=== PATIENT | male | born 1955 | race African-American/Black ===

== ENCOUNTER → 2016-08-15 | Outpatient (CLI) | payer OTHER ==
[2016-06-23 10:33] VITALS: BP 110/58
[~2016-08-15] MED LIST: ALBU2.5V14 NEB; ALBU8.5H6 INH; AMLO2.5T2 PO; AMLO5TAB4 PO; ASPI-482 PO; ASPI81TA2 PO; AZAT50TA PO; AZAT50TA10 PO; AZIT250T6 PO; BUSP15TA PO; BUTA1CAP27 PO; CALC625T20 PO; DILT120C97 PO; DILT180C2 PO; DOCU-27 PO; ERGO500012 PO; FERR-26 PO; FINA5TAB4 PO; FLUT1DIS5 IH; FLUT9.9S NS; FURO-68 PO; FURO20TA3 PO; FURO40TA4 PO; GUAI600T38 PO; IPRA0.2S5 IH; LISI-338 PO; LISI10TA PO; LISI10TA2 PO; LORA10CA PO; LORA10TA68 PO; MAGN296S PO; MAGN400T3 PO; METO50TA2 PO; METR500T PO; MULT-658 PO; OMEP40CA5 PO; POTA20TA12 PO; PRED-220 PO; RANI150C PO; RIVA20TA2 PO; SIME250C PO; SIME80TA14 PO; SIMV20TA3 PO; SULF1TAB3 PO; TAMS0.4C2 PO; TROL177. TP; ZIPR80CA2 PO
--- NOTE | 2016-08-15 11:59 | RAD ---
CT of the chest without contrast, 08/15/2016: History: Lung nodule Noncontrast scans were obtained as requested and compared to a study from 02/29/2016. There is a part solid parenchymal opacity abutting the pleura in the medial aspect of the left apex as seen on image 42 of series #3. It measures approximately 15 mm in width and has shown no definite change since 02/29/2016. A nearby 6 mm groundglass opacity in the left apex seen on image 46 of series #3 is also unchanged. A similar faint groundglass opacity seen anteriorly in the left upper lobe on image 73 of series #3 is also unchanged. A 4 mm groundglass opacity in the posterior aspect of the left upper lobe as seen on image 140 of series #3 is also unchanged. There is a calcified granuloma in the posterior aspect of the left lower lobe. A tiny groundglass opacity seen medially in the left lower lobe on image 169 of series #3 appears to be unchanged. A 6 mm rounded groundglass opacity seen laterally in the right upper lobe on image 120 of series #3 is unchanged. An elongated, multinodular appearing opacity evident in the right lower lobe on image 170 of the previous exam has resolved, compatible with an inflammatory lesion. A new elongated opacity with similar characteristics has developed anteriorly in the right lower lobe on image 201 of series #3. This is most likely on an inflammatory basis. Several tiny linear and subpleural nodular opacities in the anterolateral aspect of the right lower lobe appear to be partially calcified. These are unchanged and are compatible with scars. Additional scattered linear opacities in both lungs are probably scars. Several other very tiny nodular opacity in the lungs appear to be unchanged. There is moderate calcific plaquing of the thoracic aorta. Moderate scattered coronary artery calcifications are present. There are calcified mediastinal and left hilar lymph nodes compatible with old granulomatous disease. No mediastinal adenopathy has developed. There is no evidence of pleural fluid. A tiny radiopacity along the posterior wall of the gallbladder raises the possibility of tiny gallstones. There are surgical clips in the right renal fossa. IMPRESSION: 1. Numerous bilateral parenchymal opacities as described above are predominantly stable. 2. A new elongated right lower lobe pulmonary opacity demonstrates a configuration similar to that of a prior right lower lobe opacity which has resolved. This is probably an inflammatory lesion. Further CT surveillance is suggested. 3. Coronary artery disease. PQRS Compliance Statement: One or more of the following individualized dose reduction techniques were utilized for this examination: 1. Automated exposure control 2. Adjustment of the mA and/or kV according to patient size 3. Use of iterative reconstruction technique
== END | disposition home or self-care (01) ==
LOC: CT 07:16
PROVIDERS: ATTEND Internal Medicine Pulmonary Disease
DX: R91.1 Solitary pulmonary nodule (principal)
CPT/HCPCS: 71250

== ENCOUNTER 2016-08-26 07:17 | Emergency (ER) | payer OTHER ==
[~2016-08-26] VITALS: Ht 180.3 cm; Wt 108.4 kg
[~2016-08-26 07:17] MED LIST changes: -MAGN296S PO
--- NOTE | 2016-08-26 07:19 | PHYS DOC ---
Past Medical History Past Medical History: Bronchitis, GERD, High Cholesterol, Hypertension, Migraines, Schizophrenia Additional Past Medical Histor: PARANOID SCHIZO. Past Surgical History: Other Additional Past Surgical Histo: R nephrectomy, uvula sx, sinus polyps removed Alcohol Use: Occasionally Drug Use: None Adult General Chief Complaint Chief Complaint: CONSTIPATION HPI HPI Patient is a 61 year old male who presents with, well pain and constipation. States on he started having harder stools in the last 2 days he hasn't had any stools. States yesterday he was able to eat one meal but otherwise felt nauseated and having lower quadrant pressure sensation. He states it comes and goes, like he needs to have a bowel movement. He states he still passing gas. He has had a nephrectomy secondary to cysts in his right kidney. He states he's had issues with constipation and uses docasate, however he's never had constipation this bad. Denies any chest pain, vomiting, black tarry stools, bleeding in his stools of bright red blood, fevers or chills. Review of Systems Review of Systems Constitutional: Denies fever or chills [] Eyes: Denies change in visual acuity, redness, or eye pain [] HENT: Denies nasal congestion or sore throat [] Respiratory: Denies cough or shortness of breath [] Cardiovascular: No additional information not addressed in HPI [] GI: Denies vomiting, bloody stools or diarrhea, positive for abdominal pain and constipation. [] : Denies dysuria or hematuria [] Musculoskeletal: Denies back pain or joint pain [] Integument: Denies rash or skin lesions [] Neurologic: Denies headache, focal weakness or sensory changes [] Endocrine: Denies polyuria or polydipsia [] Current Medications Current Medications Current Medications Medications (Trade) Dose Ordered Sig/Gigi Start Time Stop Time Status Last Admin Dose Admin Iohexol 75 ml 75 ml 1X ONCE 08/26/16 08:45 08/26/16 08:46 DC 08/26/16 08:48 75 ML Sodium Chloride (Iv Sodium Chloride 0.9% 1000ml Bag) 1,000 ml @ 1,000 mls/hr 1X ONCE 08/26/16 09:45 08/26/16 10:44 08/26/16 09:53 1,000 MLS/HR Allergies Allergies Allergies Coded Allergies Type Severity Reaction Last Updated Verified chlorpromazine Allergy Intermediate 01/15/15 Yes montelukast Allergy Intermediate 01/15/15 Yes trifluoperazine Allergy Intermediate 01/15/15 Yes Physical Exam Physical Exam Constitutional: Well developed, well nourished, no acute distress, non-toxic appearance. [] HENT: Normocephalic, atraumatic, bilateral external ears normal, oropharynx moist, no oral exudates, nose normal. [] Eyes: PERRLA, EOMI, conjunctiva normal, no discharge. [] Neck: Normal range of motion, no tenderness, supple, no stridor. [] Cardiovascular:Heart rate regular rhythm, no murmur [] Lungs & Thorax: Bilateral breath sounds clear to auscultation [] Abdomen: Bowel sounds hypoactive, soft, mild tenderness palpation the lower quadrants bilaterally, no masses, no pulsatile masses. [] Skin: Warm, dry, no erythema, no rash. Large abdominal scar from his umbilicus around to his right flank that is well-healed. Back: No tenderness, no CVA tenderness. [] Extremities: No tenderness, no cyanosis, no clubbing, ROM intact, no edema. [] Neurologic: Alert and oriented X 3, normal motor function, normal sensory function, no focal deficits noted. [] Psychologic: Affect normal, judgement normal, mood normal. [] Current Patient Data Vital Signs Vital Signs Date Time Temp Pulse Resp B/P Pulse Ox O2 Delivery O2 Flow Rate FiO2 08/26/16 07:38 97.6 80 20 154/76 100 Room Air 97.6 Lab Values Laboratory Tests Test 08/26/16 07:50 08/26/16 07:55 Urine Collection Type Void Urine Color Yellow Urine Clarity Clear Urine pH 8.0 Urine Specific [place] <=1.005 Urine Protein Negativemg/dL (NEG-TRACE) Urine Glucose (UA) Negativemg/dL (NEG) Urine Ketones (Stick) Negativemg/dL (NEG) Urine Blood Negative (NEG) Urine Nitrite Negative (NEG) Urine Bilirubin Negative (NEG) Urine Urobilinogen Dipstick 0.2mg/dL (0.2 mg/dL) Urine Leukocyte Esterase Negative (NEG) Urine RBC 0/HPF (0-2) Urine WBC 0/HPF (0-4) Urine Bacteria 0/HPF (0-FEW) White Blood Count 5.7x10^3/uL (4.0-11.0) Red Blood Count 4.28x10^6/uL (4.30-5.70) L Hemoglobin 13.2g/dL (13.0-17.5) Hematocrit 40.4% (39.0-53.0) Mean Corpuscular Volume 94fL (79-100) Mean Corpuscular Hemoglobin 31pg (25-35) Mean Corpuscular Hemoglobin Concent 33g/dL (31-37) Red Cell Distribution Width 14.8% (11.5-14.5) H Platelet Count 333x10^3/uL (140-400) Neutrophils (%) (Auto) 56% (31-73) Lymphocytes (%) (Auto) 29% (24-48) Monocytes (%) (Auto) 12% (0-9) H Eosinophils (%) (Auto) 2% (0-3) Basophils (%) (Auto) 1% (0-3) Neutrophils # (Auto) 3.2x10^3uL (1.8-7.7) Lymphocytes # (Auto) 1.6x10^3/uL (1.0-4.8) Monocytes # (Auto) 0.7x10^3/uL (0.0-1.1) Eosinophils # (Auto) 0.1x10^3/uL (0.0-0.7) Basophils # (Auto) 0.1x10^3/uL (0.0-0.2) PTT 30SEC (24-38) Sodium Level 143mmol/L (136-145) Potassium Level 3.7mmol/L (3.5-5.1) Chloride Level 102mmol/L (98-107) Carbon Dioxide Level 28mmol/L (21-32) Anion Gap 13 (6-14) Blood Urea Nitrogen 24mg/dL (8-26) Creatinine 1.3mg/dL (0.7-1.3) Estimated GFR (Cockcroft-Gault) 67.5 BUN/Creatinine Ratio 18 (6-20) Glucose Level 114mg/dL (70-99) H Calcium Level 10.1mg/dL (8.5-10.1) Total Bilirubin 0.3mg/dL (0.2-1.0) Aspartate Amino Transferase (AST) 41U/L (15-37) H Alanine Aminotransferase (ALT) 60U/L (16-63) Alkaline Phosphatase 63U/L (46-116) Creatine Kinase 978U/L (39-308) H Total Protein 7.7g/dL (6.4-8.2) Albumin 4.0g/dL (3.4-5.0) Albumin/Globulin Ratio 1.1 (1.0-1.7) Lipase 135U/L (73-393) Laboratory Tests 08/26/16 07:55 Laboratory Tests 08/26/16 07:55 EKG EKG [] Radiology/Procedures Radiology/Procedures [facility] [address] [place], [place] [id number] IMAGING REPORT Signed PATIENT: JOURDAN RECINOS ACCOUNT: [id number] : 1955 LOCATION: ER AGE: 61 SEX: M EXAM STATUS: REG ER ORD. PHYSICIAN: AVA DENNIS MD REASON: abd pain PROCEDURE: ABD PELV W/ IV CONTRAST ONLY CT of the abdomen and pelvis with contrast, 08/26/2016: History: Abdominal pain Multidetector CT imaging was performed following an IV bolus injection of iodinated contrast material. No oral contrast material was administered as requested. Comparison is made to a study from 03/15/2008. There is mild streaky atelectasis in the lung bases. The unopacified liver is unremarkable. There is a faint radiopacity at the level of the gallbladder neck raising the possibility of tiny calculi. The gallbladder arango are not thickened. No pericholecystic edema is seen. The pancreas is unremarkable. The spleen is of normal size. The right kidney is surgically absent. Two low density left renal lesions are probably cysts. There are moderate motion artifacts present on the scans through this region. Moderate aortoiliac calcific plaquing is present without evidence of aneurysm. No abdominal or pelvic adenopathy is seen. The prostate gland is mildly enlarged measuring 5.3 cm in width. The urinary bladder is moderately distended. There is radiopaque material mixed with stool in the colon probably from a previous diagnostic study. A few scattered colonic diverticula are present. There is no evidence of bowel obstruction. No free fluid or free air is evident in the abdomen or pelvis. There is bilateral spondylolysis at L5 with a grade 2 spondylolisthesis at L5-S1. There are mild scattered degenerative changes at other levels in the spine. IMPRESSION: 1. Mild nonspecific prostatic enlargement. 2. Moderate bladder distention. 3. Possible cholelithiasis. 4. Status post right nephrectomy. 5. Small left renal cysts. 6. Mild colonic diverticulosis 7. Moderate spondylolisthesis at L5-S1 DICTATED and SIGNED BY: AIME WHITE MD DATE: 08/26/16904 CC: AVA DENNIS MD; MARVIN MANZANO MD ~ Impressions: Abdominal pain Course & Med Decision Making Course & Med Decision Making Pertinent Labs and Imaging studies reviewed. (See chart for details) CT scan and labs show any acute abdomen allergies. His CK is slightly elevated however he's received 2 L of normal saline. He has a normal echo within the last year. He's being discharged home with mag citrate instructed to drink half of it now than wait 6 hours and no success drinking other half. He is to follow- up with primary care physician within the next few days. Return the ER for worsening pain fevers or other concerns. Dragon Disclaimer Dragon Disclaimer This electronic medical record was generated, in whole or in part, using a voice recognition dictation system. Departure Departure Impression: Primary Impression: Constipation Disposition: 01 HOME, SELF-CARE Condition: IMPROVED Referrals: MARVIN MANZANO MD (PCP) Patient Instructions: Constipation, Adult Additional Instructions: The CAT scan and blood work did not show any abnormalities. You likely have constipation. He can take mag citrate as instructed. Drink approximate half of the bottle and if you don't have a normal bowel movement within 6 hours you can drink the other half. If you have worsening pain, uncontrolled nausea vomiting or other concerns please return back to the emergency department. Scripts Magnesium Citrate 296 Ml [id number] Ml PO ONCE #296 ML Drink one half the bottle now and if you do not have a bowel movement within 6 hours and he can drink the other half the bottle. Prov:AVA DENNIS MD 08/26/16 AVA DENNIS MD Aug 26, 2016 07:19
[2016-08-26] MEDS ORDERED: IV NORMAL SALINE 1000ML BAG 1,000 ML IV SCH (07:39)
[2016-08-26 08:12] LABS: BASO # 0.1 x10^3/uL (0.0-0.2); BASO % 1 % (0-3); EOS % 2 % (0-3); HEMATOCRIT 40.4 % (39.0-53.0); HEMOGLOBIN 13.2 g/dL (13.0-17.5); LYMPH # 1.6 x10^3/uL (1.0-4.8); LYMPH % 29 % (24-48); MEAN CORPUSCULAR HEMOGLOBIN 31 pg (25-35); MEAN CORPUSCULAR HGB CONC 33 g/dL (31-37); MEAN CORPUSCULAR VOLUME 94 fL (79-100); MONO % 12 % (0-9); NEUT % 56 % (31-73); PLATELET COUNT 333 x10^3/uL (140-400); RED BLOOD COUNT 4.28 x10^6/uL (4.30-5.70); RED CELL DISTRIBUTION WIDTH 14.8 % (11.5-14.5); WHITE BLOOD COUNT 5.7 x10^3/uL (4.0-11.0)
[2016-08-26 08:15] LABS: CALCIUM 10.1 mg/dL (8.5-10.1); CREATININE 1.3 mg/dL (0.7-1.3); GFR 67.5; POTASSIUM 3.7 mmol/L (3.5-5.1)
[2016-08-26 08:15] LABS: BILIRUBIN,URINE NEGATIVE (NEG); GLUCOSE,URINE NEGATIVE (NEG); NITRITE,URINE NEGATIVE (NEG); PROTEIN,URINE NEGATIVE (NEG-TRACE); UROBILINOGEN,URINE 0.2 mg/dL (0.2 mg/dL)
[2016-08-26 08:16] LABS: BACTERIA,URINE 0 /HPF (0-FEW); RBC,URINE 0 /HPF (0-2); WBC,URINE 0 /HPF (0-4)
[2016-08-26 08:21] LABS: ALBUMIN/GLOBULIN RATIO 1.1 (1.0-1.7); TOTAL BILIRUBIN 0.3 mg/dL (0.2-1.0); TOTAL PROTEIN 7.7 g/dL (6.4-8.2)
[2016-08-26] MEDS ORDERED: IOHEXOL 300 MG/ML 75 ML VIAL IV ONE (08:45)
--- NOTE | 2016-08-26 09:17 | RAD ---
CT of the abdomen and pelvis with contrast, 08/26/2016: History: Abdominal pain Multidetector CT imaging was performed following an IV bolus injection of iodinated contrast material. No oral contrast material was administered as requested. Comparison is made to a study from 03/15/2008. There is mild streaky atelectasis in the lung bases. The unopacified liver is unremarkable. There is a faint radiopacity at the level of the gallbladder neck raising the possibility of tiny calculi. The gallbladder arango are not thickened. No pericholecystic edema is seen. The pancreas is unremarkable. The spleen is of normal size. The right kidney is surgically absent. Two low density left renal lesions are probably cysts. There are moderate motion artifacts present on the scans through this region. Moderate aortoiliac calcific plaquing is present without evidence of aneurysm. No abdominal or pelvic adenopathy is seen. The prostate gland is mildly enlarged measuring 5.3 cm in width. The urinary bladder is moderately distended. There is radiopaque material mixed with stool in the colon probably from a previous diagnostic study. A few scattered colonic diverticula are present. There is no evidence of bowel obstruction. No free fluid or free air is evident in the abdomen or pelvis. There is bilateral spondylolysis at L5 with a grade 2 spondylolisthesis at L5-S1. There are mild scattered degenerative changes at other levels in the spine. IMPRESSION: 1. Mild nonspecific prostatic enlargement. 2. Moderate bladder distention. 3. Possible cholelithiasis. 4. Status post right nephrectomy. 5. Small left renal cysts. 6. Mild colonic diverticulosis 7. Moderate spondylolisthesis at L5-S1
[2016-08-26] MEDS ORDERED: IV NORMAL SALINE 1000ML BAG 1,000 ML IV ONE (09:45)
[2016-08-26] MEDS ORDERED: MAGN296S PO (10:44)
[2016-08-26 11:00] VITALS: BP 154/73
== END 2016-08-26 11:48 | disposition home or self-care (01) ==
LOC: ER 07:17
DX: K59.00 Constipation, unspecified (principal); K21.9 Gastro-esophageal reflux disease without esophagitis; F20.0 Paranoid schizophrenia; E78.00 Pure hypercholesterolemia, unspecified; I10 Essential (primary) hypertension; G43.909 Migraine, unspecified, not intractable, without status migrainosus; N40.0 Benign prostatic hyperplasia without lower urinary tract symptoms; Z90.5 Acquired absence of kidney; Z98.890 Other specified postprocedural states; Z88.8 Allergy status to other drugs, medicaments and biological substances
CPT/HCPCS: 36415; 74177; 80053; 81001; 82550; 83690; 85027; 85730; 96360; 96361; 99285; J7030; Q9967

== ENCOUNTER → 2016-08-27 | Day surgery (SDC) | payer OTHER ==
[~2016-08-27] MED LIST changes: +ALBUTEROL SULFATE 2.5 MG/3 ML NEBU. NEB ONE; +ALBUTEROL SULFATE 2.5 MG/3 ML NEBU. ONE; +FAMOTIDINE 20 MG/2 ML VIAL ONE; +FENTANYL PF 100 MCG/2 ML VIAL. IV PRN; +HYDROMORPHONE 2 MG/ML VIAL. IV PRN; +IV RINGERS,LACTATED 1000ML 1,000 ML IV SCH; +LIDOCAINE 1% 1 ML SYRINGE. ID PRN; +LIDOCAINE 2% PF Vial for OR 5 ML VIAL. ONE; +MAGN296S PO; +MORPHINE SULFATE 2 MG/ML DISP.SYRIN. IV PRN; +ONDANSETRON PF 4 MG/2 ML VIAL. IV PRN; +PROPOFOL 40 ML IV ONE
[2016-08-27 12:24] LABS: BASO % 1 % (0-3); EOS % 0 % (0-3); HEMATOCRIT 39.1 % (39.0-53.0); HEMOGLOBIN 12.9 g/dL (13.0-17.5); LYMPH # 1.4 x10^3/uL (1.0-4.8); LYMPH % 23 % (24-48); MEAN CORPUSCULAR HEMOGLOBIN 31 pg (25-35); MEAN CORPUSCULAR HGB CONC 33 g/dL (31-37); MEAN CORPUSCULAR VOLUME 94 fL (79-100); MONO % 12 % (0-9); NEUT % 64 % (31-73); PLATELET COUNT 325 x10^3/uL (140-400); RED BLOOD COUNT 4.14 x10^6/uL (4.30-5.70); RED CELL DISTRIBUTION WIDTH 14.7 % (11.5-14.5); WHITE BLOOD COUNT 6.1 x10^3/uL (4.0-11.0)
[2016-08-27 12:32] LABS: PROTHROMBIN TIME PATIENT 12.4 SEC (11.7-14.0)
[2016-08-27 13:42] VITALS: BP 102/48
--- NOTE | 2016-08-27 18:58 | OP ---
DATE OF SURGERY: 08/27/2016 PROCEDURE: Bronchoscopy, bronchoalveolar lavage. INDICATIONS: The patient presented with abnormal CT of the chest for persistent nodular infiltrates, compromised with Imuran and prednisone, undergoing a diagnostic bronchoscopy, rule out atypical infection. Risks, benefits and alternatives reviewed with the patient and he consented. MEDICATIONS: Please see anesthesia's notes. DESCRIPTION OF PROCEDURE: Timeout was performed prior to initiating sedation. Vital signs and O2 saturation were maintained within normal limits throughout the procedure. The bronchoscope was inserted through the right naris. The vocal cords were identified moving bilaterally without any dysfunction. The vocal cords were then anesthetized with a total of 5 mL of 4% lidocaine. The bronchoscope was passed through the vocal cords into the proximal trachea, which was normal. The distal trachea was normal. The right and left segments and subsegments were all inspected. There were no endobronchial lesions. The scope was wedged into the right lower lobe subsegment and lavage was performed, the return was clear. The patient tolerated procedure well with no immediate complications. FINDINGS: 1. Normal vocal cords. 2. No endobronchial lesions. PLAN: We will await ____ performed from right lower lobe. VIRGIL RODRIGUEZ MD DR: BRENDAN/charles JOB#: [id number] / [id number] MARVIN Oseguera MD
--- NOTE | 2016-08-28 17:34 | PATHOLOGY ---
CYTOPATHOLOGY REPORT CLINICAL HISTORY: Lung nodule. SPECIMEN(S) RECEIVED: A.Bronchoalveolar lavage, RLL FINAL DIAGNOSIS: Right lower lobe bronchoalveolar lavage, ThinPrep and silver stain: -No malignant cells identified. - Focally reactive bronchial epithelial cells and focally pigmented pulmonary macrophages are identified within a background of mucous and few inflammatory cells. - Silver stain is negative for yeast/fungi and Pneumocystis organisms. (JPM:mgr; d/t: 08/28/16) COMMENT: Special Stain Performed: GMS stain PATHOLOGIST: Corona Olguin M.D. REPORT ELECTRONICALLY SIGNED BY: Corona Olguin M.D. DATE/TIME: 08/28/2016 17:33 GROSS PATHOLOGY: A. Bronchoalveolar lavage, RLL: The specimen is submitted unfixed, labeled "Jourdan Recinos". Received by the Cytology Department is five mL of clear pink fluid. One ThinPrep slide was prepared for pap stain. One ThinPrep slide was prepared for silver stain. (clt 08.27.2016) CLIPPER COUNTERS(S): RAY Ceja(ASCP) INITIAL CPT CODE(S): A; 00634, 31876 Professional services performed [place] [address] Technical services performed by [employer] at [address] [place] [address], [facility] [address], [place] [address]. PATIENT: JOURDAN RECINOS /AGE: 11 1955 (Age: 61) SEX: M PATIENT #: [id number] CASE #: SPECIMEN COLLECTION DATE: 08/27/2016 SPECIMEN RECEIVED DATE: 08/27/[address] [facility] [address] [place] [address], [address] [place] [address] PHONE: [phone] DIRECTOR: Raúl Ortiz M.D. * * * END OF REPORT * * *
== END | disposition home or self-care (01) ==
LOC: SURG 11:00
PROVIDERS: ATTEND Internal Medicine Pulmonary Disease
DX: R91.1 Solitary pulmonary nodule (principal); Z79.01 Long term (current) use of anticoagulants
CPT/HCPCS: 31624; 36415; 85027; 85610; 87070; 87102; 87116; 87205; 88112; 88312; 94640; J2704; S0028; 31622

== ENCOUNTER → 2016-12-10 | Outpatient (CLI) | payer OTHER ==
[2016-08-27 13:42] VITALS: BP 102/48
[~2016-12-10] MED LIST changes: -ALBUTEROL SULFATE 2.5 MG/3 ML NEBU. NEB ONE; -ALBUTEROL SULFATE 2.5 MG/3 ML NEBU. ONE; +ASPI-630 PO; -ASPI81TA2 PO; -AZAT50TA10 PO; +AZAT50TA20 PO; +DILT120C80 PO; -DILT120C97 PO; +DOCU-109 PO; -DOCU-27 PO; -ERGO500012 PO; +ERGO500027 PO; -FAMOTIDINE 20 MG/2 ML VIAL ONE; -FENTANYL PF 100 MCG/2 ML VIAL. IV PRN; -GUAI600T38 PO; +GUAI600T47 PO; -HYDROMORPHONE 2 MG/ML VIAL. IV PRN; -IV RINGERS,LACTATED 1000ML 1,000 ML IV SCH; -LIDOCAINE 1% 1 ML SYRINGE. ID PRN; -LIDOCAINE 2% PF Vial for OR 5 ML VIAL. ONE; -MAGN296S PO; +MAGN296S9 PO; -MORPHINE SULFATE 2 MG/ML DISP.SYRIN. IV PRN; -ONDANSETRON PF 4 MG/2 ML VIAL. IV PRN; -PROPOFOL 40 ML IV ONE; +SULF-143 PO; -SULF1TAB3 PO
[2016-12-10 16:51] LABS: ALBUMIN 3.7 g/dL (3.4-5.0); DIRECT BILIRUBIN 0.1 mg/dL (0.0-0.2); TOTAL BILIRUBIN 0.3 mg/dL (0.2-1.0)
== END | disposition home or self-care (01) ==
LOC: LAB 15:42
PROVIDERS: ATTEND Internal Medicine Pulmonary Disease
DX: A31.2 Disseminated mycobacterium avium-intracellulare complex (DMAC) (principal)
CPT/HCPCS: 36415; 80076

== ENCOUNTER → 2017-03-17 | Outpatient (CLI) | payer OTHER ==
[2016-08-27 13:42] VITALS: BP 102/48
--- NOTE | 2017-03-17 11:58 | RAD ---
Indication follow-up pulmonary nodules. Noncontrast images through the chest were obtained and are compared to an examination 08/15/2016. Imaging through the upper abdomen shows no acute finding. There is a low-density mass similar to the previous exam compatible with a cyst associated with the left kidney. There is an additional mass involving the cephalad aspect of the kidney also unchanged and also compatible with a cyst. Surgical clips are noted in the right renal fossa. There is probable cholelithiasis. Coronary artery calcification is noted. There is no significant hilar or mediastinal adenopathy. An irregular nodular opacity at the left lung apex medially, image 11 series 2, appears unchanged. A small groundglass opacity at the left lung apex, image 12, also appears unchanged. A similar nodular opacity ventrally in the left upper lobe, image 15, is similar. A subtle groundglass opacity seen previously in the left upper lobe (on the prior study image 169 series 3) is no longer apparent and a nodular opacity in the right upper lobe, image 28, Appears unchanged. A very subtle parenchymal opacity seen previously on image 170 in the right lower lobe is no longer seen. Nodular opacities seen previously in the right lower lobe, image 201 on the previous exam is no longer apparent. an acute or new finding in the chest is not seen. IMPRESSION: Several nodular opacities in the lungs are noted appearing similar. Some of the nodules, seen previously, are no longer apparent and presumably were inflammatory in nature on the prior study. A dominant parenchymal mass or new finding is not seen PQRS Compliance Statement: One or more of the following individualized dose reduction techniques were utilized for this examination: 1. Automated exposure control 2. Adjustment of the mA and/or kV according to patient size 3. Use of iterative reconstruction technique
== END | disposition home or self-care (01) ==
LOC: CT 10:52
PROVIDERS: ATTEND Internal Medicine Pulmonary Disease
DX: R91.8 Other nonspecific abnormal finding of lung field (principal)
CPT/HCPCS: 71250

== ENCOUNTER → 2017-06-09 | Outpatient (CLI) | payer OTHER ==
[2016-08-27 13:42] VITALS: BP 102/48
[~2017-06-09] MED LIST changes: -METO50TA2 PO; +METO50TA6 PO
[2017-06-09 16:55] LABS: CALCIUM 9.7 mg/dL (8.5-10.1); CREATININE 1.3 mg/dL (0.7-1.3); DIRECT BILIRUBIN 0.2 mg/dL (0.0-0.2); GFR 67.2; POTASSIUM 4.7 mmol/L (3.5-5.1); TOTAL BILIRUBIN 0.5 mg/dL (0.2-1.0); TOTAL PROTEIN 7.9 g/dL (6.4-8.2)
== END | disposition home or self-care (01) ==
LOC: LAB 16:08
PROVIDERS: ATTEND Internal Medicine Pulmonary Disease
DX: A31.9 Mycobacterial infection, unspecified (principal)
CPT/HCPCS: 36415; 80053; 82248

== ENCOUNTER 2017-06-30 12:46 | Emergency (ER) | payer OTHER ==
[2017-06-30 13:47] LABS: INFLUENZA A PATIENT NEGATIVE (NEGATIVE); INFLUENZA B PATIENT NEGATIVE (NEGATIVE); OBC FLU VALID
== END 2017-06-30 14:00 | disposition home or self-care (01) ==
LOC: ER 12:46
DX: J44.1 Chronic obstructive pulmonary disease with (acute) exacerbation (principal); K21.9 Gastro-esophageal reflux disease without esophagitis; F20.9 Schizophrenia, unspecified; E78.00 Pure hypercholesterolemia, unspecified; I48.91 Unspecified atrial fibrillation; I10 Essential (primary) hypertension; G43.909 Migraine, unspecified, not intractable, without status migrainosus; Z88.8 Allergy status to other drugs, medicaments and biological substances
CPT/HCPCS: 71046; 87804; 87804-59; 93005; 99285-25

== ENCOUNTER → 2017-07-09 | Outpatient (CLI) | payer OTHER ==
[2017-07-09 18:17] LABS: ALBUMIN 3.9 g/dL (3.4-5.0); ALK PHOS 80 U/L (46-116); ALT (SGPT) 56 U/L (16-63); AST (SGOT) 47 U/L (15-37); DIRECT BILIRUBIN 0.1 mg/dL (0.0-0.2); TOTAL BILIRUBIN 0.3 mg/dL (0.2-1.0); TOTAL PROTEIN 7.5 g/dL (6.4-8.2)
== END | disposition home or self-care (01) ==
LOC: LAB 17:08
DX: R94.5 Abnormal results of liver function studies (principal); A31.8 Other mycobacterial infections
CPT/HCPCS: 36415; 80076

== ENCOUNTER → 2017-09-16 | Outpatient (CLI) | payer OTHER ==
[2017-09-16 08:12] LABS: ALBUMIN 3.8 g/dL (3.4-5.0); ALK PHOS 93 U/L (46-116); ALT (SGPT) 50 U/L (16-63); AST (SGOT) 34 U/L (15-37); DIRECT BILIRUBIN 0.1 mg/dL (0.0-0.2); TOTAL BILIRUBIN 0.3 mg/dL (0.2-1.0); TOTAL PROTEIN 7.8 g/dL (6.4-8.2)
== END | disposition home or self-care (01) ==
LOC: CT 07:52
DX: J84.10 Pulmonary fibrosis, unspecified (principal); K80.20 Calculus of gallbladder without cholecystitis without obstruction; I70.0 Atherosclerosis of aorta; R91.8 Other nonspecific abnormal finding of lung field
CPT/HCPCS: 36415; 71250; 80076

== ENCOUNTER 2018-03-17 17:33 | Inpatient (IN) | payer OTHER ==
[~2018-03-17] VITALS: Ht 180.3 cm; Wt 101.2 kg
[~2018-03-17 17:33] MED LIST changes: -FERR-26 PO; +FERR325T14 PO
[2018-03-17] MEDS ORDERED: FAMOTIDINE 20 MG/2 ML VIAL IVP ONE (19:45)
[2018-03-17] MEDS ORDERED: ONDANSETRON PF 4 MG/2 ML VIAL. IV ONE (19:45)
[2018-03-17] MEDS ORDERED: IV NORMAL SALINE 1000ML BAG 1,000 ML IV ONE (19:45)
[2018-03-17 19:51] LABS: BASO % 0 % (0-3); EOS % 0 % (0-3); HEMATOCRIT 33.1 % (39.0-53.0); HEMOGLOBIN 11.5 g/dL (13.0-17.5); LYMPH # 0.6 x10^3/uL (1.0-4.8); LYMPH % 7 % (24-48); MEAN CORPUSCULAR HEMOGLOBIN 31 pg (25-35); MEAN CORPUSCULAR HGB CONC 35 g/dL (31-37); MEAN CORPUSCULAR VOLUME 90 fL (79-100); MONO # 0.5 x10^3/uL (0.0-1.1); MONO % 6 % (0-9); NEUT # 7.3 x10^3uL (1.8-7.7); NEUT % 86 % (31-73); PLATELET COUNT 410 x10^3/uL (140-400); RED BLOOD COUNT 3.69 x10^6/uL (4.30-5.70); RED CELL DISTRIBUTION WIDTH 14.8 % (11.5-14.5); WHITE BLOOD COUNT 8.4 x10^3/uL (4.0-11.0)
[2018-03-17 19:52] LABS: BILIRUBIN,URINE NEGATIVE (NEG); CLARITY,URINE CLEAR; COLOR,URINE YELLOW; NITRITE,URINE NEGATIVE (NEG); PH,URINE 7.5; PROTEIN,URINE NEGATIVE (NEG-TRACE); UROBILINOGEN,URINE 0.2 mg/dL (0.2 mg/dL)
--- NOTE | 2018-03-17 19:54 | EKG ---
[facility] [address] [place] [address] Test Date: 2018-03-17 Test Time: 19:49:36 Pat Name: JOURDAN RECINOS Department: Room: Gender: Male [employer]: : 1955 Requested By: KALIN CABRERA Order Number: [id number] Reading MD: Vasile Arevalo Measurements Intervals Spearman Rate: 127 P: 90 NC: 186 QRS: -12 QRSD: 92 T: 47 QT: 280 QTc: 412 Interpretive Statements SINUS TACHYCARDIA LEFTWARD AXIS QRS(T) CONTOUR ABNORMALITY CONSIDER ANTEROSEPTAL MYOCARDIAL DAMAGE POSSIBLY ABNORMAL ECG Electronically Signed On 03-23-2018 10:17:04 CDT by Vasile Arevalo
[2018-03-17 19:58] LABS: BACTERIA,URINE 0 /HPF (0-FEW); RBC,URINE 0 /HPF (0-2); WBC,URINE OCC /HPF (0-4)
[2018-03-17 20:04] LABS: CALCIUM 9.6 mg/dL (8.5-10.1); POTASSIUM 3.9 mmol/L (3.5-5.1)
[2018-03-17 20:10] LABS: ALBUMIN 3.4 g/dL (3.4-5.0); ALBUMIN/GLOBULIN RATIO 0.9 (1.0-1.7); MAGNESIUM 1.6 mg/dL (1.8-2.4); TOTAL BILIRUBIN 0.8 mg/dL (0.2-1.0); TOTAL PROTEIN 7.2 g/dL (6.4-8.2)
[2018-03-17 20:17] LABS: % BANDS 21 % (0-9); % LYMPHS 12 % (24-48); % MONOS 3 % (0-10); % SEGS 64 % (35-66); PLT ESTIMATE INCREASED (ADEQUATE)
[2018-03-17] MEDS ORDERED: IPRATRPIUM/ALBUTEROL 0.5/2.5MG 3 ML NEBU. NEB ONE (21:30)
--- NOTE | 2018-03-17 23:28 | RAD ---
CT scan of the abdomen and pelvis with oral contrast only 03/17/2018 CLINICAL HISTORY: Lower abdominal pain. TECHNIQUE: After the oral administration contrast only, contiguous, 5 mm axial sections were obtained through the abdomen and pelvis. One or more of the following individualized dose reduction techniques were utilized for this study: 1. Automated exposure control. 2. Adjustment of the mA and/or kV according to patient size. 3. Use of iterative reconstruction technique. FINDINGS: Comparison is made to a CT scan of the abdomen and pelvis dated 08/26/2016. Images through the lung bases demonstrate mild cardiomegaly. The liver, spleen, pancreas, and adrenal glands are within normal limits. Rounded low-attenuation lesions are seen involving the left kidney. These likely represent cysts. These measure 2.7 to 3.3 cm in size. The patient is post right nephrectomy. Atherosclerotic calcification of the abdominal aorta is seen. The abdominal aorta tapers normally. No free fluid or free air is seen within the abdomen. There is no evidence of bowel obstruction. The gallbladder is slightly contracted. Calcified gallstones are seen within the gallbladder. Images through the pelvis demonstrate the urinary bladder distended with urine. The prostate gland is enlarged likely related to BPH. Calcifications are seen within the pelvis consistent with phleboliths. No free fluid is seen. Very mild S-shaped curvature of the thoracolumbar spine is noted. Degenerative changes are seen involving the lower thoracic and throughout the lumbar spine and both hips. IMPRESSION: No acute abnormality is seen. Electronically signed by: Bruno Wilkins MD (03/17/2018 11:25 PM) [facility]
--- NOTE | 2018-03-17 23:36 | PHYS DOC ---
Past Medical History Past Medical History: A-Fib, Bronchitis, GERD, High Cholesterol, Hypertension, Migraines, Schizophrenia Additional Past Medical Histor: PARANOID SCHIZO. Past Surgical History: Other Additional Past Surgical Histo: R nephrectomy, uvula sx, sinus polyps removed Alcohol Use: Occasionally Drug Use: None Adult General Chief Complaint Chief Complaint: ABDOMINAL PAIN HPI HPI 62-year-old male presents with right lower quadrant abdominal pain 2 days. Patient does report some nausea without vomiting. Denies any diarrhea. Patient does report having bowel movements that were "smaller than normal ". Denies fever or chills. Patient reports he does not feel well. Denies recent travel outside [place]. Denies known sick contacts. Review of Systems Review of Systems Constitutional: Denies fever or chills; reports generalized malaise Eyes: Denies change in visual acuity, redness, or eye pain [] HENT: Denies nasal congestion or sore throat [] Respiratory: Denies cough or shortness of breath [] Cardiovascular: Denies chest pain or syncope GI: Reports abdominal pain and nausea; denies vomiting, bloody stools or diarrhea [] : Denies dysuria or hematuria [] Musculoskeletal: Denies back pain or joint pain [] Integument: Denies rash or skin lesions [] Neurologic: Denies headache, focal weakness or sensory changes [] Complete systems were reviewed and found to be within normal limits, except as documented in this note. Current Medications Current Medications Current Medications Medications (Trade) Dose Ordered Sig/Gigi Start Time Stop Time Status Last Admin Dose Admin Albuterol/ Ipratropium (Duoneb) 3 ml 1X ONCE 03/17/18 21:30 03/17/18 21:31 DC 03/17/18 22:13 3 ML Famotidine (Pepcid Vial) 20 mg 1X ONCE 03/17/18 19:45 03/17/18 19:47 DC 03/17/18 19:45 20 MG Ondansetron HCl (Zofran) 4 mg 1X ONCE 03/17/18 19:45 03/17/18 19:47 DC 03/17/18 19:45 4 MG Sodium Chloride 1,000 ml @ 1,000 mls/hr 1X ONCE 03/17/18 19:45 03/17/18 20:44 DC 03/17/18 19:45 1,000 MLS/HR Allergies Allergies Allergies Coded Allergies Type Severity Reaction Last Updated Verified chlorpromazine Allergy Intermediate 08/27/16 Yes montelukast Allergy Intermediate 08/27/16 Yes trifluoperazine Allergy Intermediate 08/27/16 Yes Physical Exam Physical Exam Constitutional: Well developed, well nourished, anxious, non-toxic appearance. [ ] HENT: Normocephalic, atraumatic, oropharynx moist Eyes: PERRL, EOMI, conjunctiva normal, no discharge. [] Neck: Normal range of motion, no tenderness, supple, no stridor. [] Cardiovascular: Tachycardiac rate, CR < 2 sec Lungs & Thorax: Bilateral breath sounds clear to auscultation [] Abdomen: Soft, RLQ tenderness Skin: Warm, dry, no erythema, no rash. [] Back: No tenderness, no CVA tenderness. [] Extremities: No tenderness, ROM intact, no edema. [] Neurologic: Alert and oriented X 3, normal motor function, normal sensory function, no focal deficits noted. [] Psychologic: judgement normal, mood anxious Current Patient Data Vital Signs Vital Signs Date Time Temp Pulse Resp B/P (MAP) Pulse Ox O2 Delivery O2 Flow Rate FiO2 03/18/18 00:00 115 142/86 (104) 98 Room Air 03/17/18 22:00 18 03/17/18 19:15 99.5 99.5 Lab Values Laboratory Tests Test 03/17/18 19:10 03/17/18 19:35 Urine Collection Type Unknown Urine Color Yellow Urine Clarity Clear Urine pH 7.5 Urine Specific [place] 1.010 Urine Protein Negative mg/dL (NEG-TRACE) Urine Glucose (UA) Negative mg/dL (NEG) Urine Ketones (Stick) Negative mg/dL (NEG) Urine Blood Negative (NEG) Urine Nitrite Negative (NEG) Urine Bilirubin Negative (NEG) Urine Urobilinogen Dipstick 0.2 mg/dL (0.2 mg/dL) Urine Leukocyte Esterase Negative (NEG) Urine RBC 0 /HPF (0-2) Urine WBC Occ /HPF (0-4) Urine Bacteria 0 /HPF (0-FEW) White Blood Count 8.4 x10^3/uL (4.0-11.0) Red Blood Count 3.69 x10^6/uL (4.30-5.70) L Hemoglobin 11.5 g/dL (13.0-17.5) L Hematocrit 33.1 % (39.0-53.0) L Mean Corpuscular Volume 90 fL (79-100) Mean Corpuscular Hemoglobin 31 pg (25-35) Mean Corpuscular Hemoglobin Concent 35 g/dL (31-37) Red Cell Distribution Width 14.8 % (11.5-14.5) H Platelet Count 410 x10^3/uL (140-400) H Neutrophils (%) (Auto) 86 % (31-73) H Lymphocytes (%) (Auto) 7 % (24-48) L Monocytes (%) (Auto) 6 % (0-9) Eosinophils (%) (Auto) 0 % (0-3) Basophils (%) (Auto) 0 % (0-3) Neutrophils # (Auto) 7.3 x10^3uL (1.8-7.7) Lymphocytes # (Auto) 0.6 x10^3/uL (1.0-4.8) L Monocytes # (Auto) 0.5 x10^3/uL (0.0-1.1) Eosinophils # (Auto) 0.0 x10^3/uL (0.0-0.7) Basophils # (Auto) 0.0 x10^3/uL (0.0-0.2) Segmented Neutrophils % 64 % (35-66) Band Neutrophils % 21 % (0-9) H Lymphocytes % 12 % (24-48) L Monocytes % 3 % (0-10) Platelet Estimate Increased (ADEQUATE) Prothrombin Time 14.0 SEC (11.7-14.0) Prothrombin Time INR 1.1 (0.8-1.1) PTT 34 SEC (24-38) Sodium Level 126 mmol/L (136-145) L Potassium Level 3.9 mmol/L (3.5-5.1) Chloride Level 92 mmol/L (98-107) L Carbon Dioxide Level 23 mmol/L (21-32) Anion Gap 11 (6-14) Blood Urea Nitrogen 14 mg/dL (8-26) Creatinine 1.0 mg/dL (0.7-1.3) Estimated GFR (Cockcroft-Gault) 91.0 BUN/Creatinine Ratio 14 (6-20) Glucose Level 94 mg/dL (70-99) Calcium Level 9.6 mg/dL (8.5-10.1) Magnesium Level 1.6 mg/dL (1.8-2.4) L Total Bilirubin 0.8 mg/dL (0.2-1.0) Aspartate Amino Transferase (AST) 67 U/L (15-37) H Alanine Aminotransferase (ALT) 74 U/L (16-63) H Alkaline Phosphatase 127 U/L (46-116) H Creatine Kinase 803 U/L (39-308) H Creatine Kinase MB (Mass) 8.0 ng/mL (0.0-3.6) H Creatine Kinase MB Relative Index 1.0 % (0-4) Troponin I Quantitative 0.026 ng/mL (0.000-0.055) Total Protein 7.2 g/dL (6.4-8.2) Albumin 3.4 g/dL (3.4-5.0) Albumin/Globulin Ratio 0.9 (1.0-1.7) L Lipase 101 U/L (73-393) Laboratory Tests 03/17/18 19:35 Laboratory Tests 03/17/18 19:35 EKG EKG @1949: Sinus tachycardia at 127bpm, J point elevation noted in V2-V3 without reciprocal changes. Radiology/Procedures Radiology/Procedures PROCEDURE: CT ABD PEL W/ORAL CONTRST ONLY CT scan of the abdomen and pelvis with oral contrast only 03/17/2018 CLINICAL HISTORY: Lower abdominal pain. TECHNIQUE: After the oral administration contrast only, contiguous, 5 mm axial sections were obtained through the abdomen and pelvis. One or more of the following individualized dose reduction techniques were utilized for this study: 1. Automated exposure control. 2. Adjustment of the mA and/or kV according to patient size. 3. Use of iterative reconstruction technique. FINDINGS: Comparison is made to a CT scan of the abdomen and pelvis dated 08/26/2016. Images through the lung bases demonstrate mild cardiomegaly. The liver, spleen, pancreas, and adrenal glands are within normal limits. Rounded low-attenuation lesions are seen involving the left kidney. These likely represent cysts. These measure 2.7 to 3.3 cm in size. The patient is post right nephrectomy. Atherosclerotic calcification of the abdominal aorta is seen. The abdominal aorta tapers normally. No free fluid or free air is seen within the abdomen. There is no evidence of bowel obstruction. The gallbladder is slightly contracted. Calcified gallstones are seen within the gallbladder. Images through the pelvis demonstrate the urinary bladder distended with urine. The prostate gland is enlarged likely related to BPH. Calcifications are seen within the pelvis consistent with phleboliths. No free fluid is seen. Very mild S-shaped curvature of the thoracolumbar spine is noted. Degenerative changes are seen involving the lower thoracic and throughout the lumbar spine and both hips. IMPRESSION: No acute abnormality is seen. Electronically signed by: Bruno Wilkins MD (03/17/2018 11:25 PM) [facility] Course & Med Decision Making Course & Med Decision Making Pertinent Labs and Imaging studies reviewed. (See chart for details) Patient presents with lower abdominal pain with associated nausea. Afebrile. Patient appears very anxious. Patient noted to be tachycardic. Symptomatic treatment provided. IV fluid hydration provided. Labs obtained and posted to chart. Hyponatremia and bandemia appreciated. Given heart rate and bandemia patient does meet SIRS criteria. CT abdomen/pelvis obtained without acute process. Lactic acid within normal limits. Blood cultures obtained. Patient requiring admission for further evaluation and treatment. Order placed for admission to Dr. Angel. Left multiple message throughout night. Plan to trial again in the AM and if unsuccessful will admit under hospitalist service. Attempted again in AM. Discussed case with Dr. Haywood who will continue to attempt to connect with Dr. Angel. Discussed findings and plan with patient, who acknowledges understanding and agreement. Dragon Disclaimer Dragon Disclaimer This electronic medical record was generated, in whole or in part, using a voice recognition dictation system. Departure Departure Impression: Primary Impression: Abdominal pain Additional Impressions: Bandemia Hyponatremia SIRS (systemic inflammatory response syndrome) Disposition: 09 ADMITTED INPATIENT Admitting Physician: Ricco Angel Condition: STABLE Referrals: RICCO ANGEL MD (PCP) Problem Qualifiers Primary Impression: Abdominal pain Abdominal location: lower abdomen, unspecified Qualified Codes: R10.30 - Lower abdominal pain, unspecified KALIN CABRERA DO Mar 17, 2018 23:35
[2018-03-18] MEDS ORDERED: ACETAMINOPHEN 325 MG TABLET. PO PRN (00:15)
[2018-03-18] MEDS ORDERED: ONDANSETRON PF 4 MG/2 ML VIAL. IV PRN (00:15)
[2018-03-18] MEDS ORDERED: ATOR40TA PO (01:46)
[2018-03-18] MEDS ORDERED: BUTA1CAP27 PO (01:46)
[2018-03-18] MEDS ORDERED: DIPH25CA20 PO (01:46)
[2018-03-18] MEDS ORDERED: PRED-220 PO (01:46)
[2018-03-18] MEDS ORDERED: RIFA300C3 PO (01:46)
[2018-03-18] MEDS ORDERED: AZIT250T6 PO (01:46)
[2018-03-18] MEDS ORDERED: OMEG-57 PO (01:46)
[2018-03-18] MEDS ORDERED: GUAI600T47 PO (01:46)
[2018-03-18] MEDS ORDERED: FERR-36 PO (01:46)
[2018-03-18] MEDS ORDERED: [UNRECOGNIZED DRUG - CODE] PO (02:14)
[2018-03-18 03:00] VITALS: BP 142/93
[2018-03-18 07:00] VITALS: BP 145/71
[2018-03-18] MEDS: ALBUTEROL SULFATE 2.5 MG/3 ML NEBU. NEB PRN ×3 (07:50→15:51)
[2018-03-18] MEDS ORDERED: INFLUENZA VAX SCREEN BY RX. MC ONE (09:00)
--- NOTE | 2018-03-18 09:18 | RAD ---
Chest, 2 views, 03/18/2018: HISTORY: Pneumonia Comparison is made to a study from 06/30/2017. The heart size and pulmonary vascularity are normal. There is minimal streaky bibasilar opacities compatible with atelectasis. A component of pneumonia cannot be excluded. The left lung is clear. There is no evidence of pleural fluid. Several nonspecific air-fluid levels are noted in the upper abdomen. IMPRESSION: Minimal streaky bibasilar atelectasis. Electronically signed by: Van Summers MD (03/18/2018 9:15 AM) [facility]
[2018-03-18 09:20] LABS: CALCIUM 9.4 mg/dL (8.5-10.1); CREATININE 1.2 mg/dL (0.7-1.3); GFR 73.8; POTASSIUM 4.6 mmol/L (3.5-5.1)
[2018-03-18 11:00] VITALS: BP 142/94
[2018-03-18] MEDS ORDERED: MAGNESIUM SULFATE 2GM 50 ML IV ONE (11:00)
[2018-03-18] MEDS ORDERED: HYDR-2758 PO (11:03)
[2018-03-18] MEDS: METOPROLOL TART IMMED RELEASE 50 MG TABLET. PO SCH ×2 (11:29→20:41)
[2018-03-18] MEDS: HYDROcodone/APAP 5/325MG 1 TAB TABLET PO PRN ×2 (11:30→17:19)
--- NOTE | 2018-03-18 14:58 | PDOC1 ---
History and Physical Date of Admission Date of Admission 03/18/18 Identification/Chief Complaint Chief Complaint Abdominal pain Problems: (1) Sepsis (2) Community acquired bacterial pneumonia (3) SIRS (systemic inflammatory response syndrome) (4) Bandemia (5) Ileus (6) Abdominal pain (7) Pedal edema (8) Hyponatremia Source Source: Patient History of Present Illness History of Present Illness Patient is a 62yo M with hx of a.fib, HTN, HLD, schizophrenia, anxiety p/w two days of abdominal pain. Patient states three days ago he may have had some enchiladas that didn't sit well in his stomach. Subsequently, he was bed bound for 2 days, without taking meds, without eating or drinking much fluid. He presented to ER last night with RLQ abdominal pain, generalized, relieved by defecation. He states last two stools have been diarrhea. No blood in the stool. Some mild nausea, but no vomiting or constipation. He denies any cough or fever or chills. He states he's been taking all meds as prescribed. He is on chronic immunosuppressive therapy but does not know the reason why. Past Medical History Cardiovascular: AFIB, HTN Pulmonary: Asthma, Bronchitis CENTRAL NERVOUS SYSTEM: Other GI: GERD, Other Heme/Onc: Anemia NOS Hepatobiliary: No pertinent hx Psych: Anxiety, Depression, Schizophrenia Infectious disease: No pertinent hx Renal/: Chronic renal insuff Endocrine: No pertinent hx Past Surgical History Past Surgical History: Other Family History Family History: Heart Disease Social History ALCOHOL: social Drugs: None Current Problem List Problem List Problems Medical Problems: (1) Abdominal pain Status: Acute (2) Bandemia Status: Acute (3) Hyponatremia Status: Acute (4) SIRS (systemic inflammatory response syndrome) Status: Acute Current Medications Current Medications Current Medications Medications (Trade) Dose Ordered Sig/Gigi Start Time Stop Time Status Last Admin Dose Admin Acetaminophen (Tylenol) 650 mg PRN Q4HRS PRN 03/18/18 00:15 03/19/18 00:14 03/18/18 10:29 650 MG Acetaminophen/ Hydrocodone Bitart (Lortab 5/325) 1 tab PRN Q6HRS PRN 03/18/18 11:15 03/18/18 11:30 1 TAB Albuterol Sulfate (Ventolin Neb Soln) 2.5 mg PRN Q4HRS PRN 03/18/18 08:00 03/18/18 12:52 2.5 MG Albuterol/ Ipratropium (Duoneb) 3 ml 1X ONCE 03/17/18 21:30 03/17/18 21:31 DC 03/17/18 22:13 3 ML Famotidine (Pepcid Vial) 20 mg 1X ONCE 03/17/18 19:45 03/17/18 19:47 DC 03/17/18 19:45 20 MG Guaifenesin (Mucinex) 600 mg BID 03/18/18 11:30 03/18/18 11:29 600 MG Influenza Virus Vaccine (Afluria Trivalent [id number] Syringe) 0.5 ml ONCE ONCE 03/18/18 09:00 03/18/18 09:01 DC Info (Do NOT chart on this placeholder) 1 each 1X ONCE 03/18/18 09:00 03/18/18 09:01 UNV Magnesium Sulfate 50 ml @ 25 mls/hr 1X ONCE 03/18/18 11:00 03/18/18 12:59 DC 03/18/18 11:31 25 MLS/HR Metoprolol Tartrate (Lopressor) 100 mg BID 03/18/18 11:00 03/18/18 11:29 100 MG Morphine Sulfate (Morphine Sulfate) 2 mg PRN Q4HRS PRN 03/18/18 14:45 Ondansetron HCl (Zofran) 4 mg PRN Q8HRS PRN 03/18/18 00:15 03/19/18 00:14 Rivaroxaban (Xarelto) 20 mg [id number] 03/18/18 17:00 Sodium Chloride 1,000 ml @ 1,000 mls/hr 1X ONCE 03/17/18 19:45 03/17/18 20:44 DC 03/17/18 19:45 1,000 MLS/HR Allergies Allergies Allergies Coded Allergies Type Severity Reaction Last Updated Verified chlorpromazine Allergy Intermediate 08/27/16 Yes montelukast Allergy Intermediate 08/27/16 Yes trifluoperazine Allergy Intermediate 08/27/16 Yes ROS Review of System CONSTITUTIONAL: No fever or chills EYES: No recent changes SKIN: No rash or itching CARDIOVASCULAR: No chest pain, syncope, palpitations, or edema RESPIRATORY: No SOB or cough GASTROINTESTINAL: + nausea, no vomiting, +abdominal pain NEUROLOGICAL: No headaches or weakness ENDOCRINE: No cold or heat intolerance GENITOURINARY: No urgency or frequency of urination MUSCULOSKELETAL: No back pain or joint pain LYMPHATICS: No enlarged lymph nodes PSYCHIATRIC: No anxiety or depression Physical Exam Physical Exam GEN.: No apparent distress. Alert and oriented. HEENT: Head is normocephalic, atraumatic NECK: Supple. LUNGS: Clear to auscultation. HEART: RRR, S1, S2 present. Peripheral pulses intact ABDOMEN: Soft, nontender. Positive bowel sounds. EXTREMITIES: Without any cyanosis. +1 edema bilateral lower extremities NEUROLOGIC: Normal speech, normal tone PSYCHIATRIC: Normal affect, normal mood. SKIN: No ulcerations Vitals Vitals Vital Signs Date Time Temp Pulse Resp B/P (MAP) Pulse Ox O2 Delivery O2 Flow Rate FiO2 03/18/18 12:53 97 Room Air 03/18/18 11:29 129 145/71 03/18/18 11:00 97.9 97.9 03/17/18 22:00 18 Labs Labs Laboratory Tests Test 03/17/18 19:10 03/17/18 19:35 03/18/18 03:25 03/18/18 06:20 Urine Collection Type Unknown Urine Color Yellow Urine Clarity Clear Urine pH 7.5 Urine Specific [place] 1.010 Urine Protein Negative mg/dL (NEG-TRACE) Urine Glucose (UA) Negative mg/dL (NEG) Urine Ketones (Stick) Negative mg/dL (NEG) Urine Blood Negative (NEG) Urine Nitrite Negative (NEG) Urine Bilirubin Negative (NEG) Urine Urobilinogen Dipstick 0.2 mg/dL (0.2 mg/dL) Urine Leukocyte Esterase Negative (NEG) Urine RBC 0 /HPF (0-2) Urine WBC Occ /HPF (0-4) Urine Bacteria 0 /HPF (0-FEW) White Blood Count 8.4 x10^3/uL (4.0-11.0) Red Blood Count 3.69 x10^6/uL (4.30-5.70) Hemoglobin 11.5 g/dL (13.0-17.5) Hematocrit 33.1 % (39.0-53.0) Mean Corpuscular Volume 90 fL (79-100) Mean Corpuscular Hemoglobin 31 pg (25-35) Mean Corpuscular Hemoglobin Concent 35 g/dL (31-37) Red Cell Distribution Width 14.8 % (11.5-14.5) Platelet Count 410 x10^3/uL (140-400) Neutrophils (%) (Auto) 86 % (31-73) Lymphocytes (%) (Auto) 7 % (24-48) Monocytes (%) (Auto) 6 % (0-9) Eosinophils (%) (Auto) 0 % (0-3) Basophils (%) (Auto) 0 % (0-3) Neutrophils # (Auto) 7.3 x10^3uL (1.8-7.7) Lymphocytes # (Auto) 0.6 x10^3/uL (1.0-4.8) Monocytes # (Auto) 0.5 x10^3/uL (0.0-1.1) Eosinophils # (Auto) 0.0 x10^3/uL (0.0-0.7) Basophils # (Auto) 0.0 x10^3/uL (0.0-0.2) Segmented Neutrophils % 64 % (35-66) Band Neutrophils % 21 % (0-9) Lymphocytes % 12 % (24-48) Monocytes % 3 % (0-10) Platelet Estimate Increased (ADEQUATE) Prothrombin Time 14.0 SEC (11.7-14.0) Prothromb Time International Ratio 1.1 (0.8-1.1) Activated Partial Thromboplast Time 34 SEC (24-38) Sodium Level 126 mmol/L (136-145) 130 mmol/L (136-145) Potassium Level 3.9 mmol/L (3.5-5.1) 4.6 mmol/L (3.5-5.1) Chloride Level 92 mmol/L (98-107) 95 mmol/L (98-107) Carbon Dioxide Level 23 mmol/L (21-32) 24 mmol/L (21-32) Anion Gap 11 (6-14) 11 (6-14) Blood Urea Nitrogen 14 mg/dL (8-26) 12 mg/dL (8-26) Creatinine 1.0 mg/dL (0.7-1.3) 1.2 mg/dL (0.7-1.3) Estimated GFR (Cockcroft-Gault) 91.0 73.8 BUN/Creatinine Ratio 14 (6-20) Glucose Level 94 mg/dL (70-99) 75 mg/dL (70-99) Calcium Level 9.6 mg/dL (8.5-10.1) 9.4 mg/dL (8.5-10.1) Magnesium Level 1.6 mg/dL (1.8-2.4) Total Bilirubin 0.8 mg/dL (0.2-1.0) Aspartate Amino Transf (AST/SGOT) 67 U/L (15-37) Alanine Aminotransferase (ALT/SGPT) 74 U/L (16-63) Alkaline Phosphatase 127 U/L (46-116) Creatine Kinase 803 U/L (39-308) Creatine Kinase MB (Mass) 8.0 ng/mL (0.0-3.6) Creatine Kinase MB Relative Index 1.0 % (0-4) Troponin I Quantitative 0.026 ng/mL (0.000-0.055) 0.040 ng/mL (0.000-0.055) 0.035 ng/mL (0.000-0.055) Total Protein 7.2 g/dL (6.4-8.2) Albumin 3.4 g/dL (3.4-5.0) Albumin/Globulin Ratio 0.9 (1.0-1.7) Lipase 101 U/L (73-393) Lactic Acid Level 0.9 mmol/L (0.4-2.0) Serum Osmolality 269 mOsm/Kg (279-304) Laboratory Tests Test 03/17/18 19:10 03/17/18 19:35 03/18/18 03:25 03/18/18 06:20 Urine Collection Type Unknown Urine Color Yellow Urine Clarity Clear Urine pH 7.5 Urine Specific [place] 1.010 Urine Protein Negative mg/dL (NEG-TRACE) Urine Glucose (UA) Negative mg/dL (NEG) Urine Ketones (Stick) Negative mg/dL (NEG) Urine Blood Negative (NEG) Urine Nitrite Negative (NEG) Urine Bilirubin Negative (NEG) Urine Urobilinogen Dipstick 0.2 mg/dL (0.2 mg/dL) Urine Leukocyte Esterase Negative (NEG) Urine RBC 0 /HPF (0-2) Urine WBC Occ /HPF (0-4) Urine Bacteria 0 /HPF (0-FEW) White Blood Count 8.4 x10^3/uL (4.0-11.0) Red Blood Count 3.69 x10^6/uL (4.30-5.70) Hemoglobin 11.5 g/dL (13.0-17.5) Hematocrit 33.1 % (39.0-53.0) Mean Corpuscular Volume 90 fL (79-100) Mean Corpuscular Hemoglobin 31 pg (25-35) Mean Corpuscular Hemoglobin Concent 35 g/dL (31-37) Red Cell Distribution Width 14.8 % (11.5-14.5) Platelet Count 410 x10^3/uL (140-400) Neutrophils (%) (Auto) 86 % (31-73) Lymphocytes (%) (Auto) 7 % (24-48) Monocytes (%) (Auto) 6 % (0-9) Eosinophils (%) (Auto) 0 % (0-3) Basophils (%) (Auto) 0 % (0-3) Neutrophils # (Auto) 7.3 x10^3uL (1.8-7.7) Lymphocytes # (Auto) 0.6 x10^3/uL (1.0-4.8) Monocytes # (Auto) 0.5 x10^3/uL (0.0-1.1) Eosinophils # (Auto) 0.0 x10^3/uL (0.0-0.7) Basophils # (Auto) 0.0 x10^3/uL (0.0-0.2) Segmented Neutrophils % 64 % (35-66) Band Neutrophils % 21 % (0-9) Lymphocytes % 12 % (24-48) Monocytes % 3 % (0-10) Platelet Estimate Increased (ADEQUATE) Prothrombin Time 14.0 SEC (11.7-14.0) Prothromb Time International Ratio 1.1 (0.8-1.1) Activated Partial Thromboplast Time 34 SEC (24-38) Sodium Level 126 mmol/L (136-145) 130 mmol/L (136-145) Potassium Level 3.9 mmol/L (3.5-5.1) 4.6 mmol/L (3.5-5.1) Chloride Level 92 mmol/L (98-107) 95 mmol/L (98-107) Carbon Dioxide Level 23 mmol/L (21-32) 24 mmol/L (21-32) Anion Gap 11 (6-14) 11 (6-14) Blood Urea Nitrogen 14 mg/dL (8-26) 12 mg/dL (8-26) Creatinine 1.0 mg/dL (0.7-1.3) 1.2 mg/dL (0.7-1.3) Estimated GFR (Cockcroft-Gault) 91.0 73.8 BUN/Creatinine Ratio 14 (6-20) Glucose Level 94 mg/dL (70-99) 75 mg/dL (70-99) Calcium Level 9.6 mg/dL (8.5-10.1) 9.4 mg/dL (8.5-10.1) Magnesium Level 1.6 mg/dL (1.8-2.4) Total Bilirubin 0.8 mg/dL (0.2-1.0) Aspartate Amino Transf (AST/SGOT) 67 U/L (15-37) Alanine Aminotransferase (ALT/SGPT) 74 U/L (16-63) Alkaline Phosphatase 127 U/L (46-116) Creatine Kinase 803 U/L (39-308) Creatine Kinase MB (Mass) 8.0 ng/mL (0.0-3.6) Creatine Kinase MB Relative Index 1.0 % (0-4) Troponin I Quantitative 0.026 ng/mL (0.000-0.055) 0.040 ng/mL (0.000-0.055) 0.035 ng/mL (0.000-0.055) Total Protein 7.2 g/dL (6.4-8.2) Albumin 3.4 g/dL (3.4-5.0) Albumin/Globulin Ratio 0.9 (1.0-1.7) Lipase 101 U/L (73-393) Lactic Acid Level 0.9 mmol/L (0.4-2.0) Serum Osmolality 269 mOsm/Kg (279-304) VTE Prophylaxis Ordered VTE Prophylaxis Devices: Yes VTE Pharmacological Prophylaxi: No Assessment/Plan Assessment/Plan 62yo M with hx of elda on chronic anticoagulation, HTN, HLD, paranoid schizophrenia, anxiety and depression, presents with abdominal pain, admitted for SIRS, bandemia and acute hyponatremia. 1. Sepsis: source is CAP, bp stable, start Levofloxacin 03/18/18, fluids prn. Pt with home meds of Azathioprine and prednisone for unknown reason 2. CAP: cont Levofloxacin 3. Ileus: source of abd pain, NPO for now 4. Hyponatremia: likely due to drinking fluids but not eating and not taking his usual dose of Lasix, corrected with bolus in ER of isotonic fluids, diurese with usual dose of Lasix 5. Peripheral edema: restart Lasix po 6. HTN: controlled, hold on meds for now 7. A.fib: restart metoprolol, cont xarelto 8. Abdominal pain: likely a viral gastroenteritis at first, but now working diagnosis is Ileus from CAP FEN: NPO until Ileus resolves, replete lytes PPx: on Xarelto Dispo: cont inpt care Problem Qualifiers (1) Abdominal pain: Abdominal location: lower abdomen, unspecified Qualified Codes: R10.30 - Lower abdominal pain, unspecified RICCO ANGEL MD Mar 18, 2018 14:58
[2018-03-18 15:00] VITALS: BP 122/78
[2018-03-18] MEDS: FUROSEMIDE 40 MG TABLET. PO SCH (15:18)
[2018-03-18] MEDS: FINASTERIDE 5 MG TABLET. PO SCH (15:18)
[2018-03-18] MEDS: MORPHINE SULFATE 2 MG/ML VIAL. IV PRN ×2 (15:19→20:42)
[2018-03-18] MEDS: LIDO:MAALOX 1:1 20 ML SINGLE DOSE. PO PRN ×2 (17:18→22:49)
[2018-03-18] MEDS: RIVAROXABAN 10 MG TABLET. PO SCH (17:18)
--- NOTE | 2018-03-18 17:51 | RAD ---
EXAM: Abdomen, single view. HISTORY: Right lower quadrant pain. COMPARISON: 03/17/2018 FINDINGS: A frontal view of the abdomen is obtained. There are distended air-filled loops of bowel throughout the upper and mid abdomen. There is contrast within the distal colon and rectum. There is clonic diverticulosis. There are clips within the right abdomen. No clear transition point is seen. There is severe right hip degenerative change. IMPRESSION: Prominent air-filled loops of bowel throughout the upper and mid abdomen. No clear transition point is seen. This may be due to ileus or low-grade distal obstruction. Electronically signed by: Elba Cole MD (03/18/2018 5:48 PM) [id number]
[2018-03-18 19:00] VITALS: BP 139/85
[2018-03-18] MEDS: TAMSULOSIN 0.4 MG CAP.ER.24H. PO SCH (20:40)
[2018-03-18] MEDS ORDERED: MORPHINE SULFATE 4 MG/ML VIAL. IV PRN (22:30)
[2018-03-18] MEDS: MORPHINE SULFATE 4 MG/ML VIAL. IV PRN (22:50)
[2018-03-18] MEDS: IV NORMAL SALINE 1000ML BAG 1,000 ML IV SCH (22:51)
[2018-03-18 23:00] VITALS: BP 144/67
[2018-03-19 03:00] VITALS: BP 144/117
[2018-03-19 04:46] LABS: BASO % 0 % (0-3); EOS % 0 % (0-3); HEMATOCRIT 31.6 % (39.0-53.0); LYMPH # 1.1 x10^3/uL (1.0-4.8); LYMPH % 12 % (24-48); MEAN CORPUSCULAR HEMOGLOBIN 31 pg (25-35); MEAN CORPUSCULAR HGB CONC 35 g/dL (31-37); MEAN CORPUSCULAR VOLUME 91 fL (79-100); MONO # 1.1 x10^3/uL (0.0-1.1); MONO % 12 % (0-9); NEUT # 6.9 x10^3uL (1.8-7.7); NEUT % 76 % (31-73); PLATELET COUNT 364 x10^3/uL (140-400); RED BLOOD COUNT 3.49 x10^6/uL (4.30-5.70); RED CELL DISTRIBUTION WIDTH 14.7 % (11.5-14.5); WHITE BLOOD COUNT 9.2 x10^3/uL (4.0-11.0)
[2018-03-19 05:33] LABS: ALBUMIN 3.1 g/dL (3.4-5.0); ALBUMIN/GLOBULIN RATIO 0.7 (1.0-1.7); CALCIUM 9.2 mg/dL (8.5-10.1); CREATININE 1.1 mg/dL (0.7-1.3); GFR 81.5; POTASSIUM 4.4 mmol/L (3.5-5.1); TOTAL BILIRUBIN 0.5 mg/dL (0.2-1.0); TOTAL PROTEIN 7.3 g/dL (6.4-8.2)
[2018-03-19 07:00] VITALS: BP 156/87
--- NOTE | 2018-03-19 08:26 | PDOC ---
PROGRESS NOTES Subjective Subjective Patient doing well, no bm but passing gas. Denies any cough or shortness of breath. No fever or chills subjectively. Abdominal pain much improved especially after NPO. Admits that pain worsened after eating yesterday ROS Gen: denies fever/chills HEENT: no headache Cards: denies chest pain, palpitations Pulm: denies wheezing, cough GI: no n/v/d/c : no dysuria Skin: no rashes/lesions Objective Objective Vital Signs Date Time Temp Pulse Resp B/P (MAP) Pulse Ox O2 Delivery O2 Flow Rate FiO2 03/19/18 03:00 99.7 117 18 144/117 (126) 95 Room Air 99.7 Intake and Output 03/19/18 07:00 Intake Total 240 ml Output Total 1400 ml Balance -1160 ml Intake Oral 240 ml Output Urine Total 1400 ml # Voids 2 Physical Exam Physical Exam Physical Exam GEN.: No apparent distress. Alert and oriented. HEENT: Head is normocephalic, atraumatic NECK: Supple. LUNGS: Clear to auscultation. No wheezes or rales HEART: RRR, S1, S2 present. Peripheral pulses intact ABDOMEN: Soft, nontender. Positive bowel sounds. EXTREMITIES: Without any cyanosis. +1 edema bilateral lower extremities NEUROLOGIC: Normal speech, normal tone PSYCHIATRIC: Normal affect, normal mood. SKIN: No ulcerations Assessment Assessment Problems Medical Problems: (1) Abdominal pain Status: Acute (2) Bandemia Status: Acute (3) Hyponatremia Status: Acute (4) SIRS (systemic inflammatory response syndrome) Status: Acute Plan Plan of Care Assessment/Plan 62yo M with hx of elda on chronic anticoagulation, asthma, HTN, HLD, paranoid schizophrenia, anxiety and depression, presents with abdominal pain, admitted for SIRS, bandemia and acute hyponatremia, found to have bacteremia, community acquired pneumonia and an ileus. Of note, pt has Azathioprine, Prednisone and Rifampin on home med list. Pt does not know why he's on chronic immunosuppression, and he does not know why Rifampin is prescribed to him. 1. Sepsis: source is bacteremia and CAP, bp stable, started Levofloxacin later changed to Zosyn/Zyvox 03/19/18. MIVF. Of note, Pt with home meds of Azathioprine and prednisone for unknown reason 2. Bacteremia: gram+ cocci in chains, f/u c/s, ID consulted, appreciate recs 3. CAP: cont abx, stable 4. Ileus: improved, source of abd pain, NPO for now 5. Acute on chronic asthma exacerbation: pulm consulted, pt followed by Dr. Garcia as outpt, aerosols, steroids 6. Hypontremia: likely due to drinking fluids but not eating and not taking his usual dose of Lasix, corrected with bolus in ER of isotonic fluids, diurese with usual dose of Lasix 7. Peripheral edema: restart Lasix po 8. HTN: controlled, hold on meds for now 9. A.fib: restart metoprolol, cont xarelto 10. Abdominal pain: improved, likely a viral gastroenteritis at first, but now working diagnosis is Ileus from CAP/bacteremia FEN: NPO until Ileus resolves, replete lytes PPx: on Xarelto Dispo: cont inpt care Comment Review of Relevant I have reviewed the following items kae (where applicable) has been applied. Labs Laboratory Tests Test 03/17/18 19:10 03/17/18 19:35 03/18/18 03:25 03/18/18 06:20 Urine Collection Type Unknown Urine Color Yellow Urine Clarity Clear Urine pH 7.5 Urine Specific [place] 1.010 Urine Protein Negative mg/dL (NEG-TRACE) Urine Glucose (UA) Negative mg/dL (NEG) Urine Ketones (Stick) Negative mg/dL (NEG) Urine Blood Negative (NEG) Urine Nitrite Negative (NEG) Urine Bilirubin Negative (NEG) Urine Urobilinogen Dipstick 0.2 mg/dL (0.2 mg/dL) Urine Leukocyte Esterase Negative (NEG) Urine RBC 0 /HPF (0-2) Urine WBC Occ /HPF (0-4) Urine Bacteria 0 /HPF (0-FEW) White Blood Count 8.4 x10^3/uL (4.0-11.0) Red Blood Count 3.69 x10^6/uL (4.30-5.70) Hemoglobin 11.5 g/dL (13.0-17.5) Hematocrit 33.1 % (39.0-53.0) Mean Corpuscular Volume 90 fL (79-100) Mean Corpuscular Hemoglobin 31 pg (25-35) Mean Corpuscular Hemoglobin Concent 35 g/dL (31-37) Red Cell Distribution Width 14.8 % (11.5-14.5) Platelet Count 410 x10^3/uL (140-400) Neutrophils (%) (Auto) 86 % (31-73) Lymphocytes (%) (Auto) 7 % (24-48) Monocytes (%) (Auto) 6 % (0-9) Eosinophils (%) (Auto) 0 % (0-3) Basophils (%) (Auto) 0 % (0-3) Neutrophils # (Auto) 7.3 x10^3uL (1.8-7.7) Lymphocytes # (Auto) 0.6 x10^3/uL (1.0-4.8) Monocytes # (Auto) 0.5 x10^3/uL (0.0-1.1) Eosinophils # (Auto) 0.0 x10^3/uL (0.0-0.7) Basophils # (Auto) 0.0 x10^3/uL (0.0-0.2) Segmented Neutrophils % 64 % (35-66) Band Neutrophils % 21 % (0-9) Lymphocytes % 12 % (24-48) Monocytes % 3 % (0-10) Platelet Estimate Increased (ADEQUATE) Prothrombin Time 14.0 SEC (11.7-14.0) Prothromb Time International Ratio 1.1 (0.8-1.1) Activated Partial Thromboplast Time 34 SEC (24-38) Sodium Level 126 mmol/L (136-145) 130 mmol/L (136-145) Potassium Level 3.9 mmol/L (3.5-5.1) 4.6 mmol/L (3.5-5.1) Chloride Level 92 mmol/L (98-107) 95 mmol/L (98-107) Carbon Dioxide Level 23 mmol/L (21-32) 24 mmol/L (21-32) Anion Gap 11 (6-14) 11 (6-14) Blood Urea Nitrogen 14 mg/dL (8-26) 12 mg/dL (8-26) Creatinine 1.0 mg/dL (0.7-1.3) 1.2 mg/dL (0.7-1.3) Estimated GFR (Cockcroft-Gault) 91.0 73.8 BUN/Creatinine Ratio 14 (6-20) Glucose Level 94 mg/dL (70-99) 75 mg/dL (70-99) Calcium Level 9.6 mg/dL (8.5-10.1) 9.4 mg/dL (8.5-10.1) Magnesium Level 1.6 mg/dL (1.8-2.4) Total Bilirubin 0.8 mg/dL (0.2-1.0) Aspartate Amino Transf (AST/SGOT) 67 U/L (15-37) Alanine Aminotransferase (ALT/SGPT) 74 U/L (16-63) Alkaline Phosphatase 127 U/L (46-116) Creatine Kinase 803 U/L (39-308) Creatine Kinase MB (Mass) 8.0 ng/mL (0.0-3.6) Creatine Kinase MB Relative Index 1.0 % (0-4) Troponin I Quantitative 0.026 ng/mL (0.000-0.055) 0.040 ng/mL (0.000-0.055) 0.035 ng/mL (0.000-0.055) Total Protein 7.2 g/dL (6.4-8.2) Albumin 3.4 g/dL (3.4-5.0) Albumin/Globulin Ratio 0.9 (1.0-1.7) Lipase 101 U/L (73-393) Lactic Acid Level 0.9 mmol/L (0.4-2.0) Serum Osmolality 269 mOsm/Kg (279-304) Test 03/19/18 03:35 White Blood Count 9.2 x10^3/uL (4.0-11.0) Red Blood Count 3.49 x10^6/uL (4.30-5.70) Hemoglobin 11.0 g/dL (13.0-17.5) Hematocrit 31.6 % (39.0-53.0) Mean Corpuscular Volume 91 fL (79-100) Mean Corpuscular Hemoglobin 31 pg (25-35) Mean Corpuscular Hemoglobin Concent 35 g/dL (31-37) Red Cell Distribution Width 14.7 % (11.5-14.5) Platelet Count 364 x10^3/uL (140-400) Neutrophils (%) (Auto) 76 % (31-73) Lymphocytes (%) (Auto) 12 % (24-48) Monocytes (%) (Auto) 12 % (0-9) Eosinophils (%) (Auto) 0 % (0-3) Basophils (%) (Auto) 0 % (0-3) Neutrophils # (Auto) 6.9 x10^3uL (1.8-7.7) Lymphocytes # (Auto) 1.1 x10^3/uL (1.0-4.8) Monocytes # (Auto) 1.1 x10^3/uL (0.0-1.1) Eosinophils # (Auto) 0.0 x10^3/uL (0.0-0.7) Basophils # (Auto) 0.0 x10^3/uL (0.0-0.2) Sodium Level 129 mmol/L (136-145) Potassium Level 4.4 mmol/L (3.5-5.1) Chloride Level 95 mmol/L (98-107) Carbon Dioxide Level 22 mmol/L (21-32) Anion Gap 12 (6-14) Blood Urea Nitrogen 13 mg/dL (8-26) Creatinine 1.1 mg/dL (0.7-1.3) Estimated GFR (Cockcroft-Gault) 81.5 BUN/Creatinine Ratio 12 (6-20) Glucose Level 85 mg/dL (70-99) Calcium Level 9.2 mg/dL (8.5-10.1) Total Bilirubin 0.5 mg/dL (0.2-1.0) Aspartate Amino Transf (AST/SGOT) 49 U/L (15-37) Alanine Aminotransferase (ALT/SGPT) 64 U/L (16-63) Alkaline Phosphatase 131 U/L (46-116) Total Protein 7.3 g/dL (6.4-8.2) Albumin 3.1 g/dL (3.4-5.0) Albumin/Globulin Ratio 0.7 (1.0-1.7) Laboratory Tests Test 03/19/18 03:35 White Blood Count 9.2 x10^3/uL (4.0-11.0) Red Blood Count 3.49 x10^6/uL (4.30-5.70) Hemoglobin 11.0 g/dL (13.0-17.5) Hematocrit 31.6 % (39.0-53.0) Mean Corpuscular Volume 91 fL (79-100) Mean Corpuscular Hemoglobin 31 pg (25-35) Mean Corpuscular Hemoglobin Concent 35 g/dL (31-37) Red Cell Distribution Width 14.7 % (11.5-14.5) Platelet Count 364 x10^3/uL (140-400) Neutrophils (%) (Auto) 76 % (31-73) Lymphocytes (%) (Auto) 12 % (24-48) Monocytes (%) (Auto) 12 % (0-9) Eosinophils (%) (Auto) 0 % (0-3) Basophils (%) (Auto) 0 % (0-3) Neutrophils # (Auto) 6.9 x10^3uL (1.8-7.7) Lymphocytes # (Auto) 1.1 x10^3/uL (1.0-4.8) Monocytes # (Auto) 1.1 x10^3/uL (0.0-1.1) Eosinophils # (Auto) 0.0 x10^3/uL (0.0-0.7) Basophils # (Auto) 0.0 x10^3/uL (0.0-0.2) Sodium Level 129 mmol/L (136-145) Potassium Level 4.4 mmol/L (3.5-5.1) Chloride Level 95 mmol/L (98-107) Carbon Dioxide Level 22 mmol/L (21-32) Anion Gap 12 (6-14) Blood Urea Nitrogen 13 mg/dL (8-26) Creatinine 1.1 mg/dL (0.7-1.3) Estimated GFR (Cockcroft-Gault) 81.5 BUN/Creatinine Ratio 12 (6-20) Glucose Level 85 mg/dL (70-99) Calcium Level 9.2 mg/dL (8.5-10.1) Total Bilirubin 0.5 mg/dL (0.2-1.0) Aspartate Amino Transf (AST/SGOT) 49 U/L (15-37) Alanine Aminotransferase (ALT/SGPT) 64 U/L (16-63) Alkaline Phosphatase 131 U/L (46-116) Total Protein 7.3 g/dL (6.4-8.2) Albumin 3.1 g/dL (3.4-5.0) Albumin/Globulin Ratio 0.7 (1.0-1.7) Microbiology 03/18/18 Blood Culture - Preliminary, Resulted NO GROWTH AFTER 1 DAY Medications Current Medications Ondansetron HCl (Zofran) 4 mg 1X ONCE IV Last administered on 03/17/18at 19:45 ; Start 03/17/18 at 19:45; Stop 03/17/18 at 19:47; Status DC Famotidine (Pepcid Vial) 20 mg 1X ONCE IVP Last administered on 03/17/18at 19: 45; Start 03/17/18 at 19:45; Stop 03/17/18 at 19:47; Status DC Sodium Chloride 1,000 ml @ 1,000 mls/hr 1X ONCE IV Last administered on at 19:45; Start 03/17/18 at 19:45; Stop 03/17/18 at 20:44; Status DC Albuterol/ Ipratropium (Duoneb) 3 ml 1X ONCE NEB Last administered on at 22:13; Start 03/17/18 at 21:30; Stop 03/17/18 at 21:31; Status DC Ondansetron HCl (Zofran) 4 mg PRN Q8HRS PRN IV NAUSEA/VOMITING; Start 03/18/18 at 00:15; Stop 03/19/18 at 00:14; Status DC Acetaminophen (Tylenol) 650 mg PRN Q4HRS PRN PO FEVER Last administered on 03/18at 10:29; Start 03/18/18 at 00:15; Stop 03/19/18 at 00:14; Status DC Info (Do NOT chart on this placeholder) 1 each 1X ONCE MC ; Start 03/18/18 at 09:00; Stop 03/18/18 at 09:01; Status UNV Influenza Virus Vaccine (Afluria Trivalent [id number] Syringe) 0.5 ml ONCE ONCE VAX IM ; Start 03/18/18 at 09:00; Stop 03/18/18 at 09:01; Status DC Albuterol Sulfate (Ventolin Neb Soln) 2.5 mg PRN Q4HRS PRN NEB SHORTNESS OF BREATH Last administered on 03/18/18at 15:51; Start 03/18/18 at 08:00 Guaifenesin (Mucinex) 600 mg QHS PO ; Start 03/18/18 at 21:00; Stop 03/18/18 at 21:00; Status DC Metoprolol Tartrate (Lopressor) 100 mg BID PO Last administered on 03/18/18at 20 :41; Start 03/18/18 at 11:00 Magnesium Sulfate 50 ml @ 25 mls/hr 1X ONCE IV Last administered on 03/18/18at 11:31; Start 03/18/18 at 11:00; Stop 03/18/18 at 12:59; Status DC Guaifenesin (Mucinex) 600 mg BID PO Last administered on 03/18/18at 20:40; Start 03/18/18 at 11:30 Rivaroxaban (Xarelto) 20 mg DAILYWSUP PO Last administered on 03/18/18at 17:18; Start 03/18/18 at 17:00 Acetaminophen/ Hydrocodone Bitart (Lortab 5/325) 1 tab PRN Q6HRS PRN PO MODERATE PAIN Last administered on 03/18/18at 17:19; Start 03/18/18 at 11:15 Morphine Sulfate (Morphine Sulfate) 2 mg PRN Q4HRS PRN IV PAIN Last administered on 03/18/18at 20:42; Start 03/18/18 at 14:45; Stop 03/18/18 at 22:20 ; Status DC Furosemide (Lasix) 40 mg DAILY PO Last administered on 03/18/18at 15:18; Start 03/18/18 at 15:00 Finasteride (Proscar) 5 mg DAILY PO Last administered on 03/18/18at 15:18; Start 03/18/18 at 15:30 Tamsulosin HCl (Flomax) 0.4 mg BID PO Last administered on 03/18/18at 20:40; Start 03/18/18 at 21:00 Multi-Ingredient Mouthwash/Gargle (Gi Cocktail) 20 ml PRN QID PRN PO CHEST PAIN Last administered on 03/18/18at 22:49; Start 03/18/18 at 17:00 Levofloxacin (Levaquin) 750 mg DAILY PO ; Start 03/18/18 at 22:15; Status Cancel Morphine Sulfate (Morphine Sulfate) 4 mg PRN Q2HR PRN IV PAIN; Start 03/18/18 at 22:30; Stop 03/18/18 at 22:30; Status DC Morphine Sulfate (Morphine Sulfate) 4 mg PRN Q4HRS PRN IV PAIN Last administered on 03/18/18at 22:50; Start 03/18/18 at 22:30 Sodium Chloride 1,000 ml @ 50 mls/hr Q20H IV Last administered on 03/18/18at 22 :51; Start 03/18/18 at 22:45 Levofloxacin/ Dextrose 150 ml @ 100 mls/hr Q24H IV Last administered on at 22:52; Start 03/18/18 at 22:30 Active Scripts Active Reported Hydrocodone-Apap 5-325 (Hydrocodone Bit/Acetaminophen) 1 Each Tablet 1 Tab PO PRN Q6HRS PRN Mucus Relief (Guaifenesin) 400 Mg Tablet 400 Mg PO HS Mucinex (Guaifenesin) 600 Mg Tablet.er 1 Tab PO QHS Banophen (Diphenhydramine Hcl) 25 Mg Capsule 25 Mg PO QHS Rifampin 300 Mg Capsule 600 Mg PO DAILY Iron (Ferrous Sulfate) 325 Mg Tablet 975 Mg PO DAILY Prednisone (Prednisone) 10 Mg Tablet 10 Mg PO QODAY Mhpajddn-Aaemyzrhixjmb-Lmuy Cp (Butalb/Acetaminophen/Caffeine) 1 Each Capsule 1 Each PO PRN Q8HRS PRN Fish Oil + D3 Softgel ([place]-3S/Dha/Epa/Fish Oil/D3) 1 Each Capsule 1 Each PO Azithromycin Tablet (Azithromycin) 250 Mg Tablet 250 Mg PO DAILY Lipitor (Atorvastatin Calcium) 40 Mg Tablet 1 Tab PO QHS Imuran (Azathioprine) 50 Mg Tablet 1 Tab PO BID Aspercreme (Trolamine Salicylate) 177.4 Ml Lotion 177.4 Ml TP Omeprazole 40 Mg Capsule.dr 1 Cap PO DAILY Xarelto (Rivaroxaban) 20 Mg Tablet 20 Mg PO Lisinopril 5 Mg Tablet 2 Tab PO DAILY Centrum Silver Tablet (Multivits-Min/Fa/Lycopene/Lut) 1 Each Tablet 1 Each PO NEXT DOSE: 02/05/16 IN AM Furosemide 40 Mg Tablet 40 Mg PO DAILY NEXT DOSE: 02/05/16 IN AM Metoprolol Tartrate 50 Mg Tablet 100 Mg PO BID NEXT DOSE: 02/04/16 AT BEDTIME Aspir 81 (Aspirin) 81 Mg Tablet.dr 1 Tab PO DAILY NEXT DOSE: 02/05/16 in AM Ipratropium [place] 0.2 Mg/1 Ml Solution 0.2 Mg IH Albuterol Sulfate Conc Neb Soln (Albuterol Sulfate) 2.5 Mg/0.5 Ml Vial.neb 2.5 Mg NEB Claritin (Loratadine) 10 Mg Tablet 10 Mg PO DAILY NEXT DOSE: 02/05/16 IN AM Magnesium Oxide 400 Mg Tablet 400 Mg PO DAILY NEXT DOSE: 02/05/16 IN AM Colace (Docusate Sodium) 100 Mg Capsule 1 Cap PO BID PRN TAKE ONCE A DAY NEEDED FOR CONSTIPATION Vitamin D2 (Ergocalciferol (Vitamin D2)) 50,000 Unit Capsule 50,000 Unit PO WEEKLY CONTINUE TO TAKE DIRECTED Ferrous Sulfate 325 Mg Tablet 1 Tab PO TID CONTINUE TO TAKE DIRECTED Advair 500-50 Diskus (Fluticasone/Salmeterol) 1 Each Disk.w.dev 1 Puff IH BID NEXT DOSE: 02/04/16 AT BEDTIME Tamsulosin Hcl 0.4 Mg Cap.er.24h 2 Cap PO BID Next dose: 02/04/16 AT BEDTIME Finasteride 5 Mg Tablet 1 Tab PO HS NEXT DOSE: 02/05/16 IN AM Buspirone Hcl 15 Mg Tablet 1 Tab PO BID NEXT DOSE DUE: 02/04/16 AT BEDTIME Vitals/I & O Vital Sign - Last 24 Hours 03/18/18 03/18/18 03/18/18 03/18/18 11:00 11:29 11:30 12:53 Temp 97.9 97.9 Pulse 122 129 B/P (MAP) 142/94 (110) 145/71 Pulse Ox 93 99 97 O2 Delivery Room Air Room Air Room Air 03/18/18 03/18/18 03/18/18 03/18/18 15:00 15:17 15:19 15:49 Temp 97.9 97.9 Pulse 102 Resp 20 22 20 B/P (MAP) 122/78 (93) Pulse Ox 98 97 97 98 O2 Delivery Room Air Room Air Room Air Room Air 03/18/18 03/18/18 03/18/18 03/18/18 15:51 17:19 19:00 20:00 Temp 100.2 100.2 Pulse 113 Resp 22 20 B/P (MAP) 139/85 (103) Pulse Ox 98 98 96 O2 Delivery Room Air Room Air Room Air Room Air 03/18/18 03/18/18 03/18/18 03/18/18 20:41 20:42 22:50 23:00 Temp 99.7 99.7 Pulse 119 100 Resp 20 20 18 B/P (MAP) 137/74 144/67 (92) Pulse Ox 98 98 96 O2 Delivery Room Air Room Air Room Air 03/18/18 03/19/18 23:50 03:00 Temp 99.7 99.7 Pulse 117 Resp 18 B/P (MAP) 144/117 (126) Pulse Ox 95 95 O2 Delivery Room Air Room Air Intake and Output 03/18/18 03/18/18 03/19/18 15:00 23:00 07:00 Intake Total 240 ml 0 ml Output Total 550 ml 500 ml 350 ml Balance -550 ml -260 ml -350 ml RICCO ANGEL MD Mar 19, 2018 08:26
--- NOTE | 2018-03-19 09:00 | RAD ---
Portable chest, 03/19/2018: HISTORY: Fever, cough Comparison is made to a study from 03/18/2018. The heart size and pulmonary vascularity are normal. There is mild streaky right basilar atelectasis/infiltrate obscuring the hemidiaphragm. The left lung is clear. No pleural fluid is seen. IMPRESSION: Mild right basilar atelectasis/infiltrate. Electronically signed by: Van Summers MD (03/19/2018 8:56 AM) [facility]
[2018-03-19] MEDS: FINASTERIDE 5 MG TABLET. PO SCH (09:11)
[2018-03-19] MEDS: FUROSEMIDE 40 MG TABLET. PO SCH (09:12)
[2018-03-19] MEDS: TAMSULOSIN 0.4 MG CAP.ER.24H. PO SCH ×2 (09:12→21:44)
[2018-03-19] MEDS: METOPROLOL TART IMMED RELEASE 50 MG TABLET. PO SCH ×2 (09:12→21:43)
[2018-03-19] MEDS: HYDROcodone/APAP 5/325MG 1 TAB TABLET PO PRN ×2 (09:19→19:26)
[2018-03-19] MEDS: ACETAMINOPHEN 325 MG TABLET. PO PRN (09:29)
[2018-03-19 11:00] VITALS: BP 121/78
[2018-03-19] MEDS: ALBUTEROL SULFATE 2.5 MG/3 ML NEBU. NEB PRN (11:57)
--- NOTE | 2018-03-19 12:25 | CONS ---
DATE OF CONSULTATION: ATTENDING PHYSICIAN: Dr. Andrez Norman. REASON FOR CONSULTATION: Dyspnea, wheezing. HISTORY OF PRESENT ILLNESS: The patient is a 62-year-old male who has history of schizophrenia, hypertension. Has only few years of tobacco use. He presented to the hospital with 2 days of abdominal pain. He says he had some enchiladas that did not do well with his stomach. The patient had some loose stools as well. He had a chest x-ray, which was abnormal and reviewed by me and shows right lower lobe atelectasis. I have been asked to see him for further evaluation. The patient states that he has intermittent coughing and wheezing. The patient said he has been told that he has chronic bronchitis. He has a very minimal history of tobacco use. The patient states that whenever he has wheezing, his cough increases. He takes Advair, which usually does the job for him, but at this hospital we do not have any steroid inhaler and as a result, he is still wheezing. PAST MEDICAL HISTORY: History of asthma, history of AFib, hypertension, gastroesophageal reflux disease along with anxiety, depression, schizophrenia and chronic renal insufficiency. PAST SURGICAL HISTORY: No recent surgeries. ALLERGIES: CHLORPROMAZINE, SINGULAIR AND TRIFLUOPERAZINE. FAMILY HISTORY: Noncontributory to lungs. SOCIAL HISTORY: Nonsmoker, nonalcoholic. CURRENT MEDICATIONS: Reviewed as listed in the MRAD. REVIEW OF SYSTEMS: Twelve-point system obtained. Pertinent positives discussed in my history of present illness, otherwise noncontributory. All systems that were negative were reviewed as well. PHYSICAL EXAMINATION: VITAL SIGNS: He had a T-max of 100.6, blood pressure stable, pulse ox 97% on room air. HEENT: Sclerae nonicteric. NECK: Supple. LUNGS: With faint expiratory wheezes. CARDIOVASCULAR: Regular rate. ABDOMEN: Soft, nontender. EXTREMITIES: With ankle edema. LABORATORY DATA: Reviewed. White cell count 9.2, hemoglobin 11.0, platelets are 364. BUN is 13 and creatinine 1.1. IMPRESSION: 1. Fever, likely related to gastroenteritis. However, cannot rule out right lower lobe pneumonia as the source as well. 2. Asthma and cough is a manifestation of asthma. Currently, he has bronchospasm. He needs to be maximized on bronchodilator treatment and addition of steroid will be helpful. 3. Fever. 4. History of atrial fibrillation, on chronic anticoagulation. RECOMMENDATIONS: 1. We will add scheduled DuoNebs. 2. Add Pulmicort nebulizer as well. 3. Add IV steroids. 4. Continue empiric antibiotics. 5. Follow blood cultures and monitor chest x-ray. 6. Anticoagulation per PCP. 7. We will follow along with you. ISRAEL CONNELLY MD DR: DUTCH/charles JOB#: [id number] / [id number]
[2018-03-19] MEDS: BUDESONIDE 0.5 MG/2 ML NEBU. NEB SCH ×2 (12:30→20:00)
[2018-03-19] MEDS: IPRATRPIUM/ALBUTEROL 0.5/2.5MG 3 ML NEBU. NEB SCH ×3 (12:30→20:00)
[2018-03-19] MEDS: methylPREDNISolone SOD SUCC PF 40 MG/ML VIAL. IV SCH ×2 (14:25→21:42)
[2018-03-19 15:00] VITALS: BP 147/84
[2018-03-19] MEDS: MORPHINE SULFATE 4 MG/ML VIAL. IV PRN (16:47)
--- NOTE | 2018-03-19 16:52 | PDOC ---
Provider Note Provider Note Pt seen consult dictated [id number] IMP: Bacteremia abdominal pain Nausea bronchitis high lft REC: zosyn and zyvox u/s abdomen f/u c/s results GAYLA LANG MD Mar 19, 2018 16:52
[2018-03-19] MEDS: PIPERACILLIN/TAZOBACTAM 3.375 GM in IV NORMAL SALINE 50ML 50 ML IV SCH ×2 (17:28→23:46)
[2018-03-19] MEDS: RIVAROXABAN 10 MG TABLET. PO SCH (17:28)
[2018-03-19 19:00] VITALS: BP 140/81
[2018-03-19] MEDS ORDERED: MORPHINE SULFATE 2 MG/ML VIAL. IV PRN (20:45)
[2018-03-19] MEDS: IV NORMAL SALINE 1000ML BAG 1,000 ML IV SCH ×2 (21:46→23:47)
[2018-03-19 23:00] VITALS: BP 119/70
--- NOTE | 2018-03-19 23:55 | CONS ---
DATE OF CONSULTATION: 03/19/2018 REFERRING PHYSICIAN: Andrez Norman M.D. REASON FOR CONSULTATION: Positive blood culture. HISTORY OF PRESENT ILLNESS: A 62-year-old male with history of schizophrenia and hypertension, admitted to the hospital with a 2-day history of abdominal pain. He said he had some enchilada that did not taste good, subsequent to which he started having some loose stools and nausea with a right upper and mid quadrant abdominal pain. He had a CT of the abdomen and pelvis, which was nonrevealing. Chest x-ray showed a right lower lobe atelectasis. He has intermittent coughing with wheezing. He denied any fevers or chills. He still continues to have a right upper quadrant pain and with nausea and diarrhea has resolved. Lab showed hyponatremia. High LFTs. Normal lactate. High CK. WBC was normal. Hemoglobin is stable. Platelet is within normal limits. UA is negative. The patient was started on empiric Levaquin and ID consult has been requested as blood culture today was reported positive 1/4 bottles with gram-positive cocci in chains. ID and CHIVO is pending at this time. The patient denies any trouble with urination. PAST MEDICAL HISTORY: AFib, hypertension, asthma, bronchitis, GERD, anemia, anxiety, depression, schizophrenia and chronic renal insufficiency. PAST SURGICAL HISTORY: None. FAMILY HISTORY: As per HPI. SOCIAL HISTORY: ETOH: Social. Drugs: None. Smoking intermittently. MEDICATIONS: IV Levaquin, Xarelto, Zofran, morphine sulfate, Lopressor, famotidine, guaifenesin, albuterol and acetaminophen. ALLERGIES: CHLORPROMAZINE, MONTELUKAST and TRIFLUOPERAZINE. REVIEW OF SYSTEMS: Negative except for above in HPI. PHYSICAL EXAMINATION: VITAL SIGNS: T-max 100.6 and 98.8, pulse 114, blood pressure 147/84, respiratory rate 18 and oxygen saturation 98% on room air. GENERAL: Alert and oriented x 3 ambulant male, in no acute distress, lying comfortably in bed. HEENT: Sclerae are anicteric. No thrush. Oral mucosa moist. Pupils equal and reactive. NECK: Supple. LUNGS: Decreased breath sounds at the bases with some wheezing. HEART: S1 and S2. Tachycardia. No murmurs. ABDOMEN: Soft and nondistended. Mild tenderness present right upper quadrant on deep palpation. No rebound. No guarding. Bowel sounds present. EXTREMITIES: Trace edema. DERMATOLOGICAL: No generalized rash. CENTRAL NERVOUS SYSTEM: Grossly nonfocal. LABORATORY DATA: WBC 9.0, hemoglobin 11 and platelets 364. BUN 13 and creatinine 1.1. UA negative. CK 803. AST 49, ALT 64, alkaline phosphatase 131, total bilirubin 0.5, total protein 7.3 and albumin 3.1. MICROBIOLOGY: Blood culture 1/4 bottles positive for gram-positive cocci in chains. ID and CHIVO pending at this time. RADIOLOGICAL DATA: Abdominal CT: No acute abnormality. Chest x-ray shows right basilar atelectasis. KUB shows a prominent air filled loops of bowel throughout the upper and mid abdomen. No clear transition point. This may be due to ileus or low grade distal obstruction. IMPRESSION: 1. Sepsis, etiology unclear. 2. Ileus with abdominal pain and nausea; Etiology could be from gastroenteritis with above history. 3. Immunosuppression with home medications of azathioprine and prednisone for unknown reason. 4. Hyponatremia. 5. Blood cultures positive /4 for gram-positive cocci in chains. ID and CHIVO pending at this time. 6. Hypertension/peripheral edema. 7. Atrial fibrillation. 8. Abn LFT with nausea. RECOMMENDATIONS: 1. Discontinue Levaquin. 2. Start empiric Zosyn and Zyvox. 3. Follow up blood culture results. 4. Follow up labs in a.m. 5. We will obtain ultrasound of abdomen Thank you, Dr. Norman for consulting Infectious Disease to participate in this patient's care. If you have any questions, do not hesitate to contact me. GAYLA LANG MD DR: CICI/charles JOB#: [id number] / [id number] ISMAEL
[2018-03-20 03:00] VITALS: BP 141/83
[2018-03-20] MEDS: HYDROcodone/APAP 5/325MG 1 TAB TABLET PO PRN ×2 (04:09→11:56)
[2018-03-20 05:43] LABS: BASO % 0 % (0-3); EOS % 0 % (0-3); HEMATOCRIT 31.4 % (39.0-53.0); HEMOGLOBIN 10.7 g/dL (13.0-17.5); LYMPH # 0.9 x10^3/uL (1.0-4.8); LYMPH % 10 % (24-48); MEAN CORPUSCULAR HEMOGLOBIN 31 pg (25-35); MEAN CORPUSCULAR HGB CONC 34 g/dL (31-37); MEAN CORPUSCULAR VOLUME 90 fL (79-100); MONO # 0.7 x10^3/uL (0.0-1.1); MONO % 9 % (0-9); NEUT # 6.9 x10^3uL (1.8-7.7); NEUT % 81 % (31-73); PLATELET COUNT 381 x10^3/uL (140-400); RED BLOOD COUNT 3.47 x10^6/uL (4.30-5.70); RED CELL DISTRIBUTION WIDTH 14.7 % (11.5-14.5); WHITE BLOOD COUNT 8.6 x10^3/uL (4.0-11.0)
[2018-03-20] MEDS: PIPERACILLIN/TAZOBACTAM 3.375 GM in IV NORMAL SALINE 50ML 50 ML IV SCH ×4 (06:08→23:33)
[2018-03-20 06:09] LABS: ALBUMIN 2.9 g/dL (3.4-5.0); ALBUMIN/GLOBULIN RATIO 0.7 (1.0-1.7); CALCIUM 9.8 mg/dL (8.5-10.1); CREATININE 1.1 mg/dL (0.7-1.3); GFR 81.5; POTASSIUM 4.7 mmol/L (3.5-5.1); TOTAL BILIRUBIN 0.4 mg/dL (0.2-1.0); TOTAL PROTEIN 7.2 g/dL (6.4-8.2)
[2018-03-20] MEDS: methylPREDNISolone SOD SUCC PF 40 MG/ML VIAL. IV SCH ×3 (06:09→21:04)
[2018-03-20 07:00] VITALS: BP 148/94
[2018-03-20] MEDS: BUDESONIDE 0.5 MG/2 ML NEBU. NEB SCH ×2 (07:11→21:35)
[2018-03-20] MEDS: IPRATRPIUM/ALBUTEROL 0.5/2.5MG 3 ML NEBU. NEB SCH ×4 (07:11→21:35)
[2018-03-20] MEDS: IV NORMAL SALINE 1000ML BAG 1,000 ML IV SCH ×3 (08:17→23:34)
[2018-03-20] MEDS: FINASTERIDE 5 MG TABLET. PO SCH (09:11)
[2018-03-20] MEDS: FUROSEMIDE 40 MG TABLET. PO SCH (09:11)
[2018-03-20] MEDS: TAMSULOSIN 0.4 MG CAP.ER.24H. PO SCH ×2 (09:11→21:05)
[2018-03-20] MEDS: METOPROLOL TART IMMED RELEASE 50 MG TABLET. PO SCH ×2 (09:12→21:06)
--- NOTE | 2018-03-20 09:33 | PDOC ---
PULMONARY PROGRESS NOTES Subjective cough resolved Vitals Vital Signs Date Time Temp Pulse Resp B/P (MAP) Pulse Ox O2 Delivery O2 Flow Rate FiO2 03/20/18 09:12 115 148/94 03/20/18 07:14 99 Room Air 03/20/18 07:00 97.7 18 97.7 General: Alert, No acute distress Lungs: Clear Cardiovascular: S1, S2 Abdomen: Soft Neuro Exam: Alert Extremities: No Edema Skin: Warm Labs Laboratory Tests Test 03/19/18 03:35 03/20/18 04:55 White Blood Count 9.2 x10^3/uL (4.0-11.0) 8.6 x10^3/uL (4.0-11.0) Red Blood Count 3.49 x10^6/uL (4.30-5.70) 3.47 x10^6/uL (4.30-5.70) Hemoglobin 11.0 g/dL (13.0-17.5) 10.7 g/dL (13.0-17.5) Hematocrit 31.6 % (39.0-53.0) 31.4 % (39.0-53.0) Mean Corpuscular Volume 91 fL (79-100) 90 fL (79-100) Mean Corpuscular Hemoglobin 31 pg (25-35) 31 pg (25-35) Mean Corpuscular Hemoglobin Concent 35 g/dL (31-37) 34 g/dL (31-37) Red Cell Distribution Width 14.7 % (11.5-14.5) 14.7 % (11.5-14.5) Platelet Count 364 x10^3/uL (140-400) 381 x10^3/uL (140-400) Neutrophils (%) (Auto) 76 % (31-73) 81 % (31-73) Lymphocytes (%) (Auto) 12 % (24-48) 10 % (24-48) Monocytes (%) (Auto) 12 % (0-9) 9 % (0-9) Eosinophils (%) (Auto) 0 % (0-3) 0 % (0-3) Basophils (%) (Auto) 0 % (0-3) 0 % (0-3) Neutrophils # (Auto) 6.9 x10^3uL (1.8-7.7) 6.9 x10^3uL (1.8-7.7) Lymphocytes # (Auto) 1.1 x10^3/uL (1.0-4.8) 0.9 x10^3/uL (1.0-4.8) Monocytes # (Auto) 1.1 x10^3/uL (0.0-1.1) 0.7 x10^3/uL (0.0-1.1) Eosinophils # (Auto) 0.0 x10^3/uL (0.0-0.7) 0.0 x10^3/uL (0.0-0.7) Basophils # (Auto) 0.0 x10^3/uL (0.0-0.2) 0.0 x10^3/uL (0.0-0.2) Sodium Level 129 mmol/L (136-145) 132 mmol/L (136-145) Potassium Level 4.4 mmol/L (3.5-5.1) 4.7 mmol/L (3.5-5.1) Chloride Level 95 mmol/L (98-107) 96 mmol/L (98-107) Carbon Dioxide Level 22 mmol/L (21-32) 24 mmol/L (21-32) Anion Gap 12 (6-14) 12 (6-14) Blood Urea Nitrogen 13 mg/dL (8-26) 11 mg/dL (8-26) Creatinine 1.1 mg/dL (0.7-1.3) 1.1 mg/dL (0.7-1.3) Estimated GFR (Cockcroft-Gault) 81.5 81.5 BUN/Creatinine Ratio 12 (6-20) 10 (6-20) Glucose Level 85 mg/dL (70-99) 94 mg/dL (70-99) Calcium Level 9.2 mg/dL (8.5-10.1) 9.8 mg/dL (8.5-10.1) Total Bilirubin 0.5 mg/dL (0.2-1.0) 0.4 mg/dL (0.2-1.0) Aspartate Amino Transf (AST/SGOT) 49 U/L (15-37) 37 U/L (15-37) Alanine Aminotransferase (ALT/SGPT) 64 U/L (16-63) 52 U/L (16-63) Alkaline Phosphatase 131 U/L (46-116) 111 U/L (46-116) Total Protein 7.3 g/dL (6.4-8.2) 7.2 g/dL (6.4-8.2) Albumin 3.1 g/dL (3.4-5.0) 2.9 g/dL (3.4-5.0) Albumin/Globulin Ratio 0.7 (1.0-1.7) 0.7 (1.0-1.7) Laboratory Tests Test 03/20/18 04:55 White Blood Count 8.6 x10^3/uL (4.0-11.0) Red Blood Count 3.47 x10^6/uL (4.30-5.70) Hemoglobin 10.7 g/dL (13.0-17.5) Hematocrit 31.4 % (39.0-53.0) Mean Corpuscular Volume 90 fL (79-100) Mean Corpuscular Hemoglobin 31 pg (25-35) Mean Corpuscular Hemoglobin Concent 34 g/dL (31-37) Red Cell Distribution Width 14.7 % (11.5-14.5) Platelet Count 381 x10^3/uL (140-400) Neutrophils (%) (Auto) 81 % (31-73) Lymphocytes (%) (Auto) 10 % (24-48) Monocytes (%) (Auto) 9 % (0-9) Eosinophils (%) (Auto) 0 % (0-3) Basophils (%) (Auto) 0 % (0-3) Neutrophils # (Auto) 6.9 x10^3uL (1.8-7.7) Lymphocytes # (Auto) 0.9 x10^3/uL (1.0-4.8) Monocytes # (Auto) 0.7 x10^3/uL (0.0-1.1) Eosinophils # (Auto) 0.0 x10^3/uL (0.0-0.7) Basophils # (Auto) 0.0 x10^3/uL (0.0-0.2) Sodium Level 132 mmol/L (136-145) Potassium Level 4.7 mmol/L (3.5-5.1) Chloride Level 96 mmol/L (98-107) Carbon Dioxide Level 24 mmol/L (21-32) Anion Gap 12 (6-14) Blood Urea Nitrogen 11 mg/dL (8-26) Creatinine 1.1 mg/dL (0.7-1.3) Estimated GFR (Cockcroft-Gault) 81.5 BUN/Creatinine Ratio 10 (6-20) Glucose Level 94 mg/dL (70-99) Calcium Level 9.8 mg/dL (8.5-10.1) Total Bilirubin 0.4 mg/dL (0.2-1.0) Aspartate Amino Transf (AST/SGOT) 37 U/L (15-37) Alanine Aminotransferase (ALT/SGPT) 52 U/L (16-63) Alkaline Phosphatase 111 U/L (46-116) Total Protein 7.2 g/dL (6.4-8.2) Albumin 2.9 g/dL (3.4-5.0) Albumin/Globulin Ratio 0.7 (1.0-1.7) Medications Active Scripts Medications Dose Route/Sig Max Daily Dose Days Date Category Dose Instructions Hydrocodone-Apap 5-325 (Hydrocodone Bit/Acetaminophen) 1 Each Tablet 1 Tab PO PRN Q6HRS PRN 03/18/18 Reported Mucus Relief (Guaifenesin) 400 Mg Tablet 400 Mg PO HS 03/18/18 Reported Mucinex (Guaifenesin) 600 Mg Tablet.er 1 Tab PO QHS 03/18/18 Reported Banophen (Diphenhydramine Hcl) 25 Mg Capsule 25 Mg PO QHS 03/18/18 Reported Rifampin 300 Mg Capsule 600 Mg PO DAILY 03/18/18 Reported Iron (Ferrous Sulfate) 325 Mg Tablet 975 Mg PO DAILY 03/18/18 Reported Prednisone (Prednisone) 10 Mg Tablet 10 Mg PO QODAY 03/18/18 Reported Belfwqim-Hhltzlocdontq-Lzta Cp (Butalb/Acetaminophen/Caffeine) 1 Each Capsule 1 Each PO PRN Q8HRS PRN 03/18/18 Reported Fish Oil + D3 Softgel ([place]-3S/Dha/Epa/Fish Oil/D3) 1 Each Capsule 1 Each PO 03/18/18 Reported Azithromycin Tablet (Azithromycin) 250 Mg Tablet 250 Mg PO DAILY 03/18/18 Reported Lipitor (Atorvastatin Calcium) 40 Mg Tablet 1 Tab PO QHS 03/18/18 Reported Imuran (Azathioprine) 50 Mg Tablet 1 Tab PO BID 06/22/16 Reported Aspercreme (Trolamine Salicylate) 177.4 Ml Lotion 177.4 Ml TP 06/22/16 Reported Omeprazole 40 Mg Capsule. 1 Cap PO DAILY 06/22/16 Reported Xarelto (Rivaroxaban) 20 Mg Tablet 20 Mg PO 06/11/16 Reported Lisinopril 5 Mg Tablet 2 Tab PO DAILY 06/11/16 Reported Centrum Silver Tablet (Multivits-Min/Fa/Lycopene/Lut) 1 Each Tablet 1 Each PO 02/03/16 Reported NEXT DOSE: 02/05/16 IN AM Furosemide 40 Mg Tablet 40 Mg PO DAILY 12/05/15 Reported NEXT DOSE: 02/05/16 IN AM Metoprolol Tartrate 50 Mg Tablet 100 Mg PO BID 12/05/15 Reported NEXT DOSE: 02/04/16 AT BEDTIME Aspir 81 (Aspirin) 81 Mg Tablet. 1 Tab PO DAILY 03/07/15 Reported NEXT DOSE: 02/05/16 in AM Ipratropium [place] 0.2 Mg/1 Ml Solution 0.2 Mg IH 03/05/15 Reported Albuterol Sulfate Conc Neb Soln (Albuterol Sulfate) 2.5 Mg/0.5 Ml Vial.neb 2.5 Mg NEB 03/05/15 Reported Claritin (Loratadine) 10 Mg Tablet 10 Mg PO DAILY 03/05/15 Reported NEXT DOSE: 02/05/16 IN AM Magnesium Oxide 400 Mg Tablet 400 Mg PO DAILY 03/05/15 Reported NEXT DOSE: 02/05/16 IN AM Colace (Docusate Sodium) 100 Mg Capsule 1 Cap PO BID PRN 12/02/14 Reported TAKE ONCE A DAY NEEDED FOR CONSTIPATION Vitamin D2 (Ergocalciferol (Vitamin D2)) 50,000 Unit Capsule 50,000 Unit PO WEEKLY 12/02/14 Reported CONTINUE TO TAKE DIRECTED Ferrous Sulfate 325 Mg Tablet 1 Tab PO TID 12/02/14 Reported CONTINUE TO TAKE DIRECTED Advair 500-50 Diskus (Fluticasone/Salmeterol) 1 Each Disk.w.dev 1 Puff IH BID 12/02/14 Reported NEXT DOSE: 02/04/16 AT BEDTIME Tamsulosin Hcl 0.4 Mg Cap.er.24h 2 Cap PO BID 12/02/14 Reported Next dose: 02/04/16 AT BEDTIME Finasteride 5 Mg Tablet 1 Tab PO HS 12/02/14 Reported NEXT DOSE: 02/05/16 IN AM Buspirone Hcl 15 Mg Tablet 1 Tab PO BID 12/02/14 Reported NEXT DOSE DUE: 02/04/16 AT BEDTIME Impression . 1. Fever, likely related to gastroenteritis. However, cannot rule out right lower lobe pneumonia as the source as well. fever resolved 2. Asthma and cough is a manifestation of asthma. resolved wheezing 3. Fever. 4. History of atrial fibrillation, on chronic anticoagulation. Plan . 1. DuoNebs. 2. Pulmicort nebulizer 3. IV steroids. 4. Continue empiric antibiotics. 5. Follow blood cultures and monitor chest x-ray. 6. Anticoagulation per PCP. 7. We will follow along with you. ISRAEL CONNELLY MD Mar 20, 2018 09:33
--- NOTE | 2018-03-20 09:38 | PDOC ---
Infectious Disease Note Subjective: Subjective Pt still has a lot of gas,bloating abdo pain and nausea are improving no loose bm,that has resolved prior to admission ROS: ROS Negative except for above. Vital Signs: Vital Signs Vital Signs Date Time Temp Pulse Resp B/P (MAP) Pulse Ox O2 Delivery O2 Flow Rate FiO2 03/20/18 09:12 115 148/94 03/20/18 07:14 99 Room Air 03/20/18 07:00 97.7 18 97.7 Physical Exam: PHYSICAL EXAM GENERAL: Alert and oriented x 3 ambulant male, in no acute distress, lying comfortably in bed. HEENT: Sclerae are anicteric. No thrush. Oral mucosa moist. Pupils equal and reactive. NECK: Supple. LUNGS: Decreased breath sounds at the bases with some wheezing. HEART: S1 and S2. Tachycardia. No murmurs. ABDOMEN: Soft and nondistended. Mild tenderness present right upper quadrant on deep palpation. No rebound. No guarding. Bowel sounds present. EXTREMITIES: Trace edema. DERMATOLOGICAL: No generalized rash. CENTRAL NERVOUS SYSTEM: Grossly nonfocal. Medications: Inpatient Meds: Current Medications Medications (Trade) Dose Ordered Sig/Gigi Start Time Stop Time Status Last Admin Dose Admin Acetaminophen (Tylenol) 650 mg PRN Q6HRS PRN 03/19/18 09:15 03/19/18 09:29 650 MG Acetaminophen/ Hydrocodone Bitart (Lortab 5/325) 1 tab PRN Q6HRS PRN 03/18/18 11:15 03/20/18 04:09 1 TAB Albuterol Sulfate (Ventolin Neb Soln) 2.5 mg PRN Q4HRS PRN 03/18/18 08:00 03/19/18 11:57 2.5 MG Albuterol/ Ipratropium (Duoneb) 3 ml RTQID 03/19/18 12:30 03/20/18 07:11 3 ML Budesonide (Pulmicort) 0.5 mg RTBID 03/19/18 12:30 03/20/18 07:11 0.5 MG Famotidine (Pepcid Vial) 20 mg 1X ONCE 03/17/18 19:45 03/17/18 19:47 DC 03/17/18 19:45 20 MG Finasteride (Proscar) 5 mg DAILY 03/18/18 15:30 03/20/18 09:11 5 MG Furosemide (Lasix) 40 mg DAILY 03/18/18 15:00 03/20/18 09:11 40 MG Guaifenesin (Mucinex) 600 mg BID 03/18/18 11:30 03/20/18 09:11 600 MG Influenza Virus Vaccine (Afluria Trivalent 5520-0048 Syringe) 0.5 ml ONCE ONCE 03/18/18 09:00 03/18/18 09:01 DC Info (Anti-Coagulation Monitoring By Pharmacy) 1 each PRN DAILY PRN 03/19/18 16:45 Info (Do NOT chart on this placeholder) 1 each 1X ONCE 03/18/18 09:00 03/18/18 09:01 UNV Levofloxacin (Levaquin) 750 mg DAILY 03/18/18 22:15 Cancel Levofloxacin/ Dextrose 150 ml @ 100 mls/hr Q24H 03/18/18 22:30 03/19/18 16:41 DC 03/18/18 22:52 100 MLS/HR Linezolid/Dextrose 300 ml @ 300 mls/hr Q12HR 03/19/18 17:00 03/20/18 09:12 300 MLS/HR Magnesium Sulfate 50 ml @ 25 mls/hr 1X ONCE 03/18/18 11:00 03/18/18 12:59 DC 03/18/18 11:31 25 MLS/HR Methylprednisolone Sodium Succinate (SOLU-Medrol 40MG VIAL) 40 mg Q8HRS 03/19/18 14:00 03/20/18 06:09 40 MG Metoprolol Tartrate (Lopressor) 100 mg BID 03/18/18 11:00 03/20/18 09:12 100 MG Morphine Sulfate (Morphine Sulfate) 2 mg PRN Q4HRS PRN 03/19/18 20:45 03/20/18 00:13 2 MG Multi-Ingredient Mouthwash/Gargle (Gi Cocktail) 20 ml PRN QID PRN 03/18/18 17:00 03/18/18 22:49 20 ML Ondansetron HCl (Zofran) 4 mg PRN Q8HRS PRN 03/18/18 00:15 03/19/18 00:14 DC Piperacillin Sod/ Tazobactam Sod 3.375 gm/Sodium Chloride 50 ml @ 100 mls/hr Q6HRS 03/19/18 17:30 03/20/18 06:08 100 MLS/HR Rivaroxaban (Xarelto) 20 mg DAILYWSUP 03/18/18 17:00 03/19/18 17:28 20 MG Sodium Chloride 1,000 ml @ 130 mls/hr Q7H42M 03/18/18 22:45 03/20/18 08:17 130 MLS/HR Tamsulosin HCl (Flomax) 0.4 mg BID 03/18/18 21:00 03/20/18 09:11 0.4 MG Labs: Lab Laboratory Tests Test 03/20/18 04:55 White Blood Count 8.6 x10^3/uL (4.0-11.0) Red Blood Count 3.47 x10^6/uL (4.30-5.70) Hemoglobin 10.7 g/dL (13.0-17.5) Hematocrit 31.4 % (39.0-53.0) Mean Corpuscular Volume 90 fL (79-100) Mean Corpuscular Hemoglobin 31 pg (25-35) Mean Corpuscular Hemoglobin Concent 34 g/dL (31-37) Red Cell Distribution Width 14.7 % (11.5-14.5) Platelet Count 381 x10^3/uL (140-400) Neutrophils (%) (Auto) 81 % (31-73) Lymphocytes (%) (Auto) 10 % (24-48) Monocytes (%) (Auto) 9 % (0-9) Eosinophils (%) (Auto) 0 % (0-3) Basophils (%) (Auto) 0 % (0-3) Neutrophils # (Auto) 6.9 x10^3uL (1.8-7.7) Lymphocytes # (Auto) 0.9 x10^3/uL (1.0-4.8) Monocytes # (Auto) 0.7 x10^3/uL (0.0-1.1) Eosinophils # (Auto) 0.0 x10^3/uL (0.0-0.7) Basophils # (Auto) 0.0 x10^3/uL (0.0-0.2) Sodium Level 132 mmol/L (136-145) Potassium Level 4.7 mmol/L (3.5-5.1) Chloride Level 96 mmol/L (98-107) Carbon Dioxide Level 24 mmol/L (21-32) Anion Gap 12 (6-14) Blood Urea Nitrogen 11 mg/dL (8-26) Creatinine 1.1 mg/dL (0.7-1.3) Estimated GFR (Cockcroft-Gault) 81.5 BUN/Creatinine Ratio 10 (6-20) Glucose Level 94 mg/dL (70-99) Calcium Level 9.8 mg/dL (8.5-10.1) Total Bilirubin 0.4 mg/dL (0.2-1.0) Aspartate Amino Transf (AST/SGOT) 37 U/L (15-37) Alanine Aminotransferase (ALT/SGPT) 52 U/L (16-63) Alkaline Phosphatase 111 U/L (46-116) Total Protein 7.2 g/dL (6.4-8.2) Albumin 2.9 g/dL (3.4-5.0) Albumin/Globulin Ratio 0.7 (1.0-1.7) Micro RUN DATE: 03/19/18 PAGE 1 RUN TIME: 908 [facility] [address] [place] [address] Corona Olguin M.D., Vice President Safety PATIENT: JOURDAN RECINOS ACCT: [id number] LOC: [address] [place] [address] U : [id number] AGE/SX: 62/M ROOM: 512 REG : 03/18/[address]: RICCO ANGEL MD : 1955 BED: 1 DIS : STATUS: ADM IN TLOC: SPEC #: [id number] JESSICA: 03/18/18 STATUS: IRLANDA KOHLI #: [id number] RECD: 03/18/[address]: KALIN CABRERA DO SOURCE: BLOOD ENTR: 03/17/[address] [facility] [address]: RICCO ANGEL MD [facility]: ORDERED: BCULT Procedure Result BLOOD CULTURE Final GRAM POSITIVE COCCI IN CHAINS IN 1 OF 4 BOTTLES(ANEROBIC BOTTLE THIS SET);REPRESENTING 2 SETS DRAWN. THE RESULT WAS CALLED TO DANIELLE MCCOY(5N)ON 03/19/18 AT 0908 BY Jennifer ELAM. [facility] Objective: Assessment: 1. Sepsis, etiology unclear. 2. Ileus with abdominal pain and nausea; Etiology could be from gastroenteritis with above history. 3. Blood cultures positive 07/02 for gram-positive cocci in chains. ID and CHIVO pending at this time. 4. Immunosuppression with home medications of azathioprine and prednisone for ? inflammatory arthritis 5. Hyponatremia.improving 6. Hypertension/peripheral edema. 7. Atrial fibrillation. 8. Abn LFT with nausea. now resolved Plan: Plan of Care cont Zosyn and Zyvox. FU ultrasound report Follow up blood culture GPC + results. GAYLA LANG MD Mar 20, 2018 09:38
--- NOTE | 2018-03-20 10:36 | RAD ---
CLINICAL HISTORY: abd pain
rt nephrectomy

ml gassed out
small mobile gallstones
normal wall and cbd
multiple lk cysts COMPARISON: CT 03/17/2018 TECHNIQUE: Ultrasound of the upper abdomen was performed. FINDINGS: The liver measures 16.5 cm in length in the right mid clavicular line. The hepatic margin is smooth and the hepatic echogenicity is normal. There are no focal liver lesions. Flow is identified in the hepatic veins and portal veins with normal waveforms. Gallbladder: Gallstones are seen.. There is no wall thickening or pericholecystic fluid. There is no pain with direct transducer pressure over the gallbladder. The common bile duct measures 0.4 cm. Pancreas is obscured by overlying bowel gas. The right kidney is not visualized. The left kidney measures 11 cm when remeasured. Multiple left kidney cysts are seen, the largest measures 3.1 cm. The spleen is normal in size. It measures 8.4 cm. Visualized portions of the abdominal aorta and inferior vena cava are unremarkable. There is no free fluid in the upper abdomen. IMPRESSION: 1. Cholelithiasis without evidence of acute cholecystitis. 2. Multiple simple appearing cysts are seen within the left kidney. The right kidney is not seen. Electronically signed by: Delroy Figueroa MD (03/20/2018 10:32 AM) [facility]
[2018-03-20 11:29] VITALS: BP 152/96
--- NOTE | 2018-03-20 13:28 | PDOC ---
PROGRESS NOTES Subjective Subjective Patient doing better, no bm, passing a lot of gas, abdominal pain much improved. Denies any coughing, dysuria, fever or chills. ROS Gen: denies fever/chills HEENT: no headache Cards: denies chest pain, palpitations Pulm: denies wheezing, cough GI: no n/v/d/c, mild abd pain : no dysuria Skin: no rashes/lesions Objective Objective Vital Signs Date Time Temp Pulse Resp B/P (MAP) Pulse Ox O2 Delivery O2 Flow Rate FiO2 03/20/18 11:56 18 Room Air 03/20/18 11:29 97.9 110 152/96 (114) 100 97.9 Intake and Output 03/20/18 07:00 Intake Total 1700 ml Balance 1700 ml Intake Oral 100 ml IV Total 1600 ml # Voids 1 Physical Exam Physical Exam Physical Exam GEN.: No apparent distress. Alert and oriented. HEENT: Head is normocephalic, atraumatic NECK: Supple. LUNGS: Clear to auscultation. No wheezes or rales HEART: RRR, S1, S2 present. Peripheral pulses intact ABDOMEN: Soft, nontender. Positive bowel sounds. EXTREMITIES: Without any cyanosis. mild edema bilateral lower extremities NEUROLOGIC: Normal speech, normal tone PSYCHIATRIC: Normal affect, normal mood. SKIN: No ulcerations Assessment Assessment Problems Medical Problems: (1) Abdominal pain Status: Acute (2) Bandemia Status: Acute (3) Hyponatremia Status: Acute (4) SIRS (systemic inflammatory response syndrome) Status: Acute Plan Plan of Care Assessment/Plan 62yo M with hx of elda on chronic anticoagulation, asthma, HTN, HLD, paranoid schizophrenia, anxiety and depression, presents with abdominal pain, admitted for SIRS, bandemia and acute hyponatremia, found to have bacteremia, community acquired pneumonia and an ileus. Of note, pt has Azathioprine, Prednisone and Rifampin on home med list. Pt does not know why he's on chronic immunosuppression, and he does not know why Rifampin is prescribed to him. 1. Sepsis: source is bacteremia and CAP, bp stable, started Levofloxacin later changed to Zosyn/Zyvox 03/19/18. MIVF. Of note, Pt with home meds of Azathioprine and prednisone for unknown reason 2. Bacteremia: gram+ cocci in chains, f/u c/s, ID consulted, appreciate recs 3. CAP: cont abx, stable 4. Ileus: improved, source of abd pain, NPO for now. KUB today 5. Acute on chronic asthma exacerbation: pulm consulted, pt followed by Dr. Garcia as outpt, aerosols, steroids 6. Hypontremia: improved, likely due to drinking fluids but not eating and not taking his usual dose of Lasix, corrected with bolus in ER of isotonic fluids, diurese with usual dose of Lasix 7. Peripheral edema: restart Lasix po 8. HTN: controlled, hold on meds for now 9. A.fib: restart metoprolol, cont xarelto 10. Abdominal pain: improved, likely a viral gastroenteritis at first, but now working diagnosis is Ileus from CAP/bacteremia FEN: NPO until Ileus resolves, like clear liquid diet tonight, replete lytes PPx: on Xarelto Dispo: cont inpt care Comment Review of Relevant I have reviewed the following items kae (where applicable) has been applied. Labs Laboratory Tests Test 03/19/18 03:35 03/20/18 04:55 White Blood Count 9.2 x10^3/uL (4.0-11.0) 8.6 x10^3/uL (4.0-11.0) Red Blood Count 3.49 x10^6/uL (4.30-5.70) 3.47 x10^6/uL (4.30-5.70) Hemoglobin 11.0 g/dL (13.0-17.5) 10.7 g/dL (13.0-17.5) Hematocrit 31.6 % (39.0-53.0) 31.4 % (39.0-53.0) Mean Corpuscular Volume 91 fL (79-100) 90 fL (79-100) Mean Corpuscular Hemoglobin 31 pg (25-35) 31 pg (25-35) Mean Corpuscular Hemoglobin Concent 35 g/dL (31-37) 34 g/dL (31-37) Red Cell Distribution Width 14.7 % (11.5-14.5) 14.7 % (11.5-14.5) Platelet Count 364 x10^3/uL (140-400) 381 x10^3/uL (140-400) Neutrophils (%) (Auto) 76 % (31-73) 81 % (31-73) Lymphocytes (%) (Auto) 12 % (24-48) 10 % (24-48) Monocytes (%) (Auto) 12 % (0-9) 9 % (0-9) Eosinophils (%) (Auto) 0 % (0-3) 0 % (0-3) Basophils (%) (Auto) 0 % (0-3) 0 % (0-3) Neutrophils # (Auto) 6.9 x10^3uL (1.8-7.7) 6.9 x10^3uL (1.8-7.7) Lymphocytes # (Auto) 1.1 x10^3/uL (1.0-4.8) 0.9 x10^3/uL (1.0-4.8) Monocytes # (Auto) 1.1 x10^3/uL (0.0-1.1) 0.7 x10^3/uL (0.0-1.1) Eosinophils # (Auto) 0.0 x10^3/uL (0.0-0.7) 0.0 x10^3/uL (0.0-0.7) Basophils # (Auto) 0.0 x10^3/uL (0.0-0.2) 0.0 x10^3/uL (0.0-0.2) Sodium Level 129 mmol/L (136-145) 132 mmol/L (136-145) Potassium Level 4.4 mmol/L (3.5-5.1) 4.7 mmol/L (3.5-5.1) Chloride Level 95 mmol/L (98-107) 96 mmol/L (98-107) Carbon Dioxide Level 22 mmol/L (21-32) 24 mmol/L (21-32) Anion Gap 12 (6-14) 12 (6-14) Blood Urea Nitrogen 13 mg/dL (8-26) 11 mg/dL (8-26) Creatinine 1.1 mg/dL (0.7-1.3) 1.1 mg/dL (0.7-1.3) Estimated GFR (Cockcroft-Gault) 81.5 81.5 BUN/Creatinine Ratio 12 (6-20) 10 (6-20) Glucose Level 85 mg/dL (70-99) 94 mg/dL (70-99) Calcium Level 9.2 mg/dL (8.5-10.1) 9.8 mg/dL (8.5-10.1) Total Bilirubin 0.5 mg/dL (0.2-1.0) 0.4 mg/dL (0.2-1.0) Aspartate Amino Transf (AST/SGOT) 49 U/L (15-37) 37 U/L (15-37) Alanine Aminotransferase (ALT/SGPT) 64 U/L (16-63) 52 U/L (16-63) Alkaline Phosphatase 131 U/L (46-116) 111 U/L (46-116) Total Protein 7.3 g/dL (6.4-8.2) 7.2 g/dL (6.4-8.2) Albumin 3.1 g/dL (3.4-5.0) 2.9 g/dL (3.4-5.0) Albumin/Globulin Ratio 0.7 (1.0-1.7) 0.7 (1.0-1.7) Laboratory Tests Test 03/20/18 04:55 White Blood Count 8.6 x10^3/uL (4.0-11.0) Red Blood Count 3.47 x10^6/uL (4.30-5.70) Hemoglobin 10.7 g/dL (13.0-17.5) Hematocrit 31.4 % (39.0-53.0) Mean Corpuscular Volume 90 fL (79-100) Mean Corpuscular Hemoglobin 31 pg (25-35) Mean Corpuscular Hemoglobin Concent 34 g/dL (31-37) Red Cell Distribution Width 14.7 % (11.5-14.5) Platelet Count 381 x10^3/uL (140-400) Neutrophils (%) (Auto) 81 % (31-73) Lymphocytes (%) (Auto) 10 % (24-48) Monocytes (%) (Auto) 9 % (0-9) Eosinophils (%) (Auto) 0 % (0-3) Basophils (%) (Auto) 0 % (0-3) Neutrophils # (Auto) 6.9 x10^3uL (1.8-7.7) Lymphocytes # (Auto) 0.9 x10^3/uL (1.0-4.8) Monocytes # (Auto) 0.7 x10^3/uL (0.0-1.1) Eosinophils # (Auto) 0.0 x10^3/uL (0.0-0.7) Basophils # (Auto) 0.0 x10^3/uL (0.0-0.2) Sodium Level 132 mmol/L (136-145) Potassium Level 4.7 mmol/L (3.5-5.1) Chloride Level 96 mmol/L (98-107) Carbon Dioxide Level 24 mmol/L (21-32) Anion Gap 12 (6-14) Blood Urea Nitrogen 11 mg/dL (8-26) Creatinine 1.1 mg/dL (0.7-1.3) Estimated GFR (Cockcroft-Gault) 81.5 BUN/Creatinine Ratio 10 (6-20) Glucose Level 94 mg/dL (70-99) Calcium Level 9.8 mg/dL (8.5-10.1) Total Bilirubin 0.4 mg/dL (0.2-1.0) Aspartate Amino Transf (AST/SGOT) 37 U/L (15-37) Alanine Aminotransferase (ALT/SGPT) 52 U/L (16-63) Alkaline Phosphatase 111 U/L (46-116) Total Protein 7.2 g/dL (6.4-8.2) Albumin 2.9 g/dL (3.4-5.0) Albumin/Globulin Ratio 0.7 (1.0-1.7) Microbiology 03/18/18 Blood Culture - Preliminary, Resulted NO GROWTH AFTER 2 DAYS Medications Current Medications Ondansetron HCl (Zofran) 4 mg 1X ONCE IV Last administered on 03/17/18at 19:45 ; Start 03/17/18 at 19:45; Stop 03/17/18 at 19:47; Status DC Famotidine (Pepcid Vial) 20 mg 1X ONCE IVP Last administered on 03/17/18at 19: 45; Start 03/17/18 at 19:45; Stop 03/17/18 at 19:47; Status DC Sodium Chloride 1,000 ml @ 1,000 mls/hr 1X ONCE IV Last administered on at 19:45; Start 03/17/18 at 19:45; Stop 03/17/18 at 20:44; Status DC Albuterol/ Ipratropium (Duoneb) 3 ml 1X ONCE NEB Last administered on at 22:13; Start 03/17/18 at 21:30; Stop 03/17/18 at 21:31; Status DC Ondansetron HCl (Zofran) 4 mg PRN Q8HRS PRN IV NAUSEA/VOMITING; Start 03/18/18 at 00:15; Stop 03/19/18 at 00:14; Status DC Acetaminophen (Tylenol) 650 mg PRN Q4HRS PRN PO FEVER Last administered on 03/18at 10:29; Start 03/18/18 at 00:15; Stop 03/19/18 at 00:14; Status DC Info (Do NOT chart on this placeholder) 1 each 1X ONCE MC ; Start 03/18/18 at 09:00; Stop 03/18/18 at 09:01; Status UNV Influenza Virus Vaccine (Afluria Trivalent [id number] Syringe) 0.5 ml ONCE ONCE VAX IM ; Start 03/18/18 at 09:00; Stop 03/18/18 at 09:01; Status DC Albuterol Sulfate (Ventolin Neb Soln) 2.5 mg PRN Q4HRS PRN NEB SHORTNESS OF BREATH Last administered on 03/19/18at 11:57; Start 03/18/18 at 08:00 Guaifenesin (Mucinex) 600 mg QHS PO ; Start 03/18/18 at 21:00; Stop 03/18/18 at 21:00; Status DC Metoprolol Tartrate (Lopressor) 100 mg BID PO Last administered on 03/20/18at 09 :12; Start 03/18/18 at 11:00 Magnesium Sulfate 50 ml @ 25 mls/hr 1X ONCE IV Last administered on 03/18/18at 11:31; Start 03/18/18 at 11:00; Stop 03/18/18 at 12:59; Status DC Guaifenesin (Mucinex) 600 mg BID PO Last administered on 03/20/18at 09:11; Start 03/18/18 at 11:30 Rivaroxaban (Xarelto) 20 mg DAILYWSUP PO Last administered on 03/19/18 17:28; Start 03/18/18 at 17:00 Acetaminophen/ Hydrocodone Bitart (Lortab 5/325) 1 tab PRN Q6HRS PRN PO MODERATE PAIN Last administered on 03/20/18 11:56; Start 03/18/18 at 11:15 Morphine Sulfate (Morphine Sulfate) 2 mg PRN Q4HRS PRN IV PAIN Last administered on 03/18/18at 20:42; Start 03/18/18 at 14:45; Stop 03/18/18 at 22:20 ; Status DC Furosemide (Lasix) 40 mg DAILY PO Last administered on 03/20/18 09:11; Start 03/18/18 at 15:00 Finasteride (Proscar) 5 mg DAILY PO Last administered on 03/20/18 09:11; Start 03/18/18 at 15:30 Tamsulosin HCl (Flomax) 0.4 mg BID PO Last administered on 03/20/18 09:11; Start 03/18/18 at 21:00 Multi-Ingredient Mouthwash/Gargle (Gi Cocktail) 20 ml PRN QID PRN PO CHEST PAIN Last administered on 03/18/18at 22:49; Start 03/18/18 at 17:00 Levofloxacin (Levaquin) 750 mg DAILY PO ; Start 03/18/18 at 22:15; Status Cancel Morphine Sulfate (Morphine Sulfate) 4 mg PRN Q2HR PRN IV PAIN; Start 03/18/18 at 22:30; Stop 03/18/18 at 22:30; Status DC Morphine Sulfate (Morphine Sulfate) 4 mg PRN Q4HRS PRN IV PAIN Last administered on 03/19/18at 16:47; Start 03/18/18 at 22:30; Stop 03/19/18 at 20:36 ; Status DC Sodium Chloride 1,000 ml @ 130 mls/hr Q7H42M IV Last administered on at 08:17; Start 03/18/18 at 22:45 Levofloxacin/ Dextrose 150 ml @ 100 mls/hr Q24H IV Last administered on at 22:52; Start 03/18/18 at 22:30; Stop 03/19/18 at 16:41; Status DC Acetaminophen (Tylenol) 650 mg PRN Q6HRS PRN PO FEVER Last administered on 03/19at 09:29; Start 03/19/18 at 09:15 Budesonide (Pulmicort) 0.5 mg RTBID NEB Last administered on 03/20/18at 07:11; Start 03/19/18 at 12:30 Albuterol/ Ipratropium (Duoneb) 3 ml RTQID NEB Last administered on 03/20/18at 11:35; Start 03/19/18 at 12:30 Methylprednisolone Sodium Succinate (SOLU-Medrol 40MG VIAL) 40 mg Q8HRS IV Last administered on 03/20/18at 06:09; Start 03/19/18 at 14:00 Piperacillin Sod/ Tazobactam Sod 3.375 gm/Sodium Chloride 50 ml @ 100 mls/hr Q6HRS IV Last administered on 03/20/18at 11:52; Start 03/19/18 at 17:30 Linezolid/Dextrose 300 ml @ 300 mls/hr Q12HR IV Last administered on at 09:12; Start 03/19/18 at 17:00 Info (Anti-Coagulation Monitoring By Pharmacy) 1 each PRN DAILY PRN MC SEE COMMENTS; Start 03/19/18 at 16:45 Morphine Sulfate (Morphine Sulfate) 2 mg PRN Q4HRS PRN IV PAIN Last administered on 03/20/18at 00:13; Start 03/19/18 at 20:45 Active Scripts Active Reported Hydrocodone-Apap 5-325 (Hydrocodone Bit/Acetaminophen) 1 Each Tablet 1 Tab PO PRN Q6HRS PRN Mucus Relief (Guaifenesin) 400 Mg Tablet 400 Mg PO HS Mucinex (Guaifenesin) 600 Mg Tablet.er 1 Tab PO QHS Banophen (Diphenhydramine Hcl) 25 Mg Capsule 25 Mg PO QHS Rifampin 300 Mg Capsule 600 Mg PO DAILY Iron (Ferrous Sulfate) 325 Mg Tablet 975 Mg PO DAILY Prednisone (Prednisone) 10 Mg Tablet 10 Mg PO QODAY Bqdxqtzq-Fjhlffqenptcc-Rsap Cp (Butalb/Acetaminophen/Caffeine) 1 Each Capsule 1 Each PO PRN Q8HRS PRN Fish Oil + D3 Softgel ([place]-3S/Dha/Epa/Fish Oil/D3) 1 Each Capsule 1 Each PO Azithromycin Tablet (Azithromycin) 250 Mg Tablet 250 Mg PO DAILY Lipitor (Atorvastatin Calcium) 40 Mg Tablet 1 Tab PO QHS Imuran (Azathioprine) 50 Mg Tablet 1 Tab PO BID Aspercreme (Trolamine Salicylate) 177.4 Ml Lotion 177.4 Ml TP Omeprazole 40 Mg Capsule.dr 1 Cap PO DAILY Xarelto (Rivaroxaban) 20 Mg Tablet 20 Mg PO Lisinopril 5 Mg Tablet 2 Tab PO DAILY Centrum Silver Tablet (Multivits-Min/Fa/Lycopene/Lut) 1 Each Tablet 1 Each PO NEXT DOSE: 02/05/16 IN AM Furosemide 40 Mg Tablet 40 Mg PO DAILY NEXT DOSE: 02/05/16 IN AM Metoprolol Tartrate 50 Mg Tablet 100 Mg PO BID NEXT DOSE: 02/04/16 AT BEDTIME Aspir 81 (Aspirin) 81 Mg Tablet. 1 Tab PO DAILY NEXT DOSE: 02/05/16 in AM Ipratropium Mobile 0.2 Mg/1 Ml Solution 0.2 Mg IH Albuterol Sulfate Conc Neb Soln (Albuterol Sulfate) 2.5 Mg/0.5 Ml Vial.neb 2.5 Mg NEB Claritin (Loratadine) 10 Mg Tablet 10 Mg PO DAILY NEXT DOSE: 02/05/16 IN AM Magnesium Oxide 400 Mg Tablet 400 Mg PO DAILY NEXT DOSE: 02/05/16 IN AM Colace (Docusate Sodium) 100 Mg Capsule 1 Cap PO BID PRN TAKE ONCE A DAY NEEDED FOR CONSTIPATION Vitamin D2 (Ergocalciferol (Vitamin D2)) 50,000 Unit Capsule 50,000 Unit PO WEEKLY CONTINUE TO TAKE DIRECTED Ferrous Sulfate 325 Mg Tablet 1 Tab PO TID CONTINUE TO TAKE DIRECTED Advair 500-50 Diskus (Fluticasone/Salmeterol) 1 Each Disk.w.dev 1 Puff IH BID NEXT DOSE: 02/04/16 AT BEDTIME Tamsulosin Hcl 0.4 Mg Cap.er.24h 2 Cap PO BID Next dose: 02/04/16 AT BEDTIME Finasteride 5 Mg Tablet 1 Tab PO HS NEXT DOSE: 02/05/16 IN AM Buspirone Hcl 15 Mg Tablet 1 Tab PO BID NEXT DOSE DUE: 02/04/16 AT BEDTIME Vitals/I & O Vital Sign - Last 24 Hours 03/19/18 03/19/18 03/19/18 03/19/18 15:00 15:54 16:47 17:28 Temp 98.8 98.8 Pulse 114 Resp 18 B/P (MAP) 147/84 (105) Pulse Ox 94 98 O2 Delivery Room Air Room Air Room Air Room Air 03/19/18 03/19/18 03/19/18 03/19/18 19:00 19:26 19:47 20:08 Temp 99.3 99.3 Pulse 99 Resp 18 B/P (MAP) 140/81 (100) Pulse Ox 98 98 O2 Delivery Room Air Room Air Room Air Room Air 03/19/18 03/19/18 03/19/18 03/20/18 21:43 21:49 23:00 00:13 Temp 98.2 98.2 Pulse 99 107 Resp 18 18 18 B/P (MAP) 140/81 119/70 (86) Pulse Ox 98 98 O2 Delivery Room Air Room Air 03/20/18 03/20/18 03/20/18 03/20/18 00:45 03:00 04:09 05:29 Temp 97.8 97.8 Pulse 100 Resp 18 18 18 B/P (MAP) 141/83 (102) Pulse Ox 98 98 98 98 O2 Delivery Room Air Room Air Room Air Room Air 03/20/18 03/20/18 03/20/18 03/20/18 07:00 07:13 07:14 08:00 Temp 97.7 97.7 Pulse 115 Resp 18 B/P (MAP) 148/94 (112) Pulse Ox 96 99 99 O2 Delivery Room Air Room Air Room Air Room Air 03/20/18 03/20/18 03/20/18 03/20/18 09:12 11:29 11:36 11:56 Temp 97.9 97.9 Pulse 115 110 Resp 18 18 B/P (MAP) 148/94 152/96 (114) Pulse Ox 100 O2 Delivery Room Air Room Air Intake and Output 03/19/18 03/19/18 03/20/18 15:00 23:00 07:00 Intake Total 60 ml 1640 ml Balance 60 ml 1640 ml RICCO ANGEL MD Mar 20, 2018 13:28
[2018-03-20] MEDS: LISINOPRIL 10 MG TABLET PO SCH (14:01)
--- NOTE | 2018-03-20 14:50 | RAD ---
EXAM: AP abdomen DATE: 03/20/2018 2:05 PM INDICATION: Low abdominal pain COMPARISON: No Prior FINDINGS/ IMPRESSION: Moderate colonic stool content. No small or large bowel dilatation. Surgical clips project over the right hemiabdomen. Advanced right hip joint osteoarthritis. Evaluation for free intraperitoneal gas is limited on this supine exam. Electronically signed by: Delroy Figueroa MD (03/20/2018 2:46 PM) [facility]
[2018-03-20 15:24] VITALS: BP 154/95
[2018-03-20] MEDS: RIVAROXABAN 10 MG TABLET. PO SCH (16:49)
[2018-03-20] MEDS ORDERED: POLYETHYLENE GLYCOL 3350 17 GM PACKET. PO PRN (17:30)
[2018-03-20 19:00] VITALS: BP 145/88
[2018-03-20] MEDS: DOCUSATE SODIUM 100 MG CAPSULE. PO SCH (21:05)
[2018-03-20 23:00] VITALS: BP 145/95
[2018-03-21 03:00] VITALS: BP 139/70
[2018-03-21] MEDS: methylPREDNISolone SOD SUCC PF 40 MG/ML VIAL. IV SCH (05:53)
[2018-03-21] MEDS: PIPERACILLIN/TAZOBACTAM 3.375 GM in IV NORMAL SALINE 50ML 50 ML IV SCH ×4 (05:53→23:16)
[2018-03-21] MEDS: IPRATRPIUM/ALBUTEROL 0.5/2.5MG 3 ML NEBU. NEB SCH ×2 (06:35→10:34)
[2018-03-21] MEDS: BUDESONIDE 0.5 MG/2 ML NEBU. NEB SCH (06:35)
[2018-03-21 07:00] VITALS: BP 142/85
--- NOTE | 2018-03-21 08:39 | PDOC ---
Infectious Disease Note Subjective: Subjective Pt still has a lot of gas, abdo pain and nausea are improving no loose bm,that has resolved prior to admission tolerated toast well ROS: ROS Negative except for above. Vital Signs: Vital Signs Vital Signs Date Time Temp Pulse Resp B/P (MAP) Pulse Ox O2 Delivery O2 Flow Rate FiO2 03/21/18 06:37 98 Room Air 03/21/18 03:00 98.1 109 18 139/70 (93) 98.1 Physical Exam: PHYSICAL EXAM GENERAL: Alert and oriented x 3 ambulant male, in no acute distress, lying comfortably in bed. HEENT: Sclerae are anicteric. No thrush. Oral mucosa moist. Pupils equal and reactive. NECK: Supple. LUNGS: Decreased breath sounds at the bases with some wheezing. HEART: S1 and S2. Tachycardia. No murmurs. ABDOMEN: Soft and nondistended. Mild tenderness present right upper quadrant on deep palpation. No rebound. No guarding. Bowel sounds present. EXTREMITIES: Trace edema. DERMATOLOGICAL: No generalized rash. CENTRAL NERVOUS SYSTEM: Grossly nonfocal. Medications: Inpatient Meds: Current Medications Medications (Trade) Dose Ordered Sig/Gigi Start Time Stop Time Status Last Admin Dose Admin Acetaminophen (Tylenol) 650 mg PRN Q6HRS PRN 03/19/18 09:15 03/19/18 09:29 650 MG Acetaminophen/ Hydrocodone Bitart (Lortab 5/325) 1 tab PRN Q6HRS PRN 03/18/18 11:15 03/20/18 11:56 1 TAB Albuterol Sulfate (Ventolin Neb Soln) 2.5 mg PRN Q4HRS PRN 03/18/18 08:00 03/19/18 11:57 2.5 MG Albuterol/ Ipratropium (Duoneb) 3 ml RTQID 03/19/18 12:30 03/21/18 06:35 3 ML Budesonide (Pulmicort) 0.5 mg RTBID 03/19/18 12:30 03/21/18 06:35 0.5 MG Docusate Sodium (Colace) 100 mg BID 03/20/18 21:00 03/20/18 21:05 100 MG Famotidine (Pepcid Vial) 20 mg 1X ONCE 03/17/18 19:45 9/19/18 19:47 DC 03/17/18 19:45 20 MG Finasteride (Proscar) 5 mg DAILY 03/18/18 15:30 03/20/18 09:11 5 MG Furosemide (Lasix) 40 mg DAILY 03/18/18 15:00 03/20/18 09:11 40 MG Guaifenesin (Mucinex) 600 mg BID 03/18/18 11:30 03/20/18 21:05 600 MG Influenza Virus Vaccine (Afluria Trivalent [id number] Syringe) 0.5 ml ONCE ONCE 03/18/18 09:00 03/18/18 09:01 DC Info (Anti-Coagulation Monitoring By Pharmacy) 1 each PRN DAILY PRN 03/19/18 16:45 Info (Do NOT chart on this placeholder) 1 each 1X ONCE 03/18/18 09:00 03/18/18 09:01 UNV Levofloxacin (Levaquin) 750 mg DAILY 03/18/18 22:15 Cancel Levofloxacin/ Dextrose 150 ml @ 100 mls/hr Q24H 03/18/18 22:30 03/19/18 16:41 DC 03/18/18 22:52 100 MLS/HR Linezolid/Dextrose 300 ml @ 300 mls/hr Q12HR 03/19/18 17:00 03/20/18 21:04 300 MLS/HR Lisinopril (Prinivil) 10 mg DAILY 03/20/18 13:45 03/20/18 14:01 10 MG Magnesium Sulfate 50 ml @ 25 mls/hr 1X ONCE 03/18/18 11:00 03/18/18 12:59 DC 03/18/18 11:31 25 MLS/HR Methylprednisolone Sodium Succinate (SOLU-Medrol 40MG VIAL) 40 mg Q8HRS 03/19/18 14:00 03/21/18 05:53 40 MG Metoprolol Tartrate (Lopressor) 100 mg BID 03/18/18 11:00 03/20/18 21:06 100 MG Morphine Sulfate (Morphine Sulfate) 2 mg PRN Q4HRS PRN 03/19/18 20:45 03/20/18 00:13 2 MG Multi-Ingredient Mouthwash/Gargle (Gi Cocktail) 20 ml PRN QID PRN 03/18/18 17:00 03/18/18 22:49 20 ML Ondansetron HCl (Zofran) 4 mg PRN Q8HRS PRN 03/18/18 00:15 03/19/18 00:14 DC Piperacillin Sod/ Tazobactam Sod 3.375 gm/Sodium Chloride 50 ml @ 100 mls/hr Q6HRS 03/19/18 17:30 03/21/18 05:53 100 MLS/HR Polyethylene Glycol (miraLAX PACKET) 17 gm PRN DAILY PRN 03/20/18 17:30 Rivaroxaban (Xarelto) 20 mg DAILYWSUP 03/18/18 17:00 03/20/18 16:49 20 MG Sodium Chloride 1,000 ml @ 130 mls/hr Q7H42M 03/18/18 22:45 03/20/18 23:34 130 MLS/HR Tamsulosin HCl (Flomax) 0.4 mg BID 03/18/18 21:00 03/20/18 21:05 0.4 MG Labs: Micro RUN DATE: 03/19/18 PAGE 1 RUN TIME: 908 [facility] [address] [place] [address] Corona Olguin M.D., Kitchen Clerk PATIENT: JOURDAN RECINOS ACCT: [id number] LOC: [address] [place] [address] U : [id number] AGE/SX: 62/M ROOM: 512 REG : 03/18/[address]: RICCO ANGEL MD : [id number] BED: 1 DIS : STATUS: ADM IN TLOC: SPEC #: [id number] JESSICA: 03/18/18 STATUS: IRLANDA KOHLI #: [id number] RECD: 03/18/[address] [facility] [address]: KALIN CABRERA DO SOURCE: BLOOD ENTR: 03/17/[address] [facility] [address]: RICCO ANGEL MD [facility]: ORDERED: BCULT Procedure Result BLOOD CULTURE Final GRAM POSITIVE COCCI IN CHAINS IN 1 OF 4 BOTTLES(ANEROBIC BOTTLE THIS SET);REPRESENTING 2 SETS DRAWN. THE RESULT WAS CALLED TO DANIELLE MCCOY(5N)ON 03/19/18 AT 0908 BY Jennifer ELAM. THE BLOOD CULTURE HAS BEEN SENT TO [facility] FOR FURTHER WORKUP. Objective: Assessment: 1. Sepsis, etiology unclear.Likely GI 2. Ileus with abdominal pain and nausea 3. Blood cultures positive 07/02 for gram-positive cocci in chains. ID and CHIVO pending at this time. Could be a contaminant 4. Immunosuppression with home medications of azathioprine and prednisone for ? inflammatory arthritis 5. Hyponatremia.improving 6. Hypertension/peripheral edema. 7. Atrial fibrillation. 8. Abn LFT with nausea. now resolved Plan: Plan of Care cont Zosyn and Zyvox. Follow up blood culture [facility] GAYLA LANG MD Mar 21, 2018 08:39
[2018-03-21] MEDS: DOCUSATE SODIUM 100 MG CAPSULE. PO SCH ×2 (08:56→20:46)
[2018-03-21] MEDS: FUROSEMIDE 40 MG TABLET. PO SCH (08:56)
[2018-03-21] MEDS: TAMSULOSIN 0.4 MG CAP.ER.24H. PO SCH ×2 (08:56→20:46)
[2018-03-21] MEDS: FINASTERIDE 5 MG TABLET. PO SCH (08:56)
[2018-03-21] MEDS: LISINOPRIL 10 MG TABLET PO SCH (08:57)
[2018-03-21] MEDS: METOPROLOL TART IMMED RELEASE 50 MG TABLET. PO SCH ×2 (08:58→20:47)
--- NOTE | 2018-03-21 10:19 | PDOC ---
PULMONARY PROGRESS NOTES Subjective cough resolved Vitals Vital Signs Date Time Temp Pulse Resp B/P (MAP) Pulse Ox O2 Delivery O2 Flow Rate FiO2 03/21/18 08:58 117 142/85 03/21/18 08:00 Room Air 03/21/18 07:00 98.4 18 96 98.4 General: Alert, No acute distress Lungs: Clear Cardiovascular: S1, S2 Abdomen: Soft Neuro Exam: Alert Extremities: No Edema Skin: Warm Labs Laboratory Tests Test 03/20/18 04:55 White Blood Count 8.6 x10^3/uL (4.0-11.0) Red Blood Count 3.47 x10^6/uL (4.30-5.70) Hemoglobin 10.7 g/dL (13.0-17.5) Hematocrit 31.4 % (39.0-53.0) Mean Corpuscular Volume 90 fL (79-100) Mean Corpuscular Hemoglobin 31 pg (25-35) Mean Corpuscular Hemoglobin Concent 34 g/dL (31-37) Red Cell Distribution Width 14.7 % (11.5-14.5) Platelet Count 381 x10^3/uL (140-400) Neutrophils (%) (Auto) 81 % (31-73) Lymphocytes (%) (Auto) 10 % (24-48) Monocytes (%) (Auto) 9 % (0-9) Eosinophils (%) (Auto) 0 % (0-3) Basophils (%) (Auto) 0 % (0-3) Neutrophils # (Auto) 6.9 x10^3uL (1.8-7.7) Lymphocytes # (Auto) 0.9 x10^3/uL (1.0-4.8) Monocytes # (Auto) 0.7 x10^3/uL (0.0-1.1) Eosinophils # (Auto) 0.0 x10^3/uL (0.0-0.7) Basophils # (Auto) 0.0 x10^3/uL (0.0-0.2) Sodium Level 132 mmol/L (136-145) Potassium Level 4.7 mmol/L (3.5-5.1) Chloride Level 96 mmol/L (98-107) Carbon Dioxide Level 24 mmol/L (21-32) Anion Gap 12 (6-14) Blood Urea Nitrogen 11 mg/dL (8-26) Creatinine 1.1 mg/dL (0.7-1.3) Estimated GFR (Cockcroft-Gault) 81.5 BUN/Creatinine Ratio 10 (6-20) Glucose Level 94 mg/dL (70-99) Calcium Level 9.8 mg/dL (8.5-10.1) Total Bilirubin 0.4 mg/dL (0.2-1.0) Aspartate Amino Transf (AST/SGOT) 37 U/L (15-37) Alanine Aminotransferase (ALT/SGPT) 52 U/L (16-63) Alkaline Phosphatase 111 U/L (46-116) Total Protein 7.2 g/dL (6.4-8.2) Albumin 2.9 g/dL (3.4-5.0) Albumin/Globulin Ratio 0.7 (1.0-1.7) Medications Active Scripts Medications Dose Route/Sig Max Daily Dose Days Date Category Dose Instructions Hydrocodone-Apap 5-325 (Hydrocodone Bit/Acetaminophen) 1 Each Tablet 1 Tab PO PRN Q6HRS PRN 03/18/18 Reported Mucus Relief (Guaifenesin) 400 Mg Tablet 400 Mg PO HS 03/18/18 Reported Mucinex (Guaifenesin) 600 Mg Tablet.er 1 Tab PO QHS 03/18/18 Reported Banophen (Diphenhydramine Hcl) 25 Mg Capsule 25 Mg PO QHS 03/18/18 Reported Rifampin 300 Mg Capsule 600 Mg PO DAILY 03/18/18 Reported Iron (Ferrous Sulfate) 325 Mg Tablet 975 Mg PO DAILY 03/18/18 Reported Prednisone (Prednisone) 10 Mg Tablet 10 Mg PO QODAY 03/18/18 Reported Kvxyybdl-Fenlsbycixqhq-Mwap Cp (Butalb/Acetaminophen/Caffeine) 1 Each Capsule 1 Each PO PRN Q8HRS PRN 03/18/18 Reported Fish Oil + D3 Softgel ([place]-3S/Dha/Epa/Fish Oil/D3) 1 Each Capsule 1 Each PO 03/18/18 Reported Azithromycin Tablet (Azithromycin) 250 Mg Tablet 250 Mg PO DAILY 03/18/18 Reported Lipitor (Atorvastatin Calcium) 40 Mg Tablet 1 Tab PO QHS 03/18/18 Reported Imuran (Azathioprine) 50 Mg Tablet 1 Tab PO BID 06/22/16 Reported Aspercreme (Trolamine Salicylate) 177.4 Ml Lotion 177.4 Ml TP 06/22/16 Reported Omeprazole 40 Mg Capsule. 1 Cap PO DAILY 06/22/16 Reported Xarelto (Rivaroxaban) 20 Mg Tablet 20 Mg PO 06/11/16 Reported Lisinopril 5 Mg Tablet 2 Tab PO DAILY 06/11/16 Reported Centrum Silver Tablet (Multivits-Min/Fa/Lycopene/Lut) 1 Each Tablet 1 Each PO 02/03/16 Reported NEXT DOSE: 02/05/16 IN AM Furosemide 40 Mg Tablet 40 Mg PO DAILY 12/05/15 Reported NEXT DOSE: 02/05/16 IN AM Metoprolol Tartrate 50 Mg Tablet 100 Mg PO BID 12/05/15 Reported NEXT DOSE: 02/04/16 AT BEDTIME Aspir 81 (Aspirin) 81 Mg Tablet. 1 Tab PO DAILY 03/07/15 Reported NEXT DOSE: 02/05/16 in AM Ipratropium [place] 0.2 Mg/1 Ml Solution 0.2 Mg IH 03/05/15 Reported Albuterol Sulfate Conc Neb Soln (Albuterol Sulfate) 2.5 Mg/0.5 Ml Vial.neb 2.5 Mg NEB 03/05/15 Reported Claritin (Loratadine) 10 Mg Tablet 10 Mg PO DAILY 03/05/15 Reported NEXT DOSE: 02/05/16 IN AM Magnesium Oxide 400 Mg Tablet 400 Mg PO DAILY 03/05/15 Reported NEXT DOSE: 02/05/16 IN AM Colace (Docusate Sodium) 100 Mg Capsule 1 Cap PO BID PRN 12/02/14 Reported TAKE ONCE A DAY NEEDED FOR CONSTIPATION Vitamin D2 (Ergocalciferol (Vitamin D2)) 50,000 Unit Capsule 50,000 Unit PO WEEKLY 12/02/14 Reported CONTINUE TO TAKE DIRECTED Ferrous Sulfate 325 Mg Tablet 1 Tab PO TID 12/02/14 Reported CONTINUE TO TAKE DIRECTED Advair 500-50 Diskus (Fluticasone/Salmeterol) 1 Each Disk.w.dev 1 Puff IH BID 12/02/14 Reported NEXT DOSE: 02/04/16 AT BEDTIME Tamsulosin Hcl 0.4 Mg Cap.er.24h 2 Cap PO BID 12/02/14 Reported Next dose: 02/04/16 AT BEDTIME Finasteride 5 Mg Tablet 1 Tab PO HS 12/02/14 Reported NEXT DOSE: 02/05/16 IN AM Buspirone Hcl 15 Mg Tablet 1 Tab PO BID 12/02/14 Reported NEXT DOSE DUE: 02/04/16 AT BEDTIME Impression . 1. Fever, likely related to gastroenteritis. However, cannot rule out right lower lobe pneumonia as the source as well. fever resolved 2. Asthma and cough is a manifestation of asthma. resolved wheezing 3. Fever. 4. History of atrial fibrillation, on chronic anticoagulation. Plan . 1. DuoNebs. 2. Pulmicort nebulizer 3. IV steroids with taper 4. Continue empiric antibiotics per ID 5. Follow blood cultures and monitor chest x-ray in am/ [facility] 07/02, likely contaminant 6. Anticoagulation per PCP. 7. We will follow along with you. ISRAEL CONNELLY MD Mar 21, 2018 10:19
[2018-03-21 11:50] VITALS: BP 149/104
--- NOTE | 2018-03-21 12:30 | PDOC ---
PROGRESS NOTES Subjective Subjective Doing well, no bm yet, passing a lot of gas. Was mistakenly served regular diet this am, though CLD was ordered. Pt tolerated well, minimal abd pain. No fever or chills. No cough, no palpitations. ROS Gen: denies fever/chills HEENT: no headache Cards: denies chest pain, palpitations Pulm: denies wheezing, cough GI: no n/v/d/c, mild abd pain : no dysuria Objective Objective Vital Signs Date Time Temp Pulse Resp B/P (MAP) Pulse Ox O2 Delivery O2 Flow Rate FiO2 03/21/18 11:50 97.7 113 18 149/104 (119) 99 Room Air 97.7 Intake and Output 03/21/18 07:00 Intake Total 5720 ml Output Total 2300 ml Balance 3420 ml Intake Oral 1120 ml IV Total 4600 ml Output Urine Total 2300 ml Physical Exam Physical Exam Physical Exam GEN.: No apparent distress. Alert and oriented. HEENT: Head is normocephalic, atraumatic NECK: Supple. LUNGS: Clear to auscultation. No wheezes or rales HEART: RRR, S1, S2 present. Peripheral pulses intact ABDOMEN: Soft, nontender. Positive bowel sounds. EXTREMITIES: Without any cyanosis. mild edema bilateral lower extremities NEUROLOGIC: Normal speech, normal tone PSYCHIATRIC: Normal affect, normal mood. SKIN: No ulcerations Assessment Assessment Problems Medical Problems: (1) Abdominal pain Status: Acute (2) Bandemia Status: Acute (3) Hyponatremia Status: Acute (4) SIRS (systemic inflammatory response syndrome) Status: Acute Plan Plan of Care Assessment/Plan 62yo M with hx of elda on chronic anticoagulation, asthma, HTN, HLD, paranoid schizophrenia, anxiety and depression, presents with abdominal pain, admitted for SIRS, bandemia and acute hyponatremia, found to have bacteremia, community acquired pneumonia and an ileus. Of note, pt has Azathioprine, Prednisone and Rifampin on home med list. Pt does not know why he's on chronic immunosuppression, and he does not know why Rifampin is prescribed to him. 1. Sepsis: source is bacteremia and CAP, bp stable, started Levofloxacin later changed to Zosyn/Zyvox 03/19/18. Of note, Pt with home meds of Azathioprine and prednisone for unknown reason 2. Bacteremia: gram+ cocci in chains, f/u c/s, ID consulted, appreciate recs 3. CAP: cont abx, stable 4. Ileus: improved, source of abd pain, FLD, ADAT 5. Acute on chronic asthma exacerbation: pulm consulted, pt followed by Dr. Garcia as outpt, aerosols, steroids 6. Hypontremia: improved, likely due to drinking fluids but not eating and not taking his usual dose of Lasix, corrected with bolus in ER of isotonic fluids, diurese with usual dose of Lasix 7. Peripheral edema: resolved, restart Lasix po 8. HTN: controlled, hold on meds for now 9. A.fib: restart metoprolol, cont xarelto 10. Abdominal pain: improved, likely a viral gastroenteritis at first, but now working diagnosis is Ileus from CAP/bacteremia FEN: CLD until Ileus resolves, likely FLD at noon, then ADAT, replete lytes PPx: on Xarelto Dispo: cont inpt care, dc home if cleared by ID and kerrie to tolerate po Comment Review of Relevant I have reviewed the following items kae (where applicable) has been applied. Labs Laboratory Tests Test 03/20/18 04:55 White Blood Count 8.6 x10^3/uL (4.0-11.0) Red Blood Count 3.47 x10^6/uL (4.30-5.70) Hemoglobin 10.7 g/dL (13.0-17.5) Hematocrit 31.4 % (39.0-53.0) Mean Corpuscular Volume 90 fL (79-100) Mean Corpuscular Hemoglobin 31 pg (25-35) Mean Corpuscular Hemoglobin Concent 34 g/dL (31-37) Red Cell Distribution Width 14.7 % (11.5-14.5) Platelet Count 381 x10^3/uL (140-400) Neutrophils (%) (Auto) 81 % (31-73) Lymphocytes (%) (Auto) 10 % (24-48) Monocytes (%) (Auto) 9 % (0-9) Eosinophils (%) (Auto) 0 % (0-3) Basophils (%) (Auto) 0 % (0-3) Neutrophils # (Auto) 6.9 x10^3uL (1.8-7.7) Lymphocytes # (Auto) 0.9 x10^3/uL (1.0-4.8) Monocytes # (Auto) 0.7 x10^3/uL (0.0-1.1) Eosinophils # (Auto) 0.0 x10^3/uL (0.0-0.7) Basophils # (Auto) 0.0 x10^3/uL (0.0-0.2) Sodium Level 132 mmol/L (136-145) Potassium Level 4.7 mmol/L (3.5-5.1) Chloride Level 96 mmol/L (98-107) Carbon Dioxide Level 24 mmol/L (21-32) Anion Gap 12 (6-14) Blood Urea Nitrogen 11 mg/dL (8-26) Creatinine 1.1 mg/dL (0.7-1.3) Estimated GFR (Cockcroft-Gault) 81.5 BUN/Creatinine Ratio 10 (6-20) Glucose Level 94 mg/dL (70-99) Calcium Level 9.8 mg/dL (8.5-10.1) Total Bilirubin 0.4 mg/dL (0.2-1.0) Aspartate Amino Transf (AST/SGOT) 37 U/L (15-37) Alanine Aminotransferase (ALT/SGPT) 52 U/L (16-63) Alkaline Phosphatase 111 U/L (46-116) Total Protein 7.2 g/dL (6.4-8.2) Albumin 2.9 g/dL (3.4-5.0) Albumin/Globulin Ratio 0.7 (1.0-1.7) Microbiology 03/18/18 Blood Culture - Preliminary, Resulted NO GROWTH AFTER 3 DAYS Medications Current Medications Ondansetron HCl (Zofran) 4 mg 1X ONCE IV Last administered on 03/17/18at 19:45 ; Start 03/17/18 at 19:45; Stop 03/17/18 at 19:47; Status DC Famotidine (Pepcid Vial) 20 mg 1X ONCE IVP Last administered on 03/17/18at 19: 45; Start 03/17/18 at 19:45; Stop 03/17/18 at 19:47; Status DC Sodium Chloride 1,000 ml @ 1,000 mls/hr 1X ONCE IV Last administered on at 19:45; Start 03/17/18 at 19:45; Stop 03/17/18 at 20:44; Status DC Albuterol/ Ipratropium (Duoneb) 3 ml 1X ONCE NEB Last administered on at 22:13; Start 03/17/18 at 21:30; Stop 03/17/18 at 21:31; Status DC Ondansetron HCl (Zofran) 4 mg PRN Q8HRS PRN IV NAUSEA/VOMITING; Start 03/18/18 at 00:15; Stop 03/19/18 at 00:14; Status DC Acetaminophen (Tylenol) 650 mg PRN Q4HRS PRN PO FEVER Last administered on 03/18at 10:29; Start 03/18/18 at 00:15; Stop 03/19/18 at 00:14; Status DC Info (Do NOT chart on this placeholder) 1 each 1X ONCE MC ; Start 03/18/18 at 09:00; Stop 03/18/18 at 09:01; Status UNV Influenza Virus Vaccine (Afluria Trivalent [id number] Syringe) 0.5 ml ONCE ONCE VAX IM ; Start 03/18/18 at 09:00; Stop 03/18/18 at 09:01; Status DC Albuterol Sulfate (Ventolin Neb Soln) 2.5 mg PRN Q4HRS PRN NEB SHORTNESS OF BREATH Last administered on 03/19/18at 11:57; Start 03/18/18 at 08:00 Guaifenesin (Mucinex) 600 mg QHS PO ; Start 03/18/18 at 21:00; Stop 03/18/18 at 21:00; Status DC Metoprolol Tartrate (Lopressor) 100 mg BID PO Last administered on 03/21/18at 08 :58; Start 03/18/18 at 11:00 Magnesium Sulfate 50 ml @ 25 mls/hr 1X ONCE IV Last administered on 03/18/18at 11:31; Start 03/18/18 at 11:00; Stop 03/18/18 at 12:59; Status DC Guaifenesin (Mucinex) 600 mg BID PO Last administered on 03/21/18at 08:56; Start 03/18/18 at 11:30 Rivaroxaban (Xarelto) 20 mg DAILYWSUP PO Last administered on 03/20/18 16:49; Start 03/18/18 at 17:00 Acetaminophen/ Hydrocodone Bitart (Lortab 5/325) 1 tab PRN Q6HRS PRN PO MODERATE PAIN Last administered on 03/20/18at 11:56; Start 03/18/18 at 11:15 Morphine Sulfate (Morphine Sulfate) 2 mg PRN Q4HRS PRN IV PAIN Last administered on 03/18/18at 20:42; Start 03/18/18 at 14:45; Stop 03/18/18 at 22:20 ; Status DC Furosemide (Lasix) 40 mg DAILY PO Last administered on 03/21/18 08:56; Start 03/18/18 at 15:00 Finasteride (Proscar) 5 mg DAILY PO Last administered on 03/21/18 08:56; Start 03/18/18 at 15:30 Tamsulosin HCl (Flomax) 0.4 mg BID PO Last administered on 03/21/18 08:56; Start 03/18/18 at 21:00 Multi-Ingredient Mouthwash/Gargle (Gi Cocktail) 20 ml PRN QID PRN PO CHEST PAIN Last administered on 03/18/18at 22:49; Start 03/18/18 at 17:00 Levofloxacin (Levaquin) 750 mg DAILY PO ; Start 03/18/18 at 22:15; Status Cancel Morphine Sulfate (Morphine Sulfate) 4 mg PRN Q2HR PRN IV PAIN; Start 03/18/18 at 22:30; Stop 03/18/18 at 22:30; Status DC Morphine Sulfate (Morphine Sulfate) 4 mg PRN Q4HRS PRN IV PAIN Last administered on 03/19/18at 16:47; Start 03/18/18 at 22:30; Stop 03/19/18 at 20:36 ; Status DC Sodium Chloride 1,000 ml @ 130 mls/hr Q7H42M IV Last administered on at 23:34; Start 03/18/18 at 22:45 Levofloxacin/ Dextrose 150 ml @ 100 mls/hr Q24H IV Last administered on at 22:52; Start 03/18/18 at 22:30; Stop 03/19/18 at 16:41; Status DC Acetaminophen (Tylenol) 650 mg PRN Q6HRS PRN PO FEVER Last administered on 03/19at 09:29; Start 03/19/18 at 09:15 Budesonide (Pulmicort) 0.5 mg RTBID NEB Last administered on 03/21/18at 06:35; Start 03/19/18 at 12:30 Albuterol/ Ipratropium (Duoneb) 3 ml RTQID NEB Last administered on 03/21/18 06:35; Start 03/19/18 at 12:30 Methylprednisolone Sodium Succinate (SOLU-Medrol 40MG VIAL) 40 mg Q8HRS IV Last administered on 03/21/18at 05:53; Start 03/19/18 at 14:00; Stop 03/21/18 at 10:20; Status DC Piperacillin Sod/ Tazobactam Sod 3.375 gm/Sodium Chloride 50 ml @ 100 mls/hr Q6HRS IV Last administered on 03/21/18at 11:43; Start 03/19/18 at 17:30 Linezolid/Dextrose 300 ml @ 300 mls/hr Q12HR IV Last administered on at 08:55; Start 03/19/18 at 17:00 Info (Anti-Coagulation Monitoring By Pharmacy) 1 each PRN DAILY PRN MC SEE COMMENTS; Start 03/19/18 at 16:45 Morphine Sulfate (Morphine Sulfate) 2 mg PRN Q4HRS PRN IV PAIN Last administered on 03/20/18at 00:13; Start 03/19/18 at 20:45 Lisinopril (Prinivil) 10 mg DAILY PO Last administered on 03/21/18at 08:57; Start 03/20/18 at 13:45 Docusate Sodium (Colace) 100 mg BID PO Last administered on 03/21/18at 08:56; Start 03/20/18 at 21:00 Polyethylene Glycol (miraLAX PACKET) 17 gm PRN DAILY PRN PO CONSTIPATION 1ST CHOICE Last administered on 03/21/18 08:56; Start 03/20/18 at 17:30 Methylprednisolone Sodium Succinate (SOLU-Medrol 40MG VIAL) 40 mg Q24H IV ; Start 03/22/18 at 06:00 Active Scripts Active Reported Hydrocodone-Apap 5-325 (Hydrocodone Bit/Acetaminophen) 1 Each Tablet 1 Tab PO PRN Q6HRS PRN Mucus Relief (Guaifenesin) 400 Mg Tablet 400 Mg PO HS Mucinex (Guaifenesin) 600 Mg Tablet.er 1 Tab PO QHS Banophen (Diphenhydramine Hcl) 25 Mg Capsule 25 Mg PO QHS Rifampin 300 Mg Capsule 600 Mg PO DAILY Iron (Ferrous Sulfate) 325 Mg Tablet 975 Mg PO DAILY Prednisone (Prednisone) 10 Mg Tablet 10 Mg PO QODAY Qtsvanvr-Mnsvdlhxfsddn-Lwuw Cp (Butalb/Acetaminophen/Caffeine) 1 Each Capsule 1 Each PO PRN Q8HRS PRN Fish Oil + D3 Softgel ([place]-3S/Dha/Epa/Fish Oil/D3) 1 Each Capsule 1 Each PO Azithromycin Tablet (Azithromycin) 250 Mg Tablet 250 Mg PO DAILY Lipitor (Atorvastatin Calcium) 40 Mg Tablet 1 Tab PO QHS Imuran (Azathioprine) 50 Mg Tablet 1 Tab PO BID Aspercreme (Trolamine Salicylate) 177.4 Ml Lotion 177.4 Ml TP Omeprazole 40 Mg Capsule.dr 1 Cap PO DAILY Xarelto (Rivaroxaban) 20 Mg Tablet 20 Mg PO Lisinopril 5 Mg Tablet 2 Tab PO DAILY Centrum Silver Tablet (Multivits-Min/Fa/Lycopene/Lut) 1 Each Tablet 1 Each PO NEXT DOSE: 02/05/16 IN AM Furosemide 40 Mg Tablet 40 Mg PO DAILY NEXT DOSE: 02/05/16 IN AM Metoprolol Tartrate 50 Mg Tablet 100 Mg PO BID NEXT DOSE: 02/04/16 AT BEDTIME Aspir 81 (Aspirin) 81 Mg Tablet. 1 Tab PO DAILY NEXT DOSE: 02/05/16 in AM Ipratropium [place] 0.2 Mg/1 Ml Solution 0.2 Mg IH Albuterol Sulfate Conc Neb Soln (Albuterol Sulfate) 2.5 Mg/0.5 Ml Vial.neb 2.5 Mg NEB Claritin (Loratadine) 10 Mg Tablet 10 Mg PO DAILY NEXT DOSE: 02/05/16 IN AM Magnesium Oxide 400 Mg Tablet 400 Mg PO DAILY NEXT DOSE: 02/05/16 IN AM Colace (Docusate Sodium) 100 Mg Capsule 1 Cap PO BID PRN TAKE ONCE A DAY NEEDED FOR CONSTIPATION Vitamin D2 (Ergocalciferol (Vitamin D2)) 50,000 Unit Capsule 50,000 Unit PO WEEKLY CONTINUE TO TAKE DIRECTED Ferrous Sulfate 325 Mg Tablet 1 Tab PO TID CONTINUE TO TAKE DIRECTED Advair 500-50 Diskus (Fluticasone/Salmeterol) 1 Each Disk.w.dev 1 Puff IH BID NEXT DOSE: 02/04/16 AT BEDTIME Tamsulosin Hcl 0.4 Mg Cap.er.24h 2 Cap PO BID Next dose: 02/04/16 AT BEDTIME Finasteride 5 Mg Tablet 1 Tab PO HS NEXT DOSE: 02/05/16 IN AM Buspirone Hcl 15 Mg Tablet 1 Tab PO BID NEXT DOSE DUE: 02/04/16 AT BEDTIME Vitals/I & O Vital Sign - Last 24 Hours 03/20/18 03/20/18 03/20/18 03/20/18 12:56 14:01 15:24 19:00 Temp 97.5 97.7 97.5 97.7 Pulse 110 123 116 Resp 18 18 18 B/P (MAP) 152/96 154/95 (114) 145/88 (107) Pulse Ox 98 98 O2 Delivery Room Air Room Air Room Air 03/20/18 03/20/18 03/20/18 03/20/18 20:08 21:06 21:37 23:00 Temp 97.9 97.9 Pulse 116 117 Resp 18 B/P (MAP) 145/88 145/95 (112) Pulse Ox 100 98 O2 Delivery Room Air Room Air Room Air 03/21/18 03/21/18 03/21/18 03/21/18 03:00 06:37 07:00 08:00 Temp 98.1 98.4 98.1 98.4 Pulse 109 117 Resp 18 18 B/P (MAP) 139/70 (93) 142/85 (104) Pulse Ox 98 98 96 O2 Delivery Room Air Room Air Room Air Room Air 03/21/18 03/21/18 03/21/18 08:57 08:58 11:50 Temp 97.7 97.7 Pulse 117 117 113 Resp 18 B/P (MAP) 142/85 142/85 149/104 (119) Pulse Ox 99 O2 Delivery Room Air Intake and Output 03/20/18 03/20/18 03/21/18 15:00 23:00 07:00 Intake Total 1450 ml 1830 ml 2440 ml Output Total 500 ml 700 ml 1100 ml Balance 950 ml 1130 ml 1340 ml RICCO ANGEL MD Mar 21, 2018 12:30
[2018-03-21] MEDS: IV NORMAL SALINE 1000ML BAG 1,000 ML IV SCH (13:32)
[2018-03-21 15:23] VITALS: BP 126/92
[2018-03-21] MEDS: RIVAROXABAN 10 MG TABLET. PO SCH (16:55)
[2018-03-21 19:00] VITALS: BP 146/92
[2018-03-21] MEDS: ACETAMINOPHEN 325 MG TABLET. PO PRN (20:46)
[2018-03-21] MEDS: IPRATRPIUM/ALBUTEROL 0.5/2.5MG 3 ML NEBU. NEB PRN (21:28)
[2018-03-21 22:53] VITALS: BP 144/86
[2018-03-22] MEDS: IPRATRPIUM/ALBUTEROL 0.5/2.5MG 3 ML NEBU. NEB PRN ×3 (01:50→17:01)
[2018-03-22 03:00] VITALS: BP 136/76
[2018-03-22] MEDS: methylPREDNISolone SOD SUCC PF 40 MG/ML VIAL. IV SCH (05:24)
[2018-03-22] MEDS: PIPERACILLIN/TAZOBACTAM 3.375 GM in IV NORMAL SALINE 50ML 50 ML IV SCH ×4 (05:25→23:44)
[2018-03-22 05:32] LABS: BASO % 1 % (0-3); EOS # 0.1 x10^3/uL (0.0-0.7); EOS % 2 % (0-3); HEMATOCRIT 31.3 % (39.0-53.0); HEMOGLOBIN 10.9 g/dL (13.0-17.5); LYMPH # 1.2 x10^3/uL (1.0-4.8); LYMPH % 18 % (24-48); MEAN CORPUSCULAR HEMOGLOBIN 31 pg (25-35); MEAN CORPUSCULAR HGB CONC 35 g/dL (31-37); MEAN CORPUSCULAR VOLUME 90 fL (79-100); MONO # 0.9 x10^3/uL (0.0-1.1); MONO % 13 % (0-9); NEUT # 4.6 x10^3uL (1.8-7.7); NEUT % 67 % (31-73); PLATELET COUNT 417 x10^3/uL (140-400); RED BLOOD COUNT 3.48 x10^6/uL (4.30-5.70); RED CELL DISTRIBUTION WIDTH 14.6 % (11.5-14.5); WHITE BLOOD COUNT 6.9 x10^3/uL (4.0-11.0)
[2018-03-22 05:40] LABS: CALCIUM 9.6 mg/dL (8.5-10.1); CREATININE 1.2 mg/dL (0.7-1.3); GFR 73.8; POTASSIUM 3.7 mmol/L (3.5-5.1)
[2018-03-22 07:00] VITALS: BP 138/98
--- NOTE | 2018-03-22 08:11 | RAD ---
Portable chest, 03/22/2018: HISTORY: Pneumonia Comparison is made to a study from 03/19/2018. The heart size and pulmonary vascularity are normal. Mild right basilar atelectasis/infiltrate has largely resolved. No acute infiltrate is seen. There is no evidence of pleural fluid. No new abnormality is detected. IMPRESSION: Resolving mild left basilar atelectasis/infiltrate. Electronically signed by: Van Summers MD (03/22/2018 8:07 AM) [facility]
[2018-03-22] MEDS: DOCUSATE SODIUM 100 MG CAPSULE. PO SCH ×2 (09:01→20:21)
[2018-03-22] MEDS: TAMSULOSIN 0.4 MG CAP.ER.24H. PO SCH ×2 (09:01→20:21)
[2018-03-22] MEDS: FINASTERIDE 5 MG TABLET. PO SCH (09:01)
[2018-03-22] MEDS: METOPROLOL TART IMMED RELEASE 50 MG TABLET. PO SCH ×2 (09:01→20:21)
[2018-03-22] MEDS: LISINOPRIL 10 MG TABLET PO SCH (09:02)
--- NOTE | 2018-03-22 09:22 | PDOC ---
PULMONARY PROGRESS NOTES Subjective PT BETTER LESS SOA Vitals Vital Signs Date Time Temp Pulse Resp B/P (MAP) Pulse Ox O2 Delivery O2 Flow Rate FiO2 03/22/18 09:02 123 138/98 03/22/18 07:00 98.2 18 96 Room Air 98.2 ROS: No Chest Pain, No Increase Cough General: Alert, No acute distress Lungs: Clear Cardiovascular: S1, S2 Abdomen: Soft Neuro Exam: Alert Extremities: No Edema Skin: Warm Labs Laboratory Tests Test 03/22/18 04:44 White Blood Count 6.9 x10^3/uL (4.0-11.0) Red Blood Count 3.48 x10^6/uL (4.30-5.70) Hemoglobin 10.9 g/dL (13.0-17.5) Hematocrit 31.3 % (39.0-53.0) Mean Corpuscular Volume 90 fL (79-100) Mean Corpuscular Hemoglobin 31 pg (25-35) Mean Corpuscular Hemoglobin Concent 35 g/dL (31-37) Red Cell Distribution Width 14.6 % (11.5-14.5) Platelet Count 417 x10^3/uL (140-400) Neutrophils (%) (Auto) 67 % (31-73) Lymphocytes (%) (Auto) 18 % (24-48) Monocytes (%) (Auto) 13 % (0-9) Eosinophils (%) (Auto) 2 % (0-3) Basophils (%) (Auto) 1 % (0-3) Neutrophils # (Auto) 4.6 x10^3uL (1.8-7.7) Lymphocytes # (Auto) 1.2 x10^3/uL (1.0-4.8) Monocytes # (Auto) 0.9 x10^3/uL (0.0-1.1) Eosinophils # (Auto) 0.1 x10^3/uL (0.0-0.7) Basophils # (Auto) 0.0 x10^3/uL (0.0-0.2) Sodium Level 131 mmol/L (136-145) Potassium Level 3.7 mmol/L (3.5-5.1) Chloride Level 96 mmol/L (98-107) Carbon Dioxide Level 26 mmol/L (21-32) Anion Gap 9 (6-14) Blood Urea Nitrogen 11 mg/dL (8-26) Creatinine 1.2 mg/dL (0.7-1.3) Estimated GFR (Cockcroft-Gault) 73.8 Glucose Level 109 mg/dL (70-99) Calcium Level 9.6 mg/dL (8.5-10.1) Laboratory Tests Test 03/22/18 04:44 White Blood Count 6.9 x10^3/uL (4.0-11.0) Red Blood Count 3.48 x10^6/uL (4.30-5.70) Hemoglobin 10.9 g/dL (13.0-17.5) Hematocrit 31.3 % (39.0-53.0) Mean Corpuscular Volume 90 fL (79-100) Mean Corpuscular Hemoglobin 31 pg (25-35) Mean Corpuscular Hemoglobin Concent 35 g/dL (31-37) Red Cell Distribution Width 14.6 % (11.5-14.5) Platelet Count 417 x10^3/uL (140-400) Neutrophils (%) (Auto) 67 % (31-73) Lymphocytes (%) (Auto) 18 % (24-48) Monocytes (%) (Auto) 13 % (0-9) Eosinophils (%) (Auto) 2 % (0-3) Basophils (%) (Auto) 1 % (0-3) Neutrophils # (Auto) 4.6 x10^3uL (1.8-7.7) Lymphocytes # (Auto) 1.2 x10^3/uL (1.0-4.8) Monocytes # (Auto) 0.9 x10^3/uL (0.0-1.1) Eosinophils # (Auto) 0.1 x10^3/uL (0.0-0.7) Basophils # (Auto) 0.0 x10^3/uL (0.0-0.2) Sodium Level 131 mmol/L (136-145) Potassium Level 3.7 mmol/L (3.5-5.1) Chloride Level 96 mmol/L (98-107) Carbon Dioxide Level 26 mmol/L (21-32) Anion Gap 9 (6-14) Blood Urea Nitrogen 11 mg/dL (8-26) Creatinine 1.2 mg/dL (0.7-1.3) Estimated GFR (Cockcroft-Gault) 73.8 Glucose Level 109 mg/dL (70-99) Calcium Level 9.6 mg/dL (8.5-10.1) Medications Active Scripts Medications Dose Route/Sig Max Daily Dose Days Date Category Dose Instructions Hydrocodone-Apap 5-325 (Hydrocodone Bit/Acetaminophen) 1 Each Tablet 1 Tab PO PRN Q6HRS PRN 03/18/18 Reported Mucus Relief (Guaifenesin) 400 Mg Tablet 400 Mg PO HS 03/18/18 Reported Mucinex (Guaifenesin) 600 Mg Tablet.er 1 Tab PO QHS 03/18/18 Reported Banophen (Diphenhydramine Hcl) 25 Mg Capsule 25 Mg PO QHS 03/18/18 Reported Rifampin 300 Mg Capsule 600 Mg PO DAILY 03/18/18 Reported Iron (Ferrous Sulfate) 325 Mg Tablet 975 Mg PO DAILY 03/18/18 Reported Prednisone (Prednisone) 10 Mg Tablet 10 Mg PO QODAY 03/18/18 Reported Hqnvdetx-Enzuzrpduxujk-Xmug Cp (Butalb/Acetaminophen/Caffeine) 1 Each Capsule 1 Each PO PRN Q8HRS PRN 03/18/18 Reported Fish Oil + D3 Softgel ([place]-3S/Dha/Epa/Fish Oil/D3) 1 Each Capsule 1 Each PO 03/18/18 Reported Azithromycin Tablet (Azithromycin) 250 Mg Tablet 250 Mg PO DAILY 03/18/18 Reported Lipitor (Atorvastatin Calcium) 40 Mg Tablet 1 Tab PO QHS 03/18/18 Reported Imuran (Azathioprine) 50 Mg Tablet 1 Tab PO BID 06/22/16 Reported Aspercreme (Trolamine Salicylate) 177.4 Ml Lotion 177.4 Ml TP 06/22/16 Reported Omeprazole 40 Mg Capsule.dr 1 Cap PO DAILY 06/22/16 Reported Xarelto (Rivaroxaban) 20 Mg Tablet 20 Mg PO 06/11/16 Reported Lisinopril 5 Mg Tablet 2 Tab PO DAILY 06/11/16 Reported Centrum Silver Tablet (Multivits-Min/Fa/Lycopene/Lut) 1 Each Tablet 1 Each PO 02/03/16 Reported NEXT DOSE: 02/05/16 IN AM Furosemide 40 Mg Tablet 40 Mg PO DAILY 12/05/15 Reported NEXT DOSE: 02/05/16 IN AM Metoprolol Tartrate 50 Mg Tablet 100 Mg PO BID 12/05/15 Reported NEXT DOSE: 02/04/16 AT BEDTIME Aspir 81 (Aspirin) 81 Mg Tablet.dr 1 Tab PO DAILY 03/07/15 Reported NEXT DOSE: 02/05/16 in AM Ipratropium [place] 0.2 Mg/1 Ml Solution 0.2 Mg IH 03/05/15 Reported Albuterol Sulfate Conc Neb Soln (Albuterol Sulfate) 2.5 Mg/0.5 Ml Vial.neb 2.5 Mg NEB 03/05/15 Reported Claritin (Loratadine) 10 Mg Tablet 10 Mg PO DAILY 03/05/15 Reported NEXT DOSE: 02/05/16 IN AM Magnesium Oxide 400 Mg Tablet 400 Mg PO DAILY 03/05/15 Reported NEXT DOSE: 02/05/16 IN AM Colace (Docusate Sodium) 100 Mg Capsule 1 Cap PO BID PRN 12/02/14 Reported TAKE ONCE A DAY NEEDED FOR CONSTIPATION Vitamin D2 (Ergocalciferol (Vitamin D2)) 50,000 Unit Capsule 50,000 Unit PO WEEKLY 12/02/14 Reported CONTINUE TO TAKE DIRECTED Ferrous Sulfate 325 Mg Tablet 1 Tab PO TID 12/02/14 Reported CONTINUE TO TAKE DIRECTED Advair 500-50 Diskus (Fluticasone/Salmeterol) 1 Each Disk.w.dev 1 Puff IH BID 12/02/14 Reported NEXT DOSE: 02/04/16 AT BEDTIME Tamsulosin Hcl 0.4 Mg Cap.er.24h 2 Cap PO BID 12/02/14 Reported Next dose: 02/04/16 AT BEDTIME Finasteride 5 Mg Tablet 1 Tab PO HS 12/02/14 Reported NEXT DOSE: 02/05/16 IN AM Buspirone Hcl 15 Mg Tablet 1 Tab PO BID 12/02/14 Reported NEXT DOSE DUE: 02/04/16 AT BEDTIME Impression . 1. Fever, PER ID 2. Asthma and cough is a manifestation of asthma. resolved wheezing 3. COPD 4. History of atrial fibrillation, on chronic anticoagulation. 5. H/O MAC TREATED OUTPT Plan . CONTINUE THE SAME ANTIBX PER ID DUONEBS FOLLOW CULTURES VIRGIL RODRIGUEZ MD Mar 22, 2018 09:22
--- NOTE | 2018-03-22 09:42 | EKG ---
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
[2018-03-22] MEDS: FUROSEMIDE 40 MG TABLET. PO SCH (09:54)
[2018-03-22 11:00] VITALS: BP 136/97
--- NOTE | 2018-03-22 11:28 | PDOC ---
Infectious Disease Note Subjective Subjective Pt still has a lot of gas, + BM and feeling better HAs an Asthma attack last pm abdo pain and nausea are improving tolerated toast well Vital Sign Vital Signs Vital Signs Date Time Temp Pulse Resp B/P (MAP) Pulse Ox O2 Delivery O2 Flow Rate FiO2 03/22/18 09:11 97 Room Air 03/22/18 09:02 123 138/98 03/22/18 07:00 98.2 18 98.2 Physical Exam PHYSICAL EXAM GENERAL: Alert and oriented x 3 male, in no acute distress, lying comfortably in bed. HEENT: Sclerae are anicteric. No thrush. Oral mucosa moist. Pupils equal and reactive. NECK: Supple. LUNGS: Decreased breath sounds at the bases with some wheezing. HEART: S1 and S2. Tachycardia. No murmurs. ABDOMEN: Soft and nondistended. Nontenderness present right upper quadrant on deep palpation. No rebound. No guarding. Bowel sounds present. EXTREMITIES: Trace edema. DERMATOLOGICAL: No generalized rash. CENTRAL NERVOUS SYSTEM: Grossly nonfocal. Labs Lab Laboratory Tests Test 03/22/18 04:44 White Blood Count 6.9 x10^3/uL (4.0-11.0) Red Blood Count 3.48 x10^6/uL (4.30-5.70) Hemoglobin 10.9 g/dL (13.0-17.5) Hematocrit 31.3 % (39.0-53.0) Mean Corpuscular Volume 90 fL (79-100) Mean Corpuscular Hemoglobin 31 pg (25-35) Mean Corpuscular Hemoglobin Concent 35 g/dL (31-37) Red Cell Distribution Width 14.6 % (11.5-14.5) Platelet Count 417 x10^3/uL (140-400) Neutrophils (%) (Auto) 67 % (31-73) Lymphocytes (%) (Auto) 18 % (24-48) Monocytes (%) (Auto) 13 % (0-9) Eosinophils (%) (Auto) 2 % (0-3) Basophils (%) (Auto) 1 % (0-3) Neutrophils # (Auto) 4.6 x10^3uL (1.8-7.7) Lymphocytes # (Auto) 1.2 x10^3/uL (1.0-4.8) Monocytes # (Auto) 0.9 x10^3/uL (0.0-1.1) Eosinophils # (Auto) 0.1 x10^3/uL (0.0-0.7) Basophils # (Auto) 0.0 x10^3/uL (0.0-0.2) Sodium Level 131 mmol/L (136-145) Potassium Level 3.7 mmol/L (3.5-5.1) Chloride Level 96 mmol/L (98-107) Carbon Dioxide Level 26 mmol/L (21-32) Anion Gap 9 (6-14) Blood Urea Nitrogen 11 mg/dL (8-26) Creatinine 1.2 mg/dL (0.7-1.3) Estimated GFR (Cockcroft-Gault) 73.8 Glucose Level 109 mg/dL (70-99) Calcium Level 9.6 mg/dL (8.5-10.1) Micro BLOOD CULTURE LC Preliminary Preliminary report BLD CULT RESULT 1 Preliminary Comment Viridans streptococcus group Microbiology 03/18/18 Blood Culture - Preliminary, Resulted NO GROWTH AFTER 4 DAYS Objective Assessment 1. Sepsis, etiology unclear.Likely GI 2. Ileus with abdominal pain and nausea - improving 3. Blood cultures positive 07/02 for gram-positive cocci in chains.Strep viridans - Likely a contaminant 4. Immunosuppression with home medications of azathioprine and prednisone for ? inflammatory arthritis 5. Hyponatremia.improving 6. Hypertension/peripheral edema. 7. Atrial fibrillation. 8. Abn LFT with nausea. now resolved Plan Plan of Care cont Zosyn and Zyvox. Diet advancing will change to po soon F/u labs DAVID HIGGINS MD Mar 22, 2018 11:28
--- NOTE | 2018-03-22 12:35 | PDOC ---
PROGRESS NOTES Subjective Subjective Doing much better. Denies any abd pain, passing gas. Normal stool last night. Denies any fever or chills. Says he's at baseline, "back to normal." Denies any chest pain or palpitations. ROS Gen: denies fever/chills HEENT: no headache Cards: denies chest pain, palpitations Pulm: denies wheezing, cough GI: no n/v/d/c, no abd pain : no dysuria Objective Objective Vital Signs Date Time Temp Pulse Resp B/P (MAP) Pulse Ox O2 Delivery O2 Flow Rate FiO2 03/22/18 11:00 98.0 120 18 136/97 (110) 98 Room Air 98.0 Intake and Output 03/22/18 07:00 Intake Total 2900 ml Output Total 2800 ml Balance 100 ml Intake Oral 800 ml IV Total 2100 ml Output Urine Total 2800 ml # Voids 2 # Bowel Movements 1 Physical Exam Physical Exam Physical Exam GEN.: No apparent distress. Alert and oriented. HEENT: Head is normocephalic, atraumatic NECK: Supple. LUNGS: Clear to auscultation. No wheezes or rales HEART: RRR, S1, S2 present. Peripheral pulses intact ABDOMEN: Soft, nontender. Positive bowel sounds. EXTREMITIES: Without any cyanosis. mild edema bilateral lower extremities NEUROLOGIC: Normal speech, normal tone PSYCHIATRIC: Normal affect, normal mood. SKIN: No ulcerations Assessment Assessment Problems Medical Problems: (1) Abdominal pain Status: Acute (2) Bandemia Status: Acute (3) Hyponatremia Status: Acute (4) SIRS (systemic inflammatory response syndrome) Status: Acute Plan Plan of Care Assessment/Plan 62yo M with hx of elda on chronic anticoagulation, asthma, HTN, HLD, paranoid schizophrenia, anxiety and depression, presents with abdominal pain, admitted for SIRS, bandemia and acute hyponatremia, found to have bacteremia, community acquired pneumonia and an ileus. Of note, pt has Azathioprine, Prednisone and Rifampin on home med list. Pt does not know why he's on chronic immunosuppression, and he does not know why Rifampin is prescribed to him. 1. Sepsis: improving, source is bacteremia and CAP, bp stable, started Levofloxacin 03/18/18 later changed to Zosyn/Zyvox 03/19/18. Of note, Pt with home meds of Azathioprine and prednisone for unknown reason 2. Bacteremia: strep viridans, ID consulted, appreciate recs, likely transition to po abx 3. CAP: cont abx, stable 4. Ileus: improved, source of abd pain, advance to reg diet 5. Acute on chronic asthma exacerbation: improved, pulm consulted - appreciate recs, pt followed by Dr. Garcia as outpt, aerosols, steroids 6. Hypontremia: improved, likely due to drinking fluids but not eating and not taking his usual dose of Lasix, corrected with bolus in ER of isotonic fluids, diurese with usual dose of Lasix 7. Peripheral edema: resolved, restart Lasix po 8. HTN: controlled, cont home meds 9. A.fib: restart metoprolol, cont xarelto 10. Abdominal pain: improved, likely a viral gastroenteritis at first, but now working diagnosis is Ileus from CAP/bacteremia 11. Sinus tachycardia: persistent, heart rate equilibrating, added dilt, close f /u as outpt FEN: reg diet, replete lytes PPx: on Xarelto Dispo: cont inpt care, dc home after ID transitions to po antibiotics, likely tomorrow Comment Review of Relevant I have reviewed the following items kae (where applicable) has been applied. Labs Laboratory Tests Test 03/22/18 04:44 White Blood Count 6.9 x10^3/uL (4.0-11.0) Red Blood Count 3.48 x10^6/uL (4.30-5.70) Hemoglobin 10.9 g/dL (13.0-17.5) Hematocrit 31.3 % (39.0-53.0) Mean Corpuscular Volume 90 fL (79-100) Mean Corpuscular Hemoglobin 31 pg (25-35) Mean Corpuscular Hemoglobin Concent 35 g/dL (31-37) Red Cell Distribution Width 14.6 % (11.5-14.5) Platelet Count 417 x10^3/uL (140-400) Neutrophils (%) (Auto) 67 % (31-73) Lymphocytes (%) (Auto) 18 % (24-48) Monocytes (%) (Auto) 13 % (0-9) Eosinophils (%) (Auto) 2 % (0-3) Basophils (%) (Auto) 1 % (0-3) Neutrophils # (Auto) 4.6 x10^3uL (1.8-7.7) Lymphocytes # (Auto) 1.2 x10^3/uL (1.0-4.8) Monocytes # (Auto) 0.9 x10^3/uL (0.0-1.1) Eosinophils # (Auto) 0.1 x10^3/uL (0.0-0.7) Basophils # (Auto) 0.0 x10^3/uL (0.0-0.2) Sodium Level 131 mmol/L (136-145) Potassium Level 3.7 mmol/L (3.5-5.1) Chloride Level 96 mmol/L (98-107) Carbon Dioxide Level 26 mmol/L (21-32) Anion Gap 9 (6-14) Blood Urea Nitrogen 11 mg/dL (8-26) Creatinine 1.2 mg/dL (0.7-1.3) Estimated GFR (Cockcroft-Gault) 73.8 Glucose Level 109 mg/dL (70-99) Calcium Level 9.6 mg/dL (8.5-10.1) Laboratory Tests Test 03/22/18 04:44 White Blood Count 6.9 x10^3/uL (4.0-11.0) Red Blood Count 3.48 x10^6/uL (4.30-5.70) Hemoglobin 10.9 g/dL (13.0-17.5) Hematocrit 31.3 % (39.0-53.0) Mean Corpuscular Volume 90 fL (79-100) Mean Corpuscular Hemoglobin 31 pg (25-35) Mean Corpuscular Hemoglobin Concent 35 g/dL (31-37) Red Cell Distribution Width 14.6 % (11.5-14.5) Platelet Count 417 x10^3/uL (140-400) Neutrophils (%) (Auto) 67 % (31-73) Lymphocytes (%) (Auto) 18 % (24-48) Monocytes (%) (Auto) 13 % (0-9) Eosinophils (%) (Auto) 2 % (0-3) Basophils (%) (Auto) 1 % (0-3) Neutrophils # (Auto) 4.6 x10^3uL (1.8-7.7) Lymphocytes # (Auto) 1.2 x10^3/uL (1.0-4.8) Monocytes # (Auto) 0.9 x10^3/uL (0.0-1.1) Eosinophils # (Auto) 0.1 x10^3/uL (0.0-0.7) Basophils # (Auto) 0.0 x10^3/uL (0.0-0.2) Sodium Level 131 mmol/L (136-145) Potassium Level 3.7 mmol/L (3.5-5.1) Chloride Level 96 mmol/L (98-107) Carbon Dioxide Level 26 mmol/L (21-32) Anion Gap 9 (6-14) Blood Urea Nitrogen 11 mg/dL (8-26) Creatinine 1.2 mg/dL (0.7-1.3) Estimated GFR (Cockcroft-Gault) 73.8 Glucose Level 109 mg/dL (70-99) Calcium Level 9.6 mg/dL (8.5-10.1) Microbiology 03/18/18 Blood Culture - Preliminary, Resulted NO GROWTH AFTER 4 DAYS Medications Current Medications Ondansetron HCl (Zofran) 4 mg 1X ONCE IV Last administered on 03/17/18at 19:45 ; Start 03/17/18 at 19:45; Stop 03/17/18 at 19:47; Status DC Famotidine (Pepcid Vial) 20 mg 1X ONCE IVP Last administered on 03/17/18at 19: 45; Start 03/17/18 at 19:45; Stop 03/17/18 at 19:47; Status DC Sodium Chloride 1,000 ml @ 1,000 mls/hr 1X ONCE IV Last administered on at 19:45; Start 03/17/18 at 19:45; Stop 03/17/18 at 20:44; Status DC Albuterol/ Ipratropium (Duoneb) 3 ml 1X ONCE NEB Last administered on at 22:13; Start 03/17/18 at 21:30; Stop 03/17/18 at 21:31; Status DC Ondansetron HCl (Zofran) 4 mg PRN Q8HRS PRN IV NAUSEA/VOMITING; Start 03/18/18 at 00:15; Stop 03/19/18 at 00:14; Status DC Acetaminophen (Tylenol) 650 mg PRN Q4HRS PRN PO FEVER Last administered on 03/18at 10:29; Start 03/18/18 at 00:15; Stop 03/19/18 at 00:14; Status DC Info (Do NOT chart on this placeholder) 1 each 1X ONCE MC ; Start 03/18/18 at 09:00; Stop 03/18/18 at 09:01; Status UNV Influenza Virus Vaccine (Afluria Trivalent [id number] Syringe) 0.5 ml ONCE ONCE VAX IM ; Start 03/18/18 at 09:00; Stop 03/18/18 at 09:01; Status DC Albuterol Sulfate (Ventolin Neb Soln) 2.5 mg PRN Q4HRS PRN NEB SHORTNESS OF BREATH Last administered on 03/19/18at 11:57; Start 03/18/18 at 08:00 Guaifenesin (Mucinex) 600 mg QHS PO ; Start 03/18/18 at 21:00; Stop 03/18/18 at 21:00; Status DC Metoprolol Tartrate (Lopressor) 100 mg BID PO Last administered on 03/22/18at 09 :01; Start 03/18/18 at 11:00 Magnesium Sulfate 50 ml @ 25 mls/hr 1X ONCE IV Last administered on 03/18/18at 11:31; Start 03/18/18 at 11:00; Stop 03/18/18 at 12:59; Status DC Guaifenesin (Mucinex) 600 mg BID PO Last administered on 03/22/18at 09:01; Start 03/18/18 at 11:30 Rivaroxaban (Xarelto) 20 mg DAILYWSUP PO Last administered on 03/21/18at 16:55; Start 03/18/18 at 17:00 Acetaminophen/ Hydrocodone Bitart (Lortab 5/325) 1 tab PRN Q6HRS PRN PO MODERATE PAIN Last administered on 03/20/18at 11:56; Start 03/18/18 at 11:15 Morphine Sulfate (Morphine Sulfate) 2 mg PRN Q4HRS PRN IV PAIN Last administered on 03/18/18at 20:42; Start 03/18/18 at 14:45; Stop 03/18/18 at 22:20 ; Status DC Furosemide (Lasix) 40 mg DAILY PO Last administered on 03/22/18at 09:54; Start 03/18/18 at 15:00 Finasteride (Proscar) 5 mg DAILY PO Last administered on 03/22/18 09:01; Start 03/18/18 at 15:30 Tamsulosin HCl (Flomax) 0.4 mg BID PO Last administered on 03/22/18at 09:01; Start 03/18/18 at 21:00 Multi-Ingredient Mouthwash/Gargle (Gi Cocktail) 20 ml PRN QID PRN PO CHEST PAIN Last administered on 03/18/18at 22:49; Start 03/18/18 at 17:00 Levofloxacin (Levaquin) 750 mg DAILY PO ; Start 03/18/18 at 22:15; Status Cancel Morphine Sulfate (Morphine Sulfate) 4 mg PRN Q2HR PRN IV PAIN; Start 03/18/18 at 22:30; Stop 03/18/18 at 22:30; Status DC Morphine Sulfate (Morphine Sulfate) 4 mg PRN Q4HRS PRN IV PAIN Last administered on 03/19/18at 16:47; Start 03/18/18 at 22:30; Stop 03/19/18 at 20:36 ; Status DC Sodium Chloride 1,000 ml @ 130 mls/hr Q7H42M IV Last administered on at 13:32; Start 03/18/18 at 22:45; Stop 03/21/18 at 15:07; Status DC Levofloxacin/ Dextrose 150 ml @ 100 mls/hr Q24H IV Last administered on at 22:52; Start 03/18/18 at 22:30; Stop 03/19/18 at 16:41; Status DC Acetaminophen (Tylenol) 650 mg PRN Q6HRS PRN PO FEVER Last administered on 03/21at 20:46; Start 03/19/18 at 09:15 Budesonide (Pulmicort) 0.5 mg RTBID NEB Last administered on 03/21/18at 06:35; Start 03/19/18 at 12:30; Stop 03/21/18 at 13:33; Status DC Albuterol/ Ipratropium (Duoneb) 3 ml RTQID NEB Last administered on 03/21/18at 06:35; Start 03/19/18 at 12:30; Stop 03/21/18 at 13:33; Status DC Methylprednisolone Sodium Succinate (SOLU-Medrol 40MG VIAL) 40 mg Q8HRS IV Last administered on 03/21/18at 05:53; Start 03/19/18 at 14:00; Stop 03/21/18 at 10:20; Status DC Piperacillin Sod/ Tazobactam Sod 3.375 gm/Sodium Chloride 50 ml @ 100 mls/hr Q6HRS IV Last administered on 03/22/18at 12:08; Start 03/19/18 at 17:30 Linezolid/Dextrose 300 ml @ 300 mls/hr Q12HR IV Last administered on at 09:02; Start 03/19/18 at 17:00 Info (Anti-Coagulation Monitoring By Pharmacy) 1 each PRN DAILY PRN MC SEE COMMENTS; Start 03/19/18 at 16:45 Morphine Sulfate (Morphine Sulfate) 2 mg PRN Q4HRS PRN IV PAIN Last administered on 03/20/18at 00:13; Start 03/19/18 at 20:45 Lisinopril (Prinivil) 10 mg DAILY PO Last administered on 03/22/18 09:02; Start 03/20/18 at 13:45 Docusate Sodium (Colace) 100 mg BID PO Last administered on 03/22/18 09:01; Start 03/20/18 at 21:00 Polyethylene Glycol (miraLAX PACKET) 17 gm PRN DAILY PRN PO CONSTIPATION 1ST CHOICE Last administered on 03/21/18at 08:56; Start 03/20/18 at 17:30 Methylprednisolone Sodium Succinate (SOLU-Medrol 40MG VIAL) 40 mg Q24H IV Last administered on 03/22/18at 05:24; Start 03/22/18 at 06:00 Albuterol/ Ipratropium (Duoneb) 3 ml RTQID PRN NEB SHORTNESS OF BREATH Last administered on 03/22/18at 09:11; Start 03/21/18 at 13:45 Active Scripts Active Reported Hydrocodone-Apap 5-325 (Hydrocodone Bit/Acetaminophen) 1 Each Tablet 1 Tab PO PRN Q6HRS PRN Mucus Relief (Guaifenesin) 400 Mg Tablet 400 Mg PO HS Mucinex (Guaifenesin) 600 Mg Tablet.er 1 Tab PO QHS Banophen (Diphenhydramine Hcl) 25 Mg Capsule 25 Mg PO QHS Rifampin 300 Mg Capsule 600 Mg PO DAILY Iron (Ferrous Sulfate) 325 Mg Tablet 975 Mg PO DAILY Prednisone (Prednisone) 10 Mg Tablet 10 Mg PO QODAY Dowgusqe-Gbrzelpdgffls-Qlhn Cp (Butalb/Acetaminophen/Caffeine) 1 Each Capsule 1 Each PO PRN Q8HRS PRN Fish Oil + D3 Softgel ([place]-3S/Dha/Epa/Fish Oil/D3) 1 Each Capsule 1 Each PO Azithromycin Tablet (Azithromycin) 250 Mg Tablet 250 Mg PO DAILY Lipitor (Atorvastatin Calcium) 40 Mg Tablet 1 Tab PO QHS Imuran (Azathioprine) 50 Mg Tablet 1 Tab PO BID Aspercreme (Trolamine Salicylate) 177.4 Ml Lotion 177.4 Ml TP Omeprazole 40 Mg Capsule. 1 Cap PO DAILY Xarelto (Rivaroxaban) 20 Mg Tablet 20 Mg PO Lisinopril 5 Mg Tablet 2 Tab PO DAILY Centrum Silver Tablet (Multivits-Min/Fa/Lycopene/Lut) 1 Each Tablet 1 Each PO NEXT DOSE: 02/05/16 IN AM Furosemide 40 Mg Tablet 40 Mg PO DAILY NEXT DOSE: 02/05/16 IN AM Metoprolol Tartrate 50 Mg Tablet 100 Mg PO BID NEXT DOSE: 02/04/16 AT BEDTIME Aspir 81 (Aspirin) 81 Mg Tablet. 1 Tab PO DAILY NEXT DOSE: 02/05/16 in AM Ipratropium [employer] 0.2 Mg/1 Ml Solution 0.2 Mg IH Albuterol Sulfate Conc Neb Soln (Albuterol Sulfate) 2.5 Mg/0.5 Ml Vial.neb 2.5 Mg NEB Claritin (Loratadine) 10 Mg Tablet 10 Mg PO DAILY NEXT DOSE: 02/05/16 IN AM Magnesium Oxide 400 Mg Tablet 400 Mg PO DAILY NEXT DOSE: 02/05/16 IN AM Colace (Docusate Sodium) 100 Mg Capsule 1 Cap PO BID PRN TAKE ONCE A DAY NEEDED FOR CONSTIPATION Vitamin D2 (Ergocalciferol (Vitamin D2)) 50,000 Unit Capsule 50,000 Unit PO WEEKLY CONTINUE TO TAKE DIRECTED Ferrous Sulfate 325 Mg Tablet 1 Tab PO TID CONTINUE TO TAKE DIRECTED Advair 500-50 Diskus (Fluticasone/Salmeterol) 1 Each Disk.w.dev 1 Puff IH BID NEXT DOSE: 02/04/16 AT BEDTIME Tamsulosin Hcl 0.4 Mg Cap.er.24h 2 Cap PO BID Next dose: 02/04/16 AT BEDTIME Finasteride 5 Mg Tablet 1 Tab PO HS NEXT DOSE: 02/05/16 IN AM Buspirone Hcl 15 Mg Tablet 1 Tab PO BID NEXT DOSE DUE: 02/04/16 AT BEDTIME Vitals/I & O Vital Sign - Last 24 Hours 03/21/18 03/21/18 03/21/18 03/21/18 15:23 19:00 19:58 20:47 Temp 97.2 97.7 97.2 97.7 Pulse 117 125 125 Resp 18 18 B/P (MAP) 126/92 (103) 146/92 (110) 146/92 Pulse Ox 98 98 O2 Delivery Room Air Room Air Room Air 03/21/18 03/21/18 03/22/18 03/22/18 21:28 22:53 01:47 03:00 Temp 97.9 97.9 97.9 97.9 Pulse 118 123 Resp 18 18 B/P (MAP) 144/86 (105) 136/76 (96) Pulse Ox 100 97 97 O2 Delivery Room Air Room Air Room Air Room Air 03/22/18 03/22/18 03/22/18 03/22/18 07:00 08:00 09:01 09:02 Temp 98.2 98.2 Pulse 123 123 123 Resp 18 B/P (MAP) 138/98 (111) 138/98 138/98 Pulse Ox 96 O2 Delivery Room Air Room Air 03/22/18 03/22/18 09:11 11:00 Temp 98.0 98.0 Pulse 120 Resp 18 B/P (MAP) 136/97 (110) Pulse Ox 97 98 O2 Delivery Room Air Room Air Intake and Output 03/21/18 03/21/18 03/22/18 15:00 23:00 07:00 Intake Total 1550 ml 1010 ml 340 ml Output Total 1600 ml 700 ml 500 ml Balance -50 ml 310 ml -160 ml RICCO ANGEL MD Mar 22, 2018 12:35
[2018-03-22 13:16] LABS: SODIUM, URINE 73 mmol/L (Not Estab.); UR POTASSIUM 8.4 mmol/L (Not Estab.)
[2018-03-22] MEDS: ANTI-COAG MONITOR BY PHARMACY. MC PRN (14:17)
[2018-03-22 15:00] VITALS: BP 138/95
[2018-03-22] MEDS: ALBUTEROL SULFATE 2.5 MG/3 ML NEBU. NEB PRN (15:51)
[2018-03-22] MEDS: RIVAROXABAN 10 MG TABLET. PO SCH (17:18)
[2018-03-22 19:00] VITALS: BP 107/68
[2018-03-22 22:57] VITALS: BP 107/68
[2018-03-22] MEDS ORDERED: SIMETHICONE 80 MG TAB.CHEW PO PRN (23:30)
[2018-03-23 03:00] VITALS: BP 107/69
[2018-03-23] MEDS: PIPERACILLIN/TAZOBACTAM 3.375 GM in IV NORMAL SALINE 50ML 50 ML IV SCH (05:50)
[2018-03-23] MEDS: methylPREDNISolone SOD SUCC PF 40 MG/ML VIAL. IV SCH (05:50)
[2018-03-23 07:00] VITALS: BP 132/81
[2018-03-23] MEDS: IPRATRPIUM/ALBUTEROL 0.5/2.5MG 3 ML NEBU. NEB PRN (07:36)
--- NOTE | 2018-03-23 08:33 | PDOC ---
PROGRESS NOTES Subjective Subjective Doing well, no issues. 3 normal bowel movements in last 24 hrs. Denies abd pain. Denies fever, chills, chest pain, shortness of breath. ROS Gen: denies fever/chills HEENT: no headache Cards: denies chest pain, palpitations Pulm: denies wheezing, cough GI: no n/v/d/c, no abd pain : no dysuria Objective Objective Vital Signs Date Time Temp Pulse Resp B/P (MAP) Pulse Ox O2 Delivery O2 Flow Rate FiO2 03/23/18 07:38 98 Room Air 03/23/18 03:00 98.1 112 18 107/69 (82) 98.1 Intake and Output 03/23/18 07:00 Intake Total 4590 ml Output Total 3770 ml Balance 820 ml Intake Oral 3920 ml IV Total 670 ml Output Urine Total 3770 ml # Bowel Movements 1 Physical Exam Physical Exam Physical Exam GEN.: No apparent distress. Alert and oriented. HEENT: Head is normocephalic, atraumatic NECK: Supple. LUNGS: Clear to auscultation. No wheezes or rales HEART: RRR, S1, S2 present. Peripheral pulses intact ABDOMEN: Soft, nontender. Positive bowel sounds. EXTREMITIES: Without any cyanosis. mild edema bilateral lower extremities NEUROLOGIC: Normal speech, normal tone PSYCHIATRIC: Normal affect, normal mood. SKIN: No ulcerations Assessment Assessment Problems Medical Problems: (1) Abdominal pain Status: Acute (2) Bandemia Status: Acute (3) Hyponatremia Status: Acute (4) SIRS (systemic inflammatory response syndrome) Status: Acute Plan Plan of Care Assessment/Plan 62yo M with hx of elda on chronic anticoagulation, asthma, HTN, HLD, paranoid schizophrenia, anxiety and depression, presents with abdominal pain, admitted for SIRS, bandemia and acute hyponatremia, found to have bacteremia, community acquired pneumonia and an ileus. Of note, pt has Azathioprine, Prednisone and Rifampin on home med list. Pt does not know why he's on chronic immunosuppression, and he does not know why Rifampin is prescribed to him. 1. Sepsis: improving, source is bacteremia and CAP, started Levofloxacin later changed to Zosyn/Zyvox 03/19/18. Of note, Pt with home meds of Azathioprine and prednisone for unknown reason 2. Bacteremia: strep viridans, ID consulted, appreciate recs, transition to po abx, Augmentin x 5 days 3. CAP: improving, cont abx 4. Ileus: improved, source of abd pain, advance to reg diet 5. Acute on chronic asthma exacerbation: improved, pulm consulted - appreciate recs, pt followed by Dr. Garcia as outpt, aerosols, steroids 6. Hypontremia: improved, likely due to drinking fluids but not eating and not taking his usual dose of Lasix, improved with bolus in ER of isotonic fluids, diurese with usual dose of Lasix 7. Peripheral edema: resolved, restart Lasix po 8. HTN: controlled, cont home meds 9. A.fib: restart metoprolol, cont xarelto 10. Abdominal pain: improved, likely a viral gastroenteritis at first, but now working diagnosis is Ileus from CAP/bacteremia 11. Sinus tachycardia: improved, heart rate equilibrating, added dilt, close f/ u as outpt FEN: reg diet, replete lytes PPx: on Xarelto Dispo: dc home today 03/23/18 Comment Review of Relevant I have reviewed the following items kae (where applicable) has been applied. Labs Laboratory Tests Test 03/21/18 22:10 03/22/18 04:44 Urine Sodium 73 mmol/L (Not Estab.) Urine Potassium 8.4 mmol/L (Not Estab.) Urine Chloride <60 mmol/L (Not Estab.) White Blood Count 6.9 x10^3/uL (4.0-11.0) Red Blood Count 3.48 x10^6/uL (4.30-5.70) Hemoglobin 10.9 g/dL (13.0-17.5) Hematocrit 31.3 % (39.0-53.0) Mean Corpuscular Volume 90 fL (79-100) Mean Corpuscular Hemoglobin 31 pg (25-35) Mean Corpuscular Hemoglobin Concent 35 g/dL (31-37) Red Cell Distribution Width 14.6 % (11.5-14.5) Platelet Count 417 x10^3/uL (140-400) Neutrophils (%) (Auto) 67 % (31-73) Lymphocytes (%) (Auto) 18 % (24-48) Monocytes (%) (Auto) 13 % (0-9) Eosinophils (%) (Auto) 2 % (0-3) Basophils (%) (Auto) 1 % (0-3) Neutrophils # (Auto) 4.6 x10^3uL (1.8-7.7) Lymphocytes # (Auto) 1.2 x10^3/uL (1.0-4.8) Monocytes # (Auto) 0.9 x10^3/uL (0.0-1.1) Eosinophils # (Auto) 0.1 x10^3/uL (0.0-0.7) Basophils # (Auto) 0.0 x10^3/uL (0.0-0.2) Sodium Level 131 mmol/L (136-145) Potassium Level 3.7 mmol/L (3.5-5.1) Chloride Level 96 mmol/L (98-107) Carbon Dioxide Level 26 mmol/L (21-32) Anion Gap 9 (6-14) Blood Urea Nitrogen 11 mg/dL (8-26) Creatinine 1.2 mg/dL (0.7-1.3) Estimated GFR (Cockcroft-Gault) 73.8 Glucose Level 109 mg/dL (70-99) Calcium Level 9.6 mg/dL (8.5-10.1) Microbiology 03/18/18 Blood Culture - Final, Complete NO GROWTH AFTER 5 DAYS Medications Current Medications Ondansetron HCl (Zofran) 4 mg 1X ONCE IV Last administered on 03/17/18at 19:45 ; Start 03/17/18 at 19:45; Stop 03/17/18 at 19:47; Status DC Famotidine (Pepcid Vial) 20 mg 1X ONCE IVP Last administered on 03/17/18at 19: 45; Start 03/17/18 at 19:45; Stop 03/17/18 at 19:47; Status DC Sodium Chloride 1,000 ml @ 1,000 mls/hr 1X ONCE IV Last administered on at 19:45; Start 03/17/18 at 19:45; Stop 03/17/18 at 20:44; Status DC Albuterol/ Ipratropium (Duoneb) 3 ml 1X ONCE NEB Last administered on at 22:13; Start 03/17/18 at 21:30; Stop 03/17/18 at 21:31; Status DC Ondansetron HCl (Zofran) 4 mg PRN Q8HRS PRN IV NAUSEA/VOMITING; Start 03/18/18 at 00:15; Stop 03/19/18 at 00:14; Status DC Acetaminophen (Tylenol) 650 mg PRN Q4HRS PRN PO FEVER Last administered on 03/18at 10:29; Start 03/18/18 at 00:15; Stop 03/19/18 at 00:14; Status DC Info (Do NOT chart on this placeholder) 1 each 1X ONCE MC ; Start 03/18/18 at 09:00; Stop 03/18/18 at 09:01; Status UNV Influenza Virus Vaccine (Afluria Trivalent [id number] Syringe) 0.5 ml ONCE ONCE VAX IM Last administered on 03/22/18at 20:24; Start 03/18/18 at 09:00; Stop at 09:01; Status DC Albuterol Sulfate (Ventolin Neb Soln) 2.5 mg PRN Q4HRS PRN NEB SHORTNESS OF BREATH Last administered on 03/22/18at 15:51; Start 03/18/18 at 08:00; Stop 03/22 at 17:52; Status DC Guaifenesin (Mucinex) 600 mg QHS PO ; Start 03/18/18 at 21:00; Stop 03/18/18 at 21:00; Status DC Metoprolol Tartrate (Lopressor) 100 mg BID PO Last administered on 03/22/18at 20 :21; Start 03/18/18 at 11:00 Magnesium Sulfate 50 ml @ 25 mls/hr 1X ONCE IV Last administered on 03/18/18at 11:31; Start 03/18/18 at 11:00; Stop 03/18/18 at 12:59; Status DC Guaifenesin (Mucinex) 600 mg BID PO Last administered on 03/22/18at 20:21; Start 03/18/18 at 11:30 Rivaroxaban (Xarelto) 20 mg DAILYWSUP PO Last administered on 03/22/18at 17:18; Start 03/18/18 at 17:00 Acetaminophen/ Hydrocodone Bitart (Lortab 5/325) 1 tab PRN Q6HRS PRN PO MODERATE PAIN Last administered on 03/20/18at 11:56; Start 03/18/18 at 11:15 Morphine Sulfate (Morphine Sulfate) 2 mg PRN Q4HRS PRN IV PAIN Last administered on 03/18/18at 20:42; Start 03/18/18 at 14:45; Stop 03/18/18 at 22:20 ; Status DC Furosemide (Lasix) 40 mg DAILY PO Last administered on 03/22/18at 09:54; Start 03/18/18 at 15:00 Finasteride (Proscar) 5 mg DAILY PO Last administered on 03/22/18 09:01; Start 03/18/18 at 15:30 Tamsulosin HCl (Flomax) 0.4 mg BID PO Last administered on 03/22/18 20:21; Start 03/18/18 at 21:00 Multi-Ingredient Mouthwash/Gargle (Gi Cocktail) 20 ml PRN QID PRN PO CHEST PAIN Last administered on 03/18/18at 22:49; Start 03/18/18 at 17:00 Levofloxacin (Levaquin) 750 mg DAILY PO ; Start 03/18/18 at 22:15; Status Cancel Morphine Sulfate (Morphine Sulfate) 4 mg PRN Q2HR PRN IV PAIN; Start 03/18/18 at 22:30; Stop 03/18/18 at 22:30; Status DC Morphine Sulfate (Morphine Sulfate) 4 mg PRN Q4HRS PRN IV PAIN Last administered on 03/19/18at 16:47; Start 03/18/18 at 22:30; Stop 03/19/18 at 20:36 ; Status DC Sodium Chloride 1,000 ml @ 130 mls/hr Q7H42M IV Last administered on at 13:32; Start 03/18/18 at 22:45; Stop 03/21/18 at 15:07; Status DC Levofloxacin/ Dextrose 150 ml @ 100 mls/hr Q24H IV Last administered on at 22:52; Start 03/18/18 at 22:30; Stop 03/19/18 at 16:41; Status DC Acetaminophen (Tylenol) 650 mg PRN Q6HRS PRN PO FEVER Last administered on 03/21at 20:46; Start 03/19/18 at 09:15 Budesonide (Pulmicort) 0.5 mg RTBID NEB Last administered on 03/21/18 06:35; Start 03/19/18 at 12:30; Stop 03/21/18 at 13:33; Status DC Albuterol/ Ipratropium (Duoneb) 3 ml RTQID NEB Last administered on 03/21/18at 06:35; Start 03/19/18 at 12:30; Stop 03/21/18 at 13:33; Status DC Methylprednisolone Sodium Succinate (SOLU-Medrol 40MG VIAL) 40 mg Q8HRS IV Last administered on 03/21/18at 05:53; Start 03/19/18 at 14:00; Stop 03/21/18 at 10:20; Status DC Piperacillin Sod/ Tazobactam Sod 3.375 gm/Sodium Chloride 50 ml @ 100 mls/hr Q6HRS IV Last administered on 03/23/18 05:50; Start 03/19/18 at 17:30 Linezolid/Dextrose 300 ml @ 300 mls/hr Q12HR IV Last administered on at 20:22; Start 03/19/18 at 17:00 Info (Anti-Coagulation Monitoring By Pharmacy) 1 each PRN DAILY PRN MC SEE COMMENTS Last administered on 03/22/18at 14:17; Start 03/19/18 at 16:45 Morphine Sulfate (Morphine Sulfate) 2 mg PRN Q4HRS PRN IV PAIN Last administered on 03/20/18at 00:13; Start 03/19/18 at 20:45 Lisinopril (Prinivil) 10 mg DAILY PO Last administered on 03/22/18at 09:02; Start 03/20/18 at 13:45 Docusate Sodium (Colace) 100 mg BID PO Last administered on 03/22/18 20:21; Start 03/20/18 at 21:00 Polyethylene Glycol (miraLAX PACKET) 17 gm PRN DAILY PRN PO CONSTIPATION 1ST CHOICE Last administered on 03/21/18at 08:56; Start 03/20/18 at 17:30 Methylprednisolone Sodium Succinate (SOLU-Medrol 40MG VIAL) 40 mg Q24H IV Last administered on 03/23/18at 05:50; Start 03/22/18 at 06:00 Albuterol/ Ipratropium (Duoneb) 3 ml RTQID PRN NEB SHORTNESS OF BREATH Last administered on 03/23/18at 07:36; Start 03/21/18 at 13:45 Diltiazem HCl (Cardizem 24hr Cd) 120 mg DAILY PO Last administered on at 17:26; Start 03/22/18 at 17:15 Simethicone (Gas-X) 80 mg PRN AFTMEALHC PRN PO GAS / BLOATING Last administered on 03/22/18at 23:43; Start 03/22/18 at 23:30 Active Scripts Active Reported Hydrocodone-Apap 5-325 (Hydrocodone Bit/Acetaminophen) 1 Each Tablet 1 Tab PO PRN Q6HRS PRN Mucus Relief (Guaifenesin) 400 Mg Tablet 400 Mg PO HS Mucinex (Guaifenesin) 600 Mg Tablet.er 1 Tab PO QHS Banophen (Diphenhydramine Hcl) 25 Mg Capsule 25 Mg PO QHS Rifampin 300 Mg Capsule 600 Mg PO DAILY Iron (Ferrous Sulfate) 325 Mg Tablet 975 Mg PO DAILY Prednisone (Prednisone) 10 Mg Tablet 10 Mg PO QODAY Fwwiicfq-Bzspvetcfrxov-Mffu Cp (Butalb/Acetaminophen/Caffeine) 1 Each Capsule 1 Each PO PRN Q8HRS PRN Fish Oil + D3 Softgel ([place]-3S/Dha/Epa/Fish Oil/D3) 1 Each Capsule 1 Each PO Azithromycin Tablet (Azithromycin) 250 Mg Tablet 250 Mg PO DAILY Lipitor (Atorvastatin Calcium) 40 Mg Tablet 1 Tab PO QHS Imuran (Azathioprine) 50 Mg Tablet 1 Tab PO BID Aspercreme (Trolamine Salicylate) 177.4 Ml Lotion 177.4 Ml TP Omeprazole 40 Mg Capsule. 1 Cap PO DAILY Xarelto (Rivaroxaban) 20 Mg Tablet 20 Mg PO Lisinopril 5 Mg Tablet 2 Tab PO DAILY Centrum Silver Tablet (Multivits-Min/Fa/Lycopene/Lut) 1 Each Tablet 1 Each PO NEXT DOSE: 02/05/16 IN AM Furosemide 40 Mg Tablet 40 Mg PO DAILY NEXT DOSE: 02/05/16 IN AM Metoprolol Tartrate 50 Mg Tablet 100 Mg PO BID NEXT DOSE: 02/04/16 AT BEDTIME Aspir 81 (Aspirin) 81 Mg Tablet. 1 Tab PO DAILY NEXT DOSE: 02/05/16 in AM Ipratropium [place] 0.2 Mg/1 Ml Solution 0.2 Mg IH Albuterol Sulfate Conc Neb Soln (Albuterol Sulfate) 2.5 Mg/0.5 Ml Vial.neb 2.5 Mg NEB Claritin (Loratadine) 10 Mg Tablet 10 Mg PO DAILY NEXT DOSE: 02/05/16 IN AM Magnesium Oxide 400 Mg Tablet 400 Mg PO DAILY NEXT DOSE: 02/05/16 IN AM Colace (Docusate Sodium) 100 Mg Capsule 1 Cap PO BID PRN TAKE ONCE A DAY NEEDED FOR CONSTIPATION Vitamin D2 (Ergocalciferol (Vitamin D2)) 50,000 Unit Capsule 50,000 Unit PO WEEKLY CONTINUE TO TAKE DIRECTED Ferrous Sulfate 325 Mg Tablet 1 Tab PO TID CONTINUE TO TAKE DIRECTED Advair 500-50 Diskus (Fluticasone/Salmeterol) 1 Each Disk.w.dev 1 Puff IH BID NEXT DOSE: 02/04/16 AT BEDTIME Tamsulosin Hcl 0.4 Mg Cap.er.24h 2 Cap PO BID Next dose: 02/04/16 AT BEDTIME Finasteride 5 Mg Tablet 1 Tab PO HS NEXT DOSE: 02/05/16 IN AM Buspirone Hcl 15 Mg Tablet 1 Tab PO BID NEXT DOSE DUE: 02/04/16 AT BEDTIME Vitals/I & O Vital Sign - Last 24 Hours 03/22/18 03/22/18 03/22/18 03/22/18 09:01 09:02 09:11 11:00 Temp 98.0 98.0 Pulse 123 123 120 Resp 18 B/P (MAP) 138/98 138/98 136/97 (110) Pulse Ox 97 98 O2 Delivery Room Air Room Air 03/22/18 03/22/18 03/22/18 03/22/18 15:00 15:55 17:02 17:26 Temp 97.6 97.6 Pulse 120 124 Resp 18 B/P (MAP) 138/95 (109) 145/81 Pulse Ox 97 98 O2 Delivery Room Air Room Air Room Air 03/22/18 03/22/18 03/22/18 03/22/18 19:00 20:00 20:21 22:57 Temp 98.2 98.2 98.2 98.2 Pulse 110 124 110 Resp 18 18 B/P (MAP) 107/68 (81) 145/81 107/68 (81) Pulse Ox 97 97 O2 Delivery Room Air Room Air Room Air 03/23/18 03/23/18 03:00 07:38 Temp 98.1 98.1 Pulse 112 Resp 18 B/P (MAP) 107/69 (82) Pulse Ox 97 98 O2 Delivery Room Air Room Air Intake and Output 03/22/18 03/22/18 03/23/18 15:00 23:00 07:00 Intake Total 320 ml 3300 ml 970 ml Output Total 1870 ml 950 ml 950 ml Balance -1550 ml 2350 ml 20 ml RICCO ANGEL MD Mar 23, 2018 08:33
[2018-03-23] MEDS: DOCUSATE SODIUM 100 MG CAPSULE. PO SCH (09:00)
--- NOTE | 2018-03-23 09:07 | PDOC ---
PULMONARY PROGRESS NOTES Subjective PT BETTER LESS SOA Vitals Vital Signs Date Time Temp Pulse Resp B/P (MAP) Pulse Ox O2 Delivery O2 Flow Rate FiO2 03/23/18 07:38 98 Room Air 03/23/18 07:00 98.0 108 18 132/81 (98) 98.0 ROS: No Chest Pain, No Increase Cough General: Alert, No acute distress Lungs: Clear Cardiovascular: S1, S2 Abdomen: Soft Neuro Exam: Alert Extremities: No Edema Skin: Warm Labs Laboratory Tests Test 03/21/18 22:10 03/22/18 04:44 Urine Sodium 73 mmol/L (Not Estab.) Urine Potassium 8.4 mmol/L (Not Estab.) Urine Chloride <60 mmol/L (Not Estab.) White Blood Count 6.9 x10^3/uL (4.0-11.0) Red Blood Count 3.48 x10^6/uL (4.30-5.70) Hemoglobin 10.9 g/dL (13.0-17.5) Hematocrit 31.3 % (39.0-53.0) Mean Corpuscular Volume 90 fL (79-100) Mean Corpuscular Hemoglobin 31 pg (25-35) Mean Corpuscular Hemoglobin Concent 35 g/dL (31-37) Red Cell Distribution Width 14.6 % (11.5-14.5) Platelet Count 417 x10^3/uL (140-400) Neutrophils (%) (Auto) 67 % (31-73) Lymphocytes (%) (Auto) 18 % (24-48) Monocytes (%) (Auto) 13 % (0-9) Eosinophils (%) (Auto) 2 % (0-3) Basophils (%) (Auto) 1 % (0-3) Neutrophils # (Auto) 4.6 x10^3uL (1.8-7.7) Lymphocytes # (Auto) 1.2 x10^3/uL (1.0-4.8) Monocytes # (Auto) 0.9 x10^3/uL (0.0-1.1) Eosinophils # (Auto) 0.1 x10^3/uL (0.0-0.7) Basophils # (Auto) 0.0 x10^3/uL (0.0-0.2) Sodium Level 131 mmol/L (136-145) Potassium Level 3.7 mmol/L (3.5-5.1) Chloride Level 96 mmol/L (98-107) Carbon Dioxide Level 26 mmol/L (21-32) Anion Gap 9 (6-14) Blood Urea Nitrogen 11 mg/dL (8-26) Creatinine 1.2 mg/dL (0.7-1.3) Estimated GFR (Cockcroft-Gault) 73.8 Glucose Level 109 mg/dL (70-99) Calcium Level 9.6 mg/dL (8.5-10.1) Medications Active Scripts Medications Dose Route/Sig Max Daily Dose Days Date Category Dose Instructions Hydrocodone-Apap 5-325 (Hydrocodone Bit/Acetaminophen) 1 Each Tablet 1 Tab PO PRN Q6HRS PRN 03/18/18 Reported Mucus Relief (Guaifenesin) 400 Mg Tablet 400 Mg PO HS 03/18/18 Reported Mucinex (Guaifenesin) 600 Mg Tablet.er 1 Tab PO QHS 03/18/18 Reported Banophen (Diphenhydramine Hcl) 25 Mg Capsule 25 Mg PO QHS 03/18/18 Reported Rifampin 300 Mg Capsule 600 Mg PO DAILY 03/18/18 Reported Iron (Ferrous Sulfate) 325 Mg Tablet 975 Mg PO DAILY 03/18/18 Reported Prednisone (Prednisone) 10 Mg Tablet 10 Mg PO QODAY 03/18/18 Reported Vouduubu-Xbafuskodfdhr-Zwpe Cp (Butalb/Acetaminophen/Caffeine) 1 Each Capsule 1 Each PO PRN Q8HRS PRN 03/18/18 Reported Fish Oil + D3 Softgel ([place]-3S/Dha/Epa/Fish Oil/D3) 1 Each Capsule 1 Each PO 03/18/18 Reported Azithromycin Tablet (Azithromycin) 250 Mg Tablet 250 Mg PO DAILY 03/18/18 Reported Lipitor (Atorvastatin Calcium) 40 Mg Tablet 1 Tab PO QHS 03/18/18 Reported Imuran (Azathioprine) 50 Mg Tablet 1 Tab PO BID 06/22/16 Reported Aspercreme (Trolamine Salicylate) 177.4 Ml Lotion 177.4 Ml TP 06/22/16 Reported Omeprazole 40 Mg Capsule. 1 Cap PO DAILY 06/22/16 Reported Xarelto (Rivaroxaban) 20 Mg Tablet 20 Mg PO 06/11/16 Reported Lisinopril 5 Mg Tablet 2 Tab PO DAILY 06/11/16 Reported Centrum Silver Tablet (Multivits-Min/Fa/Lycopene/Lut) 1 Each Tablet 1 Each PO 02/03/16 Reported NEXT DOSE: 02/05/16 IN AM Furosemide 40 Mg Tablet 40 Mg PO DAILY 12/05/15 Reported NEXT DOSE: 02/05/16 IN AM Metoprolol Tartrate 50 Mg Tablet 100 Mg PO BID 12/05/15 Reported NEXT DOSE: 02/04/16 AT BEDTIME Aspir 81 (Aspirin) 81 Mg Tablet.dr 1 Tab PO DAILY 03/07/15 Reported NEXT DOSE: 02/05/16 in AM Ipratropium [place] 0.2 Mg/1 Ml Solution 0.2 Mg IH 03/05/15 Reported Albuterol Sulfate Conc Neb Soln (Albuterol Sulfate) 2.5 Mg/0.5 Ml Vial.neb 2.5 Mg NEB 03/05/15 Reported Claritin (Loratadine) 10 Mg Tablet 10 Mg PO DAILY 03/05/15 Reported NEXT DOSE: 02/05/16 IN AM Magnesium Oxide 400 Mg Tablet 400 Mg PO DAILY 03/05/15 Reported NEXT DOSE: 02/05/16 IN AM Colace (Docusate Sodium) 100 Mg Capsule 1 Cap PO BID PRN 12/02/14 Reported TAKE ONCE A DAY NEEDED FOR CONSTIPATION Vitamin D2 (Ergocalciferol (Vitamin D2)) 50,000 Unit Capsule 50,000 Unit PO WEEKLY 12/02/14 Reported CONTINUE TO TAKE DIRECTED Ferrous Sulfate 325 Mg Tablet 1 Tab PO TID 12/02/14 Reported CONTINUE TO TAKE DIRECTED Advair 500-50 Diskus (Fluticasone/Salmeterol) 1 Each Disk.w.dev 1 Puff IH BID 12/02/14 Reported NEXT DOSE: 02/04/16 AT BEDTIME Tamsulosin Hcl 0.4 Mg Cap.er.24h 2 Cap PO BID 12/02/14 Reported Next dose: 02/04/16 AT BEDTIME Finasteride 5 Mg Tablet 1 Tab PO HS 12/02/14 Reported NEXT DOSE: 02/05/16 IN AM Buspirone Hcl 15 Mg Tablet 1 Tab PO BID 12/02/14 Reported NEXT DOSE DUE: 02/04/16 AT BEDTIME Impression . 1. Viridans streptococcus group BACTEREMIA 2. Asthma and cough is a manifestation of asthma. resolved wheezing 3. COPD 4. History of atrial fibrillation, on chronic anticoagulation. 5. H/O MAC TREATED OUTPT Plan . PT WANTS TO GO HOME OK BY ME FOLLOW UP IN OFFICE ANTIBX PER VIRGIL DUNLAP MD Mar 23, 2018 09:07
[2018-03-23] MEDS: FUROSEMIDE 40 MG TABLET. PO SCH (09:20)
[2018-03-23] MEDS: LISINOPRIL 10 MG TABLET PO SCH (09:20)
[2018-03-23] MEDS: METOPROLOL TART IMMED RELEASE 50 MG TABLET. PO SCH (09:20)
[2018-03-23] MEDS: FINASTERIDE 5 MG TABLET. PO SCH (09:20)
[2018-03-23] MEDS: TAMSULOSIN 0.4 MG CAP.ER.24H. PO SCH (09:21)
--- NOTE | 2018-03-23 10:38 | PDOC ---
Infectious Disease Note Subjective Subjective + BM and feeling better No Asthma attack last pm No F/C/S/n/v/d/rash Vital Sign Vital Signs Vital Signs Date Time Temp Pulse Resp B/P (MAP) Pulse Ox O2 Delivery O2 Flow Rate FiO2 03/23/18 09:21 108 132/81 03/23/18 07:50 Room Air 03/23/18 07:38 98 03/23/18 07:00 98.0 18 98.0 Physical Exam PHYSICAL EXAM GENERAL: Alert and oriented x 3 male, in no acute distress, lying comfortably in bed. HEENT: Sclerae are anicteric. No thrush. Oral mucosa moist. Pupils equal and reactive. NECK: Supple. LUNGS: Decreased breath sounds at the bases with some wheezing. HEART: S1 and S2. Tachycardia. No murmurs. ABDOMEN: Soft and nondistended. Nontenderness present right upper quadrant on deep palpation. No rebound. No guarding. Bowel sounds present. EXTREMITIES: Trace edema. DERMATOLOGICAL: No generalized rash. CENTRAL NERVOUS SYSTEM: Grossly nonfocal. Labs Micro BLOOD CULTURE LC Preliminary Preliminary report BLD CULT RESULT 1 Preliminary Comment Viridans streptococcus group Microbiology 03/18/18 Blood Culture - Preliminary, Resulted NO GROWTH AFTER 4 DAYS Objective Assessment 1. Sepsis, etiology unclear.Likely GI 2. Ileus with abdominal pain and nausea - improving 3. Blood cultures positive 1/4 for gram-positive cocci in chains.Strep viridans - Likely a contaminant 4. Immunosuppression with home medications of azathioprine and prednisone for ? inflammatory arthritis 5. Hyponatremia.improving 6. Hypertension/peripheral edema. 7. Atrial fibrillation. 8. Abn LFT with nausea. now resolved Plan Plan of Care Discont Zosyn and Zyvox. Change to Augmentin for 5 days Can F/u with primary D/w nursing DAVID HIGGINS MD Mar 23, 2018 10:38
[2018-03-23 11:00] VITALS: BP 115/85
[2018-03-23] MEDS: ANTI-COAG MONITOR BY PHARMACY. MC PRN (12:05)
[2018-03-23] MEDS ORDERED: AMOXICILLIN/K CLAV 875/125MG TABLET. PO SCH (12:30)
--- NOTE | 2018-03-23 12:35 | DISCH ---
DISCHARGE INSTRUCTIONS Condition on Discharge Condition on Discharge: Stable Activity After Discharge Activity Instructions for Disc: No restrictions Exercise Instruction after Dis: Progress as tolerated Weight Bearing Status after Di: No restrictions Diet after Discharge Diet after Discharge: Cardiac Diet Texture: Regular Swallowing Supervision: None needed Checks after Discharge Checks after discharge: Check blood press - daily Contacting the DRPako after DC Call your doctor for: If your condition worsens Follow-Up Follow up with: Dr. Andrez Norman at [facility] in [facility] Follow Up With: Appointment made for 03/25/18 @ 1:45pm Treatment/Equipment after DC Adaptive Equipment Issued: None ANDREZ NORMAN MD Mar 23, 2018 12:35
[2018-03-23] MEDS ORDERED: AMOX1TAB11 PO (12:41)
== END 2018-03-23 16:21 | disposition home or self-care (01) | DRG 871 ==
LOC: ER 17:33 → 5 NORTH 03-18 00:05
PROVIDERS: ADMIT Family Medicine; ATTEND Family Medicine
DX: A40.8 Other streptococcal sepsis (principal); J15.9 Unspecified bacterial pneumonia; K56.7 Ileus, unspecified; E87.1 Hypo-osmolality and hyponatremia; F20.0 Paranoid schizophrenia; J44.0 Chronic obstructive pulmonary disease with (acute) lower respiratory infection; J45.901 Unspecified asthma with (acute) exacerbation; J98.11 Atelectasis; A08.4 Viral intestinal infection, unspecified; E78.00 Pure hypercholesterolemia, unspecified; E78.5 Hyperlipidemia, unspecified; I12.9 Hypertensive chronic kidney disease with stage 1 through stage 4 chronic kidney disease, or unspecified chronic kidney disease; I48.91 Unspecified atrial fibrillation; F32.9 Major depressive disorder, single episode, unspecified; F41.9 Anxiety disorder, unspecified; G43.909 Migraine, unspecified, not intractable, without status migrainosus; K21.9 Gastro-esophageal reflux disease without esophagitis; N18.9 Chronic kidney disease, unspecified; Z72.0 Tobacco use; Z74.01 Bed confinement status; Z79.01 Long term (current) use of anticoagulants; Z79.899 Other long term (current) drug therapy; Z90.5 Acquired absence of kidney; Z88.8 Allergy status to other drugs, medicaments and biological substances; Z82.49 Family history of ischemic heart disease and other diseases of the circulatory system
CPT/HCPCS: 36415; 71045; 71046; 74018; 74176; 76700; 80048; 80053; 81001; 82436; 82553; 83605; 83690; 83735; 83930; 84133; 84300; 84484; 85007; 85025; 85610; 85730; 87040; 87186; 87205; 87449; 90471; 90756; 93005; 94640; 94760; 96374; 96375; J1956; J2020; J2270; J2405; J2543; J2920; J3475; J7030; J7613; J7620; J7626; S0028; 99285-25; Q2035

== ENCOUNTER 2018-07-08 23:07 | Emergency (ER) | payer OTHER ==
[~2018-07-08] VITALS: Ht 180.3 cm; Wt 94.3 kg
[~2018-07-08 23:07] MED LIST changes: +AMOX1TAB11 PO; +ATOR40TA PO; -DILT120C80 PO; +DILT120C85 PO; +DIPH25CA20 PO; +FERR-36 PO; +HYDR-2761 PO; +OMEG-57 PO; +RIFA300C3 PO; +[UNRECOGNIZED DRUG - CODE] PO
[2018-07-08 23:08] VITALS: BP 152/72
[2018-07-08] MEDS ORDERED: SULF1TAB24 PO (23:44)
[2018-07-08] MEDS ORDERED: CLOT15CR5 TP (23:44)
[2018-07-08] MEDS ORDERED: BACI28.34 TP (23:44)
--- NOTE | 2018-07-08 23:45 | PHYS DOC ---
Past Medical History Past Medical History: A-Fib, Bronchitis, GERD, High Cholesterol, Hypertension, Migraines, Schizophrenia Additional Past Medical Histor: PARANOID SCHIZO. Past Surgical History: Other Additional Past Surgical Histo: R nephrectomy, uvula sx, sinus polyps removed Alcohol Use: Occasionally Drug Use: None Adult General Chief Complaint Chief Complaint: PAIN ON URINATION [facility] HPI Patient is a 63-year-old male who presents with complaint of pain at the end of his penis as well as painful urination. Patient states that inflammation is been present for a couple of weeks and he has been using topical antifungals. He states it is just not getting any better. He denies any fever or flank pain. Review of Systems Review of Systems Constitutional: Denies fever or chills [] Respiratory: Denies cough or shortness of breath [] Cardiovascular: No additional information not addressed in HPI [] GI: Denies abdominal pain, nausea, vomiting or diarrhea [] : Complains of dysuria without hematuria [] Allergies Allergies Allergies Coded Allergies Type Severity Reaction Last Updated Verified chlorpromazine Allergy Intermediate 08/27/16 Yes montelukast Allergy Intermediate 08/27/16 Yes trifluoperazine Allergy Intermediate 08/27/16 Yes Physical Exam Physical Exam Constitutional: Well developed, well nourished, no acute distress, non-toxic appearance. [] Cardiovascular:Heart rate regular rhythm, no murmur [] Lungs & Thorax: Bilateral breath sounds clear to auscultation [] Skin: Warm, dry, no erythema, no rash. [] : There is swelling and erythema noted to the glans of the penis. No ulcerations noted on exam. [] Current Patient Data Vital Signs Vital Signs Date Time Temp Pulse Resp B/P (MAP) Pulse Ox O2 Delivery O2 Flow Rate FiO2 07/08/18 23:08 97.7 77 14 152/72 (98) 99 Room Air 97.7 EKG EKG [] Radiology/Procedures Radiology/Procedures [] Course & Med Decision Making Course & Med Decision Making Pertinent Labs and Imaging studies reviewed. (See chart for details) [] Dragon Disclaimer Dragon Disclaimer This electronic medical record was generated, in whole or in part, using a voice recognition dictation system. Departure Departure Impression: Primary Impression: Ida Disposition: 01 HOME, SELF-CARE Condition: STABLE Referrals: RICCO ANGEL MD (PCP) Patient Instructions: Balanitis Scripts Clotrimazole/Betamethasone Dip (CLOTRIMAZOLE-BETAMETHASONE CRM) 15 Gm Cream..g. 1 LIZ TP BID, #30 GM Prov: MARVIN CHAKRABORTY Jr. DO 07/08/18 Bacitracin/Polymyxin B Sulfate (POLYSPORIN TOPICAL OINT) 28.3 Gm Oint...g. 1 LIZ TP BID for WOUND CARE, #1 TUBE DIRECTED BY PHYSICIAN Prov: MARVIN CHAKRABORTY Jr. DO 07/08/18 Sulfamethoxazole/Trimethoprim (BACTRIM DS TABLET) 1 Each Tablet 1 TAB PO BID, #20 TAB Prov: MARVIN CHAKRABORTY Jr. DO 07/08/18 MARVIN CHAKRABORTY Jr. DO Jul 08, 2018 23:45
== END 2018-07-08 23:50 | disposition home or self-care (01) ==
LOC: ER 23:07
DX: N48.1 Balanitis (principal); I48.91 Unspecified atrial fibrillation; E78.00 Pure hypercholesterolemia, unspecified; I10 Essential (primary) hypertension; G43.909 Migraine, unspecified, not intractable, without status migrainosus; F20.9 Schizophrenia, unspecified; K21.9 Gastro-esophageal reflux disease without esophagitis; Z88.8 Allergy status to other drugs, medicaments and biological substances; Z90.5 Acquired absence of kidney
CPT/HCPCS: 99284

== ENCOUNTER → 2018-07-13 | Outpatient (CLI) | payer MEDICARE, OTHER ==
[2018-07-08 23:08] VITALS: BP 152/72
[~2018-07-13] MED LIST changes: +BACI28.34 TP; +CLOT15CR5 TP; +SULF1TAB24 PO
[2018-07-13 16:54] LABS: BASO % 0 % (0-3); EOS # 0.1 x10^3/uL (0.0-0.7); EOS % 2 % (0-3); HEMATOCRIT 35.9 % (39.0-53.0); HEMOGLOBIN 12.1 g/dL (13.0-17.5); LYMPH # 1.3 x10^3/uL (1.0-4.8); LYMPH % 33 % (24-48); MEAN CORPUSCULAR HEMOGLOBIN 31 pg (25-35); MEAN CORPUSCULAR HGB CONC 34 g/dL (31-37); MEAN CORPUSCULAR VOLUME 92 fL (79-100); MONO # 0.8 x10^3/uL (0.0-1.1); MONO % 21 % (0-9); NEUT # 1.8 x10^3uL (1.8-7.7); NEUT % 45 % (31-73); PLATELET COUNT 405 x10^3/uL (140-400); RED BLOOD COUNT 3.91 x10^6/uL (4.30-5.70); RED CELL DISTRIBUTION WIDTH 15.3 % (11.5-14.5); WHITE BLOOD COUNT 3.9 x10^3/uL (4.0-11.0)
[2018-07-13 17:13] LABS: CALCIUM 9.6 mg/dL (8.5-10.1); CREATININE 1.3 mg/dL (0.7-1.3); POTASSIUM 5.2 mmol/L (3.5-5.1)
[2018-07-13 17:15] LABS: CHOLESTEROL/HDL RATIO 1.8
[2018-07-13 17:25] LABS: % BANDS 4 % (0-9); % BASOS 1 % (0-3); % EOS 4 % (0-5); % LYMPHS 28 % (24-48); % MONOS 17 % (0-10); % SEGS 46 % (35-66); PLT ESTIMATE ADEQUATE (ADEQUATE)
== END | disposition home or self-care (01) ==
LOC: LAB 16:32
PROVIDERS: ATTEND Internal Medicine
DX: I10 Essential (primary) hypertension (principal); D64.9 Anemia, unspecified; E78.5 Hyperlipidemia, unspecified
CPT/HCPCS: 36415; 80048; 80061; 85007; 85025

== ENCOUNTER → 2018-10-08 | Outpatient (CLI) | payer OTHER ==
--- NOTE | 2018-10-08 16:38 | RAD ---
Chest CT without contrast Clinical indications: Lung nodule follow-up COMPARISON: Chest CT dated August 15, [address] dated September 16, 2017. TECHNIQUE: Noncontrast helical CT scanning of the chest was performed. PQRS compliance Statement One or more of the following individualized dose reduction techniques were utilized for this study: 1. Automated exposure control 2. Adjustment of the mA and/or kV according to patient size 3. Use of iterative reconstruction technique FINDINGS: No enlarged thoracic lymphadenopathy is evident. Calcified atheromatous disease of coronary arteries is seen. The heart size is normal. No focal aneurysmal dilatation of the thoracic aorta is seen. Again seen is a spiculated nodule within the left apex which is unchanged from 2018 but is slightly larger in comparison to 2017. It measures 19 mm in greatest dimension today. This may be amenable to a PET/CT. The other bilateral lung nodules have not changed since 2017 consistent with benign findings. However, there is a groundglass lung nodule posteriorly in the right upper lobe which measures 7 mm but is stable. This is seen on image 123 and series 3. Fleischner guidelines recommend follow-up to 5 years for stability with groundglass nodules. I believe this could be seen on a previous chest CT in July 11, 2015 and hasn't changed significantly. Therefore, it is stable over 3 years. Therefore, recommend a follow-up chest CT in 2 years to ensure stability over 5 years time. No new lung nodules or lung infiltrates are seen. No pleural effusion or pneumothorax is evident. The proximal bronchial tree is patent. No lytic process is seen. The right kidney is surgically absent. A left adrenal nodule is seen measuring 10 Hounsfield units consistent with a left adrenal adenoma. It is unchanged in size measuring 3.2 cm. Gallstones are seen. IMPRESSION: Slight increase in size of left apical spiculated nodule since 2017. Recommend PET/CT for further evaluation. Other lung nodules are stable. There is a groundglass lung nodule measuring 7 mm in size within the right upper lobe posteriorly. Recommend follow-up chest CT in 2 years to establish stability over 5 years as per Fleischner guidelines. Calcified atheromatous disease the coronary arteries. Cholelithiasis. Electronically signed by: Froylan Pillai MD (10/08/2018 4:35 PM) [place] [id number]
== END | disposition home or self-care (01) ==
LOC: CT 13:34
PROVIDERS: ATTEND Internal Medicine Pulmonary Disease
DX: R91.1 Solitary pulmonary nodule (principal); R91.8 Other nonspecific abnormal finding of lung field; I25.10 Atherosclerotic heart disease of native coronary artery without angina pectoris; K80.20 Calculus of gallbladder without cholecystitis without obstruction
CPT/HCPCS: 71250

== ENCOUNTER → 2018-10-27 | Outpatient (CLI) | payer OTHER ==
[2018-10-27 14:53] LABS: ALBUMIN 3.6 g/dL (3.4-5.0); DIRECT BILIRUBIN 0.1 mg/dL (0.0-0.2); TOTAL BILIRUBIN 0.3 mg/dL (0.2-1.0); TOTAL PROTEIN 7.5 g/dL (6.4-8.2)
== END | disposition home or self-care (01) ==
LOC: LAB 13:39
PROVIDERS: ATTEND Internal Medicine Pulmonary Disease
DX: A31.2 Disseminated mycobacterium avium-intracellulare complex (DMAC) (principal)
CPT/HCPCS: 36415; 80076

== ENCOUNTER 2018-11-23 07:08 | Outpatient (CLI) | payer OTHER ==
[2018-11-23] VITALS (19 sets, daily range): BP systolic 130–171; BP diastolic 59–108
[~2018-11-23] VITALS: Ht 180.3 cm; Wt 92.5 kg
[2018-11-23 07:42] LABS: BASO % 1 % (0-3); EOS # 0.1 x10^3/uL (0.0-0.7); EOS % 2 % (0-3); HEMATOCRIT 38.1 % (39.0-53.0); HEMOGLOBIN 12.7 g/dL (13.0-17.5); LYMPH # 2.3 x10^3/uL (1.0-4.8); LYMPH % 42 % (24-48); MEAN CORPUSCULAR HEMOGLOBIN 30 pg (25-35); MEAN CORPUSCULAR HGB CONC 33 g/dL (31-37); MEAN CORPUSCULAR VOLUME 91 fL (79-100); MONO # 0.7 x10^3/uL (0.0-1.1); MONO % 13 % (0-9); NEUT # 2.3 x10^3uL (1.8-7.7); NEUT % 42 % (31-73); PLATELET COUNT 370 x10^3/uL (140-400); RED BLOOD COUNT 4.18 x10^6/uL (4.30-5.70); RED CELL DISTRIBUTION WIDTH 15.5 % (11.5-14.5); WHITE BLOOD COUNT 5.4 x10^3/uL (4.0-11.0)
[2018-11-23 07:53] LABS: PROTHROMBIN TIME PATIENT 12.5 SEC (11.7-14.0)
[2018-11-23] MEDS ORDERED: fentaNYL PF VIAL 100 MCG/2 ML VIAL ONE (08:33)
[2018-11-23] MEDS ORDERED: NALOXONE 0.4 MG/ML VIAL. ONE (08:33)
[2018-11-23] MEDS ORDERED: FLUMAZENIL 0.5 MG/5 ML VIAL. IV ONE (08:33)
[2018-11-23] MEDS ORDERED: MIDAZOLAM HCL/PF 2 MG/2 ML VIAL. ONE (08:33)
[2018-11-23] MEDS ORDERED: LIDOCAINE WITH 8.4% SOD BICARB 3 ML DISP.SYRIN. ONE (08:36)
[2018-11-23] MEDS ORDERED: fentaNYL PF VIAL 100 MCG/2 ML VIAL IV ONE (09:45)
[2018-11-23] MEDS ORDERED: MIDAZOLAM HCL/PF 2 MG/2 ML VIAL. IV ONE (09:45)
[2018-11-23] MEDS ORDERED: LIDOCAINE WITH 8.4% SOD BICARB 3 ML DISP.SYRIN. IJ ONE (09:45)
--- NOTE | 2018-11-23 09:51 | PDOC ---
BRIEF OPERATIVE NOTE Pre-Op Diagnosis left apical lung nodule Post-Op Diagnosis same Procedure Performed CT lung biopsy Surgeon Warner Anesthesia Type: Conscious Sedation Specimens Obtained 4 x 20g cores Complications No immediate TALIA RICHARDS MD November 23, 2018 09:51
--- NOTE | 2018-11-23 09:52 | PDOC1 ---
History and Physical Date of Procedure Date of Admission History of Present Illness Reason for Visit Adult male with left apical lung nodule Past Medical History Past Medical History see nursing pre-op assessment Current Medications Current Medications Current Medications Midazolam HCl (Versed) 2 mg STK-MED ONCE .ROUTE ; Start 11/23/18 at 08:33; Stop 11/23/18 at 08:34; Status DC Fentanyl Citrate (Fentanyl 2ml Vial) 100 mcg STK-MED ONCE .ROUTE ; Start 11/23/18 at 08:33; Stop 11/23/18 at 08:34; Status DC Flumazenil (Romazicon) 0.5 mg STK-MED ONCE IV ; Start 11/23/18 at 08:33; Stop 11/23/18 at 08:34; Status DC Naloxone HCl (Narcan) 0.4 mg STK-MED ONCE .ROUTE ; Start 11/23/18 at 08:33; Stop 11/23/18 at 08:34; Status DC Lidocaine/Sodium Bicarbonate (Buffered Lidocaine 1%) 3 ml STK-MED ONCE .ROUTE ; Start 11/23/18 at 08:36; Stop 11/23/18 at 08:37; Status DC Lidocaine/Sodium Bicarbonate (Buffered Lidocaine 1%) 12 ml 1X ONCE IJ Last administered on 11/23/18at 09:44; Start 11/23/18 at 09:45; Stop 11/23/18 at 09:46; Status DC Midazolam HCl (Versed) 2 mg 1X ONCE IV Last administered on 11/23/18at 09:43; Start 11/23/18 at 09:45; Stop 11/23/18 at 09:46; Status DC Fentanyl Citrate (Fentanyl 2ml Vial) 100 mcg 1X ONCE IV Last administered on 11/23/18at 09:43; Start 11/23/18 at 09:45; Stop 11/23/18 at 09:46; Status DC Active Scripts Active Clotrimazole-Betamethasone Crm (Clotrimazole/Betamethasone Dip) 15 Gm Cream..g. 1 Michael TP BID Polysporin Topical Oint (Bacitracin/Polymyxin B Sulfate) 28.3 Gm Oint...g. 1 Michael TP BID DIRECTED BY PHYSICIAN Bactrim Ds Tablet (Sulfamethoxazole/Trimethoprim) 1 Each Tablet 1 Tab PO BID Amox Tr-K Clv 875-125 Mg Tab (Amoxicillin/Potassium Clav) 1 Each Tablet 1 Tab PO BID 5 Days Reported Mucus Relief (Guaifenesin) 400 Mg Tablet 400 Mg PO HS Banophen (Diphenhydramine Hcl) 25 Mg Capsule 25 Mg PO QHS Rifampin 300 Mg Capsule 600 Mg PO DAILY Iron (Ferrous Sulfate) 325 Mg Tablet 975 Mg PO DAILY Prednisone (Prednisone) 10 Mg Tablet 10 Mg PO QODAY Pfqkdupl-Bptiexerxlqug-Vjyh Cp (Butalb/Acetaminophen/Caffeine) 1 Each Capsule 1 Each PO PRN Q8HRS PRN Fish Oil + D3 Softgel ([place]-3S/Dha/Epa/Fish Oil/D3) 1 Each Capsule 1 Each PO Azithromycin Tablet (Azithromycin) 250 Mg Tablet 250 Mg PO DAILY Lipitor (Atorvastatin Calcium) 40 Mg Tablet 1 Tab PO QHS Imuran (Azathioprine) 50 Mg Tablet 1 Tab PO BID Aspercreme (Trolamine Salicylate) 177.4 Ml Lotion 177.4 Ml TP Omeprazole 40 Mg Capsule.dr 1 Cap PO DAILY Xarelto (Rivaroxaban) 20 Mg Tablet 20 Mg PO Lisinopril 5 Mg Tablet 2 Tab PO DAILY Centrum Silver Tablet (Multivits-Min/Fa/Lycopene/Lut) 1 Each Tablet 1 Each PO NEXT DOSE: 02/05/16 IN AM Furosemide 40 Mg Tablet 40 Mg PO DAILY NEXT DOSE: 02/05/16 IN AM Metoprolol Tartrate 50 Mg Tablet 100 Mg PO BID NEXT DOSE: 02/04/16 AT BEDTIME Aspir 81 (Aspirin) 81 Mg Tablet.dr 1 Tab PO DAILY NEXT DOSE: 02/05/16 in AM Claritin (Loratadine) 10 Mg Tablet 10 Mg PO DAILY NEXT DOSE: 02/05/16 IN AM Magnesium Oxide 400 Mg Tablet 400 Mg PO DAILY NEXT DOSE: 02/05/16 IN AM Colace (Docusate Sodium) 100 Mg Capsule 1 Cap PO BID PRN TAKE ONCE A DAY NEEDED FOR CONSTIPATION Vitamin D2 (Ergocalciferol (Vitamin D2)) 50,000 Unit Capsule 50,000 Unit PO WEEKLY CONTINUE TO TAKE DIRECTED Advair 500-50 Diskus (Fluticasone/Salmeterol) 1 Each Disk.w.dev 1 Puff IH BID NEXT DOSE: 02/04/16 AT BEDTIME Tamsulosin Hcl 0.4 Mg Cap.er.24h 2 Cap PO BID Next dose: 02/04/16 AT BEDTIME Finasteride 5 Mg Tablet 1 Tab PO HS NEXT DOSE: 02/05/16 IN AM Buspirone Hcl 15 Mg Tablet 1 Tab PO BID NEXT DOSE DUE: 02/04/16 AT BEDTIME Allergies Allergies: Coded Allergies: chlorpromazine (Verified Allergy, Intermediate, 08/27/16) montelukast (Verified Allergy, Intermediate, 08/27/16) trifluoperazine (Verified Allergy, Intermediate, 08/27/16) Physical Exam Vital Signs Vital Signs Date Time Temp Pulse Resp B/P (MAP) Pulse Ox O2 Delivery O2 Flow Rate FiO2 11/23/18 09:48 79 99 Room Air 2.0 11/23/18 09:44 16 11/23/18 08:16 98.0 145/74 (97) 98.0 Other see nursing pre-op assessment Assessment Assessment left apical lung nodule Plan Plan CT Lung biopsy TALIA RICHARDS MD November 23, 2018 09:52
--- NOTE | 2018-11-23 09:59 | PDOC ---
MODERATE SEDATION ASSESSMENT RISKS/ALTERNATIVES Risks/Alternatives Risks and alternatives of this type of sedation and procedure discussed with: RISK/ALTERNATIVES: Patient H & P ON CHART H & P H & P on chart and reviewed for co-morbid conditions and appropriate labs. H&P ON CHART: Yes STATUS PREG STATUS ASSESSED: Yes MEDS/ALLERGIES REVIEWED Meds/Allergies Reviewed Medications and Allergies including time and route of recently administered narcotics and sedatives. MEDS/ALLERGIES REVIEWED: Yes ASA RATING ASA RATING: II AIRWAY ASSESSMENT Airway Assessment Airway patency, oral function limitations, presence of caps, crowns, dentures, partials, and ability to extend neck assessed. AIRWAY ASSESSMENT: Yes MALLAMPATI SCORE MALLAMPATI SCORE: II PRE-SEDATION ASSESSMENT PRE-SEDATION ASSESSMENT: Yes TALIA RICHARDS MD November 23, 2018 09:59
--- NOTE | 2018-11-23 12:57 | NUR ---
discharge notes;Pt is discharged home. Pt is alert, oriented x 4. VSS. Pt ate lunch w/o problem. d/C instructions were reviewed. Pt verbalized understanding. Pt's belongings were w/ pt. Pt called his transportation. IV was out by Trixie. Pt will be taken by this nurse
--- NOTE | 2018-11-23 16:40 | RAD ---
Portable chest, inspiration and expiration views, 11/23/2018: HISTORY: Post lung biopsy evaluation Comparison is made to a study from 03/22/2018. The heart is within normal limits in size. The patient's known left apical pulmonary nodule is not clearly visualized radiographically. No pulmonary infiltrate, pleural fluid or pneumothorax is seen. IMPRESSION: No post lung biopsy complication is identified. Electronically signed by: Van Summers MD (11/23/2018 4:37 PM) [facility]
--- NOTE | 2018-11-24 09:04 | RAD ---
Procedure: CT-guided left lung biopsy Clinical Indication: 63-year-old with left apical spiculated lung nodule Sedation: Conscious sedation was administered with a total intraprocedural [id number]-lq-[id number] time of 24 minutes. The patient was monitored by a qualified independent observer throughout the time of sedation. Please refer to the medical record for exact doses of medications utilized to achieve moderate sedation. Antibiotics: None Sterility: The procedure was performed in its entirety using appropriate elements of sterile technique. Consent: The procedure was explained in its entirety to the patient or the patients designated nutrition representative by a member of the treatment team, including a discussion of the risks, benefits and commonly accepted alternatives to the procedure, as well as the expected consequences of no therapy whatsoever. Discussion of the risks included, but was not limited to, those that are most frequent and those that are rare but possibly severe or life-threatening, as well as the possibility of unforeseen complications. Technique and Findings: Following informed consent, the patient was prepped and draped in usual sterile fashion. Preliminary CT scan of the area of interest was performed. 1% lidocaine was used to achieve local anesthesia. A small dermatotomy was made. Under periodic CT surveillance, a 19-gauge needle guide was advanced towards the target lesion and 5 separate 20-gauge core biopsy passes were performed. Specimens were divided between formalin and saline for microbiologic analysis. A blood patch was applied as the needle guide was removed and hemostasis was achieved with manual compression. Complications: No immediate Impression: 1. CT-guided left apical lung biopsy as described. PQRS Compliance Statement: One or more of the following individualized dose reduction techniques were utilized for this examination: 1. Automated exposure control 2. Adjustment of the mA and/or kV according to patient size 3. Use of iterative reconstruction technique
--- NOTE | 2018-11-25 15:06 | PATHOLOGY ---
[facility] Accession Number: [id number] . 01 Material submitted: . lung - LEFT LUNG BIOPSY. Modifiers: left . 01 Clinical history: . Left lung nodule . 02 Diagnosis: Lung tissue, left lung nodule CT-guided biopsies: - ADENOCARCINOMA, MODERATELY-WELL DIFFERENTIATED. SEE COMMENT. (JPM:broom maker; 11/24/2018) MBR/11/24/2018 . 02 Comment: Sections of the left lung nodule CT-guided biopsy show replacement of lung tissue by a malignant epithelial neoplasm. The latter is comprised of irregular acinar structures which infiltrate a scleroelastotic stroma. The malignant cells have modest amounts of eosinophilic cytoplasm, and possess mild to moderately pleomorphic hyperchromatic nuclei containing prominent nucleoli. 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 The case is also examined by Dr. Contreras, who concurs with the diagnosis. The results are reported to Dr. Rodriguez on 11/25/18 at 2:00 P.M. (JPM:broom maker; 11/24/2018) . 02 Electronically signed: . Corona Olguin MD, Pathologist NPI- [id number] . 01 Gross description: . The specimen is received in formalin, labeled "Vahe Khalil, left lung biopsy". Received are three needle cores of pale ponce soft tissue ranging in length from 0.4 to 0.6 cm in length by 0.1 cm in diameter. The specimen is submitted entirely in cassette A1. (CAA; 11/23/2018) QAC/QAC . 02 Pathologist provided ICD-10: C34.92 . 02 CPT . 956540 Specimen Comment: A courtesy copy of this report has been sent to Specimen Comment: [phone], , . Specimen Comment: Report sent to ,DR RODRIGUEZ / DR SUE Performed at: [address], [place] [id number] MD Guido Meza MD Phone: [phone] [facility]formed at: [facility] [address] [place], [place] [id number] MD Corona Olguin MD Phone: [phone]
== END 2018-11-23 13:10 | disposition home or self-care (01) ==
LOC: INTRAD 07:08
PROVIDERS: ATTEND Internal Medicine Pulmonary Disease
DX: C34.92 Malignant neoplasm of unspecified part of left bronchus or lung (principal); Z88.8 Allergy status to other drugs, medicaments and biological substances; Z79.899 Other long term (current) drug therapy; Z79.01 Long term (current) use of anticoagulants; Z79.82 Long term (current) use of aspirin; Z88.1 Allergy status to other antibiotic agents
CPT/HCPCS: 32405; 36415; 71046; 77012; 85025; 85610; 85730; 87070; 87116; 88305; 99152; 99153; C1892; J2250; J3010

== ENCOUNTER → 2019-02-24 | Outpatient (CLI) | payer MEDICARE, OTHER ==
[2018-11-23 12:30] VITALS: BP 131/65
--- NOTE | 2019-02-25 09:31 | RAD ---
Examination: PET W CT SKULL TO MIDTHIGH HISTORY: Lung mass COMPARISON/CORRELATION: 10/08/2018 CT chest without contrast, 03/17/2018 CT abdomen and pelvis with oral contrast FINDINGS: Net dose 14.4 mCi F-18 FDG was administered intravenously for purposes of PET/CT exam. Blood glucose level at the time of radiotracer administration was 94 mg/dL. Imaging was performed from the skull base to the proximal thighs. Hepatic reference uptake is SUV max of 2.3 . At the medial left apex, there is a 1.6 cm x 1.3 cm mass with SUV max of 4. Subtle spiculation noted. No significant change in size suggested compared to 10/08/2018 CT chest without contrast. No new pulmonary nodules. Anterior right subpleural groundglass nodular infiltrate on axial image 87 is present with a corresponding finding on the prior CT exam. Coronary arterial calcifications are evident. Uptake of radiotracer involving the abdomen and pelvis is unremarkable. Right nephrectomy is evident. Left adrenal gland region low-attenuation structure of fluid is stable without radiotracer uptake. No radiopaque collecting system calculi. Prostatomegaly noted. Prostate gland measures up to 5.7 cm transverse. Urinary bladder is unremarkable. Left lower groin lymph nodes are present with the larger of these measuring 1.6 cm x 1.1 cm. These are similar upon correlation with 03/17/2018. SUV max of up to 2.5 is present. Advanced right hip joint degenerative remodeling is present. Bilateral L5 pars interarticularis fractures are again noted with grade 2 anterolisthesis of L5 over S1. IMPRESSION: Mildly intense uptake involving the left medial upper lung nodule of concern for low-grade neoplastic process. No other suspicious foci of uptake. PQRS Compliance Statement: One or more of the following individualized dose reduction techniques were utilized for this examination: 1. Automated exposure control 2. Adjustment of the mA and/or kV according to patient size 3. Use of iterative reconstruction technique Electronically signed by: Rosenod Squires MD (02/25/2019 9:28 AM) [facility]
== END | disposition home or self-care (01) ==
LOC: PETSC 12:03
PROVIDERS: ATTEND Surgery Vascular Surgery
DX: I25.10 Atherosclerotic heart disease of native coronary artery without angina pectoris (principal); R91.8 Other nonspecific abnormal finding of lung field; Z88.8 Allergy status to other drugs, medicaments and biological substances; Z90.5 Acquired absence of kidney
CPT/HCPCS: 78815; A9552

== ENCOUNTER 2019-03-02 14:46 | Emergency (ER) | payer MEDICARE, OTHER ==
[~2019-03-02] VITALS: Ht 182.9 cm; Wt 92.5 kg
[~2019-03-02 14:46] MED LIST changes: +GUAI400T77 PO; -[UNRECOGNIZED DRUG - CODE] PO
[2019-03-02 15:10] VITALS: BP 163/70
[2019-03-02] MEDS ORDERED: AMOXICILLIN/K CLAV 875/125MG TABLET. PO ONE ×2 (15:15)
--- NOTE | 2019-03-02 15:35 | PHYS DOC ---
Past Medical History Past Medical History: A-Fib, Bronchitis, GERD, High Cholesterol, Hypertension, Migraines, Schizophrenia Additional Past Medical Histor: PARANOID SCHIZO. Past Surgical History: Other Additional Past Surgical Histo: R nephrectomy, uvula sx, sinus polyps removed Alcohol Use: Occasionally Drug Use: None Adult General Chief Complaint Chief Complaint: PENIS PROBLEM HPI HPI Patient is a 63 year old male who presents with penile problem. Pt reports having pruritus, erythema and edema in his glans penis started about 6 days ago. Pt applied some topical neosporin which helps with the erythema but continues to have the remaining symptom and sign. Pt also reports having hard time keep the perineal area dry. He had a similar episode 6 months ago when he was treated with neosporin, oral antibiotics and antifungal cream. He is sexually active with his partner. Denies any urethral discharge or UTI symptom. Review of Systems Review of Systems Constitutional: Denies fever or chills Eyes: Denies redness or eye pain HENT: Denies nasal congestion or sore throat Respiratory: Denies cough or shortness of breath Cardiovascular: Denies chest pain or palpitations GI: Denies abdominal pain, nausea, or vomiting : Denies dysuria or hematuria Musculoskeletal: Denies back pain or joint pain Integument: Denies rash or skin lesions Neurologic: Denies headache, focal weakness or sensory changes Complete systems were reviewed and found to be within normal limits, except as documented in this note. Current Medications Current Medications Current Medications Medications (Trade) Dose Ordered Sig/Gigi Start Time Stop Time Status Last Admin Dose Admin Amoxicillin/ Clavulanate Potassium (Augmentin 875/ 125mg) 1 tab 1X ONCE 03/02/19 15:15 03/02/19 15:17 DC 03/02/19 15:33 1 TAB Allergies Allergies Allergies Coded Allergies Type Severity Reaction Last Updated Verified chlorpromazine Allergy Intermediate 08/27/16 Yes montelukast Allergy Intermediate 08/27/16 Yes trifluoperazine Allergy Intermediate 08/27/16 Yes Physical Exam Physical Exam Constitutional: Well developed, well nourished, no acute distress, non-toxic appearance HENT: Normocephalic, atraumatic, oropharynx moist Eyes: PERRL, EOMI, conjunctiva normal, no discharge Neck: Normal range of motion, no tenderness, supple Cardiovascular: Heart rate normal, regular rhythm Lungs & Thorax: Bilateral breath sounds clear to auscultation, no wheezing Abdomen: Soft, no tenderness : Uncircumcised penis with mild erythema and edema at the left side of the pearce of glans penis. Skin: Warm, dry, no erythema, no rash Back: No tenderness, no CVA tenderness Extremities: No tenderness, ROM intact, no edema Neurologic: Alert and oriented X 3, normal motor function, normal sensory function, no focal deficits noted Psychologic: Affect normal, judgement normal, mood normal Current Patient Data Vital Signs Vital Signs Date Time Temp Pulse Resp B/P (MAP) Pulse Ox O2 Delivery O2 Flow Rate FiO2 03/02/19 15:10 98.2 79 16 163/70 (101) 97 Room Air 98.2 Lab Values Laboratory Tests Test 03/02/19 15:57 Urine Collection Type Unknown Urine Color Yellow Urine Clarity Clear Urine pH 6.5 Urine Specific [place] 1.010 Urine Protein Negative mg/dL (NEG-TRACE) Urine Glucose (UA) Negative mg/dL (NEG) Urine Ketones (Stick) Negative mg/dL (NEG) Urine Blood Negative (NEG) Urine Nitrite Negative (NEG) Urine Bilirubin Negative (NEG) Urine Urobilinogen Dipstick 0.2 mg/dL (0.2 mg/dL) Urine Leukocyte Esterase Negative (NEG) Urine RBC 0 /HPF (0-2) Urine WBC 0 /HPF (0-4) Urine Squamous Epithelial Cells Occ /LPF Urine Bacteria 0 /HPF (0-FEW) EKG EKG [] Radiology/Procedures Radiology/Procedures [] Course & Med Decision Making Course & Med Decision Making Pertinent Labs and Imaging studies reviewed. (See chart for details) 63 yo male presents with penis pain. Diagnosis of recurrent Balantitis. Providing 1st dose of antibiotics in the ED. Patient stable for discharge with outpatient follow-up with PCP and urology. Discussed findings and plan with patient and family, who acknowledge understanding and agreement. Dragon Disclaimer Dragon Disclaimer This electronic medical record was generated, in whole or in part, using a voice recognition dictation system. Departure Departure Impression: Primary Impression: Balanitis Disposition: 01 HOME, SELF-CARE Condition: STABLE Referrals: MARYLOU HARDEN DO (PCP) TALIA QUILES MD Patient Instructions: Balanitis and Foreskin Hygiene Scripts Clotrimazole (CLOTRIMAZOLE) 15 Gm Cream..g. 1 LIZ TP TID, #30 GM Continue until symptomp resolves Prov: KALIN CABRERA DO 03/02/19 Amoxicillin/Potassium Clav (AUGMENTIN 875-125 TABLET) 1 Each Tablet 1 TAB PO BID for 7 Days, #14 TAB Prov: KALIN CABRERA DO 03/02/19 KALIN CABRERA DO Mar 02, 2019 15:34
[2019-03-02 16:03] LABS: BILIRUBIN,URINE NEGATIVE (NEG); CLARITY,URINE CLEAR; COLOR,URINE YELLOW; NITRITE,URINE NEGATIVE (NEG); PH,URINE 6.5; PROTEIN,URINE NEGATIVE (NEG-TRACE); UROBILINOGEN,URINE 0.2 mg/dL (0.2 mg/dL)
[2019-03-02 16:05] LABS: BACTERIA,URINE 0 /HPF (0-FEW); RBC,URINE 0 /HPF (0-2); SQUAMOUS EPITHELIAL CELL,UR OCC /LPF; WBC,URINE 0 /HPF (0-4)
[2019-03-02] MEDS ORDERED: AMOX1TAB61 PO (16:49)
[2019-03-02] MEDS ORDERED: CLOT15CR4 TP (16:49)
== END 2019-03-02 17:04 | disposition home or self-care (01) ==
LOC: ER 14:46
DX: N48.1 Balanitis (principal); I48.91 Unspecified atrial fibrillation; K21.9 Gastro-esophageal reflux disease without esophagitis; E78.00 Pure hypercholesterolemia, unspecified; G43.909 Migraine, unspecified, not intractable, without status migrainosus; I10 Essential (primary) hypertension; F20.9 Schizophrenia, unspecified; Z88.8 Allergy status to other drugs, medicaments and biological substances
CPT/HCPCS: 81001; 87491; 87591; 99284

== ENCOUNTER → 2019-03-09 | Outpatient (CLI) | payer OTHER, MEDICARE ==
[2019-03-02 15:10] VITALS: BP 163/70
[~2019-03-09] MED LIST changes: +AMOX1TAB61 PO; +CLOT15CR4 TP; -DILT120C85 PO; +DILT120C99 PO; -MAGN400T3 PO; +MAGN400T5 PO; +OMEP40CA45 PO; -OMEP40CA5 PO; +SIMV20TA18 PO; -SIMV20TA3 PO
[2019-03-09 13:52] LABS: BASO # 0.1 x10^3/uL (0.0-0.2); BASO % 1 % (0-3); EOS # 0.1 x10^3/uL (0.0-0.7); EOS % 2 % (0-3); HEMOGLOBIN 11.9 g/dL (13.0-17.5); LYMPH % 14 % (24-48); MEAN CORPUSCULAR HEMOGLOBIN 31 pg (25-35); MEAN CORPUSCULAR HGB CONC 33 g/dL (31-37); MEAN CORPUSCULAR VOLUME 93 fL (79-100); MONO # 0.4 x10^3/uL (0.0-1.1); MONO % 5 % (0-9); NEUT # 5.7 x10^3/uL (1.8-7.7); NEUT % 78 % (31-73); PLATELET COUNT 351 x10^3/uL (140-400); RED BLOOD COUNT 3.87 x10^6/uL (4.30-5.70); RED CELL DISTRIBUTION WIDTH 15.3 % (11.5-14.5); WHITE BLOOD COUNT 7.3 x10^3/uL (4.0-11.0)
[2019-03-09 13:56] LABS: BILIRUBIN,URINE NEGATIVE (NEG); CLARITY,URINE CLEAR; COLOR,URINE YELLOW; NITRITE,URINE NEGATIVE (NEG); PH,URINE 5.5; PROTEIN,URINE NEGATIVE (NEG-TRACE); UROBILINOGEN,URINE 0.2 mg/dL (0.2 mg/dL)
--- NOTE | 2019-03-09 14:01 | EKG ---
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
[2019-03-09 14:03] LABS: PROTHROMBIN TIME PATIENT 16.2 SEC (11.7-14.0)
[2019-03-09 14:09] LABS: ALBUMIN 3.6 g/dL (3.4-5.0); ALBUMIN/GLOBULIN RATIO 0.9 (1.0-1.7); CALCIUM 9.5 mg/dL (8.5-10.1); CREATININE 1.2 mg/dL (0.7-1.3); GFR 73.5; POTASSIUM 4.9 mmol/L (3.5-5.1); TOTAL BILIRUBIN 0.3 mg/dL (0.2-1.0); TOTAL PROTEIN 7.5 g/dL (6.4-8.2)
[2019-03-09 14:16] LABS: BACTERIA,URINE 0 /HPF (0-FEW); RBC,URINE RARE /HPF (0-2); SQUAMOUS EPITHELIAL CELL,UR OCC /LPF; WBC,URINE RARE /HPF (0-4)
--- NOTE | 2019-03-09 17:33 | RAD ---
Indication:Preop chest x-ray. TECHNIQUE: PA and lateral views of the chest COMPARISON: PET/CT from 02/24 2019. FINDINGS: Heart is normal in size. Lungs are clear. Left upper lobe nodule seen on PET/CT is not well visualized on radiograph. No pneumothorax or pleural effusion. Visualized bony thorax within normal limits. IMPRESSION: No acute pulmonary process. Electronically signed by: Sang Peterson DO (03/09/2019 5:30 PM) [id number]
== END | disposition home or self-care (01) ==
LOC: SURGPAT 12:27
PROVIDERS: ATTEND Surgery Vascular Surgery
DX: Z01.818 Encounter for other preprocedural examination (principal); R91.1 Solitary pulmonary nodule; R94.31 Abnormal electrocardiogram [ECG] [EKG]
CPT/HCPCS: 36415; 71046; 80053; 81001; 85025; 85610; 85730; 87641; 93005

== ENCOUNTER → 2019-03-16 | Outpatient (CLI) | payer MEDICARE, OTHER ==
[2019-03-02 15:10] VITALS: BP 163/70
[~2019-03-16] MED LIST changes: +DILT120C85 PO; -DILT120C99 PO; +MAGN400T3 PO; -MAGN400T5 PO; -OMEP40CA45 PO; +OMEP40CA5 PO; -SIMV20TA18 PO; +SIMV20TA3 PO
--- NOTE | 2019-03-16 08:23 | RAD ---
EXAM: CT Chest without IV contrast CLINICAL HISTORY: Lung mass, follow-up COMPARISON: 10/08/18, 09/16/17. PET CT 02/24/2018 TECHNIQUE: CT of the chest without intravenous contrast. Axial, coronal and sagittal reformatted images were generated. ---PQRS compliance statement - One or more of the following individualized dose reduction techniques were utilized for this study: 1. Automated exposure control 2. Adjustment of the mA and/or kV according to patient size 3. Use of iterative reconstruction technique--- FINDINGS: Lack of intravenous contrast limits evaluation of solid organs, vasculature, and lymph nodes. Chest: Heart is not enlarged. Coronary calcifications are seen. Aortic calcifications are noted. No pleural effusion or pneumothorax. Within the constraints of noncontrast examination, no mediastinal or hilar lymphadenopathy. No axillary lymphadenopathy. Bilateral gynecomastia is seen. A 1.8 x 1.3 cm medial left apical spiculated lung mass is again seen, previously 1.8 x 1.2 cm when measured in a similar fashion on 10/08/2018, but increased in size compared to 09/16/2017 when it measured 1.4 x 0.9 cm when remeasured in a similar fashion. A 6 mm (series 2 image 23) groundglass nodule in the posterior right upper lobe is grossly stable, previously 7 mm. A new 5 mm lung nodule (series 2 image 27) is seen. The vague and patchy groundglass opacities seen on prior CT abdomen general improved. Visualized Upper abdomen: Calcified gallstones are seen dependently within the gallbladder. Left upper pole renal cystic lesion is seen. Bones: Multilevel degenerative changes of the spine are seen. IMPRESSION: 1. Spiculated left upper lobe lung nodule is seen, on prior PET scan demonstrate FDG uptake, suspicious for malignancy. Histopathologic correlation with CT-guided biopsy can be performed. 2. 6 mm groundglass nodule in the right upper lobe is grossly stable. Recommend continued follow-up as per prior CT-September 2020. 3. Compared to prior examination the vague groundglass opacities seen previously have, in general, improved. Electronically signed by: Delroy Figueroa MD (03/16/2019 8:20 AM) [facility]
== END | disposition home or self-care (01) ==
LOC: CT 07:46
PROVIDERS: ATTEND Surgery Vascular Surgery
DX: R91.8 Other nonspecific abnormal finding of lung field (principal); J98.4 Other disorders of lung; K80.20 Calculus of gallbladder without cholecystitis without obstruction; N28.89 Other specified disorders of kidney and ureter; I25.10 Atherosclerotic heart disease of native coronary artery without angina pectoris; N62 Hypertrophy of breast
CPT/HCPCS: 71250

== ENCOUNTER → 2019-05-03 | Outpatient (CLI) | payer MEDICARE, OTHER ==
[2019-03-25 09:11] VITALS: BP 141/100
[~2019-05-03] MED LIST changes: -DILT120C85 PO; +DILT120C99 PO; -MAGN400T3 PO; +MAGN400T5 PO; +OMEP40CA45 PO; -OMEP40CA5 PO; +SIMV20TA18 PO; -SIMV20TA3 PO
--- NOTE | 2019-05-03 16:03 | RAD ---
Single view of the chest. 05/03/2019 12:00 AM Indication: Malignant neoplasm, left lung. Comparison: Chest radiograph March 25, 2019 Findings: Subcutaneous emphysema has resolved. No pneumothorax is seen. Left-sided volume loss with some elevation of left hemidiaphragm basilar scarring is similar to comparison study. No acute focal consolidative infiltrate is seen. Postsurgical changes in the left mediastinum and hilum noted. No acute osseous changes are noted in the interim. IMPRESSION: Similar postsurgical changes. No acute cardiopulmonary process is identified Electronically signed by: William Vivar MD (05/03/2019 3:59 PM) [id number]
== END | disposition home or self-care (01) ==
LOC: RAD 14:00
PROVIDERS: ATTEND Surgery Vascular Surgery
DX: C34.12 Malignant neoplasm of upper lobe, left bronchus or lung (principal)
CPT/HCPCS: 71046

== ENCOUNTER 2019-07-19 13:51 | Emergency (ER) | payer MEDICARE, OTHER ==
[~2019-07-19] VITALS: Ht 180.3 cm; Wt 99.0 kg
[~2019-07-19 13:51] MED LIST changes: +MAGN296S68 PO; -MAGN296S9 PO
--- NOTE | 2019-07-19 14:25 | PHYS DOC ---
Past Medical History Past Medical History: A-Fib, Bronchitis, GERD, High Cholesterol, Hypertension, Migraines, Schizophrenia Additional Past Medical Histor: PARANOID SCHIZO. Past Surgical History: Other Additional Past Surgical Histo: R nephrectomy, uvula sx, sinus polyps removed Alcohol Use: Occasionally Drug Use: None Adult General Chief Complaint Chief Complaint: EYE PROBLEMS HPI HPI Patient is a 64 year old male who presents with patient states a couple days ago he went to [employer] [place] he was diagnosed with bilateral conjunctivitis. He states that he went to [facility] and got the erythromycin ointment. Patient states he is unaware of how to use it. Patient is here wanting education on medication use. Review of Systems Review of Systems Eyes: Denies change in visual acuity, conjunctiva redness, discharge or eye pain [] All other systems were reviewed and found to be within normal limits, except as documented in this note. Allergies Allergies Allergies Coded Allergies Type Severity Reaction Last Updated Verified chlorpromazine Allergy Intermediate 03/22/19 Yes montelukast Allergy Intermediate 03/22/19 Yes trifluoperazine Allergy Intermediate 03/22/19 Yes Physical Exam Physical Exam Constitutional: Well developed, well nourished, no acute distress, non-toxic appearance. [] HENT: Normocephalic, atraumatic, bilateral external ears normal, oropharynx moist, no oral exudates, nose normal. [] Eyes: PERRLA, EOMI, conjunctiva pink, no discharge. [] Neck: Normal range of motion, no tenderness, supple, no stridor. [] Cardiovascular:Heart rate regular rhythm, no murmur [] Lungs & Thorax: Bilateral breath sounds clear to auscultation [] Abdomen: Bowel sounds normal, soft, no tenderness, no masses, no pulsatile masses. [] Skin: Warm, dry, no erythema, no rash. [] Back: No tenderness, no CVA tenderness. [] Extremities: No tenderness, no cyanosis, no clubbing, ROM intact, no edema. [] Neurologic: Alert and oriented X 3, normal motor function, normal sensory function, no focal deficits noted. [] Psychologic: Affect normal, judgement normal, mood normal. [] EKG EKG [] Radiology/Procedures Radiology/Procedures [] Course & Med Decision Making Course & Med Decision Making States he tried to get into his eye doctor but they stated that his insurance doesn't pay a bill so they would not see him. Patient is given instructions by myself and nurse on how to administer erythromycin ointment in his eyes bilaterally. We placed ointment in his eyes for him. Patient states his understanding. Patient has bilateral conjunctivitis. He denies any visual changes or worsening of symptoms.[] Dragon Disclaimer Dragon Disclaimer This electronic medical record was generated, in whole or in part, using a voice recognition dictation system. Departure Departure Impression: Primary Impression: Encounter for medical screening examination Disposition: HOME, SELF-CARE Referrals: MARYLOU HARDEN DO (PCP) Patient Instructions: Medical Screening Exam Additional Instructions: Follow-up with her eye doctor or your primary care doctor. Continue using the high ointment as it is prescribed and as we have educated you. ANT POLLOCK APRN Jul 19, 2019 14:25
[2019-07-19 14:26] VITALS: BP 141/100
== END 2019-07-19 14:43 | disposition home or self-care (01) ==
LOC: ER 13:51
DX: H10.9 Unspecified conjunctivitis (principal); I48.91 Unspecified atrial fibrillation; K21.9 Gastro-esophageal reflux disease without esophagitis; E78.00 Pure hypercholesterolemia, unspecified; G43.909 Migraine, unspecified, not intractable, without status migrainosus; I10 Essential (primary) hypertension; F20.9 Schizophrenia, unspecified; Z88.8 Allergy status to other drugs, medicaments and biological substances
CPT/HCPCS: 99282

== ENCOUNTER 2021-02-27 09:55 | Inpatient (IN) | payer OTHER ==
[2021-02-27] VITALS (13 sets, daily range): BP systolic 74–111; BP diastolic 49–70
[~2021-02-27] VITALS: Ht 180.3 cm; Wt 94.3 kg
[~2021-02-27 09:55] MED LIST changes: +AMIO200T6 PO; +APIX5TAB PO; +BISA10SU55 RC; +CEFT2VIA IJ; +CLOT15CR23 TP; -CLOT15CR4 TP; +COLACE GT; -DIPH25CA20 PO; +DOCU-199 PO; +EZET10TA20 PO; +FOLI0.8C PO; +GUAI100L12 PO; -GUAI400T77 PO; +HEPA100D36 IV; +IPRA3AMP29 NEB; -LISI-338 PO; +LISI-517 PO; +LISI10TA16 PO; -LISI10TA2 PO; +MELA3TAB30 PO; +MELA5LIQ2 PO; +METO-313 PO; +MULT-496 PO; -OMEP40CA45 PO; +OMEP40CA7 PO; +PANT40TA77 PO; +PRED5TAB PO; +TRAZ-118 PO; +[UNRECOGNIZED DRUG - CODE] IV; +[UNRECOGNIZED DRUG - CODE] PO; +[UNRECOGNIZED DRUG - CODE] PO
[2021-02-27] MEDS ORDERED: ATROPINE 0.5 MG/5 ML DISP.SYRINGE. IV ONE ×2 (10:30→11:00)
--- NOTE | 2021-02-27 10:52 | RAD ---
AP chest. HISTORY: Bradycardia AP view was taken of the chest. There is a tracheostomy tube in place. Right Port-A-Cath is in good p osition. There is a left hilar mass. There is consolidation are atelectasis of the left lung. There i s a left pleural effusion. IMPRESSION: 1. Left hilar mass. 2. Atelectasis or consolidation left lung. 3. Left pleural effusion. Electronically signed by: Eduardo Richardson MD (02/27/2021 10:49 AM) [facility]
[2021-02-27 10:55] LABS: BASO % 0 % (0-3); EOS % 0 % (0-3); LYMPH # 0.6 x10^3/uL (1.0-4.8); LYMPH % 4 % (24-48); MEAN CORPUSCULAR HEMOGLOBIN 28 pg (25-35); MEAN CORPUSCULAR HGB CONC 32 g/dL (31-37); MEAN CORPUSCULAR VOLUME 89 fL (79-100); MONO # 1.4 x10^3/uL (0.0-1.1); MONO % 11 % (0-9); NEUT # 11.5 x10^3/uL (1.8-7.7); NEUT % 85 % (31-73); PLATELET COUNT 99 x10^3/uL (140-400); RED BLOOD COUNT 2.07 x10^6/uL (4.30-5.70); WHITE BLOOD COUNT 13.6 x10^3/uL (4.0-11.0)
[2021-02-27 10:56] LABS: CALCIUM 9.7 mg/dL (8.5-10.1); CREATININE 2.9 mg/dL (0.7-1.3); GFR 26.4
[2021-02-27 11:11] LABS: POTASSIUM 6.8 mmol/L (3.5-5.1)
[2021-02-27] MEDS ORDERED: DEXTROSE 50% 25 GM / 50ML DISP.SYRIN. IV ONE ×2 (11:13→12:00)
[2021-02-27] MEDS ORDERED: fentaNYL PF VIAL 100 MCG/2 ML VIAL IVP ONE (11:15)
[2021-02-27] MEDS ORDERED: CALCIUM GLUCONATE 1,000 MG/10 ML VIAL. ONE (11:15)
[2021-02-27 11:21] LABS: HEMATOCRIT 18.4 % (39.0-53.0); HEMOGLOBIN 5.9 g/dL (13.0-17.5)
--- NOTE | 2021-02-27 11:51 | PHYS DOC ---
Past Medical History Past Medical History: A-Fib, Bronchitis, GERD, High Cholesterol, Hypertension, Migraines, Schizophrenia Additional Past Medical Histor: PARANOID SCHIZO. Past Surgical History: Other Additional Past Surgical Histo: R nephrectomy, uvula sx, sinus polyps removed Smoking Status: Former Smoker Alcohol Use: Occasionally Drug Use: None General Adult EDM: Chief Complaint: BRADYCARDIA HPI: HPI: 65-year-old male with a history of tracheostomy, ventilator dependence at baseline, [facility] resident, history of left hilar mass presents to the emergency department with abnormal lab work and bradycardia that was found at his [facility] earlier today. He was found to have an elevated creatinine and was also found to be bradycardic in the 30s and 20s at the fdc and was sent to the emergency department. He appeared to be asymptomatic, but the patient does not verbalize at baseline and communication is very difficult. The patient nods yes or no to questions. He any acute symptoms at this time. History is limited secondary to his critical illness and lack of verbalization Review of Systems: Review of Systems: ROS is otherwise unobtainable secondary to patient's critical illness and lack of localization at baseline Heart Score: C/O Chest Pain: N/A Current Medications: Current Medications Medications (Trade) Dose Ordered Sig/Gigi Start Time Stop Time Status Last Admin Dose Admin Atropine Sulfate (ATROPINE 0.5mg SYRINGE) 0.5 mg 1X ONCE 02/27/21 11:00 02/27/21 11:01 DC 02/27/21 11:08 0.5 MG Calcium Gluconate (Calcium Gluconate) 2,000 mg 1X ONCE 02/27/21 12:00 02/27/21 12:01 02/27/21 11:22 2,000 MG Dextrose (Dextrose 50%-Water Syringe) 25 gm 1X ONCE 02/27/21 12:00 02/27/21 12:01 02/27/21 11:32 25 GM Dopamine HCl/ Dextrose 250 ml @ 7.65 mls/hr 1X ONCE 02/27/21 11:00 02/28/21 19:40 02/27/21 11:26 7.65 MLS/HR Fentanyl Citrate (Fentanyl 2ml Vial) 75 mcg 1X ONCE 02/27/21 11:15 02/27/21 11:16 DC Glucagon (Glucagen) 5 mg 1X ONCE 02/27/21 11:45 02/27/21 11:46 UNV Insulin Human Regular (HumuLIN R VIAL) 10 unit 1X ONCE 02/27/21 12:00 02/27/21 12:01 02/27/21 11:33 10 UNIT Allergies: Allergies: Allergies Coded Allergies Type Severity Reaction Last Updated Verified chlorpromazine Allergy Intermediate 03/22/19 Yes montelukast Allergy Intermediate 03/22/19 Yes trifluoperazine Allergy Intermediate 03/22/19 Yes Physical Exam: PE: Constitutional: No acute distress, not able to vocalize at baseline. HENT: Tracheostomy in place, patient complains that he is congested and is requesting suctioning Eyes: PERRLA, EOMI, conjunctiva normal, no discharge. Neck: Tracheostomy in place, no audible stridor Cardiovascular: Heart rate bradycardic, skin is cool to touch, capillary refill delayed Lungs & Thorax: No respiratory distress, symmetrical expansion. Coarse breath sounds left lung Abdomen: Drain is present in the left lower quadrant Skin: No skin breakdown, dry. Extremities: Extremities are cool to touch, bradycardic radial pulses 1+ Neurologic: Awake and alert, normal motor function, normal sensory function, no focal deficits noted. Psychologic: Affect normal,mood normal. Current Patient Data: Labs: Laboratory Tests Test 02/27/21 10:16 02/27/21 10:18 White Blood Count 13.6 x10^3/uL (4.0-11.0) H Red Blood Count 2.07 x10^6/uL (4.30-5.70) L Hemoglobin 5.9 g/dL (13.0-17.5) *L Hematocrit 18.4 % (39.0-53.0) *L Mean Corpuscular Volume 89 fL (79-100) Mean Corpuscular Hemoglobin 28 pg (25-35) Mean Corpuscular Hemoglobin Concent 32 g/dL (31-37) Red Cell Distribution Width 22.0 % (11.5-14.5) H Platelet Count 99 x10^3/uL (140-400) L Neutrophils (%) (Auto) 85 % (31-73) H Lymphocytes (%) (Auto) 4 % (24-48) L Monocytes (%) (Auto) 11 % (0-9) H Eosinophils (%) (Auto) 0 % (0-3) Basophils (%) (Auto) 0 % (0-3) Neutrophils # (Auto) 11.5 x10^3/uL (1.8-7.7) H Lymphocytes # (Auto) 0.6 x10^3/uL (1.0-4.8) L Monocytes # (Auto) 1.4 x10^3/uL (0.0-1.1) H Eosinophils # (Auto) 0.0 x10^3/uL (0.0-0.7) Basophils # (Auto) 0.0 x10^3/uL (0.0-0.2) Platelet Estimate Pending Sodium Level 137 mmol/L (136-145) Potassium Level 6.8 mmol/L (3.5-5.1) *H Chloride Level 104 mmol/L (98-107) Carbon Dioxide Level 21 mmol/L (21-32) Anion Gap 12 (6-14) Blood Urea Nitrogen 117 mg/dL (8-26) H Creatinine 2.9 mg/dL (0.7-1.3) H Estimated GFR (Cockcroft-Gault) 26.4 Glucose Level 89 mg/dL (70-99) Lactic Acid Level 1.3 mmol/L (0.4-2.0) Calcium Level 9.7 mg/dL (8.5-10.1) Troponin I Quantitative < 0.017 ng/mL (0.000-0.055) NX-Crx-V-Type Natriuretic Peptide 38186 pg/mL (0-124) H Glucose (Fingerstick) 83 mg/dL (70-99) Laboratory Tests 02/27/21 10:16 Laboratory Tests 02/27/21 10:16 Vital Signs: Vital Signs Date Time Temp Pulse Resp B/P (MAP) Pulse Ox O2 Delivery O2 Flow Rate FiO2 02/27/21 11:23 100 Ventilator EKG: EK: Third-degree heart block with low voltage seen, no ST elevation seen. Interpreted by me Geraldine Galindo DO Repeat EKG read by me at 1316 shows a more regular organized rhythm, P waves are difficult to discern, no ST elevations are seen, low voltage is seen throughout. Appears to be improved EKG with heart rate 50 bpm Radiology/Procedures: Radiology/Procedures: AP chest. HISTORY: Bradycardia AP view was taken of the chest. There is a tracheostomy tube in place. Right Port-A-Cath is in good position. There is a left hilar mass. There is consolidation are atelectasis of the left lung. There is a left pleural effusion. IMPRESSION: 1. Left hilar mass. 2. Atelectasis or consolidation left lung. 3. Left pleural effusion. Electronically signed by: Eduardo Richardson MD (02/27/2021 10:49 AM) Course & Med Decision Making: Course & Med Decision Making At 1011 I read the patient's EKG, which showed third-degree heart block with bradycardic rate of 41. The patient's blood pressure was low limit of normal and his temperature was 92 degrees, a bear hugger was applied. On exam the patient was cool to touch. He appeared to be mentating well, he was alert and reasonably oriented as per his reported baseline. I emergently paged cardiology, cardiology returned my page approximately 30 minutes later, recommends dopamine drip which was started in the emergency department. Dr. Arevalo the attending is aware of the patient. The physician academic affairs assistant provider has seen the patient at the bedside. Patient was given 2 doses of atropine in the emergency department with limited results. Pacer pads were applied. Dopamine drip was initiated. Chest x-ray shows a left hilar mass pattern with consolidation. Labs returned with hyperkalemia 6.8, calcium 2 A, insulin, D50 were ordered. Dr. Lyn was consulted and saw the patient at the bedside. I discussed the case with nephrology who will perform urgent dialysis on the patient. Interventional radiology was consulted to place temporary dialysis catheter. Patient will be admitted to the ICU under Dr. Wood. Due to his level of acute renal failure, hyperkalemia, and resultant bradycardia. Beta-zenon toxicity is certainly on the differential in this patient given that his home metoprolol is metabolized through his renal system. Of course, hyperkalemia changes can also contribute to this abnormal rhythm and bradycardia with treatment as described previously. Patient was also found to be anemic with hemoglobin below 7, 1 unit of PRBCs was ordered. Patient did respond with his heart rate to rate of 55 with blood pressure map of 78 which are both improvements at 1215. Dr. Kang did further chart review which reveals that the patient recently had a blood culture with gram-negative rods and recommended ordering meropenem and vancomycin which was ordered by me. Critical care time was 60 minutes which includes time at bedside, spent in discussion of patient's care with specialists and/or family members, with interpretation of laboratory and/or radiological studies and is exclusive of pr ocedures. My Orders - GERALDINE GALINDO DO Procedure Category Date Status Time Vital Signs Monitoring ER 02/27/21 Transmitted 10:02 Oxygen Delivery VIANNEY 02/27/21 In Process Basic Metabolic Panel LAB 02/27/21 Complete 10:02 Cbc W Autodiff LAB 02/27/21 In Process 10:02 Blood Gases With LAB 02/27/21 Logged Cooximetry 10:02 Portable Chest 1v RAD 02/27/21 Resulted 10:02 Troponin I Stat VIANNEY 02/27/21 In Process 10:02 Nt-Pro Bnp LAB 02/27/21 Complete 10:02 Troponini LAB 02/27/21 Complete 10:02 Troponini LAB 02/27/21 Logged 13:02 Troponini LAB 02/27/21 Logged 16:02 12 Lead Ekg EKG 02/27/21 Logged 10:02 12 Lead Ekg EKG 02/27/21 Logged 10:32 Pulse Oximetry: [facility] 02/27/21 In Process Standing Order 10:02 Arterial Puncture RT 02/27/21 Logged Withdraw Bld Atropine Sulfate PHA 02/27/21 Complete (Atropine 0.5mg 10:30 Dopamine 400mg/250ml PHA 02/27/21 In Process Premix (Dopamine 40 11:00 Atropine Sulfate PHA 02/27/21 Complete (Atropine 0.5mg 11:00 External Pacing VIANNEY 02/27/21 In Process 11:00 Fentanyl Pf Vial PHA 02/27/21 Complete (Fentanyl 2ml Vial) 11:15 Blood Culture CHIVO 02/27/21 Logged 11:04 Lactic Acid With LAB 02/27/21 Complete Reflex 11:04 Type And Screen BBK 02/27/21 Logged 11:22 Calcium Gluconate PHA 02/27/21 Complete (Calcium Gluconate) 12:00 Dextrose 50 % PHA 02/27/21 Complete (Dextrose 50%-Water 12:00 Rbc Lr No Active BBK 02/27/21 Logged Bleeding 11:25 Additional VIANNEY 02/27/21 In Process Transfusion Orders: 11:25 Consent To Read: VIANNEY 02/27/21 In Process 11:25 Vital Signs, VIANNEY 02/27/21 In Process Transfusion Jaylen 11:25 Nurse To Transfuse VIANNEY 02/27/21 In Process Blood Produ 11:25 Insulin Regular Vial PHA 02/27/21 Complete (Humulin R Vial) 12:00 Manual Differential LAB 02/27/21 In Process 10:16 Glucose Poct-Hourly VIANNEY 02/27/21 In Process 11:34 Glucagon (Glucagen) PHA 02/27/21 In Process 12:15 Pulmonary Consult CONS 02/27/21 Transmitted 11:43 Cardiology Consult CONS 02/27/21 Transmitted 11:43 Consult Physician By CONS 02/27/21 Transmitted Name 11:43 Ir Consult IR 02/27/21 Logged Er Bridge Order ADT 02/27/21 Transmitted 11:51 Code Status CODE 02/27/21 Complete 11:51 Vital Signs, Per Unit VIANNEY 02/27/21 In Process Protocol 11:51 RENAL DIET 02/27/21 Transmitted Lunch Bedrest [facility] 02/27/21 In Process 11:51 Cbc W Autodiff LAB 02/27/21 Logged 15:00 Basic Metabolic Panel LAB 02/27/21 Logged 15:00 Departure Departure Impression: Primary Impression: Third degree heart block Additional Impressions: Acute hyperkalemia Acute renal failure Anemia Disposition: ADMITTED INPATIENT (ICU) Admitting Physician: MEHREEN ([facility]) Condition: CRITICAL Referrals: KALIN TIAN MD (PCP) GERALDINE GALINDO DO Feb 27, 2021 11:51
--- NOTE | 2021-02-27 11:57 | PDOC1 ---
History and Physical Date of Admission Date of Admission DATE: 02/27/21 TIME: 11:56 Identification/Chief Complaint Chief Complaint BRADYCARDIA, SEVERE History of Present Illness History of Present Illness calcium gluconate and also amp of glucagon by the ER physician. chest x-ray C/W significant volume loss in the left lung with some minimal aeration. noted to have hyperkalemia during recent labs at [facility]. [facility] on 02/27 showed a hemoglobin of 5.9, platelets were 112. The BUN was 110 and a creatinine of 2.6. seen in ER WITH SEVERE BRADYCARDIA abnormal lab work and bradycardia. RHYTHM Strip Third-degree AV block.contributed by abnormal electrolytes and metoprolol. Cardiology consulted /Patient recently had a blood culture with gram-negative rods KNOWN history of chronic respiratory failure s/p tracheostomy and is ventilator dependent bradycardic in the 30s and 20s at the halfway and was sent to the emergency department.// appeared to be asymptomatic placed on iv dopamine drip in ER with improved heart rate will need Emergent Dialysis as soon as he gets a Temp HD catheter placed by IR. hx polycystic kidney disease, myositis, BPH tracheostomy, SANJUANITA lobectomy, left nephrectomy, uvulectomy [facility] note EGD, colonoscopy, and SBCE in 08/2020 for GUADALUPE were negative. required past transfusions. related to unseen AVMs comorbid PAFIB with h/o RVR; on metoprolol and amiodarone Eliquis for stroke prophylaxis. Acute on chronic systolic CHF Cardiomyopathy; Echo 12/17 with LVEF 45% cxr c/w atelectasis or infiltrate in the left lung./ left hilar mass increased hazy infiltrates or pulmonary edema on the right. There is no pneumothorax. Past Medical History Past Medical History Past Medical History Past Medical History: A-Fib, Bronchitis, GERD, High Cholesterol, Hypertension, Migraines, Schizophrenia Additional Past Medical Histor: PARANOID SCHIZO. Past Surgical History: Other Additional Past Surgical Histo: R nephrectomy, uvula sx, sinus polyps removed Smoking Status: Former Smoker Alcohol Use: Occasionally Drug Use: None pathology revealed adenocarcinoma in the upper lobe with 1 small area of aortopulmonary artery lymph node positive for metastatic carcinoma. Tumor itself was 1.8 cm in size and had areas of invasive adenocarcinoma 2019 FHX HTN Cardiovascular: AFIB, HTN Pulmonary: Asthma, Bronchitis CENTRAL NERVOUS SYSTEM: Other GI: GERD, Other Heme/Onc: Anemia NOS Hepatobiliary: No pertinent hx Psych: Anxiety, Depression, Schizophrenia Musculoskeletal: low back pain, Osteoarthritis Infectious disease: No pertinent hx Renal/: Chronic renal insuff Endocrine: No pertinent hx Past Surgical History Past Surgical History: Other Family History Family History: Heart Disease, High Cholestrol Social History Smoke: Quit ALCOHOL: none Drugs: None Current Medications Current Medications Current Medications Atropine Sulfate (ATROPINE 0.5mg SYRINGE) 0.5 mg 1X ONCE IV Last administered on 02/27/21at 10:34; Start 02/27/21 at 10:30; Stop 02/27/21 at 10:31; Status DC Dopamine HCl/ Dextrose 250 ml @ 7.65 mls/hr 1X ONCE IV Last administered on 02/27/21at 11:26; Start 02/27/21 at 11:00; Stop 02/28/21 at 19:40 Atropine Sulfate (ATROPINE 0.5mg SYRINGE) 0.5 mg 1X ONCE IV Last administered on 02/27/21at 11:08; Start 02/27/21 at 11:00; Stop 02/27/21 at 11:01; Status DC Fentanyl Citrate (Fentanyl 2ml Vial) 75 mcg 1X ONCE IVP ; Start 02/27/21 at 11:15; Stop 02/27/21 at 11:16; Status DC Dextrose (Dextrose 50%-Water Syringe) 25 gm STK-MED ONCE IV ; Start 02/27/21 at 11:13; Stop 02/27/21 at 11:13; Status DC Calcium Gluconate (Calcium Gluconate) 1,000 mg STK-MED ONCE .ROUTE ; Start 02/27/21 at 11:15; Stop 02/27/21 at 11:15; Status DC Calcium Gluconate (Calcium Gluconate) 2,000 mg 1X ONCE IVP Last administered on 02/27/21at 11:22; Start 02/27/21 at 12:00; Stop 02/27/21 at 12:01 Insulin Human Regular (HumuLIN R VIAL) 10 unit 1X ONCE IV Last administered on 02/27/21at 11:33; Start 02/27/21 at 12:00; Stop 02/27/21 at 12:01 Dextrose (Dextrose 50%-Water Syringe) 25 gm 1X ONCE IV Last administered on 02/27/21at 11:32; Start 02/27/21 at 12:00; Stop 02/27/21 at 12:01 Glucagon (Glucagen) 5 mg 1X ONCE IV ; Start 02/27/21 at 12:15; Stop 02/27/21 at 12:16 Active Scripts Active Reported Prednisone 5 Mg Tablet 5 Mg PO DAILY Duoneb 0.5-3(2.5) Mg/3 Ml (Albuterol/Ipratropium) 3 Ml Ampul.neb 3 Ml NEB BID Claritin (Loratadine) 10 Mg Capsule 1 Cap PO DAILY 30 Days Metoprolol Tartrate 50 Mg Tablet 1 Tab PO BID Melatonin 3 Mg Tablet.er 6 Mg PO HS Guaifenesin 100 Mg/5 Ml Liquid 400 Mg PO TID [colace liquid ] 100 Mg GT HS Eliquis (Apixaban) 5 Mg Tablet 5 Mg PO BID Trazodone Hcl 50 Mg Tablet 1 Tab PO QHS Protonix (Pantoprazole Sodium) 40 Mg Tablet.dr 40 Mg PO DAILYAC Daily Value (Multivitamin) 1 Each Tablet 1 Tab PO DAILY 30 Days Melatonin 5 Mg/15 Ml Liquid 5 Mg PO HS Heparin 1,000 Unit/10 (100/ml) (Heparin Sodium,Porcine/Pf) 1,000 Unit/10 Ml Syringe 1,400 Unit IV 3X/WEEK Folic Acid 0.8 Mg Capsule 1 Cap PO DAILY 30 Days Zetia (Ezetimibe) 10 Mg Tablet 1 Tab PO DAILY 30 Days Amiodarone Hcl 200 Mg Tablet 1 Tab PO DAILY Iron (Ferrous Sulfate) 325 Mg Tablet 975 Mg PO DAILY Advair 500-50 Diskus (Fluticasone/Salmeterol) 1 Each Disk.w.dev 1 Puff IH BID Finasteride 5 Mg Tablet 1 Tab PO HS Allergies Allergies: Coded Allergies: chlorpromazine (Verified Allergy, Intermediate, 03/22/19) montelukast (Verified Allergy, Intermediate, 03/22/19) trifluoperazine (Verified Allergy, Intermediate, 03/22/19) ROS General: YES: Fatigue, Malaise PSYCHOLOGICAL ROS: YES: Anxiety Eyes: Yes Other (nasal congestion) ALLERGY AND IMMUNOLOGY: YES: Hives ENDOCRINE: No: Breast Changes, Galactorrhea, Hair Pattern Changes, Hot Flashes, Malaise/lethargy, Mood Swings, Palpitations, Polydipsia/polyuria, Skin Changes, Temperature Intolerance, Unexpected Weight Changes, Other Respiratory: YES: Cough, Shortness of breath Gastrointestinal: No Nausea, No Vomiting, No Abdominal Pain, No Diarrhea, No Constipation, No Melena, No Hematochezia, No Other Skin: Yes Dry Skin; No Eczema, No Hair Changes, No Lumps, No Mole Changes, No Mottling, No Nail Changes, No Pruritus, No Rash, No Skin Lesion Changes, No Other, No Acne Physical Exam Physical Exam HENT: Tracheostomy in place,he is congested and is requesting suctioning Eyes: PERRLA, EOMI, conjunctiva normal, no discharge. Neck: Tracheostomy in place, no audible stridor Cardiovascular: Heart rate bradycardic, skin is cool to touch, capillary refill delayed> 2 sec Lungs & Thorax: No respiratory distress, symmetrical expansion. Coarse breath sounds left lung Abdomen: Drain is present in the left lower quadrant Skin: No skin breakdown, dry. Extremities: Extremities are cool to touch, bradycardic radial pulses 1+ Neurologic: Awake and alert, normal motor function, normal sensory function, no focal deficits noted General: Cooperative, mild distress HEENT: Atraumatic, EOMI, Mucous membr. moist/pink Lungs: Normal air movement Heart: RRR, no jug vein distention Breasts: Not examined Abdomen: Soft Rectal Exam: not examined PELVIC: Examination not indicated Extremities: No clubbing, No cyanosis Neuro: Cranial nerves 3-12 NL Vitals Vitals Vital Signs Date Time Temp Pulse Resp B/P (MAP) Pulse Ox O2 Delivery O2 Flow Rate FiO2 02/27/21 11:23 100 Ventilator Labs Labs Laboratory Tests Test 02/27/21 10:16 02/27/21 10:18 White Blood Count 13.6 x10^3/uL (4.0-11.0) Red Blood Count 2.07 x10^6/uL (4.30-5.70) Hemoglobin 5.9 g/dL (13.0-17.5) Hematocrit 18.4 % (39.0-53.0) Mean Corpuscular Volume 89 fL (79-100) Mean Corpuscular Hemoglobin 28 pg (25-35) Mean Corpuscular Hemoglobin Concent 32 g/dL (31-37) Red Cell Distribution Width 22.0 % (11.5-14.5) Platelet Count 99 x10^3/uL (140-400) Neutrophils (%) (Auto) 85 % (31-73) Lymphocytes (%) (Auto) 4 % (24-48) Monocytes (%) (Auto) 11 % (0-9) Eosinophils (%) (Auto) 0 % (0-3) Basophils (%) (Auto) 0 % (0-3) Neutrophils # (Auto) 11.5 x10^3/uL (1.8-7.7) Lymphocytes # (Auto) 0.6 x10^3/uL (1.0-4.8) Monocytes # (Auto) 1.4 x10^3/uL (0.0-1.1) Eosinophils # (Auto) 0.0 x10^3/uL (0.0-0.7) Basophils # (Auto) 0.0 x10^3/uL (0.0-0.2) Sodium Level 137 mmol/L (136-145) Potassium Level 6.8 mmol/L (3.5-5.1) Chloride Level 104 mmol/L (98-107) Carbon Dioxide Level 21 mmol/L (21-32) Anion Gap 12 (6-14) Blood Urea Nitrogen 117 mg/dL (8-26) Creatinine 2.9 mg/dL (0.7-1.3) Estimated GFR (Cockcroft-Gault) 26.4 Glucose Level 89 mg/dL (70-99) Lactic Acid Level 1.3 mmol/L (0.4-2.0) Calcium Level 9.7 mg/dL (8.5-10.1) Troponin I Quantitative < 0.017 ng/mL (0.000-0.055) VR-Wat-F-Type Natriuretic Peptide 70580 pg/mL (0-124) Glucose (Fingerstick) 83 mg/dL (70-99) Laboratory Tests Test 02/27/21 10:16 02/27/21 10:18 White Blood Count 13.6 x10^3/uL (4.0-11.0) Red Blood Count 2.07 x10^6/uL (4.30-5.70) Hemoglobin 5.9 g/dL (13.0-17.5) Hematocrit 18.4 % (39.0-53.0) Mean Corpuscular Volume 89 fL (79-100) Mean Corpuscular Hemoglobin 28 pg (25-35) Mean Corpuscular Hemoglobin Concent 32 g/dL (31-37) Red Cell Distribution Width 22.0 % (11.5-14.5) Platelet Count 99 x10^3/uL (140-400) Neutrophils (%) (Auto) 85 % (31-73) Lymphocytes (%) (Auto) 4 % (24-48) Monocytes (%) (Auto) 11 % (0-9) Eosinophils (%) (Auto) 0 % (0-3) Basophils (%) (Auto) 0 % (0-3) Neutrophils # (Auto) 11.5 x10^3/uL (1.8-7.7) Lymphocytes # (Auto) 0.6 x10^3/uL (1.0-4.8) Monocytes # (Auto) 1.4 x10^3/uL (0.0-1.1) Eosinophils # (Auto) 0.0 x10^3/uL (0.0-0.7) Basophils # (Auto) 0.0 x10^3/uL (0.0-0.2) Sodium Level 137 mmol/L (136-145) Potassium Level 6.8 mmol/L (3.5-5.1) Chloride Level 104 mmol/L (98-107) Carbon Dioxide Level 21 mmol/L (21-32) Anion Gap 12 (6-14) Blood Urea Nitrogen 117 mg/dL (8-26) Creatinine 2.9 mg/dL (0.7-1.3) Estimated GFR (Cockcroft-Gault) 26.4 Glucose Level 89 mg/dL (70-99) Lactic Acid Level 1.3 mmol/L (0.4-2.0) Calcium Level 9.7 mg/dL (8.5-10.1) Troponin I Quantitative < 0.017 ng/mL (0.000-0.055) YB-Sgr-D-Type Natriuretic Peptide 73001 pg/mL (0-124) Glucose (Fingerstick) 83 mg/dL (70-99) Images Images PATIENT: JOURDAN RECINOS ACCOUNT: [id number] : 1955 LOCATION: [facility] ICU AGE: 65 SEX: M EXAM STATUS: ADM IN ORD. PHYSICIAN: HENNA HAMILTON MD REASON: TEMP HD CATHETER PLACEMENT PROCEDURE: CHEST AP ONLY AP chest. HISTORY: Right dialysis catheter placement AP view was taken of the chest. There is a temporary dialysis catheter which extends to the right atrium. Patient is rotated to the left. There is a left pleural effusion. There is atelectasis or infiltrate in the left lung. A left hi lar mass is possible. There is increased hazy infiltrates or pulmonary edema on the right. There is no pneumothorax. IMPRESSION: 1. Dialysis catheter in good position. 2. Increased right lung infiltrates or pulmonary edema. 3. Little change on the left. Electronically signed by: Eduardo Richardson MD (02/27/2021 2:49 PM) [facility] DICTATED and SIGNED BY: EDUARDO RICHARDSON MD DATE: 02/27/21 [id number] PATIENT: JOURDAN RECINOS ACCOUNT: [id number] : 1955 LOCATION: [facility] AGE: 63 SEX: M EXAM STATUS: REG CLI ORD. PHYSICIAN: MARYLOU WING MD REASON: LUNG MASS PROCEDURE: PET W CT SKULL TO MIDTHIGH Examination: PET W CT SKULL TO MIDTHIGH HISTORY: Lung mass COMPARISON/CORRELATION: 10/08/2018 CT chest without contrast, 03/17/2018 CT abdomen and pelvis with oral contrast FINDINGS: Net dose 14.4 mCi F-18 FDG was administered intravenously for purposes of PET/CT exam. Blood glucose level at the time of radiotracer administration was 94 mg/dL. Imaging was performed from the skull base to the proximal thighs. Hepatic reference uptake is SUV max of 2.3 . At the medial left apex, there is a 1.6 cm x 1.3 cm mass with SUV max of 4. Subtle spiculation noted. No significant change in size suggested compared to 10/08/2018 CT chest without contrast. No new pulmonary nodules. Anterior right subpleural groundglass nodular infiltrate on axial image 87 is present with a corresponding finding on the prior CT exam. Coronary arterial calcifications are evident. Uptake of radiotracer involving the abdomen and pelvis is unremarkable. Right nephrectomy is evident. Left adrenal gland region low-attenuation structure of fluid is stable without radiotracer uptake. No radiopaque collecting system calculi. Prostatomegaly noted. Prostate gland measures up to 5.7 cm transverse. Urinary bladder is unremarkable. Left lower groin lymph nodes are present with the larger of these measuring 1.6 cm x 1.1 cm. These are similar upon correlation with 03/17/2018. SUV max of up to 2.5 is present. Advanced right hip joint degenerative remodeling is present. Bilateral L5 pars interarticularis fractures are again noted with grade 2 anterolisthesis of L5 over S1. IMPRESSION: Mildly intense uptake involving the left medial upper lung nodule of concern for low-grade neoplastic process. No other suspicious foci of uptake. PQRS Compliance Statement: One or more of the following individualized dose reduction techniques were utilized for this examination: 1. Automated exposure control 2. Adjustment of the mA and/or kV according to patient size 3. Use of iterative reconstruction technique Electronically signed by: Rosendo Hood MD (02/25/2019 9:28 AM) [facility] DICTATED and SIGNED BY: ROSENDO HOOD MD DATE: 02/25/19927 PATIENT: JOURDAN RECINOS ACCOUNT: [id number] : 1955 LOCATION: ER AGE: 65 SEX: M EXAM STATUS: PRE ER ORD. PHYSICIAN: GERALDINE OBANDO DO REASON: bradycardia PROCEDURE: PORTABLE CHEST 1V AP chest. HISTORY: Bradycardia AP view was taken of the chest. There is a tracheostomy tube in place. Right Port-A-Cath is in good position. There is a left hilar mass. There is consolidation are atelectasis of the left lung. There is a left pleural effusion. IMPRESSION: 1. Left hilar mass. 2. Atelectasis or consolidation left lung. 3. Left pleural effusion. Electronically signed by: Eduardo Richardson MD (02/27/2021 10:49 AM) [facility] DICTATED and SIGNED BY: EDUARDO RICHARDSON MD DATE: 02/27/21 [id number] VTE Prophylaxis Ordered VTE Prophylaxis Devices: Yes VTE Pharmacological Prophylaxi: No Assessment/Plan Assessment/Plan impression Severe anemia // EGD, colonoscopy, and SBCE in 08/2020 for GUADALUPE were negative. required past transfusions. related to unseen AVMs AI pathology revealed adenocarcinoma in the upper lobe with 1 small area of aorto- pulmonary artery lymph node positive for metastatic carcinoma. Tumor itself was 1.8 cm in size and had areas of invasive adenocarcinoma 2019 chronic respiratory failure with ventilator dependence with chronic tracheostomy, COPD, , remote tobacco abuse rheumatoid arthritis, bilateral gluteal stage 2 pressure ulceration left heel ulceration. polycystic kidney disease, hx myositis, BPH remote tracheostomy, SANJUANITA lobectomy, left nephrectomy, uvulectomy PAFIB with h/o RVR; on metoprolol and amiodarone Eliquis for stroke prophylaxis. Acute on chronic systolic CHF Cardiomyopathy; Echo 12/17 with LVEF 45% comorbid PAFIB with h/o RVR; on metoprolol and amiodarone Eliquis for stroke prophylaxis. Acute on chronic systolic CHF Cardiomyopathy; Echo 12/17 with LVEF 45% Thrombocytopenia increased hazy infiltrates or pulmonary edema on the right. There is no pneumothorax. recent blood culture with gram-negative rods PLAN admit icu bed pulm consult cardiology consult Nephrology consult metoprolol and amiodarone Eliquis for stroke prophylaxis transfuse prn hgb < 7.5 IV MEROPENEM , VANC IV EMPERIC HCAP D/W ER 57 min cc time Justifications for Admission Other Justification LORENA XIE MD Feb 27, 2021 11:57
[2021-02-27] MEDS ORDERED: ONDANSETRON PF 4 MG/2 ML VIAL. IVP PRN (12:00)
[2021-02-27] MEDS ORDERED: CALCIUM GLUCONATE 1,000 MG/10 ML VIAL. IVP ONE (12:00)
[2021-02-27] MEDS ORDERED: INSULIN REGULAR 100 UNIT/ML 3ML VIAL. IV ONE (12:00)
[2021-02-27] MEDS ORDERED: 0.9 % SODIUM CHLORIDE 10 ML DISP.SYRIN. IV PRN ×3 (12:00→14:30)
[2021-02-27] MEDS ORDERED: GLUCAGON,HUMAN RECOMBINANT 1 MG/ML VIAL. IV ONE (12:15)
[2021-02-27] MEDS ORDERED: VANCOMYCIN PER PHARMACY MC PRN (12:15)
[2021-02-27 12:16] LABS: BASE EXCESS COOX -7 mmol/L (-3-3); HCO3 COOX 20 mmol/L (21-28); METHEMOGLOBIN 0.9 % (0.0-1.9); OXYHEMOGLOBIN 96.1 %; PCO2 COOX 48 mmHg (35-46); PO2 COOX 109 mmHg (65-108); SAT O2 COOX 97 % (92-99)
--- NOTE | 2021-02-27 12:35 | CONS ---
DATE OF CONSULTATION: 02/27/2021 PULMONARY CONSULTATION ATTENDING PHYSICIAN: Hayes Cline MD REASON FOR CONSULTATION: Respiratory failure, sepsis, heart block, lung cancer. HISTORY OF PRESENT ILLNESS: The patient is a 65-year-old who has history of lung cancer, adenocarcinoma by biopsy in October of last year. History of chronic respiratory failure with ventilator dependence with chronic tracheostomy, history of COPD, rheumatoid arthritis, and bilateral gluteal stage 2 pressure ulceration and left heel ulceration. The patient was at [facility]. During the last week of his hospital stay, he was found to have Gram-negative rods in the blood and was treated for Gram-negative sepsis. He was initiated on meropenem and vancomycin. The patient was also noted to have worsening renal function and hyperkalemia and third-degree heart block. He was sent to [facility]. I saw the patient in the emergency room. His heart rate was in the high 30s. He has been on metoprolol as well as amiodarone and Eliquis. The patient received calcium gluconate and also amp of glucagon by the ER physician. His chest x-ray had shown significant volume loss in the left lung with some minimal aeration. The patient was also noted to have hyperkalemia during recent labs at [facility]. The labs that were sent to [facility] from [facility] on 02/27 showed a hemoglobin of 5.9, platelets were 112. The BUN was 110 and a creatinine of 2.6. Arterial blood gases have not been obtained. He is on assist control mode. He was placed on FiO2 at 50%. He does not appear to be in any obvious respiratory distress, but he does not communicate and follow any commands. PAST MEDICAL HISTORY: 1. Left heel stage 2 pressure ulcers, bilateral gluteal stage 2 pressure ulcers. 2. History of lung cancer, adenocarcinoma by biopsy from 10/2018. History of pleural effusion, had apparently pleural drain in the past. 3. History of chronic respiratory failure with chronic tracheostomy, history of hypertension, COPD, and rheumatoid arthritis. PAST SURGICAL HISTORY: Tracheostomy and PEG tube.SANJUANITA lobectomy, left nephrectomy, uvulectomy, portacath, sinus surgery REVIEW OF SYSTEMS: Unable to obtain from the patient. MEDICATIONS: Reviewed from list from the [facility] and includes Eliquis, amiodarone, metoprolol. PHYSICAL EXAMINATION: VITAL SIGNS: Reviewed. Pulse is in the high 30s. Pulse ox is 99%. Afebrile. Blood pressure stable. NECK: Supple. Trach in place. LUNGS: With diminished breath sounds bilaterally. CARDIOVASCULAR: Exam with bradycardia. ABDOMEN: Soft. PEG tube was in place. He has a catheter in the right groin. EXTREMITIES: With trace pitting edema. Arterial blood gases are pending. Chest x-ray reviewed. Significant volume loss in the left lung. Likely related to his lung cancer. LABORATORY DATA: Labs were reviewed from [facility] as discussed above including a BUN of 110, creatinine 2.6. Hemoglobin of 5.9, white cell count 15.7. IMPRESSION: 1. Acute on chronic respiratory failure secondary to sepsis, severe bradycardia/third degree AV block, Anemia and underlying lung cancer. 2. The patient with recently diagnosed Gram-negative rods in the blood. Treated with meropenem and vancomycin. Source unclear. 3. Third-degree AV block. Could be contributed by abnormal electrolytes as well as metoprolol. Cardiology is consulted. The plan to initiate dopamine. The patient received calcium gluconate and glucagon in the ER. 4. Lung cancer, likely stage 4, adenocarcinoma by biopsy. He may need a CT chest for better evaluation. 5. Chronic respiratory failure with ventilator dependence with chronic tracheostomy. 6. Acute kidney injury with markedly elevated BUN and creatinine and hyperkalemia.Patient has one kidney. 7. Anemia, probably acute on chronic. No obvious blood loss. RECOMMENDATIONS: 1. Discussed with ER physician and RN and RT. 2. We will follow ABGs and make necessary adjustments on the ventilator. 3. Follow all cultures. 4. Broad-spectrum antibiotics. 5. Cardiology recommendation regarding third-degree AV block. 6. Eliquis should be on hold for now and re initiated per PCP / GI/ cardiology recommendations. 7. Once stable, we may consider doing noncontrast CT chest. 8. P.r.n. bronchodilators. 9. Follow Renal recommendations. 10. Follow electrolytes. 11 .TX per renal / GI rec 11. Discussed with ER physician, discussed with RN and RT. Critical care time 40 minutes including review of the patient's old records, labs, imaging studies and decision making. ERLINDA DR: Sekou TID: [id number] MTDD
--- NOTE | 2021-02-27 12:43 | PDOC2 ---
CONSULT Date of Consult Date of Consult DATE: 02/27/21 TIME: 12:30 Reason for Consult Reason for Consult: Hyperkalemia with 3 rd degree heart block Source Source: Chart review History of Present Illness Reason for Visit: 65-year-old AA male with a history of tracheostomy, ventilator dependence at baseline, custodial resident, history of left hilar mass presents to the emergency department with abnormal lab work and bradycardia that was found at his custodial earlier today. He was found to have an elevated creatinine and was also found to be bradycardic in the 30s and 20s at the custodial and was sent to the emergency department. He appeared to be asymptomatic, but the patient does not verbalize at baseline and communication is very difficult. The patient nods yes or no to questions. He any acute symptoms at this time. History is limited secondary to his critical illness and lack of verbalization No reported N/V/D. He has an indwelling muhammad - duration unknown to RN at bedside. Bladder scan done - no Urine EKG in the ER showed third-degree heart block with bradycardic rate of 41. The patient's blood pressure was low limit of normal and his temperature was 92 degrees, bear hugger was applied. On exam the patient was cool to touch. He appeared to be mentating well, he was alert and reasonably oriented as per his reported baseline. Currently on dopamine drip which per cardiology He recd 2 doses of atropine in the ER. Pacer pads were applied. Chest x-ray shows a left hilar mass pattern with consolidation hemoglobin below 7, 1 unit of PRBCs in the ER Patient recently had a blood cult ure with gram-negative rods History obtained from chart review Past Medical History Cardiovascular: AFIB, HTN Pulmonary: Asthma, Bronchitis CENTRAL NERVOUS SYSTEM: Other GI: GERD, Other Heme/Onc: Anemia NOS Hepatobiliary: No pertinent hx Psych: Anxiety, Depression, Schizophrenia Musculoskeletal: low back pain, Osteoarthritis Infectious disease: No pertinent hx Renal/: Chronic renal insuff Endocrine: No pertinent hx Past Surgical History Past Surgical History: Other Family History Family History: Heart Disease Social History ALCOHOL: social Drugs: None Lives: with Family Current Problem List Problem List Problems Medical Problems: (1) Acute hyperkalemia Status: Acute (2) Acute renal failure Status: Acute (3) Anemia Status: Acute (4) Third degree heart block Status: Acute Current Medications Current Medications Current Medications Atropine Sulfate (ATROPINE 0.5mg SYRINGE) 0.5 mg 1X ONCE IV Last administered on 02/27/21at 10:34; Start 02/27/21 at 10:30; Stop 02/27/21 at 10:31; Status DC Dopamine HCl/ Dextrose 250 ml @ 7.65 mls/hr 1X ONCE IV Last administered on 02/27/21at 11:26; Start 02/27/21 at 11:00; Stop 02/28/21 at 19:40 Atropine Sulfate (ATROPINE 0.5mg SYRINGE) 0.5 mg 1X ONCE IV Last administered on 02/27/21at 11:08; Start 02/27/21 at 11:00; Stop 02/27/21 at 11:01; Status DC Fentanyl Citrate (Fentanyl 2ml Vial) 75 mcg 1X ONCE IVP ; Start 02/27/21 at 11:15; Stop 02/27/21 at 11:16; Status DC Dextrose (Dextrose 50%-Water Syringe) 25 gm STK-MED ONCE IV ; Start 02/27/21 at 11:13; Stop 02/27/21 at 11:13; Status DC Calcium Gluconate (Calcium Gluconate) 1,000 mg STK-MED ONCE .ROUTE ; Start 02/27/21 at 11:15; Stop 02/27/21 at 11:15; Status DC Calcium Gluconate (Calcium Gluconate) 2,000 mg 1X ONCE IVP Last administered on 02/27/21at 11:22; Start 02/27/21 at 12:00; Stop 02/27/21 at 12:01; Status DC Insulin Human Regular (HumuLIN R VIAL) 10 unit 1X ONCE IV Last administered on 02/27/21at 11:33; Start 02/27/21 at 12:00; Stop 02/27/21 at 12:01; Status DC Dextrose (Dextrose 50%-Water Syringe) 25 gm 1X ONCE IV Last administered on 02/27/21at 11:32; Start 02/27/21 at 12:00; Stop 02/27/21 at 12:01; Status DC Glucagon (Glucagen) 5 mg 1X ONCE IV ; Start 02/27/21 at 12:15; Stop 02/27/21 at 12:15; Status DC Ondansetron HCl (Zofran) 4 mg PRN Q6HRS PRN IVP NAUSEA/VOMITING; Start 02/27/21 at 12:00 Famotidine (Pepcid Vial) 20 mg BID IVP ; Start 02/27/21 at 13:00 Sodium Chloride (Normal Saline Flush) 3 ml QSHIFT PRN IV AFTER MEDS AND BLOOD DRAWS; Start 02/27/21 at 12:00 Meropenem 1 gm/ Sodium Chloride 100 ml @ 200 mls/hr Q8HRS IV ; Start 02/27/21 at 14:00; Status UNV Vancomycin HCl (Vanco Per Pharmacy) 1 each PRN DAILY PRN MC SEE COMMENTS; Start 02/27/21 at 12:15 Vancomycin HCl 2 gm/Sodium Chloride 500 ml @ 250 mls/hr 1X ONCE IV ; Start 02/27/21 at 13:00; Stop 02/27/21 at 14:59 Active Scripts Active Reported Prednisone 5 Mg Tablet 5 Mg PO DAILY Duoneb 0.5-3(2.5) Mg/3 Ml (Albuterol/Ipratropium) 3 Ml Ampul.neb 3 Ml NEB BID Claritin (Loratadine) 10 Mg Capsule 1 Cap PO DAILY 30 Days Metoprolol Tartrate 50 Mg Tablet 1 Tab PO BID Melatonin 3 Mg Tablet.er 6 Mg PO HS Guaifenesin 100 Mg/5 Ml Liquid 400 Mg PO TID [colace liquid ] 100 Mg GT HS Eliquis (Apixaban) 5 Mg Tablet 5 Mg PO BID Trazodone Hcl 50 Mg Tablet 1 Tab PO QHS Protonix (Pantoprazole Sodium) 40 Mg Tablet.dr 40 Mg PO DAILYAC Daily Value (Multivitamin) 1 Each Tablet 1 Tab PO DAILY 30 Days Melatonin 5 Mg/15 Ml Liquid 5 Mg PO HS Heparin 1,000 Unit/10 (100/ml) (Heparin Sodium,Porcine/Pf) 1,000 Unit/10 Ml Syringe 1,400 Unit IV 3X/WEEK Folic Acid 0.8 Mg Capsule 1 Cap PO DAILY 30 Days Zetia (Ezetimibe) 10 Mg Tablet 1 Tab PO DAILY 30 Days Amiodarone Hcl 200 Mg Tablet 1 Tab PO DAILY Iron (Ferrous Sulfate) 325 Mg Tablet 975 Mg PO DAILY Advair 500-50 Diskus (Fluticasone/Salmeterol) 1 Each Disk.w.dev 1 Puff IH BID Finasteride 5 Mg Tablet 1 Tab PO HS Allergies Allergies: Coded Allergies: chlorpromazine (Verified Allergy, Intermediate, 03/22/19) montelukast (Verified Allergy, Intermediate, 03/22/19) trifluoperazine (Verified Allergy, Intermediate, 03/22/19) ROS Review of System History per chart review Physical Exam Physical Exam General : No acute distress, not able to vocalize at baseline. has alida Anderson HENT: OM moist Neck Tracheostomy in place CV bradycardic Lungs Coarse breath sounds left lung , Non labored, Trach in place Abdomen: Drain is present in the left lower quadrant, No tenderness Skin: No skin breakdown, No rash Extrem: cool to touch, No LE edema Neurologic: Awake and alert, baseline non verbal Psychologic: Affect normal,mood normal. Indwelling muhammad + Vital Signs Vital Signs Date Time Temp Pulse Resp B/P (MAP) Pulse Ox O2 Delivery O2 Flow Rate FiO2 02/27/21 11:23 100 Ventilator 02/27/21 09:55 92.3 30 28 80/39 (114) 40.0 92.3 Assessment & Plan AI - VaSomotor , has indwelling muhammad, Bladder scan done in the ER- no retention Supportive care, IVF, avoid nephrotoxins, strict I/O Hyper kalemia -3 rd degree heart block on EKG, no response to Atropine . Emergent Dialysis as soon as he gets a Temp HD catheter placed by IR. Discussed with ER physician Bradycardia- 3 rd degree heart block, asymptomatic Resp failure- Has Trach , on Vent at the [place] Hilar mass Anemia- Hgb < 7 POA, PRBC X 1 Labs Labs Laboratory Tests Test 02/27/21 10:16 02/27/21 10:18 02/27/21 12:10 White Blood Count 13.6 x10^3/uL (4.0-11.0) Red Blood Count 2.07 x10^6/uL (4.30-5.70) Hemoglobin 5.9 g/dL (13.0-17.5) Hematocrit 18.4 % (39.0-53.0) Mean Corpuscular Volume 89 fL (79-100) Mean Corpuscular Hemoglobin 28 pg (25-35) Mean Corpuscular Hemoglobin Concent 32 g/dL (31-37) Red Cell Distribution Width 22.0 % (11.5-14.5) Platelet Count 99 x10^3/uL (140-400) Neutrophils (%) (Auto) 85 % (31-73) Lymphocytes (%) (Auto) 4 % (24-48) Monocytes (%) (Auto) 11 % (0-9) Eosinophils (%) (Auto) 0 % (0-3) Basophils (%) (Auto) 0 % (0-3) Neutrophils # (Auto) 11.5 x10^3/uL (1.8-7.7) Lymphocytes # (Auto) 0.6 x10^3/uL (1.0-4.8) Monocytes # (Auto) 1.4 x10^3/uL (0.0-1.1) Eosinophils # (Auto) 0.0 x10^3/uL (0.0-0.7) Basophils # (Auto) 0.0 x10^3/uL (0.0-0.2) Sodium Level 137 mmol/L (136-145) Potassium Level 6.8 mmol/L (3.5-5.1) Chloride Level 104 mmol/L (98-107) Carbon Dioxide Level 21 mmol/L (21-32) Anion Gap 12 (6-14) Blood Urea Nitrogen 117 mg/dL (8-26) Creatinine 2.9 mg/dL (0.7-1.3) Estimated GFR (Cockcroft-Gault) 26.4 Glucose Level 89 mg/dL (70-99) Lactic Acid Level 1.3 mmol/L (0.4-2.0) Calcium Level 9.7 mg/dL (8.5-10.1) Troponin I Quantitative < 0.017 ng/mL (0.000-0.055) IF-Nek-K-Type Natriuretic Peptide 30812 pg/mL (0-124) Glucose (Fingerstick) 83 mg/dL (70-99) O2 Saturation 97 % (92-99) Arterial Blood pH 7.23 (7.35-7.45) Arterial Blood pCO2 at Patient Temp 48 mmHg (35-46) Arterial Blood pO2 at Patient Temp 109 mmHg (65-108) Arterial Blood HCO3 20 mmol/L (21-28) Arterial Blood Base Excess -7 mmol/L (-3-3) Oxyhemoglobin 96.1 % Methemoglobin 0.9 % (0.0-1.9) Carbon Monoxide, Quantitative 0.1 % (0.0-1.9) FiO2 40 Laboratory Tests Test 02/27/21 10:16 02/27/21 10:18 02/27/21 12:10 White Blood Count 13.6 x10^3/uL (4.0-11.0) Red Blood Count 2.07 x10^6/uL (4.30-5.70) Hemoglobin 5.9 g/dL (13.0-17.5) Hematocrit 18.4 % (39.0-53.0) Mean Corpuscular Volume 89 fL (79-100) Mean Corpuscular Hemoglobin 28 pg (25-35) Mean Corpuscular Hemoglobin Concent 32 g/dL (31-37) Red Cell Distribution Width 22.0 % (11.5-14.5) Platelet Count 99 x10^3/uL (140-400) Neutrophils (%) (Auto) 85 % (31-73) Lymphocytes (%) (Auto) 4 % (24-48) Monocytes (%) (Auto) 11 % (0-9) Eosinophils (%) (Auto) 0 % (0-3) Basophils (%) (Auto) 0 % (0-3) Neutrophils # (Auto) 11.5 x10^3/uL (1.8-7.7) Lymphocytes # (Auto) 0.6 x10^3/uL (1.0-4.8) Monocytes # (Auto) 1.4 x10^3/uL (0.0-1.1) Eosinophils # (Auto) 0.0 x10^3/uL (0.0-0.7) Basophils # (Auto) 0.0 x10^3/uL (0.0-0.2) Sodium Level 137 mmol/L (136-145) Potassium Level 6.8 mmol/L (3.5-5.1) Chloride Level 104 mmol/L (98-107) Carbon Dioxide Level 21 mmol/L (21-32) Anion Gap 12 (6-14) Blood Urea Nitrogen 117 mg/dL (8-26) Creatinine 2.9 mg/dL (0.7-1.3) Estimated GFR (Cockcroft-Gault) 26.4 Glucose Level 89 mg/dL (70-99) Lactic Acid Level 1.3 mmol/L (0.4-2.0) Calcium Level 9.7 mg/dL (8.5-10.1) Troponin I Quantitative < 0.017 ng/mL (0.000-0.055) FW-Zgg-N-Type Natriuretic Peptide 85566 pg/mL (0-124) Glucose (Fingerstick) 83 mg/dL (70-99) O2 Saturation 97 % (92-99) Arterial Blood pH 7.23 (7.35-7.45) Arterial Blood pCO2 at Patient Temp 48 mmHg (35-46) Arterial Blood pO2 at Patient Temp 109 mmHg (65-108) Arterial Blood HCO3 20 mmol/L (21-28) Arterial Blood Base Excess -7 mmol/L (-3-3) Oxyhemoglobin 96.1 % Methemoglobin 0.9 % (0.0-1.9) Carbon Monoxide, Quantitative 0.1 % (0.0-1.9) FiO2 40 Review All relevant outside records, renal labs, imaging studies, telemetry/EKG's were reviewed. Images Images PORTABLE CHEST 1V AP chest. HISTORY: Bradycardia AP view was taken of the chest. There is a tracheostomy tube in place. Right Port-A-Cath is in good position. There is a left hilar mass. There is consolidation are atelectasis of the left lung. There is a left pleural effusion. IMPRESSION: 1. Left hilar mass. 2. Atelectasis or consolidation left lung. 3. Left pleural effusion. YAMILETH BROTHERS MD Feb 27, 2021 12:43
[2021-02-27] MEDS ORDERED: LIDOCAINE WITH 8.4% SOD BICARB 3 ML DISP.SYRIN. ONE (12:57)
[2021-02-27] MEDS: FAMOTIDINE 20 MG/2 ML VIAL IVP SCH ×2 (13:00→21:29)
[2021-02-27] MEDS ORDERED: VANCOMYCIN 2 GM in IV NORMAL SALINE 500ML BAG 500 ML IV ONE (13:00)
--- NOTE | 2021-02-27 13:01 | PDOC2 ---
BENIGNO CHIANG BEAM DYER 02/27/21 1300: CARDIAC CONSULT DATE OF CONSULT Date of Consult DATE: 02/27/21 TIME: 12:28 REASON FOR CONSULT Reason for Consult: bradycardia REFERRING PHYSICIAN Referring Physician: Dr. Galindo SOURCE Source: Chart review, Patient HISTORY OF PRESENT ILLNESS HISTORY OF PRESENT ILLNESS This is a 65 yo male who presented from [facility] secondary to abnormal lab work and bradycardia. Has a history of chronic respiratory failure s/p tracheostomy and is ventilator dependent at baseline. Patient initially presented to [facility] back in October of this year. Was noted with respiratory failure and was septic due to PNA. Required intubation. Was unable to be weaned from vent and tracheostomy and PEG were placed. Also history of AFIB with RVR. Treated with amiodarone, metoprolol, and Eliquis. He had a surgical revision done post PEG and had an iatrogenic colonic perforation that required surgical repair. Developed bleeding post procedure. Eliquis was discontinued and he was transfused. Also developed AI on CKD requiring temporary dialysis. He was transferred to [facility] for ongoing care for ongoing vent weaning and trach care. He was followed by our service at [facility] due to AFIB. Had periods of mild bradycardia at [facility]. No profound bradycardia or pauses. He was maintaining SR on low dose metoprolol and amiodarone. Eliquis was resumed at [facility]. He was not able to be weaned from ventilator and was transferred to [facility]. At nursing facility, patient was noted with elevated Cr and potassium. Also noted with HR in 20-30 range. Was reportedly asymptomatic although communication is limited as patient in on vent. EMS was called. PAST MEDICAL HISTORY Cardiovascular: AFIB, CHF, HTN, Hyperlipidemia, Other (pericardial effusion ) Pulmonary: Pneumonia, Other (chronic respiratroy failure; vent dependent, lung CA) GI: Other (pancreatitis, colonic perforation of the surgical repair.) Heme/Onc: Anemia NOS, Cancer (non-small cell carcinoma of the lung,) Rheumatologic: Rheumatoid arthritis Infectious disease: Other (bacteremia ) Renal/: Chronic renal insuff, Acute renal failure, Other (polycystic kidney disease) PAST SURGICAL HISTORY Past Surgical History: Other (tracheostomy, left upper lobe lobectomy, left nephrectomy ) FAMILY HISTORY Family History: Family History Unknown SOCIAL HISTORY Smoke: No ALCOHOL: none Drugs: None Lives: Custodial CURRENT MEDICATIONS CURRENT MEDICATIONS Current Medications Medications (Trade) Dose Ordered Sig/Gigi Route PRN Reason Start Time Stop Time Status Last Admin Dose Admin Atropine Sulfate (ATROPINE 0.5mg SYRINGE) 0.5 mg 1X ONCE IV 02/27/21 10:30 02/27/21 10:31 DC 02/27/21 10:34 Dopamine HCl/ Dextrose 250 ml @ 7.65 mls/hr 1X ONCE IV 02/27/21 11:00 02/28/21 19:40 02/27/21 11:26 Atropine Sulfate (ATROPINE 0.5mg SYRINGE) 0.5 mg 1X ONCE IV 02/27/21 11:00 02/27/21 11:01 DC 02/27/21 11:08 Calcium Gluconate (Calcium Gluconate) 2,000 mg 1X ONCE IVP 02/27/21 12:00 02/27/21 12:01 DC 02/27/21 11:22 Insulin Human Regular (HumuLIN R VIAL) 10 unit 1X ONCE IV 02/27/21 12:00 02/27/21 12:01 DC 02/27/21 11:33 Dextrose (Dextrose 50%-Water Syringe) 25 gm 1X ONCE IV 02/27/21 12:00 02/27/21 12:01 DC 02/27/21 11:32 ALLERGIES ALLERGIES: Coded Allergies: chlorpromazine (Verified Allergy, Intermediate, 03/22/19) montelukast (Verified Allergy, Intermediate, 03/22/19) trifluoperazine (Verified Allergy, Intermediate, 03/22/19) ROS Review of System unobtainable PHYSICAL EXAM General: Alert, No acute distress HEENT: Atraumatic, Other (tracheostomy ) Lungs: Other (MV) Heart: Other (AFIB, bradycardic. HR 40's ) Extremities: No edema Skin: No rashes, Other (heel pressure ulcers) Neuro: Sensation intact Psych/Mental Status: Other (unable to assess ) MUSCULOSKELETAL: Osteoarthritic changes both hands VITALS/I&O VITALS/I&O: Vital Signs Date Time Temp Pulse Resp B/P (MAP) Pulse Ox O2 Delivery O2 Flow Rate FiO2 02/27/21 11:23 100 Ventilator 02/27/21 09:55 92.3 30 28 80/39 (114) 40.0 92.3 LABS Lab: Laboratory Tests Test 02/27/21 10:16 02/27/21 10:18 02/27/21 12:10 White Blood Count 13.6 x10^3/uL (4.0-11.0) H Red Blood Count 2.07 x10^6/uL (4.30-5.70) L Hemoglobin 5.9 g/dL (13.0-17.5) *L Hematocrit 18.4 % (39.0-53.0) *L Mean Corpuscular Volume 89 fL (79-100) Mean Corpuscular Hemoglobin 28 pg (25-35) Mean Corpuscular Hemoglobin Concent 32 g/dL (31-37) Red Cell Distribution Width 22.0 % (11.5-14.5) H Platelet Count 99 x10^3/uL (140-400) L Neutrophils (%) (Auto) 85 % (31-73) H Lymphocytes (%) (Auto) 4 % (24-48) L Monocytes (%) (Auto) 11 % (0-9) H Eosinophils (%) (Auto) 0 % (0-3) Basophils (%) (Auto) 0 % (0-3) Neutrophils # (Auto) 11.5 x10^3/uL (1.8-7.7) H Lymphocytes # (Auto) 0.6 x10^3/uL (1.0-4.8) L Monocytes # (Auto) 1.4 x10^3/uL (0.0-1.1) H Eosinophils # (Auto) 0.0 x10^3/uL (0.0-0.7) Basophils # (Auto) 0.0 x10^3/uL (0.0-0.2) Platelet Estimate Pending Sodium Level 137 mmol/L (136-145) Potassium Level 6.8 mmol/L (3.5-5.1) *H Chloride Level 104 mmol/L (98-107) Carbon Dioxide Level 21 mmol/L (21-32) Anion Gap 12 (6-14) Blood Urea Nitrogen 117 mg/dL (8-26) H Creatinine 2.9 mg/dL (0.7-1.3) H Estimated GFR (Cockcroft-Gault) 26.4 Glucose Level 89 mg/dL (70-99) Lactic Acid Level 1.3 mmol/L (0.4-2.0) Calcium Level 9.7 mg/dL (8.5-10.1) Troponin I Quantitative < 0.017 ng/mL (0.000-0.055) JU-[id number]-Type Natriuretic Peptide 39336 pg/mL (0-124) H Glucose (Fingerstick) 83 mg/dL (70-99) O2 Saturation 97 % (92-99) Arterial Blood pH 7.23 (7.35-7.45) L Arterial Blood pCO2 at Patient Temp 48 mmHg (35-46) H Arterial Blood pO2 at Patient Temp 109 mmHg (65-108) H Arterial Blood HCO3 20 mmol/L (21-28) L Arterial Blood Base Excess -7 mmol/L (-3-3) L Oxyhemoglobin 96.1 % Methemoglobin 0.9 % (0.0-1.9) Carbon Monoxide, Quantitative 0.1 % (0.0-1.9) FiO2 40 Laboratory Tests 02/27/21 10:16 Laboratory Tests 02/27/21 10:16 ECHOCARDIOGRAM ECHOCARDIOGRAM <Conclusion> Limited echo to evaluate pericardial effusion. The left ventricular systolic function is mildly diminished. The ejection fraction is 45%. There is a small to moderate pericardial effusion without any evidence of tamponade. DATE: 12/03/20 [id number] ASSESSMENT/PLAN ASSESSMENT/PLAN 1. Bradyarrhythmia; HR 30 upon arrival with junctional rhythm. s/p atropine; HR improved to 40's. Also received calcium gluconate and glucagon in ED. Remains in junctional rhythm with HR 40's 2. AI on CKD, hyperkalemia; K 6.8 3. Anemia of chronic disease; hgb 5.9. no obvious bleeding 4. Hypothermia 5. Acute on chronic respiratory failure; s/p tracheostomy. ventilator dependent. 6. PAFIB with h/o RVR; on metoprolol and amiodarone therapy. on Eliquis for stroke prophylaxis. 7. Acute on chronic systolic CHF 8. Cardiomyopathy; Echo 12/17 with LVEF 45% 9. Thrombocytopenia 10. History of non-small cell carcinoma of the lung, treated with left upper lobe lobectomy, and chemo and radiation therapy. 11. H/o polycystic kidney disease s/p left nephrectomy Recommendations Discontinue metoprolol, amiodarone Start dopamine infusion Correct electrolytes; suspect this is culprit for profound bradycardia Transfuse as warranted Will monitor rhyhtm and assess need for PPM once extra cardiac issues have been corrected. PASNOORI,SHARON R MD 02/27/212102: CARDIAC CONSULT ASSESSMENT/PLAN ASSESSMENT/PLAN Patient seen and examined. Agree with MARKER ASSEMBLER's assessment and plan. Bradyarrhythmia probably secondary to electrolyte abnormalities Agree with holding BB and amiodarone and continue low dose dopamine gtt for chronotropic support PAF in junctional rhythm. Continue with eliquis for stroke prophylaxis Thank you for your consultation BENIGNO CHIANG APRN Feb 27, 2021 13:00 SHARON CLEMENTS MD Feb 27, 2021 21:03
[2021-02-27] MEDS ORDERED: LIDOCAINE WITH 8.4% SOD BICARB 3 ML DISP.SYRIN. INJ ONE (13:15)
[2021-02-27 13:54] LABS: % BANDS 37 % (0-9); % LYMPHS 3 % (24-48); % METAS 5 % (0-0); % MONOS 8 % (0-10); % MYELOS 7 % (0-0); % SEGS 40 % (35-66); NUCLEATED RBC 2
[2021-02-27 13:56] LABS: ANISOCYTOSIS MOD; PLT ESTIMATE DECREASED (ADEQUATE); POLYCHROMASIA SLIGHT
--- NOTE | 2021-02-27 14:13 | EKG ---
[facility] [address] [place] [address] Test Date: 2021-02-27 Test Time: 12:50:51 Pat Name: JOURDAN RECINOS Department: Room: Gender: M Bead Filler: : 1955 Requested By: GERALDINE OBANDO Order Number: [id number] Reading MD: Measurements Intervals [place] Rate: 50 P: NE: QRS: -13 QRSD: 110 T: -34 QT: 436 QTc: 400 Interpretive Statements IRREGULAR RHYTHM, NO P-WAVE FOUND LEFTWARD AXIS LOW LIMB LEAD VOLTAGE T ABNORMALITY IN ANTERIOR LEADS ABNORMAL ECG RI6.02 No previous ECG available for comparison
--- NOTE | 2021-02-27 14:23 | PDOC2 ---
GI CONSULT Date of Service: DATE: 02/27/21 TIME: 13:59 Reason For Consult: anemia HPI: HPI: 65 y/o male to ER from [facility] w/ bradycardia and abnormal labs. We are asked to see for anemia. ER nurse reports no obvious bleeding. Office records mention h/o occasional heartburn. Records from [facility] and [facility] note EGD, colonoscopy, and SBCE in 08/2020 for GUADALUPE were negative. Has required past transfusions. Anemia thought related to unseen AVMs. Diverticulosis and cholelithiasis on past imaging. After tracheostomy placement at [facility], had endoscopic PEG placement w/ inadvertent colon perf requiring surgical revision and colonic repair, then pulled out surgical tube and needed second surgical placement. H/o A Fib on Eliquis and amiodarone prior to this admission. PMH: PMH: per records: A Fib, CHF, cardiomyopathy, HTN, HLD, pericardial effusion, pneumonia, chronic resp failure w/ trach/vent dependent, NSCC left lung, CKD, AI requiring temporary HD, polycystic kidney disease, myositis, BPH tracheostomy, SANJUANITA lobectomy, left nephrectomy, uvulectomy, portacath, sinus surgery, tracheostomy FH: Family History: No pertinent hx (unable to obtain) Social History: Smoke: Quit ALCOHOL: none Drugs: None ROS: Difficult to obtain. Vitals: Vitals: Vital Signs Date Time Temp Pulse Resp B/P (MAP) Pulse Ox O2 Delivery O2 Flow Rate FiO2 02/27/21 13:31 100 Ventilator 02/27/21 09:55 92.3 30 28 80/39 (114) 40.0 92.3 Labs: Labs: Laboratory Tests Test 02/27/21 10:16 02/27/21 10:18 02/27/21 12:10 White Blood Count 13.6 x10^3/uL (4.0-11.0) Red Blood Count 2.07 x10^6/uL (4.30-5.70) Hemoglobin 5.9 g/dL (13.0-17.5) Hematocrit 18.4 % (39.0-53.0) Mean Corpuscular Volume 89 fL (79-100) Mean Corpuscular Hemoglobin 28 pg (25-35) Mean Corpuscular Hemoglobin Concent 32 g/dL (31-37) Red Cell Distribution Width 22.0 % (11.5-14.5) Platelet Count 99 x10^3/uL (140-400) Neutrophils (%) (Auto) 85 % (31-73) Lymphocytes (%) (Auto) 4 % (24-48) Monocytes (%) (Auto) 11 % (0-9) Eosinophils (%) (Auto) 0 % (0-3) Basophils (%) (Auto) 0 % (0-3) Neutrophils # (Auto) 11.5 x10^3/uL (1.8-7.7) Lymphocytes # (Auto) 0.6 x10^3/uL (1.0-4.8) Monocytes # (Auto) 1.4 x10^3/uL (0.0-1.1) Eosinophils # (Auto) 0.0 x10^3/uL (0.0-0.7) Basophils # (Auto) 0.0 x10^3/uL (0.0-0.2) Segmented Neutrophils % 40 % (35-66) Band Neutrophils % 37 % (0-9) Lymphocytes % 3 % (24-48) Monocytes % 8 % (0-10) Metamyelocytes % 5 % (0-0) Myelocytes % 7 % (0-0) Nucleated Red Blood Cells 2 Platelet Estimate Decreased (ADEQUATE) Large Platelets Few Giant Platelets Polychromasia Slight Basophilic Stippling Present Anisocytosis Mod Sodium Level 137 mmol/L (136-145) Potassium Level 6.8 mmol/L (3.5-5.1) Chloride Level 104 mmol/L (98-107) Carbon Dioxide Level 21 mmol/L (21-32) Anion Gap 12 (6-14) Blood Urea Nitrogen 117 mg/dL (8-26) Creatinine 2.9 mg/dL (0.7-1.3) Estimated GFR (Cockcroft-Gault) 26.4 Glucose Level 89 mg/dL (70-99) Lactic Acid Level 1.3 mmol/L (0.4-2.0) Calcium Level 9.7 mg/dL (8.5-10.1) Lactate Dehydrogenase 183 U/L (85-227) Troponin I Quantitative < 0.017 ng/mL (0.000-0.055) [id number]-[id number]-[id number]-Type Natriuretic Peptide 00030 pg/mL (0-124) Glucose (Fingerstick) 83 mg/dL (70-99) O2 Saturation 97 % (92-99) Arterial Blood pH 7.23 (7.35-7.45) Arterial Blood pCO2 at Patient Temp 48 mmHg (35-46) Arterial Blood pO2 at Patient Temp 109 mmHg (65-108) Arterial Blood HCO3 20 mmol/L (21-28) Arterial Blood Base Excess -7 mmol/L (-3-3) Oxyhemoglobin 96.1 % Methemoglobin 0.9 % (0.0-1.9) Carbon Monoxide, Quantitative 0.1 % (0.0-1.9) FiO2 40 Allergies: Coded Allergies: chlorpromazine (Verified Allergy, Intermediate, 03/22/19) montelukast (Verified Allergy, Intermediate, 03/22/19) trifluoperazine (Verified Allergy, Intermediate, 03/22/19) Medications: Current Medications Medications (Trade) Dose Ordered Sig/Gigi Route PRN Reason Start Time Stop Time Status Last Admin Dose Admin Atropine Sulfate (ATROPINE 0.5mg SYRINGE) 0.5 mg 1X ONCE IV 02/27/21 10:30 02/27/21 10:31 DC 02/27/21 10:34 Dopamine HCl/ Dextrose 250 ml @ 7.65 mls/hr 1X ONCE IV 02/27/21 11:00 02/28/21 19:40 02/27/21 11:26 Atropine Sulfate (ATROPINE 0.5mg SYRINGE) 0.5 mg 1X ONCE IV 02/27/21 11:00 02/27/21 11:01 DC 02/27/21 11:08 Calcium Gluconate (Calcium Gluconate) 2,000 mg 1X ONCE IVP 02/27/21 12:00 02/27/21 12:01 DC 02/27/21 11:22 Insulin Human Regular (HumuLIN R VIAL) 10 unit 1X ONCE IV 02/27/21 12:00 02/27/21 12:01 DC 02/27/21 11:33 Dextrose (Dextrose 50%-Water Syringe) 25 gm 1X ONCE IV 02/27/21 12:00 02/27/21 12:01 DC 02/27/21 11:32 Imaging: Imaging: CXR IMPRESSION: 1. Left hilar mass. 2. Atelectasis or consolidation left lung. 3. Left pleural effusion. PE: GEN: seen in ER, many staff members present, prepping for transfer to ICU for IR procedure HEENT: Atraumatic, eyes closed LUNGS: trach/vent, RT present HEART: bradycardic per monitor ABD: soft, non-distended, G tube upper abdomen EXTREM: trace edema NEURO/PSYCH: lethargic A/P: A/P: Bradyarrhythmia, AI/CKD, hyperkalemia Chronic anemia - negative EGD, colonoscopy, SBCE in 08/2020 for GUADALUPE; possibly 2/2 unseen AVMs - Hgb bit lower than baseline 6-7, transfusion ordered Chronic resp failure w/ trach/vent, dysphagia w/ surgical G tube S/p iatrogenic colon perf/repair CRC screen - UTD Cholelithiasis - noted on past imaging CHF, h/o A Fib on Eliquis, h/o lung cancer -- Continue per cardiology, nephrology, and IR. Transfuse as needed. Agree w/ acid-tafe registrar, continue iron. JOANNE BURNS Feb 27, 2021 14:23
[2021-02-27] MEDS ORDERED: ALBUMIN HUMAN 25% 200 ML IV PRN (14:30)
[2021-02-27] MEDS ORDERED: IV NORMAL SALINE 1000ML BAG 1,000 ML IV PRN ×2 (14:30)
[2021-02-27] MEDS ORDERED: DIALYSIS PATIENT. MC PRN ×2 (14:30)
--- NOTE | 2021-02-27 14:51 | RAD ---
AP chest. HISTORY: Right dialysis catheter placement AP view was taken of the chest. There is a temporary dialysis catheter which extends to the right atr ium. Patient is rotated to the left. There is a left pleural effusion. There is atelectasis or infilt rate in the left lung. A left hilar mass is possible. There is increased hazy infiltrates or pulmonar y edema on the right. There is no pneumothorax. IMPRESSION: 1. Dialysis catheter in good position. 2. Increased right lung infiltrates or pulmonary edema. 3. Little change on the left. Electronically signed by: Eduardo Richardson MD (02/27/2021 2:49 PM) [facility]
[2021-02-27 14:56] LABS: BILIRUBIN,URINE SMALL (NEG); CLARITY,URINE TURBID; NITRITE,URINE NEGATIVE (NEG); PH,URINE 5.5 (<5.0-8.0); PROTEIN,URINE 100 mg/dL (NEG-TRACE)
[2021-02-27] MEDS ORDERED: MEROPENEM 1 GM in IV NORMAL SALINE 100ML 100 ML IV SCH (15:00)
[2021-02-27 15:07] LABS: COLOR,URINE YELLOW
[2021-02-27 15:09] LABS: BACTERIA,URINE MANY /HPF (0-FEW); GRANULAR CASTS,URINE FEW /HPF; HYALINE CASTS, URINE FEW /HPF; RBC,URINE 20-40 /HPF (0-2); WBC,URINE TNTC /HPF (0-4)
--- NOTE | 2021-02-27 15:13 | NUR ---
Pharmacy Vancomycin Dosing Note S:Consulted to monitor and dose vancomycin started 02/27/21. O:JOURDAN RECINOS is a 65 year old M with hx of Bacteremia, HCAP . Height: 5 feet, 11 inches Weight: 102.2 kg [place] Body Weight: 213.30 Adjusted Body Weight: 168.86 Dosing Weight: Actual Other Antibiotics: Merrem LABS: Last BUN: 117 Last Creatinine: 2.9 Creatinine Clearance: 30 mL/min Last WBC: 13.6 Last Procalcitonin: Tmax (past 24 hours): 92.3 (L) Microbiology: - I/O: -/1000 Drug Levels: Last level: on at Last dose given at Vancomycin Dosing: Loading Dose: 2000 mg x1 Dosing Weight: Actual Target Trough: 15-20 A: Based on: WEIGHT AND RENAL FUNCTION P: 1. Dose Vancomycin 2000 mg IV One Time 2. Follow up labs ordered for am to assess dosing and timing of levels 3. Pharmacy will continue to monitor, follow and adjust therapy as needed. Cassandra Rousseau RPH, 02/27/21 [id number]
[2021-02-27 15:35] LABS: BASO # 0.1 x10^3/uL (0.0-0.2); BASO % 0 % (0-3); EOS % 0 % (0-3); LYMPH # 0.4 x10^3/uL (1.0-4.8); LYMPH % 2 % (24-48); MEAN CORPUSCULAR HEMOGLOBIN 28 pg (25-35); MEAN CORPUSCULAR HGB CONC 31 g/dL (31-37); MEAN CORPUSCULAR VOLUME 88 fL (79-100); MONO # 1.4 x10^3/uL (0.0-1.1); MONO % 8 % (0-9); NEUT % 90 % (31-73); PLATELET COUNT 116 x10^3/uL (140-400); RED BLOOD COUNT 2.08 x10^6/uL (4.30-5.70); RED CELL DISTRIBUTION WIDTH 22.4 % (11.5-14.5); WHITE BLOOD COUNT 17.8 x10^3/uL (4.0-11.0)
[2021-02-27 15:40] LABS: HEMOGLOBIN 5.8 g/dL (13.0-17.5)
[2021-02-27 15:41] LABS: HEMATOCRIT 18.4 % (39.0-53.0)
--- NOTE | 2021-02-27 15:41 | RAD ---
Procedure:, Guided placement of a right internal jugular temporary hemodialysis catheter 02/27/2021 Sterility: All elements of maximal sterile barrier technique including the use of a cap, mask, steril e gown, sterile gloves, large sterile sheet, appropriate hand hygiene, and 2% chlorhexidine for cutan eous antisepsis (or acceptable alternative antiseptic per current guidelines) were followed for this procedure. Consent: The procedure was explained in its entirety to the patient or the patients designated repres entative by a member of the treatment team, including a discussion of the risks, benefits and commonl y accepted alternatives to the procedure, as well as the expected consequences of no therapy whatsoev er. Discussion of the risks included, but was not limited to, those that are most frequent and thos e that are rare but possibly severe or life-threatening, as well as the possibility of unforeseen com plications. Technique and Findings: Following informed consent, the patient was prepped and draped in the usual s terile fashion. Ultrasound interrogation of the right neck revealed patency and compressibility of t he right internal jugular vein. A 21-gauge micropuncture was then used to gain access to this vein u nder ultrasound guidance. A hard copy ultrasound image was recorded. A guidewire was advanced centra lly over which, following dilatation, a temporary dialysis catheter was placed. The new catheter wa s found to flush and aspirate normally. The catheter was secured in place. Sterile dressings were jimbo lied. No immediate complications were identified. IMPRESSION: Placement of a temporary dialysis catheter at the bedside with ultrasound guidance Electronically signed by: William Vivar MD (02/27/2021 3:39 PM) [id number]
[2021-02-27 15:49] LABS: CALCIUM 9.2 mg/dL (8.5-10.1); CREATININE 2.8 mg/dL (0.7-1.3); GFR 27.5
[2021-02-27 15:56] LABS: POTASSIUM 6.3 mmol/L (3.5-5.1)
--- NOTE | 2021-02-27 20:30 | NUR ---
Nursing Note: Notified Dr. Flores on unit of what seemed to me to be ST elevation. Showed him the tele strip, no orders received, Bp labile, will titrate dopamine if needed.
[2021-02-28] VITALS (28 sets, daily range): BP systolic 64–129; BP diastolic 49–92
[2021-02-28 06:14] LABS: BASO % 0 % (0-3); EOS # 0.1 x10^3/uL (0.0-0.7); EOS % 0 % (0-3); HEMATOCRIT 21.4 % (39.0-53.0); LYMPH # 0.5 x10^3/uL (1.0-4.8); LYMPH % 2 % (24-48); MEAN CORPUSCULAR HEMOGLOBIN 29 pg (25-35); MEAN CORPUSCULAR HGB CONC 33 g/dL (31-37); MEAN CORPUSCULAR VOLUME 88 fL (79-100); MONO % 9 % (0-9); NEUT # 20.4 x10^3/uL (1.8-7.7); NEUT % 89 % (31-73); PLATELET COUNT 137 x10^3/uL (140-400); RED BLOOD COUNT 2.44 x10^6/uL (4.30-5.70); RED CELL DISTRIBUTION WIDTH 20.8 % (11.5-14.5)
[2021-02-28 06:25] LABS: PROTHROMBIN TIME PATIENT 23.3 SEC (11.7-14.0)
[2021-02-28 06:29] LABS: ALBUMIN 1.6 g/dL (3.4-5.0); ALBUMIN/GLOBULIN RATIO 0.5 (1.0-1.7); CREATININE 1.9 mg/dL (0.7-1.3); POTASSIUM 4.9 mmol/L (3.5-5.1); TOTAL BILIRUBIN 0.8 mg/dL (0.2-1.0); TOTAL PROTEIN 5.1 g/dL (6.4-8.2)
[2021-02-28 07:24] LABS: BASE EXCESS ABG -1 mmol/L (-3-3); HCO3 ABG 25 mmol/L (21-28); PCO2 ABG 44 mmHg (35-46); PO2 ABG 54 mmHg (65-108); SAT O2 ABG 89 % (92-99)
--- NOTE | 2021-02-28 07:52 | CONS ---
DATE OF CONSULTATION: 02/28/2021 REQUESTING PHYSICIAN: Dr. Wood. REASON FOR CONSULTATION: Gram-negative sepsis. HISTORY OF PRESENT ILLNESS: This is a 65-year-old -[place] gentleman who is known to us. The patient has a history of lung cancer, chronic respiratory failure, vent dependence, tracheostomy, PEG tube, had a perforation requiring emergent surgery to repair the perforation and [facility] to [place] to [facility] and [facility]. The patient was brought in because of third-degree heart block, gram-negative soren in the blood and renal failure. The patient is awake, on a ventilator through tracheostomy. Dialysis catheter has been placed. The patient does have an old PICC line. The patient is also on meropenem and vancomycin. PAST MEDICAL HISTORY: Positive for lung cancer, adenocarcinoma, COPD, respiratory failure, vent dependency, tracheostomy, PEG tube placement, perforation post-PEG tube placement as malfunctioning of the PEG tube and reexploration done, lobectomy, nephrectomy. SOCIAL HISTORY: Negative for smoking, alcohol, drug use. The patient is in a long-term vent facility. ALLERGIES: No known antibiotic allergies. CURRENT MEDICATIONS: Reviewed. REVIEW OF SYSTEMS: As in HPI. All other systems reviewed are negative. PHYSICAL EXAMINATION: GENERAL: Awake gentleman, on a ventilator, not in distress. VITAL SIGNS: Temperature 98.8, pulse 100, respirations 20, blood pressure 105/57. HEENT: Both pupils are round and reacting. No conjunctival lesion. No lesion in the mouth. NECK: Supple, no JVP, tracheostomy in place. LUNGS: Clear. HEART: S1, S2 regular. ABDOMEN: Soft, nontender, no organomegaly. EXTREMITIES: No edema, cyanosis. SKIN: Some minor sacrococcygeal breakdown present. Rest of the skin exam is unremarkable. PICC line site is unremarkable. Hemodialysis catheter has been placed yesterday. NEUROLOGIC: The patient is awake, but on a ventilator, unable to equipment washer the full neuro status. LABORATORY DATA: White count is 23,000. BUN and creatinine is 61 and 1.9. Urinalysis showed 20-40 rbc, too numerous to count wbc. Reportedly, gram-negative soren from [facility], do not have final ID yet. Chest x-ray showed right lung infiltrate or pulmonary edema. IMPRESSION: 1. Gram-negative soren bacteremia. 2. Third-degree heart block. 3. Chronic respiratory failure. 4. Tracheostomy and PEG tube. 5. Acute renal failure. 6. Lung cancer, status post lobectomy. 7. Chronic obstructive pulmonary disease. 8. Anemia. RECOMMENDATIONS: We will discontinue vancomycin, continue meropenem. Supportive care. We will try to obtain the records of the gram-negative soren and we will continue to follow. Thank you very much Dr. Wood for giving me opportunity to participate in this patient's care. The patient should be considered actually for palliative care. CYNTHIA/YANIRA DR: Kevin TID: [id number]
--- NOTE | 2021-02-28 08:10 | PDOC ---
Provider Note Date of Service: DATE: 02/28/21 TIME: 08:05 Provider Note IR NOTE Pelvic drain placed in october 2020 for fluid collection. Unsure of history since then. Would ideally have ct abdomen and pelvis. If no residual output, and CT shows no residual collection, would remove drain. Justifications for Admission General Conditions Poss hypotension?: Yes Justification for admission: Patient has hypotension (SBP < 90 mm Hg) which is not readily corrected by appropriate treatment within 12 to 24 hours. Other Justification HENNA HAMILTON MD Feb 28, 2021 08:10
[2021-02-28 08:31] LABS: FIO2 ABG 40/VENT
--- NOTE | 2021-02-28 08:52 | PDOC ---
DATE OF SERVICE DATE: 02/28/21 TIME: 08:52 SUBJECTIVE ROS Stable Good uop , Bradycardia resolved OBJECTIVE Vital Signs Vital Signs Date Time Temp Pulse Resp B/P (MAP) Pulse Ox O2 Delivery O2 Flow Rate FiO2 02/28/21 07:10 100 Ventilator 02/28/21 06:00 99 20 99/61 (74) 02/28/21 04:00 98.8 98.8 02/27/21 13:12 40.0 I & 0 Intake and Output 02/28/21 07:00 Intake Total 1438 ml Output Total 1613 ml Balance -175 ml Intake IV Total 1436 ml Blood Product IV Normal Saline Flush 2 ml Output Urine Total 1613 ml PHYSICAL EXAM Physical Exam General : No acute distress, not able to vocalize at baseline. has alida Anderson HENT: OM moist Neck Tracheostomy in place CV bradycardic Lungs Coarse breath sounds left lung , Non labored, Trach in place Abdomen: Drain is present in the left lower quadrant, No tenderness Skin: No skin breakdown, No rash Extrem: cool to touch, No LE edema Neurologic: Awake and alert, baseline non verbal Psychologic: Affect normal,mood normal. Indwelling muhammad + DIAGNOSIS/ASSESSMENT Assessment & Plan AI - VaSomotor , has indwelling muhammad, Bladder scan done in the ER- no rete ntion . Good UOP Supportive care, IVF, avoid nephrotoxins, strict I/O Acquired Solitray Kidney - Lt Nephrectomy Hyper kalemia POA -3 rd degree heart block on EKG, no response to Atropine . needed Emergent Dialysis . K normal Bradycardia- 3 rd degree heart block, asymptomatic . Resolved Gram-negative osren bacteremia. Chronic respiratory failure with ventilator dependence with chronic tracheostomy. Lung cancer, likely stage 4, adenocarcinoma by biopsy. Anemia- Hgb < 7 POA, PRBC X 1 COMMENT/RELEVANT DATA Meds Current Medications Medications (Trade) Dose Ordered Sig/Gigi Start Time Stop Time Status Last Admin Dose Admin Albumin Human 200 ml @ 200 mls/hr 1X PRN PRN 02/27/21 14:30 02/27/21 20:29 DC Atropine Sulfate (ATROPINE 0.5mg SYRINGE) 0.5 mg 1X ONCE 02/27/21 11:00 02/27/21 11:01 DC 02/27/21 11:08 0.5 MG Calcium Gluconate (Calcium Gluconate) 2,000 mg 1X ONCE 02/27/21 12:00 02/27/21 12:01 DC 02/27/21 11:22 2,000 MG Dextrose (Dextrose 50%-Water Syringe) 25 gm 1X ONCE 02/27/21 12:00 02/27/21 12:01 DC 02/27/21 11:32 25 GM Dopamine HCl/ Dextrose 250 ml @ 19.163 mls/ hr CONT PRN 02/27/21 18:00 02/28/21 04:25 57.488 MLS/HR Famotidine (Pepcid Vial) 20 mg BID 02/27/21 13:00 02/27/21 21:29 20 MG Fentanyl Citrate (Fentanyl 2ml Vial) 75 mcg 1X ONCE 02/27/21 11:15 02/27/21 11:16 DC Glucagon (Glucagen) 5 mg 1X ONCE 02/27/21 12:15 02/27/21 12:15 DC Info (PHARMACY MONITORING -- do not chart) 1 each PRN DAILY PRN 02/27/21 14:30 Insulin Human Regular (HumuLIN R VIAL) 10 unit 1X ONCE 02/27/21 12:00 02/27/21 12:01 DC 02/27/21 11:33 10 UNIT Lidocaine HCl (Buffered Lidocaine 1%) 6 ml 1X ONCE 02/27/21 13:15 02/27/21 13:16 DC 02/27/21 13:15 4 ML Meropenem 1 gm/ Sodium Chloride 100 ml @ 200 mls/hr Q12HR 02/28/21 09:00 Ondansetron HCl (Zofran) 4 mg PRN Q6HRS PRN 02/27/21 12:00 Sodium Chloride 1,000 ml @ 400 mls/hr Q2H30M PRN 02/27/21 14:30 02/28/21 02:29 DC Sodium Chloride (Normal Saline Flush) 10 ml 1X PRN PRN 02/27/21 14:30 02/28/21 14:29 Vancomycin HCl (Vanco Per Pharmacy) 1 each PRN DAILY PRN 02/27/21 12:15 02/28/21 06:45 DC 02/27/21 15:09 1 EACH Vancomycin HCl 2 gm/Sodium Chloride 500 ml @ 250 mls/hr 1X ONCE 02/27/21 13:00 02/27/21 14:59 DC 02/27/21 18:10 250 MLS/HR Lab Laboratory Tests Test 02/27/21 10:16 02/27/21 10:18 02/27/21 12:10 02/27/21 13:10 White Blood Count 13.6 x10^3/uL (4.0-11.0) Red Blood Count 2.07 x10^6/uL (4.30-5.70) Hemoglobin 5.9 g/dL (13.0-17.5) Hematocrit 18.4 % (39.0-53.0) Mean Corpuscular Volume 89 fL (79-100) Mean Corpuscular Hemoglobin 28 pg (25-35) Mean Corpuscular Hemoglobin Concent 32 g/dL (31-37) Red Cell Distribution Width 22.0 % (11.5-14.5) Platelet Count 99 x10^3/uL (140-400) Neutrophils (%) (Auto) 85 % (31-73) Lymphocytes (%) (Auto) 4 % (24-48) Monocytes (%) (Auto) 11 % (0-9) Eosinophils (%) (Auto) 0 % (0-3) Basophils (%) (Auto) 0 % (0-3) Neutrophils # (Auto) 11.5 x10^3/uL (1.8-7.7) Lymphocytes # (Auto) 0.6 x10^3/uL (1.0-4.8) Monocytes # (Auto) 1.4 x10^3/uL (0.0-1.1) Eosinophils # (Auto) 0.0 x10^3/uL (0.0-0.7) Basophils # (Auto) 0.0 x10^3/uL (0.0-0.2) Segmented Neutrophils % 40 % (35-66) Band Neutrophils % 37 % (0-9) Lymphocytes % 3 % (24-48) Monocytes % 8 % (0-10) Metamyelocytes % 5 % (0-0) Myelocytes % 7 % (0-0) Nucleated Red Blood Cells 2 Platelet Estimate Decreased (ADEQUATE) Large Platelets Few Giant Platelets Polychromasia Slight Basophilic Stippling Present Anisocytosis Mod Sodium Level 137 mmol/L (136-145) Potassium Level 6.8 mmol/L (3.5-5.1) Chloride Level 104 mmol/L (98-107) Carbon Dioxide Level 21 mmol/L (21-32) Anion Gap 12 (6-14) Blood Urea Nitrogen 117 mg/dL (8-26) Creatinine 2.9 mg/dL (0.7-1.3) Estimated GFR (Cockcroft-Gault) 26.4 Glucose Level 89 mg/dL (70-99) Lactic Acid Level 1.3 mmol/L (0.4-2.0) Calcium Level 9.7 mg/dL (8.5-10.1) Lactate Dehydrogenase 183 U/L (85-227) Troponin I Quantitative < 0.017 ng/mL (0.000-0.055) 0.020 ng/mL (0.000-0.055) JO-Zyp-N-Type Natriuretic Peptide 53319 pg/mL (0-124) Glucose (Fingerstick) 83 mg/dL (70-99) O2 Saturation 97 % (92-99) Arterial Blood pH 7.23 (7.35-7.45) Arterial Blood pCO2 at Patient Temp 48 mmHg (35-46) Arterial Blood pO2 at Patient Temp 109 mmHg (65-108) Arterial Blood HCO3 20 mmol/L (21-28) Arterial Blood Base Excess -7 mmol/L (-3-3) Oxyhemoglobin 96.1 % Methemoglobin 0.9 % (0.0-1.9) Carbon Monoxide, Quantitative 0.1 % (0.0-1.9) FiO2 40 Test 02/27/21 14:30 02/27/21 14:50 02/28/21 05:51 02/28/21 07:15 Urine Collection Type Unknown Urine Color Yellow Urine Clarity Turbid Urine pH 5.5 (<5.0-8.0) Urine Specific [place] 1.015 (1.000-1.030) Urine Protein 100 mg/dL (NEG-TRACE) Urine Glucose (UA) Negative mg/dL (NEG) Urine Ketones (Stick) Negative mg/dL (NEG) Urine Blood Large (NEG) Urine Nitrite Negative (NEG) Urine Bilirubin Small (NEG) Urine Urobilinogen Dipstick 1.0 mg/dL (0.2 mg/dL) Urine Leukocyte Esterase Large (NEG) Urine RBC 20-40 /HPF (0-2) Urine WBC Tntc /HPF (0-4) Urine Bacteria Many /HPF (0-FEW) Urine Hyaline Casts Few /HPF Urine Granular Casts Few /HPF Urine Mucus Mod /LPF White Blood Count 17.8 x10^3/uL (4.0-11.0) 23.0 x10^3/uL (4.0-11.0) Red Blood Count 2.08 x10^6/uL (4.30-5.70) 2.44 x10^6/uL (4.30-5.70) Hemoglobin 5.8 g/dL (13.0-17.5) 7.0 g/dL (13.0-17.5) Hematocrit 18.4 % (39.0-53.0) 21.4 % (39.0-53.0) Mean Corpuscular Volume 88 fL (79-100) 88 fL (79-100) Mean Corpuscular Hemoglobin 28 pg (25-35) 29 pg (25-35) Mean Corpuscular Hemoglobin Concent 31 g/dL (31-37) 33 g/dL (31-37) Red Cell Distribution Width 22.4 % (11.5-14.5) 20.8 % (11.5-14.5) Platelet Count 116 x10^3/uL (140-400) 137 x10^3/uL (140-400) Neutrophils (%) (Auto) 90 % (31-73) 89 % (31-73) Lymphocytes (%) (Auto) 2 % (24-48) 2 % (24-48) Monocytes (%) (Auto) 8 % (0-9) 9 % (0-9) Eosinophils (%) (Auto) 0 % (0-3) 0 % (0-3) Basophils (%) (Auto) 0 % (0-3) 0 % (0-3) Neutrophils # (Auto) 16.0 x10^3/uL (1.8-7.7) 20.4 x10^3/uL (1.8-7.7) Lymphocytes # (Auto) 0.4 x10^3/uL (1.0-4.8) 0.5 x10^3/uL (1.0-4.8) Monocytes # (Auto) 1.4 x10^3/uL (0.0-1.1) 2.0 x10^3/uL (0.0-1.1) Eosinophils # (Auto) 0.0 x10^3/uL (0.0-0.7) 0.1 x10^3/uL (0.0-0.7) Basophils # (Auto) 0.1 x10^3/uL (0.0-0.2) 0.0 x10^3/uL (0.0-0.2) Sodium Level 137 mmol/L (136-145) 137 mmol/L (136-145) Potassium Level 6.3 mmol/L (3.5-5.1) 4.9 mmol/L (3.5-5.1) Chloride Level 104 mmol/L (98-107) 102 mmol/L (98-107) Carbon Dioxide Level 23 mmol/L (21-32) 28 mmol/L (21-32) Anion Gap 10 (6-14) 7 (6-14) Blood Urea Nitrogen 105 mg/dL (8-26) 61 mg/dL (8-26) Creatinine 2.8 mg/dL (0.7-1.3) 1.9 mg/dL (0.7-1.3) Estimated GFR (Cockcroft-Gault) 27.5 43.0 Glucose Level 54 mg/dL (70-99) 60 mg/dL (70-99) Calcium Level 9.2 mg/dL (8.5-10.1) 9.0 mg/dL (8.5-10.1) Troponin I Quantitative 0.024 ng/mL (0.000-0.055) Hepatitis B Surface Antigen Nonreactive (Nonreactive) Hepatitis B Surface Antibody Nonreactive Prothrombin Time 23.3 SEC (11.7-14.0) Prothromb Time International Ratio 2.1 (0.8-1.1) Activated Partial Thromboplast Time 64 SEC (24-38) BUN/Creatinine Ratio 32 (6-20) Total Bilirubin 0.8 mg/dL (0.2-1.0) Aspartate Amino Transf (AST/SGOT) 13 U/L (15-37) Alanine Aminotransferase (ALT/SGPT) 55 U/L (16-63) Alkaline Phosphatase 187 U/L (46-116) Total Protein 5.1 g/dL (6.4-8.2) Albumin 1.6 g/dL (3.4-5.0) Albumin/Globulin Ratio 0.5 (1.0-1.7) O2 Saturation 89 % (92-99) Arterial Blood pH 7.36 (7.35-7.45) Arterial Blood pCO2 at Patient Temp 44 mmHg (35-46) Arterial Blood pO2 at Patient Temp 54 mmHg (65-108) Arterial Blood HCO3 25 mmol/L (21-28) Arterial Blood Base Excess -1 mmol/L (-3-3) FiO2 40/vent Test 02/28/21 08:37 Glucose (Fingerstick) 59 mg/dL (70-99) Results All relevant outside records, renal labs, imaging studies, telemetry/EKG's were reviewed. Justicifation of Admission Dx: Justifications for Admission: Justification of Admission Dx: N/A YAMILETH BROTHERS MD Feb 28, 2021 08:52
--- NOTE | 2021-02-28 09:34 | PDOC ---
MYA WEATHERS [employer] 02/28/21 0934: CARDIO Progress Notes Date and Time Date of Service 02/28/2021 Time of Evaluation 0910 Vitals Vitals Vital Signs Date Time Temp Pulse Resp B/P (MAP) Pulse Ox O2 Delivery O2 Flow Rate FiO2 02/28/21 08:58 99 Ventilator 02/28/21 06:00 99 20 99/61 (74) 02/28/21 04:00 98.8 98.8 02/27/21 13:12 40.0 Weight Weight [ ] Input and Output Intake and Output Intake and Output 02/28/21 07:00 Intake Total 1438 ml Output Total 1613 ml Balance -175 ml Intake IV Total 1436 ml Blood Product IV Normal Saline Flush 2 ml Output Urine Total 1613 ml Laboratory Labs Laboratory Tests Test 02/27/21 10:16 02/27/21 10:18 02/27/21 12:10 02/27/21 13:10 White Blood Count 13.6 x10^3/uL (4.0-11.0) Red Blood Count 2.07 x10^6/uL (4.30-5.70) Hemoglobin 5.9 g/dL (13.0-17.5) Hematocrit 18.4 % (39.0-53.0) Mean Corpuscular Volume 89 fL (79-100) Mean Corpuscular Hemoglobin 28 pg (25-35) Mean Corpuscular Hemoglobin Concent 32 g/dL (31-37) Red Cell Distribution Width 22.0 % (11.5-14.5) Platelet Count 99 x10^3/uL (140-400) Neutrophils (%) (Auto) 85 % (31-73) Lymphocytes (%) (Auto) 4 % (24-48) Monocytes (%) (Auto) 11 % (0-9) Eosinophils (%) (Auto) 0 % (0-3) Basophils (%) (Auto) 0 % (0-3) Neutrophils # (Auto) 11.5 x10^3/uL (1.8-7.7) Lymphocytes # (Auto) 0.6 x10^3/uL (1.0-4.8) Monocytes # (Auto) 1.4 x10^3/uL (0.0-1.1) Eosinophils # (Auto) 0.0 x10^3/uL (0.0-0.7) Basophils # (Auto) 0.0 x10^3/uL (0.0-0.2) Segmented Neutrophils % 40 % (35-66) Band Neutrophils % 37 % (0-9) Lymphocytes % 3 % (24-48) Monocytes % 8 % (0-10) Metamyelocytes % 5 % (0-0) Myelocytes % 7 % (0-0) Nucleated Red Blood Cells 2 Platelet Estimate Decreased (ADEQUATE) Large Platelets Few Giant Platelets Polychromasia Slight Basophilic Stippling Present Anisocytosis Mod Sodium Level 137 mmol/L (136-145) Potassium Level 6.8 mmol/L (3.5-5.1) Chloride Level 104 mmol/L (98-107) Carbon Dioxide Level 21 mmol/L (21-32) Anion Gap 12 (6-14) Blood Urea Nitrogen 117 mg/dL (8-26) Creatinine 2.9 mg/dL (0.7-1.3) Estimated GFR (Cockcroft-Gault) 26.4 Glucose Level 89 mg/dL (70-99) Lactic Acid Level 1.3 mmol/L (0.4-2.0) Calcium Level 9.7 mg/dL (8.5-10.1) Lactate Dehydrogenase 183 U/L (85-227) Troponin I Quantitative < 0.017 ng/mL (0.000-0.055) 0.020 ng/mL (0.000-0.055) FK-Shc-C-Type Natriuretic Peptide 39034 pg/mL (0-124) Glucose (Fingerstick) 83 mg/dL (70-99) O2 Saturation 97 % (92-99) Arterial Blood pH 7.23 (7.35-7.45) Arterial Blood pCO2 at Patient Temp 48 mmHg (35-46) Arterial Blood pO2 at Patient Temp 109 mmHg (65-108) Arterial Blood HCO3 20 mmol/L (21-28) Arterial Blood Base Excess -7 mmol/L (-3-3) Oxyhemoglobin 96.1 % Methemoglobin 0.9 % (0.0-1.9) Carbon Monoxide, Quantitative 0.1 % (0.0-1.9) FiO2 40 Test 02/27/21 14:30 02/27/21 14:50 02/28/21 05:51 02/28/21 07:15 Urine Collection Type Unknown Urine Color Yellow Urine Clarity Turbid Urine pH 5.5 (<5.0-8.0) Urine Specific [place] 1.015 (1.000-1.030) Urine Protein 100 mg/dL (NEG-TRACE) Urine Glucose (UA) Negative mg/dL (NEG) Urine Ketones (Stick) Negative mg/dL (NEG) Urine Blood Large (NEG) Urine Nitrite Negative (NEG) Urine Bilirubin Small (NEG) Urine Urobilinogen Dipstick 1.0 mg/dL (0.2 mg/dL) Urine Leukocyte Esterase Large (NEG) Urine RBC 20-40 /HPF (0-2) Urine WBC Tntc /HPF (0-4) Urine Bacteria Many /HPF (0-FEW) Urine Hyaline Casts Few /HPF Urine Granular Casts Few /HPF Urine Mucus Mod /LPF White Blood Count 17.8 x10^3/uL (4.0-11.0) 23.0 x10^3/uL (4.0-11.0) Red Blood Count 2.08 x10^6/uL (4.30-5.70) 2.44 x10^6/uL (4.30-5.70) Hemoglobin 5.8 g/dL (13.0-17.5) 7.0 g/dL (13.0-17.5) Hematocrit 18.4 % (39.0-53.0) 21.4 % (39.0-53.0) Mean Corpuscular Volume 88 fL (79-100) 88 fL (79-100) Mean Corpuscular Hemoglobin 28 pg (25-35) 29 pg (25-35) Mean Corpuscular Hemoglobin Concent 31 g/dL (31-37) 33 g/dL (31-37) Red Cell Distribution Width 22.4 % (11.5-14.5) 20.8 % (11.5-14.5) Platelet Count 116 x10^3/uL (140-400) 137 x10^3/uL (140-400) Neutrophils (%) (Auto) 90 % (31-73) 89 % (31-73) Lymphocytes (%) (Auto) 2 % (24-48) 2 % (24-48) Monocytes (%) (Auto) 8 % (0-9) 9 % (0-9) Eosinophils (%) (Auto) 0 % (0-3) 0 % (0-3) Basophils (%) (Auto) 0 % (0-3) 0 % (0-3) Neutrophils # (Auto) 16.0 x10^3/uL (1.8-7.7) 20.4 x10^3/uL (1.8-7.7) Lymphocytes # (Auto) 0.4 x10^3/uL (1.0-4.8) 0.5 x10^3/uL (1.0-4.8) Monocytes # (Auto) 1.4 x10^3/uL (0.0-1.1) 2.0 x10^3/uL (0.0-1.1) Eosinophils # (Auto) 0.0 x10^3/uL (0.0-0.7) 0.1 x10^3/uL (0.0-0.7) Basophils # (Auto) 0.1 x10^3/uL (0.0-0.2) 0.0 x10^3/uL (0.0-0.2) Sodium Level 137 mmol/L (136-145) 137 mmol/L (136-145) Potassium Level 6.3 mmol/L (3.5-5.1) 4.9 mmol/L (3.5-5.1) Chloride Level 104 mmol/L (98-107) 102 mmol/L (98-107) Carbon Dioxide Level 23 mmol/L (21-32) 28 mmol/L (21-32) Anion Gap 10 (6-14) 7 (6-14) Blood Urea Nitrogen 105 mg/dL (8-26) 61 mg/dL (8-26) Creatinine 2.8 mg/dL (0.7-1.3) 1.9 mg/dL (0.7-1.3) Estimated GFR (Cockcroft-Gault) 27.5 43.0 Glucose Level 54 mg/dL (70-99) 60 mg/dL (70-99) Calcium Level 9.2 mg/dL (8.5-10.1) 9.0 mg/dL (8.5-10.1) Troponin I Quantitative 0.024 ng/mL (0.000-0.055) Hepatitis B Surface Antigen Nonreactive (Nonreactive) Hepatitis B Surface Antibody Nonreactive Prothrombin Time 23.3 SEC (11.7-14.0) Prothromb Time International Ratio 2.1 (0.8-1.1) Activated Partial Thromboplast Time 64 SEC (24-38) BUN/Creatinine Ratio 32 (6-20) Total Bilirubin 0.8 mg/dL (0.2-1.0) Aspartate Amino Transf (AST/SGOT) 13 U/L (15-37) Alanine Aminotransferase (ALT/SGPT) 55 U/L (16-63) Alkaline Phosphatase 187 U/L (46-116) Total Protein 5.1 g/dL (6.4-8.2) Albumin 1.6 g/dL (3.4-5.0) Albumin/Globulin Ratio 0.5 (1.0-1.7) O2 Saturation 89 % (92-99) Arterial Blood pH 7.36 (7.35-7.45) Arterial Blood pCO2 at Patient Temp 44 mmHg (35-46) Arterial Blood pO2 at Patient Temp 54 mmHg (65-108) Arterial Blood HCO3 25 mmol/L (21-28) Arterial Blood Base Excess -1 mmol/L (-3-3) FiO2 40/vent Test 02/28/21 08:37 Glucose (Fingerstick) 59 mg/dL (70-99) Physical Exam HEENT: Neck Supple W Full Motion, Other (tracheostomy in place) Chest: Symmetric LUNGS: Other (diminished mechanical vent) Heart: RRR (SR), no jug vein distention Extremities: Other (3+ bilateral LE pitting edema) Assessment Assessment 1. Bradyarrhythmia; noted junctional mainly due to metabolic issues with hypothermia Better SR in the 2. AI on CKD, hyperkalemia; K 6.8 3. Anemia of chronic disease; hgb 5.9. no obvious bleeding 4. Hypothermia: better 5. Acute on chronic respiratory failure; s/p tracheostomy. ventilator dependent. 6. PAFIB with h/o RVR; on metoprolol and amiodarone therapy. on Eliquis for stroke prophylaxis. 7. Acute on chronic systolic CHF 8. Cardiomyopathy; Echo 12/17 with LVEF 45% 9. Mild Thrombocytopenia 10. History of non-small cell carcinoma of the lung, treated with left upper lobe lobectomy, and chemo and radiation therapy. 11. H/o polycystic kidney disease s/p left nephrectomy 12. Anemia: Hgb at 7 Recommendations Discontinue eliquis and metoprolol, amiodarone for now Transfuse today. Titrate off dopamine as tolerated and could transition to levophed. No indication for Post HD,x1, PRN per nephrology Supportive care Justicifation of Admission Dx: Justifications for Admission: Justification of Admission Dx: Yes SHARON CLEMENTS MD 02/28/21 2141: CARDIO Progress Notes Assessment Assessment Patient seen and examined. Agree with [employer]'s assessment and plan. Bradyarrhythmia probably secondary to electrolyte abnormalities - improved and presently SR Agree with holding eliquis and transfuse as needed MYA WEATHERS APRN Feb 28, 2021 09:34 SHARON CLEMENTS MD Feb 28, 2021 21:41
--- NOTE | 2021-02-28 10:24 | PDOC ---
PULMONARY PROGRESS NOTES DATE: 02/28/21 TIME: 10:21 Subjective Remains on assist control mode. 40% FiO2. Remains on dopamine. Initiated for bradycardia and heart block, now dose has been increased to improve blood pressure as well Vitals Vital Signs Date Time Temp Pulse Resp B/P (MAP) Pulse Ox O2 Delivery O2 Flow Rate FiO2 02/28/21 08:58 99 Ventilator 02/28/21 06:00 99 20 99/61 (74) 02/28/21 04:00 98.8 98.8 02/27/21 13:12 40.0 General: Alert, No acute distress Lungs: Other (Decreased breath sounds left lung) Cardiovascular: S1, S2 Abdomen: Soft Neuro Exam: Alert Extremities: Other (2+ edema) Skin: Warm Labs Laboratory Tests Test 02/27/21 10:16 02/27/21 10:18 02/27/21 12:10 02/27/21 13:10 White Blood Count 13.6 x10^3/uL (4.0-11.0) Red Blood Count 2.07 x10^6/uL (4.30-5.70) Hemoglobin 5.9 g/dL (13.0-17.5) Hematocrit 18.4 % (39.0-53.0) Mean Corpuscular Volume 89 fL (79-100) Mean Corpuscular Hemoglobin 28 pg (25-35) Mean Corpuscular Hemoglobin Concent 32 g/dL (31-37) Red Cell Distribution Width 22.0 % (11.5-14.5) Platelet Count 99 x10^3/uL (140-400) Neutrophils (%) (Auto) 85 % (31-73) Lymphocytes (%) (Auto) 4 % (24-48) Monocytes (%) (Auto) 11 % (0-9) Eosinophils (%) (Auto) 0 % (0-3) Basophils (%) (Auto) 0 % (0-3) Neutrophils # (Auto) 11.5 x10^3/uL (1.8-7.7) Lymphocytes # (Auto) 0.6 x10^3/uL (1.0-4.8) Monocytes # (Auto) 1.4 x10^3/uL (0.0-1.1) Eosinophils # (Auto) 0.0 x10^3/uL (0.0-0.7) Basophils # (Auto) 0.0 x10^3/uL (0.0-0.2) Segmented Neutrophils % 40 % (35-66) Band Neutrophils % 37 % (0-9) Lymphocytes % 3 % (24-48) Monocytes % 8 % (0-10) Metamyelocytes % 5 % (0-0) Myelocytes % 7 % (0-0) Nucleated Red Blood Cells 2 Platelet Estimate Decreased (ADEQUATE) Large Platelets Few Giant Platelets Polychromasia Slight Basophilic Stippling Present Anisocytosis Mod Sodium Level 137 mmol/L (136-145) Potassium Level 6.8 mmol/L (3.5-5.1) Chloride Level 104 mmol/L (98-107) Carbon Dioxide Level 21 mmol/L (21-32) Anion Gap 12 (6-14) Blood Urea Nitrogen 117 mg/dL (8-26) Creatinine 2.9 mg/dL (0.7-1.3) Estimated GFR (Cockcroft-Gault) 26.4 Glucose Level 89 mg/dL (70-99) Lactic Acid Level 1.3 mmol/L (0.4-2.0) Calcium Level 9.7 mg/dL (8.5-10.1) Lactate Dehydrogenase 183 U/L (85-227) Troponin I Quantitative < 0.017 ng/mL (0.000-0.055) 0.020 ng/mL (0.000-0.055) XR-Sab-G-Type Natriuretic Peptide 82030 pg/mL (0-124) Glucose (Fingerstick) 83 mg/dL (70-99) O2 Saturation 97 % (92-99) Arterial Blood pH 7.23 (7.35-7.45) Arterial Blood pCO2 at Patient Temp 48 mmHg (35-46) Arterial Blood pO2 at Patient Temp 109 mmHg (65-108) Arterial Blood HCO3 20 mmol/L (21-28) Arterial Blood Base Excess -7 mmol/L (-3-3) Oxyhemoglobin 96.1 % Methemoglobin 0.9 % (0.0-1.9) Carbon Monoxide, Quantitative 0.1 % (0.0-1.9) FiO2 40 Test 02/27/21 14:30 02/27/21 14:50 02/28/21 05:51 02/28/21 07:15 Urine Collection Type Unknown Urine Color Yellow Urine Clarity Turbid Urine pH 5.5 (<5.0-8.0) Urine Specific [place] 1.015 (1.000-1.030) Urine Protein 100 mg/dL (NEG-TRACE) Urine Glucose (UA) Negative mg/dL (NEG) Urine Ketones (Stick) Negative mg/dL (NEG) Urine Blood Large (NEG) Urine Nitrite Negative (NEG) Urine Bilirubin Small (NEG) Urine Urobilinogen Dipstick 1.0 mg/dL (0.2 mg/dL) Urine Leukocyte Esterase Large (NEG) Urine RBC 20-40 /HPF (0-2) Urine WBC Tntc /HPF (0-4) Urine Bacteria Many /HPF (0-FEW) Urine Hyaline Casts Few /HPF Urine Granular Casts Few /HPF Urine Mucus Mod /LPF White Blood Count 17.8 x10^3/uL (4.0-11.0) 23.0 x10^3/uL (4.0-11.0) Red Blood Count 2.08 x10^6/uL (4.30-5.70) 2.44 x10^6/uL (4.30-5.70) Hemoglobin 5.8 g/dL (13.0-17.5) 7.0 g/dL (13.0-17.5) Hematocrit 18.4 % (39.0-53.0) 21.4 % (39.0-53.0) Mean Corpuscular Volume 88 fL (79-100) 88 fL (79-100) Mean Corpuscular Hemoglobin 28 pg (25-35) 29 pg (25-35) Mean Corpuscular Hemoglobin Concent 31 g/dL (31-37) 33 g/dL (31-37) Red Cell Distribution Width 22.4 % (11.5-14.5) 20.8 % (11.5-14.5) Platelet Count 116 x10^3/uL (140-400) 137 x10^3/uL (140-400) Neutrophils (%) (Auto) 90 % (31-73) 89 % (31-73) Lymphocytes (%) (Auto) 2 % (24-48) 2 % (24-48) Monocytes (%) (Auto) 8 % (0-9) 9 % (0-9) Eosinophils (%) (Auto) 0 % (0-3) 0 % (0-3) Basophils (%) (Auto) 0 % (0-3) 0 % (0-3) Neutrophils # (Auto) 16.0 x10^3/uL (1.8-7.7) 20.4 x10^3/uL (1.8-7.7) Lymphocytes # (Auto) 0.4 x10^3/uL (1.0-4.8) 0.5 x10^3/uL (1.0-4.8) Monocytes # (Auto) 1.4 x10^3/uL (0.0-1.1) 2.0 x10^3/uL (0.0-1.1) Eosinophils # (Auto) 0.0 x10^3/uL (0.0-0.7) 0.1 x10^3/uL (0.0-0.7) Basophils # (Auto) 0.1 x10^3/uL (0.0-0.2) 0.0 x10^3/uL (0.0-0.2) Sodium Level 137 mmol/L (136-145) 137 mmol/L (136-145) Potassium Level 6.3 mmol/L (3.5-5.1) 4.9 mmol/L (3.5-5.1) Chloride Level 104 mmol/L (98-107) 102 mmol/L (98-107) Carbon Dioxide Level 23 mmol/L (21-32) 28 mmol/L (21-32) Anion Gap 10 (6-14) 7 (6-14) Blood Urea Nitrogen 105 mg/dL (8-26) 61 mg/dL (8-26) Creatinine 2.8 mg/dL (0.7-1.3) 1.9 mg/dL (0.7-1.3) Estimated GFR (Cockcroft-Gault) 27.5 43.0 Glucose Level 54 mg/dL (70-99) 60 mg/dL (70-99) Calcium Level 9.2 mg/dL (8.5-10.1) 9.0 mg/dL (8.5-10.1) Troponin I Quantitative 0.024 ng/mL (0.000-0.055) Hepatitis B Surface Antigen Nonreactive (Nonreactive) Hepatitis B Surface Antibody Nonreactive Prothrombin Time 23.3 SEC (11.7-14.0) Prothromb Time International Ratio 2.1 (0.8-1.1) Activated Partial Thromboplast Time 64 SEC (24-38) BUN/Creatinine Ratio 32 (6-20) Total Bilirubin 0.8 mg/dL (0.2-1.0) Aspartate Amino Transf (AST/SGOT) 13 U/L (15-37) Alanine Aminotransferase (ALT/SGPT) 55 U/L (16-63) Alkaline Phosphatase 187 U/L (46-116) Total Protein 5.1 g/dL (6.4-8.2) Albumin 1.6 g/dL (3.4-5.0) Albumin/Globulin Ratio 0.5 (1.0-1.7) O2 Saturation 89 % (92-99) Arterial Blood pH 7.36 (7.35-7.45) Arterial Blood pCO2 at Patient Temp 44 mmHg (35-46) Arterial Blood pO2 at Patient Temp 54 mmHg (65-108) Arterial Blood HCO3 25 mmol/L (21-28) Arterial Blood Base Excess -1 mmol/L (-3-3) FiO2 40/vent Test 02/28/21 08:37 Glucose (Fingerstick) 59 mg/dL (70-99) Laboratory Tests Test 02/27/21 12:10 02/27/21 13:10 02/27/21 14:30 02/27/21 14:50 O2 Saturation 97 % (92-99) Arterial Blood pH 7.23 (7.35-7.45) Arterial Blood pCO2 at Patient Temp 48 mmHg (35-46) Arterial Blood pO2 at Patient Temp 109 mmHg (65-108) Arterial Blood HCO3 20 mmol/L (21-28) Arterial Blood Base Excess -7 mmol/L (-3-3) Oxyhemoglobin 96.1 % Methemoglobin 0.9 % (0.0-1.9) Carbon Monoxide, Quantitative 0.1 % (0.0-1.9) FiO2 40 Troponin I Quantitative 0.020 ng/mL (0.000-0.055) 0.024 ng/mL (0.000-0.055) Urine Collection Type Unknown Urine Color Yellow Urine Clarity Turbid Urine pH 5.5 (<5.0-8.0) Urine Specific [place] 1.015 (1.000-1.030) Urine Protein 100 mg/dL (NEG-TRACE) Urine Glucose (UA) Negative mg/dL (NEG) Urine Ketones (Stick) Negative mg/dL (NEG) Urine Blood Large (NEG) Urine Nitrite Negative (NEG) Urine Bilirubin Small (NEG) Urine Urobilinogen Dipstick 1.0 mg/dL (0.2 mg/dL) Urine Leukocyte Esterase Large (NEG) Urine RBC 20-40 /HPF (0-2) Urine WBC Tntc /HPF (0-4) Urine Bacteria Many /HPF (0-FEW) Urine Hyaline Casts Few /HPF Urine Granular Casts Few /HPF Urine Mucus Mod /LPF White Blood Count 17.8 x10^3/uL (4.0-11.0) Red Blood Count 2.08 x10^6/uL (4.30-5.70) Hemoglobin 5.8 g/dL (13.0-17.5) Hematocrit 18.4 % (39.0-53.0) Mean Corpuscular Volume 88 fL (79-100) Mean Corpuscular Hemoglobin 28 pg (25-35) Mean Corpuscular Hemoglobin Concent 31 g/dL (31-37) Red Cell Distribution Width 22.4 % (11.5-14.5) Platelet Count 116 x10^3/uL (140-400) Neutrophils (%) (Auto) 90 % (31-73) Lymphocytes (%) (Auto) 2 % (24-48) Monocytes (%) (Auto) 8 % (0-9) Eosinophils (%) (Auto) 0 % (0-3) Basophils (%) (Auto) 0 % (0-3) Neutrophils # (Auto) 16.0 x10^3/uL (1.8-7.7) Lymphocytes # (Auto) 0.4 x10^3/uL (1.0-4.8) Monocytes # (Auto) 1.4 x10^3/uL (0.0-1.1) Eosinophils # (Auto) 0.0 x10^3/uL (0.0-0.7) Basophils # (Auto) 0.1 x10^3/uL (0.0-0.2) Sodium Level 137 mmol/L (136-145) Potassium Level 6.3 mmol/L (3.5-5.1) Chloride Level 104 mmol/L (98-107) Carbon Dioxide Level 23 mmol/L (21-32) Anion Gap 10 (6-14) Blood Urea Nitrogen 105 mg/dL (8-26) Creatinine 2.8 mg/dL (0.7-1.3) Estimated GFR (Cockcroft-Gault) 27.5 Glucose Level 54 mg/dL (70-99) Calcium Level 9.2 mg/dL (8.5-10.1) Hepatitis B Surface Antigen Nonreactive (Nonreactive) Hepatitis B Surface Antibody Nonreactive Test 02/28/21 05:51 02/28/21 07:15 02/28/21 08:37 White Blood Count 23.0 x10^3/uL (4.0-11.0) Red Blood Count 2.44 x10^6/uL (4.30-5.70) Hemoglobin 7.0 g/dL (13.0-17.5) Hematocrit 21.4 % (39.0-53.0) Mean Corpuscular Volume 88 fL (79-100) Mean Corpuscular Hemoglobin 29 pg (25-35) Mean Corpuscular Hemoglobin Concent 33 g/dL (31-37) Red Cell Distribution Width 20.8 % (11.5-14.5) Platelet Count 137 x10^3/uL (140-400) Neutrophils (%) (Auto) 89 % (31-73) Lymphocytes (%) (Auto) 2 % (24-48) Monocytes (%) (Auto) 9 % (0-9) Eosinophils (%) (Auto) 0 % (0-3) Basophils (%) (Auto) 0 % (0-3) Neutrophils # (Auto) 20.4 x10^3/uL (1.8-7.7) Lymphocytes # (Auto) 0.5 x10^3/uL (1.0-4.8) Monocytes # (Auto) 2.0 x10^3/uL (0.0-1.1) Eosinophils # (Auto) 0.1 x10^3/uL (0.0-0.7) Basophils # (Auto) 0.0 x10^3/uL (0.0-0.2) Prothrombin Time 23.3 SEC (11.7-14.0) Prothromb Time International Ratio 2.1 (0.8-1.1) Activated Partial Thromboplast Time 64 SEC (24-38) Sodium Level 137 mmol/L (136-145) Potassium Level 4.9 mmol/L (3.5-5.1) Chloride Level 102 mmol/L (98-107) Carbon Dioxide Level 28 mmol/L (21-32) Anion Gap 7 (6-14) Blood Urea Nitrogen 61 mg/dL (8-26) Creatinine 1.9 mg/dL (0.7-1.3) Estimated GFR (Cockcroft-Gault) 43.0 BUN/Creatinine Ratio 32 (6-20) Glucose Level 60 mg/dL (70-99) Calcium Level 9.0 mg/dL (8.5-10.1) Total Bilirubin 0.8 mg/dL (0.2-1.0) Aspartate Amino Transf (AST/SGOT) 13 U/L (15-37) Alanine Aminotransferase (ALT/SGPT) 55 U/L (16-63) Alkaline Phosphatase 187 U/L (46-116) Total Protein 5.1 g/dL (6.4-8.2) Albumin 1.6 g/dL (3.4-5.0) Albumin/Globulin Ratio 0.5 (1.0-1.7) O2 Saturation 89 % (92-99) Arterial Blood pH 7.36 (7.35-7.45) Arterial Blood pCO2 at Patient Temp 44 mmHg (35-46) Arterial Blood pO2 at Patient Temp 54 mmHg (65-108) Arterial Blood HCO3 25 mmol/L (21-28) Arterial Blood Base Excess -1 mmol/L (-3-3) FiO2 40/vent Glucose (Fingerstick) 59 mg/dL (70-99) Medications Active Scripts Medications Dose Route/Sig Max Daily Dose Days Date Category Prednisone 5 Mg Tablet 5 Mg PO DAILY 12/12/20 Reported Duoneb 0.5-3(2.5) Mg/3 Ml (Albuterol/Ipratropium) 3 Ml Ampul.neb 3 Ml NEB BID 12/12/20 Reported Claritin (Loratadine) 10 Mg Capsule 1 Cap PO DAILY 30 12/12/20 Reported Metoprolol Tartrate 50 Mg Tablet 1 Tab PO BID 12/12/20 Reported Melatonin 3 Mg Tablet.er 6 Mg PO HS 12/12/20 Reported Guaifenesin 100 Mg/5 Ml Liquid 400 Mg PO TID 12/12/20 Reported [colace liquid ] 100 Mg GT HS 12/12/20 Reported Eliquis (Apixaban) 5 Mg Tablet 5 Mg PO BID 12/12/20 Reported Trazodone Hcl 50 Mg Tablet 1 Tab PO QHS 11/16/20 Reported Protonix (Pantoprazole Sodium) 40 Mg Tablet.dr 40 Mg PO DAILYAC 11/16/20 Reported Daily Value (Multivitamin) 1 Each Tablet 1 Tab PO DAILY 30 11/16/20 Reported Melatonin 5 Mg/15 Ml Liquid 5 Mg PO HS 11/16/20 Reported Heparin 1,000 Unit/10 (100/ml) (Heparin Sodium,Porcine/Pf) 1,000 Unit/10 Ml Syringe 1,400 Unit IV 3X/WEEK 11/16/20 Reported Folic Acid 0.8 Mg Capsule 1 Cap PO DAILY 30 11/16/20 Reported Zetia (Ezetimibe) 10 Mg Tablet 1 Tab PO DAILY 30 11/16/20 Reported Amiodarone Hcl 200 Mg Tablet 1 Tab PO DAILY 11/16/20 Reported Iron (Ferrous Sulfate) 325 Mg Tablet 975 Mg PO DAILY 03/18/18 Reported Advair 500-50 Diskus (Fluticasone/Salmeterol) 1 Each Disk.w.dev 1 Puff IH BID 12/02/14 Reported Finasteride 5 Mg Tablet 1 Tab PO HS 12/02/14 Reported Impression . IMPRESSION: 1. Acute on chronic respiratory failure secondary to sepsis, severe bradycardia/third degree AV block, Anemia and underlying lung cancer. 2. The patient with recently diagnosed Gram-negative rods in the blood. Treated with meropenem and vancomycin. Source could be infected HENRI drain/lungs 3. Third-degree AV block. Could be contributed by abnormal electrolytes as well as metoprolol. Cardiology following. Patient on dopamine. The patient received calcium gluconate and glucagon in the ER. 4. Lung cancer, likely stage 4, adenocarcinoma by biopsy. He may need a CT chest for better evaluation. 5. Chronic respiratory failure with ventilator dependence with chronic tracheostomy. 6. Acute kidney injury with markedly elevated BUN and creatinine and hyperkalemia.Patient has one kidney. 7. Anemia, probably acute on chronic. No obvious blood loss. 8. Abnormal chest x-ray with marked volume loss on the left lung. Combination of lung cancer, postobstructive atelectasis and pleural effusion 9. E-Coli bacteremia Plan . 1. Continue assist-control mode. FiO2 increased to 45%. Saturations 100% at present. 2. We will follow ABGs and make necessary adjustments on the ventilator. 3. Follow all cultures. Gram-negative rods were in the blood at [facility] ( [facility]I) , source likely abdomen 4. Broad-spectrum antibiotics. 5. Cardiology recommendation regarding third-degree AV block. 6. Eliquis should be on hold for now and re initiated per PCP / GI/ cardiology recommendations. 7. Once stable, we may consider doing noncontrast CT chest/abdomen and pelvis 8. P.r.n. bronchodilators. 9. Follow Renal recommendations. 10. Follow electrolytes. 11 .TX per renal / GI rec 12. Discussed with RN and RT 13. Follow chest x-rays Critical care time 30 minutes ISRAEL CONNELLY MD Feb 28, 2021 10:24
[2021-02-28] MEDS: FAMOTIDINE 20 MG/2 ML VIAL IVP SCH (10:36)
[2021-02-28] MEDS: MEROPENEM 1 GM in IV NORMAL SALINE 100ML 100 ML IV SCH ×2 (10:37→21:12)
--- NOTE | 2021-02-28 10:59 | PDOC ---
Date of Service: DATE: 02/28/21 TIME: 10:50 Objective: Objective: D/w nurse yesterday - was asked for GI to remove HENRI - seems like this was placed per IR in 10/2020 - would defer removal to them. Now seems as though IR was re-consulted re: drain removal - they have suggested CT A/P. Vital Signs: Vital Signs Date Time Temp Pulse Resp B/P (MAP) Pulse Ox O2 Delivery O2 Flow Rate FiO2 02/28/21 08:58 99 Ventilator 02/28/21 06:00 99 20 99/61 (74) 02/28/21 04:00 98.8 98.8 02/27/21 13:12 40.0 Labs: Laboratory Tests Test 02/27/21 12:10 02/27/21 13:10 02/27/21 14:30 02/27/21 14:50 O2 Saturation 97 % Arterial Blood pH 7.23 Arterial Blood pCO2 at Patient Temp 48 mmHg Arterial Blood pO2 at Patient Temp 109 mmHg Arterial Blood HCO3 20 mmol/L Arterial Blood Base Excess -7 mmol/L Oxyhemoglobin 96.1 % Methemoglobin 0.9 % Carbon Monoxide, Quantitative 0.1 % FiO2 40 Troponin I Quantitative 0.020 ng/mL 0.024 ng/mL Urine Collection Type Unknown Urine Color Yellow Urine Clarity Turbid Urine pH 5.5 Urine Specific [place] 1.015 Urine Protein 100 mg/dL Urine Glucose (UA) Negative mg/dL Urine Ketones (Stick) Negative mg/dL Urine Blood Large Urine Nitrite Negative Urine Bilirubin Small Urine Urobilinogen Dipstick 1.0 mg/dL Urine Leukocyte Esterase Large Urine RBC 20-40 /HPF Urine WBC Tntc /HPF Urine Bacteria Many /HPF Urine Hyaline Casts Few /HPF Urine Granular Casts Few /HPF Urine Mucus Mod /LPF White Blood Count 17.8 x10^3/uL Red Blood Count 2.08 x10^6/uL Hemoglobin 5.8 g/dL Hematocrit 18.4 % Mean Corpuscular Volume 88 fL Mean Corpuscular Hemoglobin 28 pg Mean Corpuscular Hemoglobin Concent 31 g/dL Red Cell Distribution Width 22.4 % Platelet Count 116 x10^3/uL Neutrophils (%) (Auto) 90 % Lymphocytes (%) (Auto) 2 % Monocytes (%) (Auto) 8 % Eosinophils (%) (Auto) 0 % Basophils (%) (Auto) 0 % Neutrophils # (Auto) 16.0 x10^3/uL Lymphocytes # (Auto) 0.4 x10^3/uL Monocytes # (Auto) 1.4 x10^3/uL Eosinophils # (Auto) 0.0 x10^3/uL Basophils # (Auto) 0.1 x10^3/uL Sodium Level 137 mmol/L Potassium Level 6.3 mmol/L Chloride Level 104 mmol/L Carbon Dioxide Level 23 mmol/L Anion Gap 10 Blood Urea Nitrogen 105 mg/dL Creatinine 2.8 mg/dL Estimated GFR (Cockcroft-Gault) 27.5 Glucose Level 54 mg/dL Calcium Level 9.2 mg/dL Hepatitis B Surface Antigen Nonreactive Hepatitis B Surface Antibody Nonreactive Test 02/28/21 05:51 02/28/21 07:15 02/28/21 08:37 White Blood Count 23.0 x10^3/uL Red Blood Count 2.44 x10^6/uL Hemoglobin 7.0 g/dL Hematocrit 21.4 % Mean Corpuscular Volume 88 fL Mean Corpuscular Hemoglobin 29 pg Mean Corpuscular Hemoglobin Concent 33 g/dL Red Cell Distribution Width 20.8 % Platelet Count 137 x10^3/uL Neutrophils (%) (Auto) 89 % Lymphocytes (%) (Auto) 2 % Monocytes (%) (Auto) 9 % Eosinophils (%) (Auto) 0 % Basophils (%) (Auto) 0 % Neutrophils # (Auto) 20.4 x10^3/uL Lymphocytes # (Auto) 0.5 x10^3/uL Monocytes # (Auto) 2.0 x10^3/uL Eosinophils # (Auto) 0.1 x10^3/uL Basophils # (Auto) 0.0 x10^3/uL Prothrombin Time 23.3 SEC Prothromb Time International Ratio 2.1 Activated Partial Thromboplast Time 64 SEC Sodium Level 137 mmol/L Potassium Level 4.9 mmol/L Chloride Level 102 mmol/L Carbon Dioxide Level 28 mmol/L Anion Gap 7 Blood Urea Nitrogen 61 mg/dL Creatinine 1.9 mg/dL Estimated GFR (Cockcroft-Gault) 43.0 BUN/Creatinine Ratio 32 Glucose Level 60 mg/dL Calcium Level 9.0 mg/dL Total Bilirubin 0.8 mg/dL Aspartate Amino Transf (AST/SGOT) 13 U/L Alanine Aminotransferase (ALT/SGPT) 55 U/L Alkaline Phosphatase 187 U/L Total Protein 5.1 g/dL Albumin 1.6 g/dL Albumin/Globulin Ratio 0.5 O2 Saturation 89 % Arterial Blood pH 7.36 Arterial Blood pCO2 at Patient Temp 44 mmHg Arterial Blood pO2 at Patient Temp 54 mmHg Arterial Blood HCO3 25 mmol/L Arterial Blood Base Excess -1 mmol/L FiO2 40/vent Glucose (Fingerstick) 59 mg/dL PE: GEN: chronically ill LUNGS: trach/vent HEART: RRR ABD: HENRI present, soft, non-tender NEURO/PSYCH: opens eyes, shakes/nods head, drowsy A/P: Bradyarrhythmia, AI, UTI, GNR bacteremia GUADALUPE - past/recent workup unrevealing - likely unseen AVMs complicated by Eliquis use (discontinued per cardiology) Chronic resp failure w/ trach/vent, h/o surgical G tube placement (and removal...) - ?was taking PO -- 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 Justicifation of Admission Dx: Justifications for Admission: Justification of Admission Dx: N/A JOANNE BURNS Feb 28, 2021 10:59
--- NOTE | 2021-02-28 11:31 | PDOC ---
[employer] PROGRESS NOTE Date of Service DOS: DATE: 02/28/21 TIME: 11:31 Chief Complaint Chief Complaint A/P: Acute anemia - no clear source of bleeding, will transfuse to maintain Hb 8 Bacteremia - gram negative sepsis, no final cultures on merrem Acute on chronic hypoxic respiratory failure - 2/2 sepsis, severe bradycardia/third degree AV block, Anemia and underlying lung cancer. Third-degree AV block - hold metoprolol. Dopamine. Cardiology is consulted. Lung cancer, likely stage 4, adenocarcinoma by biopsy. He may need a CT chest for better evaluation. D/w pulm CT chest abd pelvis Chronic respiratory failure with ventilator dependence with chronic tracheostomy. AI - temporary dialysis Unilateral kidney - higher risk for ESRD Hyperkalemia - nephrology consulted for dialysis FEN - NPO PPX - PPI, scds CODE - FULL Dispo - ICU for septic shock History of Present Illness History of Present Illness Mr Khalil is a 65-year-old male with PMHx lung cancer (adenocarcinoma 10/2018), rheumatoid arthritis, HTN, bilateral gluteal stage 2 pressure ulceration and left heel ulceration, chronic respiratory failure, vent dependence, tracheostomy, PEG tube, had a perforation requiring emergent surgery to repair the perforation and he has been going from [facility] to [facility] to [place] [facility]. Sent to ED for concern for third-degree heart block, gram-negative soren in the blood and renal failure with hyperkalemia. BUN 110, Cr 2.6, Hb 5.9, WBC 15.7 The patient is awake, on a ventilator through tracheostomy. Dialysis catheter placed by IR on 02/27/2021. (He also has a port a cath and PICC in place) 02/28: Seen in ICU. WBC 23, Hb 7 after initial transfusion, K 24.9, BUN 61, CR 1.9, glucose 59 albumin 1.6, INR 2.1, urine with large blood large leukoesterase, ABG 7.3 /54 on 40% FiO2. BP improved and heart rate improved with dopamine and still on vent this morning. cc time 37 minutes Vitals/I&O Vitals/I&O: Vital Signs Date Time Temp Pulse Resp B/P (MAP) Pulse Ox O2 Delivery O2 Flow Rate FiO2 02/28/21 11:16 100 Ventilator 02/28/21 06:00 99 20 99/61 (74) 02/28/21 04:00 98.8 98.8 02/27/21 13:12 40.0 I & O 02/27/21 02/27/21 02/28/21 15:00 23:00 07:00 Intake Total 602 ml 836 ml Output Total 1035 ml 178 ml 400 ml Balance -1035 ml 424 ml 436 ml Physical Exam General: Cooperative, mild distress Heart: Other (AFIB, bradycardic. HR 40's ) Lungs: Other (Decreased breath sounds left lung) Abdomen: Soft Extremities: No clubbing, No cyanosis Skin: No rashes, Other (heel pressure ulcers) Labs Labs: Laboratory Tests Test 02/27/21 12:10 02/27/21 13:10 02/27/21 14:30 02/27/21 14:50 O2 Saturation 97 % (92-99) Arterial Blood pH 7.23 (7.35-7.45) Arterial Blood pCO2 at Patient Temp 48 mmHg (35-46) Arterial Blood pO2 at Patient Temp 109 mmHg (65-108) Arterial Blood HCO3 20 mmol/L (21-28) Arterial Blood Base Excess -7 mmol/L (-3-3) Oxyhemoglobin 96.1 % Methemoglobin 0.9 % (0.0-1.9) Carbon Monoxide, Quantitative 0.1 % (0.0-1.9) FiO2 40 Troponin I Quantitative 0.020 ng/mL (0.000-0.055) 0.024 ng/mL (0.000-0.055) Urine Collection Type Unknown Urine Color Yellow Urine Clarity Turbid Urine pH 5.5 (<5.0-8.0) Urine Specific [place] 1.015 (1.000-1.030) Urine Protein 100 mg/dL (NEG-TRACE) Urine Glucose (UA) Negative mg/dL (NEG) Urine Ketones (Stick) Negative mg/dL (NEG) Urine Blood Large (NEG) Urine Nitrite Negative (NEG) Urine Bilirubin Small (NEG) Urine Urobilinogen Dipstick 1.0 mg/dL (0.2 mg/dL) Urine Leukocyte Esterase Large (NEG) Urine RBC 20-40 /HPF (0-2) Urine WBC Tntc /HPF (0-4) Urine Bacteria Many /HPF (0-FEW) Urine Hyaline Casts Few /HPF Urine Granular Casts Few /HPF Urine Mucus Mod /LPF White Blood Count 17.8 x10^3/uL (4.0-11.0) Red Blood Count 2.08 x10^6/uL (4.30-5.70) Hemoglobin 5.8 g/dL (13.0-17.5) Hematocrit 18.4 % (39.0-53.0) Mean Corpuscular Volume 88 fL (79-100) Mean Corpuscular Hemoglobin 28 pg (25-35) Mean Corpuscular Hemoglobin Concent 31 g/dL (31-37) Red Cell Distribution Width 22.4 % (11.5-14.5) Platelet Count 116 x10^3/uL (140-400) Neutrophils (%) (Auto) 90 % (31-73) Lymphocytes (%) (Auto) 2 % (24-48) Monocytes (%) (Auto) 8 % (0-9) Eosinophils (%) (Auto) 0 % (0-3) Basophils (%) (Auto) 0 % (0-3) Neutrophils # (Auto) 16.0 x10^3/uL (1.8-7.7) Lymphocytes # (Auto) 0.4 x10^3/uL (1.0-4.8) Monocytes # (Auto) 1.4 x10^3/uL (0.0-1.1) Eosinophils # (Auto) 0.0 x10^3/uL (0.0-0.7) Basophils # (Auto) 0.1 x10^3/uL (0.0-0.2) Sodium Level 137 mmol/L (136-145) Potassium Level 6.3 mmol/L (3.5-5.1) Chloride Level 104 mmol/L (98-107) Carbon Dioxide Level 23 mmol/L (21-32) Anion Gap 10 (6-14) Blood Urea Nitrogen 105 mg/dL (8-26) Creatinine 2.8 mg/dL (0.7-1.3) Estimated GFR (Cockcroft-Gault) 27.5 Glucose Level 54 mg/dL (70-99) Calcium Level 9.2 mg/dL (8.5-10.1) Hepatitis B Surface Antigen Nonreactive (Nonreactive) Hepatitis B Surface Antibody Nonreactive Test 02/28/21 05:51 02/28/21 07:15 9/2/21 08:37 White Blood Count 23.0 x10^3/uL (4.0-11.0) Red Blood Count 2.44 x10^6/uL (4.30-5.70) Hemoglobin 7.0 g/dL (13.0-17.5) Hematocrit 21.4 % (39.0-53.0) Mean Corpuscular Volume 88 fL (79-100) Mean Corpuscular Hemoglobin 29 pg (25-35) Mean Corpuscular Hemoglobin Concent 33 g/dL (31-37) Red Cell Distribution Width 20.8 % (11.5-14.5) Platelet Count 137 x10^3/uL (140-400) Neutrophils (%) (Auto) 89 % (31-73) Lymphocytes (%) (Auto) 2 % (24-48) Monocytes (%) (Auto) 9 % (0-9) Eosinophils (%) (Auto) 0 % (0-3) Basophils (%) (Auto) 0 % (0-3) Neutrophils # (Auto) 20.4 x10^3/uL (1.8-7.7) Lymphocytes # (Auto) 0.5 x10^3/uL (1.0-4.8) Monocytes # (Auto) 2.0 x10^3/uL (0.0-1.1) Eosinophils # (Auto) 0.1 x10^3/uL (0.0-0.7) Basophils # (Auto) 0.0 x10^3/uL (0.0-0.2) Prothrombin Time 23.3 SEC (11.7-14.0) Prothromb Time International Ratio 2.1 (0.8-1.1) Activated Partial Thromboplast Time 64 SEC (24-38) Sodium Level 137 mmol/L (136-145) Potassium Level 4.9 mmol/L (3.5-5.1) Chloride Level 102 mmol/L (98-107) Carbon Dioxide Level 28 mmol/L (21-32) Anion Gap 7 (6-14) Blood Urea Nitrogen 61 mg/dL (8-26) Creatinine 1.9 mg/dL (0.7-1.3) Estimated GFR (Cockcroft-Gault) 43.0 BUN/Creatinine Ratio 32 (6-20) Glucose Level 60 mg/dL (70-99) Calcium Level 9.0 mg/dL (8.5-10.1) Total Bilirubin 0.8 mg/dL (0.2-1.0) Aspartate Amino Transf (AST/SGOT) 13 U/L (15-37) Alanine Aminotransferase (ALT/SGPT) 55 U/L (16-63) Alkaline Phosphatase 187 U/L (46-116) Total Protein 5.1 g/dL (6.4-8.2) Albumin 1.6 g/dL (3.4-5.0) Albumin/Globulin Ratio 0.5 (1.0-1.7) O2 Saturation 89 % (92-99) Arterial Blood pH 7.36 (7.35-7.45) Arterial Blood pCO2 at Patient Temp 44 mmHg (35-46) Arterial Blood pO2 at Patient Temp 54 mmHg (65-108) Arterial Blood HCO3 25 mmol/L (21-28) Arterial Blood Base Excess -1 mmol/L (-3-3) FiO2 40/vent Glucose (Fingerstick) 59 mg/dL (70-99) Assessment and Plan Assessmemt and Plan Problems Medical Problems: (1) Acute hyperkalemia Status: Acute (2) Acute renal failure Status: Acute (3) Anemia Status: Acute (4) Third degree heart block Status: Acute Comment Review of Relevant I have reviewed the following items kae (where applicable) has been applied. Medications: Current Medications Medications (Trade) Dose Ordered Sig/Gigi Route PRN Reason Start Time Stop Time Status Last Admin Dose Admin Calcium Gluconate (Calcium Gluconate) 2,000 mg 1X ONCE IVP 02/27/21 12:00 02/27/21 12:01 DC 02/27/21 11:22 Insulin Human Regular (HumuLIN R VIAL) 10 unit 1X ONCE IV 02/27/21 12:00 02/27/21 12:01 DC 02/27/21 11:33 Dextrose (Dextrose 50%-Water Syringe) 25 gm 1X ONCE IV 02/27/21 12:00 02/27/21 12:01 DC 02/27/21 11:32 Famotidine (Pepcid Vial) 20 mg BID IVP 02/27/21 13:00 02/28/21 10:36 Meropenem 1 gm/ Sodium Chloride 100 ml @ 200 mls/hr Q8HRS IV 02/27/21 15:00 02/27/21 21:00 DC 02/27/21 21:29 Vancomycin HCl (Vanco Per Pharmacy) 1 each PRN DAILY PRN MC SEE COMMENTS 02/27/21 12:15 02/28/21 06:45 DC 02/27/21 15:09 Vancomycin HCl 2 gm/Sodium Chloride 500 ml @ 250 mls/hr 1X ONCE IV 02/27/21 13:00 02/27/21 14:59 DC 02/27/21 18:10 Lidocaine HCl (Buffered Lidocaine 1%) 6 ml 1X ONCE INJ 02/27/21 13:15 02/27/21 13:16 DC 02/27/21 13:15 Meropenem 1 gm/ Sodium Chloride 100 ml @ 200 mls/hr Q12HR IV 02/28/21 09:00 02/28/21 10:37 Dopamine HCl/ Dextrose 250 ml @ 19.163 mls/ hr CONT PRN IV SEE I/O RECORD 02/27/21 18:00 02/28/21 09:59 Justifications for Admission General Conditions Poss hypotension?: Yes Justification for admission: Patient has hypotension (SBP < 90 mm Hg) which is not readily corrected by appropriate treatment within 12 to 24 hours. Other Justification AMADA GILMAN MD Feb 28, 2021 11:31
[2021-02-28] MEDS ORDERED: SODIUM BICARBONATE VIAL 50 MEQ in IV DEXTROSE 5% 1,000 ML IV ONE (12:00)
[2021-02-28] MEDS: NOREPINEPHRINE VIAL 8 MG in IV DEXTROSE 5% 250 ML IV PRN (16:45)
--- NOTE | 2021-02-28 17:32 | NUR ---
Wound/Ostomy Care Wound Type/Assessment: Wound care consult for sacrum/coccyx maceration and intertrigo and left heel DFU. Right heel noted with pink area but blanchable, appears to be a healed wound at this point. No other wounds noted upon head to toe skin assessment. All wounds cleansed and measured, left heel was pictured. Treatment Recommendations/Plan: Cleanse wound and pat dry. Left heel: apply skin prep to periwound, cover with therahoney gel, xeroform and foam, change every 2-3 days. Right heel: apply foam for protection. Coccyx/Sacrum: apply calazime cream bid and prn Keep heel-medix boots to bilateral feet at all times Education provided: pt educated to PU prevention and offloading for wound healing Offloading surface/device: heel medix boots, purple wedge, pillows Recommended Referrals/Tests: n/a Discharge Recommendations for dressings: same as above, wound care will follow up on 03/07. Pt left turned to his right with call light within reach.
[2021-03-01] VITALS (28 sets, daily range): BP systolic 86–138; BP diastolic 47–69
[2021-03-01] MEDS: NOREPINEPHRINE VIAL 8 MG in IV DEXTROSE 5% 250 ML IV PRN (06:16)
[2021-03-01 07:00] LABS: CALCIUM 9.1 mg/dL (8.5-10.1); GFR 40.5; POTASSIUM 4.8 mmol/L (3.5-5.1)
--- NOTE | 2021-03-01 07:56 | PDOC ---
PULMONARY PROGRESS NOTES DATE: 03/01/21 TIME: 07:56 Subjective Patient lightly sedated, opens eyes, follows commands Currently on norepinephrine, 45% FiO2 5 of PEEP Vitals Vital Signs Date Time Temp Pulse Resp B/P (MAP) Pulse Ox O2 Delivery O2 Flow Rate FiO2 03/01/21 07:00 81 18 125/63 (83) 100 Ventilator 03/01/21 04:00 97.5 97.5 General: Alert, No acute distress Lungs: Other (Decreased breath sounds left lung) Cardiovascular: S1, S2 Abdomen: Soft Neuro Exam: Alert Extremities: Other (2+ edema) Skin: Warm Labs Laboratory Tests Test 02/27/21 10:16 02/27/21 10:18 02/27/21 12:10 02/27/21 13:10 White Blood Count 13.6 x10^3/uL (4.0-11.0) Red Blood Count 2.07 x10^6/uL (4.30-5.70) Hemoglobin 5.9 g/dL (13.0-17.5) Hematocrit 18.4 % (39.0-53.0) Mean Corpuscular Volume 89 fL (79-100) Mean Corpuscular Hemoglobin 28 pg (25-35) Mean Corpuscular Hemoglobin Concent 32 g/dL (31-37) Red Cell Distribution Width 22.0 % (11.5-14.5) Platelet Count 99 x10^3/uL (140-400) Neutrophils (%) (Auto) 85 % (31-73) Lymphocytes (%) (Auto) 4 % (24-48) Monocytes (%) (Auto) 11 % (0-9) Eosinophils (%) (Auto) 0 % (0-3) Basophils (%) (Auto) 0 % (0-3) Neutrophils # (Auto) 11.5 x10^3/uL (1.8-7.7) Lymphocytes # (Auto) 0.6 x10^3/uL (1.0-4.8) Monocytes # (Auto) 1.4 x10^3/uL (0.0-1.1) Eosinophils # (Auto) 0.0 x10^3/uL (0.0-0.7) Basophils # (Auto) 0.0 x10^3/uL (0.0-0.2) Segmented Neutrophils % 40 % (35-66) Band Neutrophils % 37 % (0-9) Lymphocytes % 3 % (24-48) Monocytes % 8 % (0-10) Metamyelocytes % 5 % (0-0) Myelocytes % 7 % (0-0) Nucleated Red Blood Cells 2 Platelet Estimate Decreased (ADEQUATE) Large Platelets Few Giant Platelets Polychromasia Slight Basophilic Stippling Present Anisocytosis Mod Sodium Level 137 mmol/L (136-145) Potassium Level 6.8 mmol/L (3.5-5.1) Chloride Level 104 mmol/L (98-107) Carbon Dioxide Level 21 mmol/L (21-32) Anion Gap 12 (6-14) Blood Urea Nitrogen 117 mg/dL (8-26) Creatinine 2.9 mg/dL (0.7-1.3) Estimated GFR (Cockcroft-Gault) 26.4 Glucose Level 89 mg/dL (70-99) Lactic Acid Level 1.3 mmol/L (0.4-2.0) Calcium Level 9.7 mg/dL (8.5-10.1) Lactate Dehydrogenase 183 U/L (85-227) Troponin I Quantitative < 0.017 ng/mL (0.000-0.055) 0.020 ng/mL (0.000-0.055) HJ-Bca-L-Type Natriuretic Peptide 67425 pg/mL (0-124) Glucose (Fingerstick) 83 mg/dL (70-99) O2 Saturation 97 % (92-99) Arterial Blood pH 7.23 (7.35-7.45) Arterial Blood pCO2 at Patient Temp 48 mmHg (35-46) Arterial Blood pO2 at Patient Temp 109 mmHg (65-108) Arterial Blood HCO3 20 mmol/L (21-28) Arterial Blood Base Excess -7 mmol/L (-3-3) Oxyhemoglobin 96.1 % Methemoglobin 0.9 % (0.0-1.9) Carbon Monoxide, Quantitative 0.1 % (0.0-1.9) FiO2 40 Test 02/27/21 14:30 02/27/21 14:50 02/28/21 05:51 02/28/21 07:15 Urine Collection Type Unknown Urine Color Yellow Urine Clarity Turbid Urine pH 5.5 (<5.0-8.0) Urine Specific [place] 1.015 (1.000-1.030) Urine Protein 100 mg/dL (NEG-TRACE) Urine Glucose (UA) Negative mg/dL (NEG) Urine Ketones (Stick) Negative mg/dL (NEG) Urine Blood Large (NEG) Urine Nitrite Negative (NEG) Urine Bilirubin Small (NEG) Urine Urobilinogen Dipstick 1.0 mg/dL (0.2 mg/dL) Urine Leukocyte Esterase Large (NEG) Urine RBC 20-40 /HPF (0-2) Urine WBC Tntc /HPF (0-4) Urine Bacteria Many /HPF (0-FEW) Urine Hyaline Casts Few /HPF Urine Granular Casts Few /HPF Urine Mucus Mod /LPF White Blood Count 17.8 x10^3/uL (4.0-11.0) 23.0 x10^3/uL (4.0-11.0) Red Blood Count 2.08 x10^6/uL (4.30-5.70) 2.44 x10^6/uL (4.30-5.70) Hemoglobin 5.8 g/dL (13.0-17.5) 7.0 g/dL (13.0-17.5) Hematocrit 18.4 % (39.0-53.0) 21.4 % (39.0-53.0) Mean Corpuscular Volume 88 fL (79-100) 88 fL (79-100) Mean Corpuscular Hemoglobin 28 pg (25-35) 29 pg (25-35) Mean Corpuscular Hemoglobin Concent 31 g/dL (31-37) 33 g/dL (31-37) Red Cell Distribution Width 22.4 % (11.5-14.5) 20.8 % (11.5-14.5) Platelet Count 116 x10^3/uL (140-400) 137 x10^3/uL (140-400) Neutrophils (%) (Auto) 90 % (31-73) 89 % (31-73) Lymphocytes (%) (Auto) 2 % (24-48) 2 % (24-48) Monocytes (%) (Auto) 8 % (0-9) 9 % (0-9) Eosinophils (%) (Auto) 0 % (0-3) 0 % (0-3) Basophils (%) (Auto) 0 % (0-3) 0 % (0-3) Neutrophils # (Auto) 16.0 x10^3/uL (1.8-7.7) 20.4 x10^3/uL (1.8-7.7) Lymphocytes # (Auto) 0.4 x10^3/uL (1.0-4.8) 0.5 x10^3/uL (1.0-4.8) Monocytes # (Auto) 1.4 x10^3/uL (0.0-1.1) 2.0 x10^3/uL (0.0-1.1) Eosinophils # (Auto) 0.0 x10^3/uL (0.0-0.7) 0.1 x10^3/uL (0.0-0.7) Basophils # (Auto) 0.1 x10^3/uL (0.0-0.2) 0.0 x10^3/uL (0.0-0.2) Sodium Level 137 mmol/L (136-145) 137 mmol/L (136-145) Potassium Level 6.3 mmol/L (3.5-5.1) 4.9 mmol/L (3.5-5.1) Chloride Level 104 mmol/L (98-107) 102 mmol/L (98-107) Carbon Dioxide Level 23 mmol/L (21-32) 28 mmol/L (21-32) Anion Gap 10 (6-14) 7 (6-14) Blood Urea Nitrogen 105 mg/dL (8-26) 61 mg/dL (8-26) Creatinine 2.8 mg/dL (0.7-1.3) 1.9 mg/dL (0.7-1.3) Estimated GFR (Cockcroft-Gault) 27.5 43.0 Glucose Level 54 mg/dL (70-99) 60 mg/dL (70-99) Calcium Level 9.2 mg/dL (8.5-10.1) 9.0 mg/dL (8.5-10.1) Troponin I Quantitative 0.024 ng/mL (0.000-0.055) Hepatitis B Surface Antigen Nonreactive (Nonreactive) Hepatitis B Surface Antibody Nonreactive Prothrombin Time 23.3 SEC (11.7-14.0) Prothromb Time International Ratio 2.1 (0.8-1.1) Activated Partial Thromboplast Time 64 SEC (24-38) BUN/Creatinine Ratio 32 (6-20) Total Bilirubin 0.8 mg/dL (0.2-1.0) Aspartate Amino Transf (AST/SGOT) 13 U/L (15-37) Alanine Aminotransferase (ALT/SGPT) 55 U/L (16-63) Alkaline Phosphatase 187 U/L (46-116) Total Protein 5.1 g/dL (6.4-8.2) Albumin 1.6 g/dL (3.4-5.0) Albumin/Globulin Ratio 0.5 (1.0-1.7) O2 Saturation 89 % (92-99) Arterial Blood pH 7.36 (7.35-7.45) Arterial Blood pCO2 at Patient Temp 44 mmHg (35-46) Arterial Blood pO2 at Patient Temp 54 mmHg (65-108) Arterial Blood HCO3 25 mmol/L (21-28) Arterial Blood Base Excess -1 mmol/L (-3-3) FiO2 40/vent Test 02/28/21 08:37 03/01/21 06:35 Glucose (Fingerstick) 59 mg/dL (70-99) Sodium Level 136 mmol/L (136-145) Potassium Level 4.8 mmol/L (3.5-5.1) Chloride Level 103 mmol/L (98-107) Carbon Dioxide Level 30 mmol/L (21-32) Anion Gap 3 (6-14) Blood Urea Nitrogen 59 mg/dL (8-26) Creatinine 2.0 mg/dL (0.7-1.3) Estimated GFR (Cockcroft-Gault) 40.5 Glucose Level 73 mg/dL (70-99) Calcium Level 9.1 mg/dL (8.5-10.1) Laboratory Tests Test 02/28/21 08:37 03/01/21 06:35 Glucose (Fingerstick) 59 mg/dL (70-99) Sodium Level 136 mmol/L (136-145) Potassium Level 4.8 mmol/L (3.5-5.1) Chloride Level 103 mmol/L (98-107) Carbon Dioxide Level 30 mmol/L (21-32) Anion Gap 3 (6-14) Blood Urea Nitrogen 59 mg/dL (8-26) Creatinine 2.0 mg/dL (0.7-1.3) Estimated GFR (Cockcroft-Gault) 40.5 Glucose Level 73 mg/dL (70-99) Calcium Level 9.1 mg/dL (8.5-10.1) Medications Active Scripts Medications Dose Route/Sig Max Daily Dose Days Date Category Prednisone 5 Mg Tablet 5 Mg PO DAILY 12/12/20 Reported Duoneb 0.5-3(2.5) Mg/3 Ml (Albuterol/Ipratropium) 3 Ml Ampul.neb 3 Ml NEB BID 12/12/20 Reported Claritin (Loratadine) 10 Mg Capsule 1 Cap PO DAILY 30 12/12/20 Reported Metoprolol Tartrate 50 Mg Tablet 1 Tab PO BID 12/12/20 Reported Melatonin 3 Mg Tablet.er 6 Mg PO HS 12/12/20 Reported Guaifenesin 100 Mg/5 Ml Liquid 400 Mg PO TID 12/12/20 Reported [colace liquid ] 100 Mg GT HS 12/12/20 Reported Eliquis (Apixaban) 5 Mg Tablet 5 Mg PO BID 12/12/20 Reported Trazodone Hcl 50 Mg Tablet 1 Tab PO QHS 11/16/20 Reported Protonix (Pantoprazole Sodium) 40 Mg Tablet.dr 40 Mg PO DAILYAC 11/16/20 Reported Daily Value (Multivitamin) 1 Each Tablet 1 Tab PO DAILY 30 11/16/20 Reported Melatonin 5 Mg/15 Ml Liquid 5 Mg PO HS 11/16/20 Reported Heparin 1,000 Unit/10 (100/ml) (Heparin Sodium,Porcine/Pf) 1,000 Unit/10 Ml Syringe 1,400 Unit IV 3X/WEEK 11/16/20 Reported Folic Acid 0.8 Mg Capsule 1 Cap PO DAILY 30 11/16/20 Reported Zetia (Ezetimibe) 10 Mg Tablet 1 Tab PO DAILY 30 11/16/20 Reported Amiodarone Hcl 200 Mg Tablet 1 Tab PO DAILY 11/16/20 Reported Iron (Ferrous Sulfate) 325 Mg Tablet 975 Mg PO DAILY 03/18/18 Reported Advair 500-50 Diskus (Fluticasone/Salmeterol) 1 Each Disk.w.dev 1 Puff IH BID 12/02/14 Reported Finasteride 5 Mg Tablet 1 Tab PO HS 12/02/14 Reported Impression . IMPRESSION: 1. Acute on chronic respiratory failure multifactorial 2. Septic shock 3. Third-degree AV block 4. Lung cancer, likely stage 4, adenocarcinoma by biopsy. He may need a CT chest for better evaluation. 5. Chronic respiratory failure with ventilator dependence with chronic tracheostomy. 6. Acute kidney injury with markedly elevated BUN and creatinine and hyperkalemia.Patient has one kidney. 7. Acute drop in hemoglobin 8. Abnormal chest x-ray with marked volume loss on the left lung. Combination of lung cancer, postobstructive atelectasis and pleural effusion 9. E-Coli bacteremia Chest x-ray reviewed continue opacification left lung Plan . Updated 03/01 Discussed with RN continue current support, Nutritional support attempt Dobbhoff up placement Antibiotics per ID Follow cardiology input Bronchodilators Follow nephrology input Total cumulative critical care time of 30 minutes with no overlap 1. Continue assist-control mode. FiO2 increased to 45%. Saturations 100% at present. 2. We will follow ABGs and make necessary adjustments on the ventilator. 3. Follow all cultures. Gram-negative rods were in the blood at [facility] ( [facility]) , source likely abdomen 4. Broad-spectrum antibiotics. 5. Cardiology recommendation regarding third-degree AV block. 6. Eliquis should be on hold for now and re initiated per PCP / GI/ cardiology recommendations. 7. Once stable, we may consider doing noncontrast CT chest/abdomen and pelvis 8. P.r.n. bronchodilators. 9. Follow Renal recommendations. 10. Follow electrolytes. 11 .TX per renal / GI rec 12. Discussed with RN and RT 13. Follow chest x-rays Critical care time 30 minutes VIRGIL RODRIGUEZ MD Mar 01, 2021 07:56
--- NOTE | 2021-03-01 08:04 | RAD ---
XR CHEST 1V INDICATION: Reason: rf 116 / Spl. Instructions: / History: . COMPARISON STUDY: 02/27/2021. FINDINGS: Life Support Devices: Tracheostomy, right IJ Port-A-Cath, right IJ dual-lumen catheter. Lungs: Improving right lung opacities. Stable left upper lung masslike consolidation. Pleura: Stable moderate left pleural effusion. Heart and Mediastinum: Stable cardiomediastinal silhouette and great vessels. Bones and Soft Tissues: Stable regional skeleton and soft tissues. IMPRESSION: 1. Stable life support devices. 2. Improving right lung opacities. Stable left upper lung masslike consolidation and moderate left pl eural effusion. Electronically signed by: Bill Mcintosh MD (03/01/2021 8:01 AM) [id number]
--- NOTE | 2021-03-01 08:18 | PDOC ---
Infectious Disease Note Subjective Subjective Awake on vent ROS ROS no n/v/d/sob Vital Sign Vital Signs Vital Signs Date Time Temp Pulse Resp B/P (MAP) Pulse Ox O2 Delivery O2 Flow Rate FiO2 03/01/21 07:00 81 18 125/63 (83) 100 Ventilator 03/01/21 04:00 97.5 97.5 Physical Exam PHYSICAL EXAM GENERAL: Awake gentleman, on a ventilator, not in distress. VITAL SIGNS: stable HEENT: Both pupils are round and reacting. No conjunctival lesion. No lesion in the mouth. NECK: Supple, no JVP, tracheostomy in place. LUNGS: Clear. HEART: S1, S2 regular. ABDOMEN: Soft, nontender, no organomegaly. EXTREMITIES: No edema, cyanosis. SKIN: Some minor sacrococcygeal breakdown present. Rest of the skin exam is unremarkable. PICC line site is unremarkable. Hemodialysis catheter has been placed yesterday. NEUROLOGIC: The patient is awake, but on a ventilator, unable to police judge the full neuro status. Labs Lab Laboratory Tests Test 02/28/21 08:37 03/01/21 06:35 Glucose (Fingerstick) 59 mg/dL (70-99) Sodium Level 136 mmol/L (136-145) Potassium Level 4.8 mmol/L (3.5-5.1) Chloride Level 103 mmol/L (98-107) Carbon Dioxide Level 30 mmol/L (21-32) Anion Gap 3 (6-14) Blood Urea Nitrogen 59 mg/dL (8-26) Creatinine 2.0 mg/dL (0.7-1.3) Estimated GFR (Cockcroft-Gault) 40.5 Glucose Level 73 mg/dL (70-99) Calcium Level 9.1 mg/dL (8.5-10.1) Micro BC E coli, from [facility] neg here Objective Assessment IMPRESSION: 1. Gram-negative soren bacteremia. E coli 2. Third-degree heart block. 3. Chronic respiratory failure. 4. Tracheostomy and PEG tube. 5. Acute renal failure. 6. Lung cancer, status post lobectomy. 7. Chronic obstructive pulmonary disease. 8. Anemia. Plan Plan of Care cont antibiotics cont supportive care pt/ot JHON LANG MD Mar 01, 2021 08:18
--- NOTE | 2021-03-01 08:23 | PDOC ---
[employer] PROGRESS NOTE Date of Service DOS: DATE: 03/01/21 TIME: 08:21 Chief Complaint Chief Complaint A/P: Acute anemia - no clear source of bleeding, will transfuse to maintain Hb 8 Bacteremia - gram negative sepsis, no final cultures on merrem Acute on chronic hypoxic respiratory failure - 2/2 sepsis, severe bradycardia/third degree AV block, Anemia and underlying lung cancer. Third-degree AV block - hold metoprolol. Dopamine. Cardiology is consulted. Lung cancer, likely stage 4, adenocarcinoma by biopsy. He may need a CT chest for better evaluation. D/w pulm CT chest abd pelvis Chronic respiratory failure with ventilator dependence with chronic tracheostomy. AI - temporary dialysis Unilateral kidney - higher risk for ESRD Hyperkalemia - nephrology consulted for dialysis FEN - NPO PPX - PPI, scds CODE - FULL Dispo - ICU for septic shock History of Present Illness History of Present Illness Mr Khalil is a 65-year-old male with PMHx lung cancer (adenocarcinoma 10/2018), rheumatoid arthritis, HTN, bilateral gluteal stage 2 pressure ulceration and left heel ulceration, chronic respiratory failure, vent dependence, tracheostomy, PEG tube, had a perforation requiring emergent surgery to repair the perforation and he has been going from [facility] to [email or web address] to [email or web address] and [facility]. Sent to ED for concern for third-degree heart block, gram-negative soren in the blood and renal failure with hyperkalemia. BUN 110, Cr 2.6, Hb 5 .9, WBC 15.7 The patient is awake, on a ventilator through tracheostomy. Dialysis catheter placed by IR on 02/27/2021. (He also has a port a cath and PICC in place) 02/28: Seen in ICU. WBC 23, Hb 7 after initial transfusion, K 24.9, BUN 61, CR 1.9, glucose 59 albumin 1.6, INR 2.1, urine with large blood large leukoesterase, ABG 7.3 / on 40% FiO2. BP improved and heart rate improved with dopamine and still on vent this morning. 03/01: Seen in ICU trach and vent support FiO2 45% PEEP 5. Chest radiograph improved slightly on the right potassium 4.8. Heart rate improved transition f rom dopamine to very low dose Levophed for septic shock. He is more alert and using his call light. cc time 31 minutes Vitals/I&O Vitals/I&O: Vital Signs Date Time Temp Pulse Resp B/P (MAP) Pulse Ox O2 Delivery O2 Flow Rate FiO2 03/01/21 08:12 100 Ventilator 03/01/21 07:00 81 18 125/63 (83) 03/01/21 04:00 97.5 97.5 I & O 02/28/21 02/28/21 03/01/21 15:00 23:00 07:00 Intake Total 100 ml 1500 ml 318.8 ml Output Total 375 ml 380 ml 510 ml Balance -275 ml 1120 ml -191.2 ml Physical Exam Physical Exam: GENERAL: Awake gentleman, on a ventilator, not in distress. VITAL SIGNS: stable HEENT: Both pupils are round and reacting. No conjunctival lesion. No lesion in the mouth. NECK: Supple, no JVP, tracheostomy in place. LUNGS: Clear. HEART: S1, S2 regular. ABDOMEN: Soft, nontender, no organomegaly. EXTREMITIES: No edema, cyanosis. SKIN: Some minor sacrococcygeal breakdown present. Rest of the skin exam is unremarkable. PICC line site is unremarkable. Hemodialysis catheter has been placed yesterday. NEUROLOGIC: The patient is awake, but on a ventilator, unable to outside sales representative the full neuro status. General: Cooperative, mild distress Heart: Other (AFIB, bradycardic. HR 40's ) Lungs: Other (Decreased breath sounds left lung) Abdomen: Soft Extremities: No clubbing, No cyanosis Skin: No rashes, Other (heel pressure ulcers) Labs Labs: Laboratory Tests Test 02/28/21 08:37 03/01/21 06:35 Glucose (Fingerstick) 59 mg/dL (70-99) Sodium Level 136 mmol/L (136-145) Potassium Level 4.8 mmol/L (3.5-5.1) Chloride Level 103 mmol/L (98-107) Carbon Dioxide Level 30 mmol/L (21-32) Anion Gap 3 (6-14) Blood Urea Nitrogen 59 mg/dL (8-26) Creatinine 2.0 mg/dL (0.7-1.3) Estimated GFR (Cockcroft-Gault) 40.5 Glucose Level 73 mg/dL (70-99) Calcium Level 9.1 mg/dL (8.5-10.1) Assessment and Plan Assessmemt and Plan Problems Medical Problems: (1) Acute hyperkalemia Status: Acute (2) Acute renal failure Status: Acute (3) Anemia Status: Acute (4) Third degree heart block Status: Acute Comment Review of Relevant I have reviewed the following items kae (where applicable) has been applied. Medications: Current Medications Medications (Trade) Dose Ordered Sig/Gigi Route PRN Reason Start Time Stop Time Status Last Admin Dose Admin Meropenem 1 gm/ Sodium Chloride 100 ml @ 200 mls/hr Q12HR IV 02/28/21 09:00 02/28/21 21:12 Sodium Bicarbonate 50 meq/Dextrose 1,050 ml @ 125 mls/hr 1X ONCE IV 02/28/21 12:00 02/28/21 20:23 DC 02/28/21 11:57 Norepinephrine Bitartrate 8 mg/ Dextrose 258 ml @ 17.993 mls/ hr CONT PRN IV PER PROTOCOL 02/28/21 16:45 03/01/21 06:16 Justifications for Admission General Conditions Poss hypotension?: Yes Justification for admission: Patient has hypotension (SBP < 90 mm Hg) which is not readily corrected by appropriate treatment within 12 to 24 hours. Other Justification AMADA GILMAN MD Mar 01, 2021 08:23
[2021-03-01] MEDS: PANTOPRAZOLE IV PUSH 40 MG VIAL. IVP SCH (08:30)
[2021-03-01] MEDS: MEROPENEM 1 GM in IV NORMAL SALINE 100ML 100 ML IV SCH ×2 (08:30→20:40)
--- NOTE | 2021-03-01 09:17 | PDOC ---
DATE OF SERVICE DATE: 03/01/21 TIME: 09:17 SUBJECTIVE ROS Stable Good uop OBJECTIVE Vital Signs Vital Signs Date Time Temp Pulse Resp B/P (MAP) Pulse Ox O2 Delivery O2 Flow Rate FiO2 03/01/21 08:12 100 Ventilator 03/01/21 07:00 81 18 125/63 (83) 03/01/21 04:00 97.5 97.5 I & 0 Intake and Output 03/01/21 07:00 Intake Total 1918.8 ml Output Total 1265 ml Balance 653.8 ml Intake IV Total 1518.8 ml Blood Product 300 ml Blood Product IV Normal Saline Flush 100 ml Output Urine Total 1265 ml PHYSICAL EXAM Physical Exam General : No acute distress, not able to vocalize at baseline. has alida Anderson HENT: OM moist Neck Tracheostomy in place CV bradycardic Lungs Coarse breath sounds left lung , Non labored, Trach in place Abdomen: Drain is present in the left lower quadrant, No tenderness Skin: No skin breakdown, No rash Extrem: cool to touch, No LE edema Neurologic: Awake and alert, baseline non verbal Psychologic: Affect normal,mood normal. Indwelling muhammad + DIAGNOSIS/ASSESSMENT Assessment & Plan AI - VaSomotor , has indwelling muhammad, . Good UOP , Renal function stable, Not back to baseline Supportive care, IVF, avoid nephrotoxins, strict I/O Acquired Solitray Kidney - Lt Nephrectomy Hyper kalemia POA -3 rd degree heart block on EKG, no response to Atropine . needed Emergent Dialysis . K normal Bradycardia- 3 rd degree heart block, asymptomatic . Resolved Gram-negative soren bacteremia. Chronic respiratory failure with ventilator dependence with chronic tracheostomy. Lung cancer, likely stage 4, adenocarcinoma by biopsy. Anemia- Hgb < 7 POA, PRBC X 1 COMMENT/RELEVANT DATA Meds Current Medications Medications (Trade) Dose Ordered Sig/Gigi Start Time Stop Time Status Last Admin Dose Admin Albumin Human 200 ml @ 200 mls/hr 1X PRN PRN 02/27/21 14:30 02/27/21 20:29 DC Atropine Sulfate (ATROPINE 0.5mg SYRINGE) 0.5 mg 1X ONCE 02/27/21 11:00 02/27/21 11:01 DC 02/27/21 11:08 0.5 MG Calcium Gluconate (Calcium Gluconate) 2,000 mg 1X ONCE 02/27/21 12:00 02/27/21 12:01 DC 02/27/21 11:22 2,000 MG Dextrose (Dextrose 50%-Water Syringe) 25 gm 1X ONCE 02/27/21 12:00 02/27/21 12:01 DC 02/27/21 11:32 25 GM Dopamine HCl/ Dextrose 250 ml @ 19.163 mls/ hr CONT PRN 02/27/21 18:00 02/28/21 09:59 57.488 MLS/HR Famotidine (Pepcid Vial) 20 mg BID 02/27/21 13:00 02/28/21 15:55 DC 02/28/21 10:36 20 MG Fentanyl Citrate (Fentanyl 2ml Vial) 75 mcg 1X ONCE 02/27/21 11:15 02/27/21 11:16 DC Glucagon (Glucagen) 5 mg 1X ONCE 02/27/21 12:15 02/27/21 12:15 DC Info (PHARMACY MONITORING -- do not chart) 1 each PRN DAILY PRN 02/27/21 14:30 Insulin Human Regular (HumuLIN R VIAL) 10 unit 1X ONCE 02/27/21 12:00 02/27/21 12:01 DC 02/27/21 11:33 10 UNIT Lidocaine HCl (Buffered Lidocaine 1%) 6 ml 1X ONCE 02/27/21 13:15 02/27/21 13:16 DC 02/27/21 13:15 4 ML Meropenem 1 gm/ Sodium Chloride 100 ml @ 200 mls/hr Q12HR 02/28/21 09:00 03/01/21 08:30 200 MLS/HR Norepinephrine Bitartrate 8 mg/ Dextrose 258 ml @ 17.993 mls/ hr CONT PRN 02/28/21 16:45 03/01/21 06:16 17.8 MLS/HR Ondansetron HCl (Zofran) 4 mg PRN Q6HRS PRN 02/27/21 12:00 Pantoprazole Sodium (PROTONIX VIAL for IV PUSH) 40 mg DAILYAC 03/01/21 07:30 03/01/21 08:30 40 MG Sodium Bicarbonate 50 meq/Dextrose 1,050 ml @ 125 mls/hr 1X ONCE 02/28/21 12:00 02/28/21 20:23 DC 02/28/21 11:57 125 MLS/HR Sodium Chloride 1,000 ml @ 400 mls/hr Q2H30M PRN 02/27/21 14:30 02/28/21 02:29 DC Sodium Chloride (Normal Saline Flush) 10 ml 1X PRN PRN 02/27/21 14:30 02/28/21 14:29 DC Vancomycin HCl (Vanco Per Pharmacy) 1 each PRN DAILY PRN 02/27/21 12:15 02/28/21 06:45 DC 02/27/21 15:09 1 EACH Vancomycin HCl 2 gm/Sodium Chloride 500 ml @ 250 mls/hr 1X ONCE 02/27/21 13:00 02/27/21 14:59 DC 02/27/21 18:10 250 MLS/HR Lab Laboratory Tests Test 03/01/21 06:35 Sodium Level 136 mmol/L (136-145) Potassium Level 4.8 mmol/L (3.5-5.1) Chloride Level 103 mmol/L (98-107) Carbon Dioxide Level 30 mmol/L (21-32) Anion Gap 3 (6-14) Blood Urea Nitrogen 59 mg/dL (8-26) Creatinine 2.0 mg/dL (0.7-1.3) Estimated GFR (Cockcroft-Gault) 40.5 Glucose Level 73 mg/dL (70-99) Calcium Level 9.1 mg/dL (8.5-10.1) Results All relevant outside records, renal labs, imaging studies, telemetry/EKG's were reviewed. Justicifation of Admission Dx: Justifications for Admission: Justification of Admission Dx: N/A YAMILETH BROTHERS MD Mar 01, 2021 09:17
--- NOTE | 2021-03-01 09:53 | PDOC ---
CARDIO Progress Notes Date and Time Date of Service 03/01/2021 Time of Evaluation 0930 Subjective Subjective: No Chest Pain Vitals Vitals Vital Signs Date Time Temp Pulse Resp B/P (MAP) Pulse Ox O2 Delivery O2 Flow Rate FiO2 03/01/21 09:00 77 18 102/53 (69) 100 Ventilator 03/01/21 08:00 97.7 97.7 Weight Weight [ ] Input and Output Intake and Output Intake and Output 03/01/21 07:00 Intake Total 1918.8 ml Output Total 1265 ml Balance 653.8 ml Intake IV Total 1518.8 ml Blood Product 300 ml Blood Product IV Normal Saline Flush 100 ml Output Urine Total 1265 ml Laboratory Labs Laboratory Tests Test 03/01/21 06:35 Sodium Level 136 mmol/L (136-145) Potassium Level 4.8 mmol/L (3.5-5.1) Chloride Level 103 mmol/L (98-107) Carbon Dioxide Level 30 mmol/L (21-32) Anion Gap 3 (6-14) Blood Urea Nitrogen 59 mg/dL (8-26) Creatinine 2.0 mg/dL (0.7-1.3) Estimated GFR (Cockcroft-Gault) 40.5 Glucose Level 73 mg/dL (70-99) Calcium Level 9.1 mg/dL (8.5-10.1) Microbiology Micro Microbiology 02/27/21 Blood Culture - Preliminary, Resulted NO GROWTH AFTER 1 DAY Physical Exam HEENT: Neck Supple W Full Motion, Other (tracheostomy in place) Chest: Symmetric LUNGS: Other (diminished mechanical vent) Heart: RRR (SR), no jug vein distention Extremities: Other (3+ bilateral LE pitting edema) Neurology: alert, other (tracking ) Assessment Assessment 1. Bradyarrhythmia; noted junctional mainly due to metabolic issues with hypothermia. No further bradycardia since the latter was corrected. 2. AI on CKD, hyperkalemia; improved after x1 HD 3. Anemia of chronic disease; no obvious bleeding, post transfusion 4. Hypothermia: resolved 5. Acute on chronic respiratory failure; s/p tracheostomy. ventilator dependent. 6. PAFIB with h/o RVR; Maintaining SR 7. Acute on chronic systolic CHF 8. Cardiomyopathy; Echo 12/17 with LVEF 45% 9. Mild Thrombocytopenia 10. History of non-small cell carcinoma of the lung, treated with left upper lobe lobectomy, and chemo and radiation therapy. 11. H/o polycystic kidney disease s/p left nephrectomy Recommendations Discontinue eliquis and metoprolol, amiodarone for now. CBC today, transfuse as warranted Off dopamine, Continue with levophed Post HD,x1, PRN per nephrology Supportive care Will need NGT for meds. Justicifation of Admission Dx: Justifications for Admission: Justification of Admission Dx: N/A MYA WEATHERS CAMPAIGN MANAGER Mar 01, 2021 09:53
[2021-03-01 09:58] LABS: HEMATOCRIT 21.2 % (39.0-53.0); RED BLOOD COUNT 2.43 x10^6/uL (4.30-5.70); RED CELL DISTRIBUTION WIDTH 19.8 % (11.5-14.5); WHITE BLOOD COUNT 20.6 x10^3/uL (4.0-11.0)
[2021-03-01 10:16] LABS: HEMOGLOBIN 6.8 g/dL (13.0-17.5)
--- NOTE | 2021-03-01 12:37 | PDOC ---
G I PROGRESS NOTE Reason for Follow-up Chronic GUADALUPE Subjective Awake; does not effective communicate. Seems agitated. Objective Questions re: using enteral feeding. Physical Exam Lungs clear anteriorly. RRR Abdomen soft, not apparently tender. Review of Relevant I have reviewed the following items kae (where applicable) has been applied. Labs Laboratory Tests Test 02/27/21 13:10 02/27/21 14:30 02/27/21 14:50 02/28/21 05:51 Troponin I Quantitative 0.020 ng/mL (0.000-0.055) 0.024 ng/mL (0.000-0.055) Urine Collection Type Unknown Urine Color Yellow Urine Clarity Turbid Urine pH 5.5 (<5.0-8.0) Urine Specific [place] 1.015 (1.000-1.030) Urine Protein 100 mg/dL (NEG-TRACE) Urine Glucose (UA) Negative mg/dL (NEG) Urine Ketones (Stick) Negative mg/dL (NEG) Urine Blood Large (NEG) Urine Nitrite Negative (NEG) Urine Bilirubin Small (NEG) Urine Urobilinogen Dipstick 1.0 mg/dL (0.2 mg/dL) Urine Leukocyte Esterase Large (NEG) Urine RBC 20-40 /HPF (0-2) Urine WBC Tntc /HPF (0-4) Urine Bacteria Many /HPF (0-FEW) Urine Hyaline Casts Few /HPF Urine Granular Casts Few /HPF Urine Mucus Mod /LPF White Blood Count 17.8 x10^3/uL (4.0-11.0) 23.0 x10^3/uL (4.0-11.0) Red Blood Count 2.08 x10^6/uL (4.30-5.70) 2.44 x10^6/uL (4.30-5.70) Hemoglobin 5.8 g/dL (13.0-17.5) 7.0 g/dL (13.0-17.5) Hematocrit 18.4 % (39.0-53.0) 21.4 % (39.0-53.0) Mean Corpuscular Volume 88 fL (79-100) 88 fL (79-100) Mean Corpuscular Hemoglobin 28 pg (25-35) 29 pg (25-35) Mean Corpuscular Hemoglobin Concent 31 g/dL (31-37) 33 g/dL (31-37) Red Cell Distribution Width 22.4 % (11.5-14.5) 20.8 % (11.5-14.5) Platelet Count 116 x10^3/uL (140-400) 137 x10^3/uL (140-400) Neutrophils (%) (Auto) 90 % (31-73) 89 % (31-73) Lymphocytes (%) (Auto) 2 % (24-48) 2 % (24-48) Monocytes (%) (Auto) 8 % (0-9) 9 % (0-9) Eosinophils (%) (Auto) 0 % (0-3) 0 % (0-3) Basophils (%) (Auto) 0 % (0-3) 0 % (0-3) Neutrophils # (Auto) 16.0 x10^3/uL (1.8-7.7) 20.4 x10^3/uL (1.8-7.7) Lymphocytes # (Auto) 0.4 x10^3/uL (1.0-4.8) 0.5 x10^3/uL (1.0-4.8) Monocytes # (Auto) 1.4 x10^3/uL (0.0-1.1) 2.0 x10^3/uL (0.0-1.1) Eosinophils # (Auto) 0.0 x10^3/uL (0.0-0.7) 0.1 x10^3/uL (0.0-0.7) Basophils # (Auto) 0.1 x10^3/uL (0.0-0.2) 0.0 x10^3/uL (0.0-0.2) Sodium Level 137 mmol/L (136-145) 137 mmol/L (136-145) Potassium Level 6.3 mmol/L (3.5-5.1) 4.9 mmol/L (3.5-5.1) Chloride Level 104 mmol/L (98-107) 102 mmol/L (98-107) Carbon Dioxide Level 23 mmol/L (21-32) 28 mmol/L (21-32) Anion Gap 10 (6-14) 7 (6-14) Blood Urea Nitrogen 105 mg/dL (8-26) 61 mg/dL (8-26) Creatinine 2.8 mg/dL (0.7-1.3) 1.9 mg/dL (0.7-1.3) Estimated GFR (Cockcroft-Gault) 27.5 43.0 Glucose Level 54 mg/dL (70-99) 60 mg/dL (70-99) Calcium Level 9.2 mg/dL (8.5-10.1) 9.0 mg/dL (8.5-10.1) Hepatitis B Surface Antigen Nonreactive (Nonreactive) Hepatitis B Surface Antibody Nonreactive Prothrombin Time 23.3 SEC (11.7-14.0) Prothromb Time International Ratio 2.1 (0.8-1.1) Activated Partial Thromboplast Time 64 SEC (24-38) BUN/Creatinine Ratio 32 (6-20) Total Bilirubin 0.8 mg/dL (0.2-1.0) Aspartate Amino Transf (AST/SGOT) 13 U/L (15-37) Alanine Aminotransferase (ALT/SGPT) 55 U/L (16-63) Alkaline Phosphatase 187 U/L (46-116) Total Protein 5.1 g/dL (6.4-8.2) Albumin 1.6 g/dL (3.4-5.0) Albumin/Globulin Ratio 0.5 (1.0-1.7) Test 02/28/21 07:15 02/28/21 08:37 03/01/21 06:35 O2 Saturation 89 % (92-99) Arterial Blood pH 7.36 (7.35-7.45) Arterial Blood pCO2 at Patient Temp 44 mmHg (35-46) Arterial Blood pO2 at Patient Temp 54 mmHg (65-108) Arterial Blood HCO3 25 mmol/L (21-28) Arterial Blood Base Excess -1 mmol/L (-3-3) FiO2 40/vent Glucose (Fingerstick) 59 mg/dL (70-99) White Blood Count 20.6 x10^3/uL (4.0-11.0) Red Blood Count 2.43 x10^6/uL (4.30-5.70) Hemoglobin 6.8 g/dL (13.0-17.5) Hematocrit 21.2 % (39.0-53.0) Mean Corpuscular Volume 88 fL (79-100) Mean Corpuscular Hemoglobin 28 pg (25-35) Mean Corpuscular Hemoglobin Concent 32 g/dL (31-37) Red Cell Distribution Width 19.8 % (11.5-14.5) Platelet Count 146 x10^3/uL (140-400) Sodium Level 136 mmol/L (136-145) Potassium Level 4.8 mmol/L (3.5-5.1) Chloride Level 103 mmol/L (98-107) Carbon Dioxide Level 30 mmol/L (21-32) Anion Gap 3 (6-14) Blood Urea Nitrogen 59 mg/dL (8-26) Creatinine 2.0 mg/dL (0.7-1.3) Estimated GFR (Cockcroft-Gault) 40.5 Glucose Level 73 mg/dL (70-99) Calcium Level 9.1 mg/dL (8.5-10.1) Laboratory Tests Test 03/01/21 06:35 White Blood Count 20.6 x10^3/uL (4.0-11.0) Red Blood Count 2.43 x10^6/uL (4.30-5.70) Hemoglobin 6.8 g/dL (13.0-17.5) Hematocrit 21.2 % (39.0-53.0) Mean Corpuscular Volume 88 fL (79-100) Mean Corpuscular Hemoglobin 28 pg (25-35) Mean Corpuscular Hemoglobin Concent 32 g/dL (31-37) Red Cell Distribution Width 19.8 % (11.5-14.5) Platelet Count 146 x10^3/uL (140-400) Sodium Level 136 mmol/L (136-145) Potassium Level 4.8 mmol/L (3.5-5.1) Chloride Level 103 mmol/L (98-107) Carbon Dioxide Level 30 mmol/L (21-32) Anion Gap 3 (6-14) Blood Urea Nitrogen 59 mg/dL (8-26) Creatinine 2.0 mg/dL (0.7-1.3) Estimated GFR (Cockcroft-Gault) 40.5 Glucose Level 73 mg/dL (70-99) Calcium Level 9.1 mg/dL (8.5-10.1) Microbiology 02/27/21 Urine Culture - Final, Complete 02/27/21 Blood Culture - Preliminary, Resulted NO GROWTH AFTER 1 DAY Vitals/I & O Vital Sign - Last 24 Hours 02/28/21 02/28/21 02/28/21 02/28/21 13:00 13:15 13:40 14:00 Temp 98.7 98.7 Pulse 96 96 94 Resp 18 18 18 B/P (MAP) 95/59 (71) 91/54 95/52 (66) Pulse Ox 100 100 100 O2 Delivery Ventilator Ventilator Ventilator 02/28/21 02/28/21 02/28/21 02/28/21 15:00 15:59 16:00 16:00 Temp 97.5 97.5 Pulse 92 90 Resp 20 18 B/P (MAP) 86/52 (63) 90/56 (67) Pulse Ox 100 100 100 O2 Delivery Ventilator Ventilator Mechanical Ventilator Ventilator 02/28/21 02/28/21 02/28/21 02/28/21 17:00 17:57 18:00 19:00 Temp 97.5 97.5 Pulse 80 74 68 Resp 21 18 18 B/P (MAP) 129/64 (85) 99/78 (85) 94/51 (65) Pulse Ox 99 100 100 100 O2 Delivery Ventilator Ventilator Ventilator Ventilator 02/28/21 02/28/21 02/28/21 02/28/21 20:00 20:00 20:14 21:00 Pulse 90 92 Resp 18 18 B/P (MAP) 105/52 (69) 112/64 (80) Pulse Ox 100 100 100 O2 Delivery Ventilator Mechanical Ventilator Ventilator Ventilator 02/28/21 02/28/21 02/28/21 02/28/21 22:00 22:10 23:00 23:59 Temp 98.3 98.3 Pulse 70 69 Resp 18 18 B/P (MAP) 99/92 (94) 114/63 (80) Pulse Ox 100 100 100 O2 Delivery Ventilator Ventilator Ventilator Mechanical Ventilator 03/01/21 03/01/21 03/01/21 03/01/21 00:00 00:10 01:00 02:00 Temp 97.7 97.7 Pulse 70 70 83 Resp 18 18 18 B/P (MAP) 126/60 (82) 115/60 (78) 105/58 (74) Pulse Ox 100 100 100 100 O2 Delivery Ventilator Ventilator Ventilator Ventilator 03/01/21 03/01/21 03/01/21 03/01/21 02:58 03:00 04:00 04:00 Temp 97.7 97.5 97.7 97.5 Pulse 74 70 Resp 18 18 B/P (MAP) 123/58 (79) 126/63 (84) Pulse Ox 100 100 100 O2 Delivery Ventilator Ventilator Ventilator Mechanical Ventilator 03/01/21 03/01/21 03/01/21 03/01/21 05:00 05:27 06:00 07:00 Pulse 76 76 81 Resp 18 18 18 B/P (MAP) 125/54 (77) 138/69 (92) 125/63 (83) Pulse Ox 100 100 100 100 O2 Delivery Ventilator Ventilator Ventilator Ventilator 03/01/21 03/01/21 03/01/21 03/01/21 08:00 08:00 08:12 09:00 Temp 97.7 97.7 Pulse 77 77 Resp 18 18 B/P (MAP) 86/58 (67) 102/53 (69) Pulse Ox 100 100 100 O2 Delivery Mechanical Ventilator Ventilator Ventilator Ventilator 03/01/21 03/01/21 03/01/21 03/01/21 09:48 10:00 11:00 11:43 Pulse 81 85 Resp 18 22 B/P (MAP) 118/52 (74) 105/56 (72) Pulse Ox 100 100 100 100 O2 Delivery Ventilator Ventilator Ventilator Ventilator 03/01/21 03/01/21 12:00 12:00 Temp 97.1 97.1 Pulse 86 Resp 20 B/P (MAP) 100/50 (67) Pulse Ox 100 O2 Delivery Ventilator Mechanical Ventilator Intake and Output 02/28/21 02/28/21 03/01/21 15:00 23:00 07:00 Intake Total 100 ml 1500 ml 318.8 ml Output Total 375 ml 380 ml 510 ml Balance -275 ml 1120 ml -191.2 ml Problem List Problems Medical Problems: (1) Acute hyperkalemia Status: Acute (2) Acute renal failure Status: Acute (3) Anemia Status: Acute (4) Third degree heart block Status: Acute Assessment Chronic GUADALUPE, 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 OP dysphagia as on vent. Plan of Care Note Continue support. OK with me to try enteral feedings; was eating prior to admission. Justicifation of Admission Dx: Justifications for Admission: Justification of Admission Dx: N/A KALIN GÓMEZ MD Mar 01, 2021 12:37
[2021-03-01] MEDS: ALBUTEROL SULFATE 2.5 MG/3 ML NEBU. NEB PRN (15:24)
--- NOTE | 2021-03-01 16:31 | RAD ---
CT scan of the chest, abdomen and pelvis without contrast 03/01/2021 CLINICAL HISTORY: Sepsis. TECHNIQUE: Unenhanced, contiguous, 5 mm axial sections were obtained through the chest, abdomen and p anjel. One or more of the following individualized dose reduction techniques were utilized for this study: 1. Automated exposure control. 2. Adjustment of the mA and/or kV according to patient size. 3. Use of iterative reconstruction technique. FINDINGS: Comparison is made to the patient's CT scan of the chest dated 03/16/2019. A tracheostomy tube extends into the trachea 5.6 cm above the level of the marcela. A right internal j ugular Gvssbf-f-Ajyk catheter extends to the SVC/right atrial junction. A right internal jugular cent ral venous catheter extends to the SVC/right atrial junction. There is mild to moderate cardiomegaly. Atherosclerotic calcification of the thoracic aorta and its b ranches is noted. The thoracic aorta is tortuous but tapers normally. Calcified hilar and mediastinal lymph nodes are seen. There are small bilateral pleural effusions, right greater than left. Surgical changes are seen consi stent with a left upper lobectomy. Left lower lobe atelectasis and/or infiltrate is seen. Dependent a telectasis and or infiltrate is seen involving the right lower lobe. Hazy perihilar groundglass infil trates are seen involving both lungs which likely reflect pulmonary edema. The liver, spleen, pancreas and adrenal glands are within normal limits. The patient is post right nephrectomy. Surgical clips are seen within the right renal fossa. Extensiv e coronary hypertrophy of the left kidney is seen. Rounded predominantly low attenuation lesions are seen involving the left kidney which measure 2 to 4.6 cm in size. These likely represent cysts. No fu rther imaging evaluation is recommended. Atherosclerotic calcification abdominal aorta and its branches is seen. The abdominal aorta tapers no rmally. Calcified gallstones are seen within the gallbladder. No free air is noted. There is no evide nce of bowel obstruction. No abnormal fluid collection is seen. A catheter extends to the right lower quadrant of the abdomen/pelvis. This may represent a peritoneal dialysis catheter. A xmtdm-ot-enzevg te amount free fluid is seen in the abdomen and pelvis with limited to peritoneal dialysis. Images through the pelvis demonstrate a Joseph catheter extends to the urinary bladder. Diffuse wall t hickening of the urinary bladder is seen. The urinary bladder is largely contracted. A moderate amoun t stool is seen within the rectum and distal sigmoid colon. Calcifications are seen within the pelvis consistent with phleboliths. Small amount of amount of free fluid is seen within the pelvis. Scatter ed diverticula are seen involving the descending and sigmoid colon. No inflammatory changes are seen adjacent fat. No abnormal fluid collection is seen to suggest evidence of an abscess. Very mild S-shaped curvature of the thoracolumbar spine is seen. Degenerative changes are seen involv ing the lower thoracic and throughout the lumbar spine along with both hips. IMPRESSION: 1. Mild to moderate cardiomegaly. Small bilateral pleural effusions, right greater than left. Hazy pe rihilar groundglass infiltrates are seen involving both lungs which likely reflect pulmonary edema. 2. Atelectasis and/or infiltrate is seen involving both lower lobes. 3. Cholelithiasis. Electronically signed by: Bruno Wilkins MD (03/01/2021 4:29 PM) [id number]
--- NOTE | 2021-03-01 17:12 | RAD ---
INDICATION: Reason: NG PLACEMENT / Spl. Instructions: / History: COMPARISON: CT from same day IMPRESSION: Abdomen: Single view obtained. Enteric tube is seen with the tip at the left upper quadrant of the ab domen at expected location of the stomach. Partial visualization of the patient's known pleural effusions and consolidation at lung bases. Nonsp ecific bowel gas pattern with some prominent air-filled scattered loops of bowel. Electronically signed by: Kyler Valenzuela MD (03/01/2021 5:10 PM) [id number]
[2021-03-01] MEDS: BUDESONIDE 0.5 MG/2 ML NEBU. NEB SCH (19:21)
[2021-03-01] MEDS: IPRATRPIUM/ALBUTEROL 0.5/2.5MG 3 ML NEBU. NEB SCH (19:21)
[2021-03-01] MEDS: guaiFENesin ORAL 200 MG/10 ML LIQUID. PO PRN (23:22)
[2021-03-02] VITALS (25 sets, daily range): BP systolic 86–119; BP diastolic 45–79
[2021-03-02] MEDS ORDERED: MAGN400T5 PO (02:53)
[2021-03-02] MEDS ORDERED: METO25TA4 PO (02:53)
[2021-03-02] MEDS ORDERED: FERR220S16 PO (02:54)
[2021-03-02] MEDS ORDERED: DOCU50LI14 PO (02:54)
[2021-03-02] MEDS ORDERED: ALPR0.5T6 PO (02:54)
[2021-03-02] MEDS ORDERED: TAMS0.4C97 PO (02:54)
[2021-03-02] MEDS ORDERED: LORA10TA3 PO (02:54)
[2021-03-02] MEDS ORDERED: HYDR-2761 PO (02:54)
[2021-03-02] MEDS: ALBUTEROL SULFATE 2.5 MG/3 ML NEBU. NEB PRN (05:40)
[2021-03-02] MEDS ORDERED: DEXTROSE 50% 25 GM / 50ML DISP.SYRIN. IV PRN (07:15)
[2021-03-02 07:28] LABS: HEMATOCRIT 24.6 % (39.0-53.0); HEMOGLOBIN 7.9 g/dL (13.0-17.5); RED BLOOD COUNT 2.78 x10^6/uL (4.30-5.70); RED CELL DISTRIBUTION WIDTH 18.8 % (11.5-14.5)
--- NOTE | 2021-03-02 08:03 | RAD ---
Exam Date: 03/02/2021 5:12 AM XR CHEST 1V Indication: Reason: rf / Spl. Instructions: / History: . Comparison: March 01, 2021 FINDINGS/ IMPRESSION: Support lines and tubes remain in place. There is nearly complete white out of the left lung field, more prominent since the prior exam, consistent with increased size of large left pleural effusion. Underlying left lung infiltrates are not excluded. Right lung remains clear, without pleural effusio n or pneumothorax. Cardiac silhouette is obscured by left lung opacity. Electronically signed by: Sunday Payan MD (03/02/2021 8:00 AM) [facility]
[2021-03-02] MEDS: PANTOPRAZOLE IV PUSH 40 MG VIAL. IVP SCH (08:44)
[2021-03-02] MEDS: MEROPENEM 1 GM in IV NORMAL SALINE 100ML 100 ML IV SCH ×2 (08:44→20:31)
[2021-03-02] MEDS: BUDESONIDE 0.5 MG/2 ML NEBU. NEB SCH ×2 (08:48→20:00)
[2021-03-02] MEDS: IPRATRPIUM/ALBUTEROL 0.5/2.5MG 3 ML NEBU. NEB SCH ×2 (08:48→21:00)
[2021-03-02 09:18] LABS: BASE EXCESS ABG -2 mmol/L (-3-3); HCO3 ABG 24 mmol/L (21-28); PCO2 ABG 42 mmHg (35-46); PO2 ABG 108 mmHg (65-108); SAT O2 ABG 98 % (92-99)
[2021-03-02 09:20] LABS: FIO2 ABG 40
--- NOTE | 2021-03-02 09:34 | PDOC ---
[employer] PROGRESS NOTE Date of Service DOS: DATE: 03/02/21 TIME: 09:32 Chief Complaint Chief Complaint A/P: Acute anemia - no clear source of bleeding, will transfuse to maintain Hb 8 Bacteremia - gram negative sepsis, no final cultures on merrem Acute on chronic hypoxic respiratory failure - 2/2 sepsis, severe bradycardia/third degree AV block, Anemia and underlying lung cancer. Third-degree AV block - hold metoprolol. Dopamine. Cardiology is consulted. Lung cancer, likely stage 4, adenocarcinoma by biopsy. He may need a CT chest for better evaluation. D/w pulm CT chest abd pelvis Chronic respiratory failure with ventilator dependence with chronic tracheostomy. AI - temporary dialysis Unilateral kidney - higher risk for ESRD Hyperkalemia - nephrology consulted for dialysis. Only x1 Hypoglycemia - unclear etiology FEN - NPO, NGT feed PPX - PPI, scds CODE - FULL Dispo - ICU for septic shock History of Present Illness History of Present Illness Mr Khalil is a 65-year-old male with PMHx lung cancer (adenocarcinoma 10/2018), rheumatoid arthritis, HTN, bilateral gluteal stage 2 pressure ulceration and left heel ulceration, chronic respiratory failure, vent dependence, tracheostomy, PEG tube, had a perforation requiring emergent surgery to repair the perforation and he has been going from [facility]. Sent to ED for concern for third-degree heart block, gram-negative soren in the blood and renal failure with hyperkalemia. BUN 110, Cr 2.6, Hb 5 .9, WBC 15.7 The patient is awake, on a ventilator through tracheostomy. Dialysis catheter placed by IR on 02/27/2021. (He also has a port a cath and PICC in place) 02/28: Seen in ICU. WBC 23, Hb 7 after initial transfusion, K 24.9, BUN 61, CR 1.9, glucose 59 albumin 1.6, INR 2.1, urine with large blood large leukoesterase, ABG 7.3 on 40% FiO2. BP improved and heart rate improved with dopamine and still on vent this morning. 03/01: Seen in ICU trach and vent support FiO2 45% PEEP 5. Chest radiograph improved slightly on the right potassium 4.8. Heart rate improved transition from dopamine to very low dose Levophed for septic shock. He is more alert and using his call light. WBC 23, Hb 7.9 after transfusion. platelets 160, K4.8, glucose down to 45, ABG 7.3 6/42/108 on 40% FiO2 vent PEEP of 5 on trach. Still on low dose levophed. pointing to swollen scrotum, soft, has traction on his muhammad, adjusted. cc time 31 minutes Vitals/I&O Vitals/I&O: Vital Signs Date Time Temp Pulse Resp B/P (MAP) Pulse Ox O2 Delivery O2 Flow Rate FiO2 03/02/21 08:48 99 Ventilator 03/02/21 06:00 143 20 92/60 (71) 03/02/21 04:00 97.5 97.5 I & O 03/01/21 03/01/21 03/02/21 14:59 22:59 06:59 Intake Total 100 ml 436 ml Output Total 390 ml 265 ml 470 ml Balance -390 ml -165 ml -34 ml Physical Exam Physical Exam: GENERAL: Awake gentleman, on a ventilator, not in distress. VITAL SIGNS: stable HEENT: Both pupils are round and reacting. No conjunctival lesion. No lesion in the mouth. NECK: Supple, no JVP, tracheostomy in place. LUNGS: Clear. HEART: S1, S2 regular. ABDOMEN: Soft, nontender, no organomegaly. EXTREMITIES: No edema, cyanosis. SKIN: Some minor sacrococcygeal breakdown present. Rest of the skin exam is unremarkable. PICC line site is unremarkable. Hemodialysis catheter has been placed yesterday. NEUROLOGIC: The patient is awake, but on a ventilator, unable to [place] the full neuro status. General: Cooperative, mild distress Heart: Other (AFIB, bradycardic. HR 40's ) Lungs: Other (Decreased breath sounds left lung) Abdomen: Soft Extremities: No clubbing, No cyanosis Skin: No rashes, Other (heel pressure ulcers) Labs Labs: Laboratory Tests Test 03/02/21 06:00 03/02/21 09:00 White Blood Count 23.0 x10^3/uL (4.0-11.0) Red Blood Count 2.78 x10^6/uL (4.30-5.70) Hemoglobin 7.9 g/dL (13.0-17.5) Hematocrit 24.6 % (39.0-53.0) Mean Corpuscular Volume 89 fL (79-100) Mean Corpuscular Hemoglobin 28 pg (25-35) Mean Corpuscular Hemoglobin Concent 32 g/dL (31-37) Red Cell Distribution Width 18.8 % (11.5-14.5) Platelet Count 160 x10^3/uL (140-400) Sodium Level 138 mmol/L (136-145) Potassium Level 4.8 mmol/L (3.5-5.1) Chloride Level 106 mmol/L (98-107) Carbon Dioxide Level 26 mmol/L (21-32) Anion Gap 6 (6-14) Blood Urea Nitrogen 56 mg/dL (8-26) Creatinine 2.0 mg/dL (0.7-1.3) Estimated GFR (Cockcroft-Gault) 40.5 Glucose Level 45 mg/dL (70-99) Calcium Level 9.3 mg/dL (8.5-10.1) O2 Saturation 98 % (92-99) Arterial Blood pH 7.36 (7.35-7.45) Arterial Blood pCO2 at Patient Temp 42 mmHg (35-46) Arterial Blood pO2 at Patient Temp 108 mmHg (65-108) Arterial Blood HCO3 24 mmol/L (21-28) Arterial Blood Base Excess -2 mmol/L (-3-3) FiO2 40 Assessment and Plan Assessmemt and Plan Problems Medical Problems: (1) Acute hyperkalemia Status: Acute (2) Acute renal failure Status: Acute (3) Anemia Status: Acute (4) Third degree heart block Status: Acute Comment Review of Relevant I have reviewed the following items kae (where applicable) has been applied. Medications: Current Medications Medications (Trade) Dose Ordered Sig/Gigi Route PRN Reason Start Time Stop Time Status Last Admin Dose Admin Albuterol/ Ipratropium (Duoneb) 3 ml BID NEB 03/01/21 21:00 03/02/21 08:48 Budesonide (Pulmicort) 0.5 mg RTBID NEB 03/01/21 20:00 03/02/21 08:48 Albuterol Sulfate (Ventolin Neb Soln) 2.5 mg PRN Q4HRS PRN NEB SHORTNESS OF BREATH 03/01/21 15:00 03/02/21 05:40 Guaifenesin (Robitussin) 200 mg PRN Q4HRS PRN PO COUGH 9/3/21 23:15 03/01/21 23:22 Dextrose (Dextrose 50%-Water Syringe) 12.5 gm PRN Q15MIN PRN IV SEE COMMENTS 03/02/21 07:15 03/02/21 07:15 Justifications for Admission General Conditions Poss hypotension?: Yes Justification for admission: Patient has hypotension (SBP < 90 mm Hg) which is not readily corrected by appropriate treatment within 12 to 24 hours. Other Justification AMADA GILMAN MD Mar 02, 2021 09:34
--- NOTE | 2021-03-02 09:51 | PDOC ---
PULMONARY PROGRESS NOTES DATE: 03/02/21 TIME: 09:47 Subjective Patient follows commands, currently on 40%, 5 repeat Vitals Vital Signs Date Time Temp Pulse Resp B/P (MAP) Pulse Ox O2 Delivery O2 Flow Rate FiO2 03/02/21 08:48 99 Ventilator 03/02/21 06:00 143 20 92/60 (71) 03/02/21 04:00 97.5 97.5 General: Alert, No acute distress Lungs: Other (Decreased breath sounds left lung) Cardiovascular: S1, S2 Abdomen: Soft Neuro Exam: Alert Extremities: Other (2+ edema) Skin: Warm Labs Laboratory Tests Test 03/01/21 06:35 03/02/21 06:00 03/02/21 09:00 White Blood Count 20.6 x10^3/uL (4.0-11.0) 23.0 x10^3/uL (4.0-11.0) Red Blood Count 2.43 x10^6/uL (4.30-5.70) 2.78 x10^6/uL (4.30-5.70) Hemoglobin 6.8 g/dL (13.0-17.5) 7.9 g/dL (13.0-17.5) Hematocrit 21.2 % (39.0-53.0) 24.6 % (39.0-53.0) Mean Corpuscular Volume 88 fL (79-100) 89 fL (79-100) Mean Corpuscular Hemoglobin 28 pg (25-35) 28 pg (25-35) Mean Corpuscular Hemoglobin Concent 32 g/dL (31-37) 32 g/dL (31-37) Red Cell Distribution Width 19.8 % (11.5-14.5) 18.8 % (11.5-14.5) Platelet Count 146 x10^3/uL (140-400) 160 x10^3/uL (140-400) Sodium Level 136 mmol/L (136-145) 138 mmol/L (136-145) Potassium Level 4.8 mmol/L (3.5-5.1) 4.8 mmol/L (3.5-5.1) Chloride Level 103 mmol/L (98-107) 106 mmol/L (98-107) Carbon Dioxide Level 30 mmol/L (21-32) 26 mmol/L (21-32) Anion Gap 3 (6-14) 6 (6-14) Blood Urea Nitrogen 59 mg/dL (8-26) 56 mg/dL (8-26) Creatinine 2.0 mg/dL (0.7-1.3) 2.0 mg/dL (0.7-1.3) Estimated GFR (Cockcroft-Gault) 40.5 40.5 Glucose Level 73 mg/dL (70-99) 45 mg/dL (70-99) Calcium Level 9.1 mg/dL (8.5-10.1) 9.3 mg/dL (8.5-10.1) O2 Saturation 98 % (92-99) Arterial Blood pH 7.36 (7.35-7.45) Arterial Blood pCO2 at Patient Temp 42 mmHg (35-46) Arterial Blood pO2 at Patient Temp 108 mmHg (65-108) Arterial Blood HCO3 24 mmol/L (21-28) Arterial Blood Base Excess -2 mmol/L (-3-3) FiO2 40 Laboratory Tests Test 03/02/21 06:00 03/02/21 09:00 White Blood Count 23.0 x10^3/uL (4.0-11.0) Red Blood Count 2.78 x10^6/uL (4.30-5.70) Hemoglobin 7.9 g/dL (13.0-17.5) Hematocrit 24.6 % (39.0-53.0) Mean Corpuscular Volume 89 fL (79-100) Mean Corpuscular Hemoglobin 28 pg (25-35) Mean Corpuscular Hemoglobin Concent 32 g/dL (31-37) Red Cell Distribution Width 18.8 % (11.5-14.5) Platelet Count 160 x10^3/uL (140-400) Sodium Level 138 mmol/L (136-145) Potassium Level 4.8 mmol/L (3.5-5.1) Chloride Level 106 mmol/L (98-107) Carbon Dioxide Level 26 mmol/L (21-32) Anion Gap 6 (6-14) Blood Urea Nitrogen 56 mg/dL (8-26) Creatinine 2.0 mg/dL (0.7-1.3) Estimated GFR (Cockcroft-Gault) 40.5 Glucose Level 45 mg/dL (70-99) Calcium Level 9.3 mg/dL (8.5-10.1) O2 Saturation 98 % (92-99) Arterial Blood pH 7.36 (7.35-7.45) Arterial Blood pCO2 at Patient Temp 42 mmHg (35-46) Arterial Blood pO2 at Patient Temp 108 mmHg (65-108) Arterial Blood HCO3 24 mmol/L (21-28) Arterial Blood Base Excess -2 mmol/L (-3-3) FiO2 40 Medications Active Scripts Medications Dose Route/Sig Max Daily Dose Days Date Category Prednisone 5 Mg Tablet 5 Mg PO DAILY 12/12/20 Reported Duoneb 0.5-3(2.5) Mg/3 Ml (Albuterol/Ipratropium) 3 Ml Ampul.neb 3 Ml NEB BID 12/12/20 Reported Claritin (Loratadine) 10 Mg Capsule 1 Cap PO DAILY 30 12/12/20 Reported Metoprolol Tartrate 50 Mg Tablet 1 Tab PO BID 12/12/20 Reported Melatonin 3 Mg Tablet.er 6 Mg PO HS 12/12/20 Reported Guaifenesin 100 Mg/5 Ml Liquid 400 Mg PO TID 12/12/20 Reported [colace liquid ] 100 Mg GT HS 12/12/20 Reported Eliquis (Apixaban) 5 Mg Tablet 5 Mg PO BID 12/12/20 Reported Trazodone Hcl 50 Mg Tablet 1 Tab PO QHS 11/16/20 Reported Protonix (Pantoprazole Sodium) 40 Mg Tablet.dr 40 Mg PO DAILYAC 11/16/20 Reported Daily Value (Multivitamin) 1 Each Tablet 1 Tab PO DAILY 30 11/16/20 Reported Melatonin 5 Mg/15 Ml Liquid 5 Mg PO HS 11/16/20 Reported Heparin 1,000 Unit/10 (100/ml) (Heparin Sodium,Porcine/Pf) 1,000 Unit/10 Ml Syringe 1,400 Unit IV 3X/WEEK 11/16/20 Reported Folic Acid 0.8 Mg Capsule 1 Cap PO DAILY 30 11/16/20 Reported Zetia (Ezetimibe) 10 Mg Tablet 1 Tab PO DAILY 30 11/16/20 Reported Amiodarone Hcl 200 Mg Tablet 1 Tab PO DAILY 11/16/20 Reported Iron (Ferrous Sulfate) 325 Mg Tablet 975 Mg PO DAILY 03/18/18 Reported Advair 500-50 Diskus (Fluticasone/Salmeterol) 1 Each Disk.w.dev 1 Puff IH BID 12/02/14 Reported Finasteride 5 Mg Tablet 1 Tab PO HS 12/02/14 Reported Impression . IMPRESSION: 1. Acute on chronic respiratory failure multifactorial 2. Septic shock 3. Third-degree AV block 4. Adenocarcinoma of the lung 5. Chronic respiratory failure with ventilator dependence with chronic tracheostomy. 6. Acute kidney injury with markedly elevated BUN and creatinine and hyperkalemia.Patient has one kidney. 7. Acute drop in hemoglobin 8. Abnormal chest x-ray with marked volume loss on the left lung. Combination of lung cancer, postobstructive atelectasis and pleural effusion 9. E-Coli bacteremia Chest x-ray reviewed, opacification of left lung Plan . Updated 03/02 Patient oxygenating well, will discuss with RT, aggressive pulmonary hygiene, aggressive suctioning Discussed with RN will attempt pressure support trial Continue current support Hemoglobin 7.9 today ABG noted PaO2 108 Monitor off of antibiotics updated 03/01 Discussed with RN continue current support, Nutritional support attempt Dobbhoff up placement Antibiotics per ID Follow cardiology input Bronchodilators Follow nephrology input Total cumulative critical care time of 30 minutes with no overlap VIRGIL RODRIGUEZ MD Mar 02, 2021 09:51
[2021-03-02] MEDS: LORazepam 0.5 MG TABLET PO PRN ×2 (11:09→19:31)
[2021-03-02] MEDS: TAMSULOSIN 0.4 MG CAP.ER.24H. PO SCH ×2 (11:09→20:31)
[2021-03-02] MEDS: CETIRIZINE HCL 10 MG TABLET. PO SCH (11:09)
[2021-03-02] MEDS: AMIODARONE HCL 200 MG TABLET. PO SCH (11:10)
[2021-03-02] MEDS: IV DEXTROSE 5 %-0.45 % NACL 1,000 ML IV SCH (11:14)
--- NOTE | 2021-03-02 11:49 | PDOC ---
PROGRESS NOTES Date of Service: DATE: 03/02/21 TIME: 11:46 Subjective Subjective s/p trach, comfortable, following commands Objective Objective Vital Signs Date Time Temp Pulse Resp B/P (MAP) Pulse Ox O2 Delivery O2 Flow Rate FiO2 03/02/21 11:10 95 104/58 03/02/21 10:00 20 100 Ventilator 03/02/21 09:00 97.9 97.9 Intake and Output 03/02/21 07:00 Intake Total 536 ml Output Total 1065 ml Balance -529 ml Intake IV Total 240 ml Tube Feeding 96 ml Other 200 ml Output Urine Total 1065 ml Physical Exam Abdomen: Soft Heart: Regular rate, Other (ESM aortic) Extremities: No clubbing, Other (1+ pitting edema) General: Cooperative HEENT: Other (NG tube in place) Lungs: Other (Scattered crepitations bilaterally) Psych/Mental Status: Other (unable to assess ) Skin: No rashes, Other (heel pressure ulcers) Assessment Assessment 1. Bradyarrhythmia; noted junctional mainly due to metabolic issues with hypothermia. No further bradycardia since the latter was corrected. Presently sinus rhythm. 2. AI on CKD, hyperkalemia; improved after x1 HD 3. Anemia of chronic disease; no obvious bleeding, post transfusion 4. Hypothermia: resolved 5. Acute on chronic respiratory failure; s/p tracheostomy. ventilator dependent. 6. PAFIB with h/o RVR; Maintaining SR, resume amiodarone. Patient is probably a poor candidate for long-term anticoagulation. 7. Acute on chronic systolic CHF: Better compensated. 8. Cardiomyopathy; Echo 12/17 with LVEF 45% 9. Mild Thrombocytopenia 10. History of non-small cell carcinoma of the lung, treated with left upper lobe lobectomy, and chemo and radiation therapy. 11. H/o polycystic kidney disease s/p left nephrectomy Plan Plan of Care Problems Medical Problems: (1) Acute hyperkalemia Status: Acute (2) Acute renal failure Status: Acute (3) Anemia Status: Acute (4) Third degree heart block Status: Acute Comment Review of Relevant I have reviewed the following items kae (where applicable) has been applied. Labs Laboratory Tests Test 03/02/21 06:00 03/02/21 09:00 White Blood Count 23.0 x10^3/uL (4.0-11.0) Red Blood Count 2.78 x10^6/uL (4.30-5.70) Hemoglobin 7.9 g/dL (13.0-17.5) Hematocrit 24.6 % (39.0-53.0) Mean Corpuscular Volume 89 fL (79-100) Mean Corpuscular Hemoglobin 28 pg (25-35) Mean Corpuscular Hemoglobin Concent 32 g/dL (31-37) Red Cell Distribution Width 18.8 % (11.5-14.5) Platelet Count 160 x10^3/uL (140-400) Sodium Level 138 mmol/L (136-145) Potassium Level 4.8 mmol/L (3.5-5.1) Chloride Level 106 mmol/L (98-107) Carbon Dioxide Level 26 mmol/L (21-32) Anion Gap 6 (6-14) Blood Urea Nitrogen 56 mg/dL (8-26) Creatinine 2.0 mg/dL (0.7-1.3) Estimated GFR (Cockcroft-Gault) 40.5 Glucose Level 45 mg/dL (70-99) Calcium Level 9.3 mg/dL (8.5-10.1) O2 Saturation 98 % (92-99) Arterial Blood pH 7.36 (7.35-7.45) Arterial Blood pCO2 at Patient Temp 42 mmHg (35-46) Arterial Blood pO2 at Patient Temp 108 mmHg (65-108) Arterial Blood HCO3 24 mmol/L (21-28) Arterial Blood Base Excess -2 mmol/L (-3-3) FiO2 40 Microbiology 02/27/21 Urine Culture - Final, Complete 02/27/21 Blood Culture - Preliminary, Resulted NO GROWTH AFTER 2 DAYS Medications Current Medications Acetaminophen (Tylenol) 650 mg PRN Q6HRS PRN PO MILD PAIN / TEMP > 100.3'F; Start 03/01/21 at 15:00 Albuterol Sulfate (Ventolin Neb Soln) 2.5 mg PRN Q4HRS PRN NEB SHORTNESS OF BREATH Last administered on 03/02/21at 05:40; Start 03/01/21 at 15:00 Albuterol/ Ipratropium (Duoneb) 3 ml BID NEB Last administered on 03/02/21at 08:48; Start 03/01/21 at 21:00 Amiodarone HCl (Cordarone) 200 mg DAILY PO Last administered on 03/02/21at 11:10; Start 03/02/21 at 11:00 Budesonide (Pulmicort) 0.5 mg RTBID NEB Last administered on 03/02/21at 08:48; Start 03/01/21 at 20:00 Cetirizine HCl (ZyrTEC) 10 mg DAILY PO Last administered on 03/02/21at 11:09; Start 03/02/21 at 11:00 Dextrose (Dextrose 50%-Water Syringe) 12.5 gm PRN Q15MIN PRN IV SEE COMMENTS Last administered on 03/02/21at 07:15; Start 03/02/21 at 07:15 Dextrose/Sodium Chloride 1,000 ml @ 50 mls/hr Q20H IV Last administered on 03/02/21at 11:14; Start 03/02/21 at 10:45; Stop 03/04/21 at 02:44 Finasteride (Proscar) 5 mg HS PO ; Start 03/02/21 at 21:00 Guaifenesin (Robitussin) 200 mg PRN Q4HRS PRN PO COUGH Last administered on 03/01/21at 23:22; Start 03/01/21 at 23:15 Lorazepam (Ativan) 0.5 mg PRN Q8HRS PRN PO ANXIETY / AGITATION Last administered on 03/02/21at 11:09; Start 03/02/21 at 09:30 Olanzapine (ZyPREXA ZYDIS) 5 mg PRN BID PRN PO ANXIETY / AGITATION; Start 03/02/21 at 10:30 Phenol (Chloraseptic) 1 spray PRN Q2HR PRN PO SORE THROAT; Start 03/02/21 at 01:15 Tamsulosin HCl (Flomax) 0.4 mg BID PO Last administered on 03/02/21at 11:09; Start 03/02/21 at 10:00 Vitals/I & O Vital Sign - Last 24 Hours 03/01/21 03/01/21 03/01/21 03/01/21 12:00 12:00 12:58 13:00 Temp 97.1 96.1 97.1 96.1 Pulse 86 72 81 Resp 20 18 20 B/P (MAP) 100/50 (67) 100/53 100/53 (69) Pulse Ox 100 100 O2 Delivery Ventilator Mechanical Ventilator Ventilator 03/01/21 03/01/21 03/01/21 03/01/21 13:13 13:57 14:00 15:00 Temp 96.6 96.6 Pulse 80 88 86 Resp 18 20 20 B/P (MAP) 101/57 87/47 (60) 93/59 (70) Pulse Ox 100 100 100 O2 Delivery Ventilator Ventilator Ventilator 03/01/21 03/01/21 03/01/21 03/01/21 15:22 15:24 16:00 16:00 Temp 96.8 96.6 96.8 96.6 Pulse 81 82 Resp 20 20 B/P (MAP) 97/58 95/57 (70) Pulse Ox 100 100 O2 Delivery Ventilator Mechanical Ventilator Ventilator 03/01/21 03/01/21 03/01/21 03/01/21 17:00 18:00 18:04 19:00 Pulse 81 84 82 Resp 20 20 20 B/P (MAP) 100/56 (71) 100/58 (72) 100/59 (73) Pulse Ox 99 98 99 100 O2 Delivery Ventilator Ventilator Ventilator Ventilator 03/01/21 03/01/21 03/01/21 03/01/21 19:22 19:30 20:00 21:00 Temp 97.0 97.0 Pulse 90 104 Resp 18 20 B/P (MAP) 105/49 (67) 98/56 (70) Pulse Ox 100 100 100 O2 Delivery Ventilator Mechanical Ventilator Ventilator Ventilator 03/01/21 03/01/21 03/01/21 03/01/21 21:15 22:00 22:06 23:00 Pulse 85 95 Resp 20 16 B/P (MAP) 91/52 (65) 92/55 (67) 93/58 (70) Pulse Ox 100 100 100 O2 Delivery Ventilator Ventilator Ventilator 03/02/21 03/02/21 03/02/21 03/02/21 00:00 00:01 01:00 01:00 Temp 97.5 97.5 Pulse 85 96 Resp 20 18 B/P (MAP) 89/50 (63) 93/60 (71) Pulse Ox 100 99 100 O2 Delivery Mechanical Ventilator Ventilator Ventilator Ventilator 03/02/21 03/02/21 03/02/21 03/02/21 02:00 03:00 03:15 03:30 Pulse 85 89 Resp 20 14 B/P (MAP) 102/55 (71) 93/55 (68) 102/59 (73) Pulse Ox 100 100 O2 Delivery Ventilator Ventilator Mechanical Ventilator 03/02/21 03/02/21 03/02/21 03/02/21 03:52 04:00 05:00 05:40 Temp 97.5 97.5 Pulse 90 87 Resp 20 18 B/P (MAP) 97/62 (74) 91/50 (64) Pulse Ox 99 99 100 99 O2 Delivery Ventilator Ventilator Ventilator Ventilator 03/02/21 03/02/21 03/02/21 03/02/21 06:00 07:00 08:00 08:00 Pulse 143 122 96 Resp 20 22 20 B/P (MAP) 92/60 (71) 87/45 (59) 92/60 (71) Pulse Ox 100 100 98 O2 Delivery Ventilator Ventilator Ventilator Mechanical Ventilator 03/02/21 03/02/21 03/02/21 03/02/21 08:48 09:00 10:00 11:10 Temp 97.9 97.9 Pulse 102 98 95 Resp 20 20 B/P (MAP) 112/65 (81) 88/55 (66) 104/58 Pulse Ox 99 100 100 O2 Delivery Ventilator Ventilator Ventilator Intake and Output 03/01/21 03/01/21 03/02/21 15:00 23:00 07:00 Intake Total 100 ml 436 ml Output Total 370 ml 325 ml 370 ml Balance -370 ml -225 ml 66 ml SHARON CLEMENTS MD Mar 02, 2021 11:49
[2021-03-02 12:03] LABS: ALBUMIN 1.4 g/dL (3.4-5.0); ALBUMIN/GLOBULIN RATIO 0.4 (1.0-1.7); TOTAL BILIRUBIN 0.8 mg/dL (0.2-1.0); TOTAL PROTEIN 5.2 g/dL (6.4-8.2)
[2021-03-02 12:08] LABS: CALCIUM 9.3 mg/dL (8.5-10.1); GFR 40.5; POTASSIUM 4.8 mmol/L (3.5-5.1)
--- NOTE | 2021-03-02 12:37 | PDOC ---
PROGRESS NOTES Date of Service DATE: 03/02/21 TIME: 12:35 Subjective Subjective SEEN IN FOLLOW UP OF ARF Objective Objective Vital Signs Date Time Temp Pulse Resp B/P (MAP) Pulse Ox O2 Delivery O2 Flow Rate FiO2 03/02/21 11:53 100 Ventilator 03/02/21 11:10 95 104/58 03/02/21 10:00 20 03/02/21 09:00 97.9 97.9 02/27/21 13:12 40.0 Intake and Output 03/02/21 07:00 Intake Total 536 ml Output Total 1065 ml Balance -529 ml Intake IV Total 240 ml Tube Feeding 96 ml Other 200 ml Output Urine Total 1065 ml Physical Exam Heart: Regular rate, Normal S1, Normal S2, No murmurs, Gallops Extremities: No clubbing, No cyanosis, No edema, Normal pulses, No tenderness/swelling General: Other (SEDATED) Lungs: Clear to auscultation, Normal air movement, Other (HAS TRACH AND ON VENT) Diagnosis RENAL FAILURE: Acute (Acute tubular necrosis) Assessment Assessment Problems Medical Problems: (1) Acute hyperkalemia Status: Acute (2) Acute renal failure Status: Acute (3) Anemia Status: Acute (4) Third degree heart block Status: Acute Plan Plan of Care RENAL FUNCTION IS BETTER. K+ OK AT 4.8. CONT FLUID BALANCE Comment Review of Relevant I have reviewed the following items kae (where applicable) has been applied. Labs Laboratory Tests Test 03/01/21 06:35 03/02/21 06:00 03/02/21 09:00 White Blood Count 20.6 x10^3/uL (4.0-11.0) 23.0 x10^3/uL (4.0-11.0) Red Blood Count 2.43 x10^6/uL (4.30-5.70) 2.78 x10^6/uL (4.30-5.70) Hemoglobin 6.8 g/dL (13.0-17.5) 7.9 g/dL (13.0-17.5) Hematocrit 21.2 % (39.0-53.0) 24.6 % (39.0-53.0) Mean Corpuscular Volume 88 fL (79-100) 89 fL (79-100) Mean Corpuscular Hemoglobin 28 pg (25-35) 28 pg (25-35) Mean Corpuscular Hemoglobin Concent 32 g/dL (31-37) 32 g/dL (31-37) Red Cell Distribution Width 19.8 % (11.5-14.5) 18.8 % (11.5-14.5) Platelet Count 146 x10^3/uL (140-400) 160 x10^3/uL (140-400) Sodium Level 136 mmol/L (136-145) 138 mmol/L (136-145) Potassium Level 4.8 mmol/L (3.5-5.1) 4.8 mmol/L (3.5-5.1) Chloride Level 103 mmol/L (98-107) 106 mmol/L (98-107) Carbon Dioxide Level 30 mmol/L (21-32) 26 mmol/L (21-32) Anion Gap 3 (6-14) 6 (6-14) Blood Urea Nitrogen 59 mg/dL (8-26) 56 mg/dL (8-26) Creatinine 2.0 mg/dL (0.7-1.3) 2.0 mg/dL (0.7-1.3) Estimated GFR (Cockcroft-Gault) 40.5 40.5 Glucose Level 73 mg/dL (70-99) 45 mg/dL (70-99) Calcium Level 9.1 mg/dL (8.5-10.1) 9.3 mg/dL (8.5-10.1) BUN/Creatinine Ratio 28 (6-20) Total Bilirubin 0.8 mg/dL (0.2-1.0) Aspartate Amino Transf (AST/SGOT) 24 U/L (15-37) Alanine Aminotransferase (ALT/SGPT) 40 U/L (16-63) Alkaline Phosphatase 169 U/L (46-116) Total Protein 5.2 g/dL (6.4-8.2) Albumin 1.4 g/dL (3.4-5.0) Albumin/Globulin Ratio 0.4 (1.0-1.7) O2 Saturation 98 % (92-99) Arterial Blood pH 7.36 (7.35-7.45) Arterial Blood pCO2 at Patient Temp 42 mmHg (35-46) Arterial Blood pO2 at Patient Temp 108 mmHg (65-108) Arterial Blood HCO3 24 mmol/L (21-28) Arterial Blood Base Excess -2 mmol/L (-3-3) FiO2 40 Laboratory Tests Test 03/02/21 06:00 03/02/21 09:00 White Blood Count 23.0 x10^3/uL (4.0-11.0) Red Blood Count 2.78 x10^6/uL (4.30-5.70) Hemoglobin 7.9 g/dL (13.0-17.5) Hematocrit 24.6 % (39.0-53.0) Mean Corpuscular Volume 89 fL (79-100) Mean Corpuscular Hemoglobin 28 pg (25-35) Mean Corpuscular Hemoglobin Concent 32 g/dL (31-37) Red Cell Distribution Width 18.8 % (11.5-14.5) Platelet Count 160 x10^3/uL (140-400) Sodium Level 138 mmol/L (136-145) Potassium Level 4.8 mmol/L (3.5-5.1) Chloride Level 106 mmol/L (98-107) Carbon Dioxide Level 26 mmol/L (21-32) Anion Gap 6 (6-14) Blood Urea Nitrogen 56 mg/dL (8-26) Creatinine 2.0 mg/dL (0.7-1.3) Estimated GFR (Cockcroft-Gault) 40.5 BUN/Creatinine Ratio 28 (6-20) Glucose Level 45 mg/dL (70-99) Calcium Level 9.3 mg/dL (8.5-10.1) Total Bilirubin 0.8 mg/dL (0.2-1.0) Aspartate Amino Transf (AST/SGOT) 24 U/L (15-37) Alanine Aminotransferase (ALT/SGPT) 40 U/L (16-63) Alkaline Phosphatase 169 U/L (46-116) Total Protein 5.2 g/dL (6.4-8.2) Albumin 1.4 g/dL (3.4-5.0) Albumin/Globulin Ratio 0.4 (1.0-1.7) O2 Saturation 98 % (92-99) Arterial Blood pH 7.36 (7.35-7.45) Arterial Blood pCO2 at Patient Temp 42 mmHg (35-46) Arterial Blood pO2 at Patient Temp 108 mmHg (65-108) Arterial Blood HCO3 24 mmol/L (21-28) Arterial Blood Base Excess -2 mmol/L (-3-3) FiO2 40 Microbiology 02/27/21 Urine Culture - Final, Complete 02/27/21 Blood Culture - Preliminary, Resulted NO GROWTH AFTER 2 DAYS Medications Current Medications Atropine Sulfate (ATROPINE 0.5mg SYRINGE) 0.5 mg 1X ONCE IV Last administered on 02/27/21at 10:34; Start 02/27/21 at 10:30; Stop 02/27/21 at 10:31; Status DC Dopamine HCl/ Dextrose 250 ml @ 7.65 mls/hr 1X ONCE IV Last administered on 02/27/21at 11:26; Start 02/27/21 at 11:00; Stop 02/27/21 at 17:48; Status DC Atropine Sulfate (ATROPINE 0.5mg SYRINGE) 0.5 mg 1X ONCE IV Last administered on 02/27/21at 11:08; Start 02/27/21 at 11:00; Stop 02/27/21 at 11:01; Status DC Fentanyl Citrate (Fentanyl 2ml Vial) 75 mcg 1X ONCE IVP ; Start 02/27/21 at 11:15; Stop 02/27/21 at 11:16; Status DC Dextrose (Dextrose 50%-Water Syringe) 25 gm STK-MED ONCE IV ; Start 02/27/21 at 11:13; Stop 02/27/21 at 11:13; Status DC Calcium Gluconate (Calcium Gluconate) 1,000 mg STK-MED ONCE .ROUTE ; Start 02/27/21 at 11:15; Stop 02/27/21 at 11:15; Status DC Calcium Gluconate (Calcium Gluconate) 2,000 mg 1X ONCE IVP Last administered on 02/27/21at 11:22; Start 02/27/21 at 12:00; Stop 02/27/21 at 12:01; Status DC Insulin Human Regular (HumuLIN R VIAL) 10 unit 1X ONCE IV Last administered on 02/27/21at 11:33; Start 02/27/21 at 12:00; Stop 02/27/21 at 12:01; Status DC Dextrose (Dextrose 50%-Water Syringe) 25 gm 1X ONCE IV Last administered on 02/27/21at 11:32; Start 02/27/21 at 12:00; Stop 02/27/21 at 12:01; Status DC Glucagon (Glucagen) 5 mg 1X ONCE IV ; Start 02/27/21 at 12:15; Stop 02/27/21 at 12:15; Status DC Ondansetron HCl (Zofran) 4 mg PRN Q6HRS PRN IVP NAUSEA/VOMITING; Start 02/27/21 at 12:00 Famotidine (Pepcid Vial) 20 mg BID IVP Last administered on 02/28/21at 10:36; Start 02/27/21 at 13:00; Stop 02/28/21 at 15:55; Status DC Sodium Chloride (Normal Saline Flush) 3 ml QSHIFT PRN IV AFTER MEDS AND BLOOD DRAWS; Start 02/27/21 at 12:00 Meropenem 1 gm/ Sodium Chloride 100 ml @ 200 mls/hr Q8HRS IV Last administered on 02/27/21at 21:29; Start 02/27/21 at 15:00; Stop 02/27/21 at 21:00; Status DC Vancomycin HCl (Vanco Per Pharmacy) 1 each PRN DAILY PRN MC SEE COMMENTS Last administered on 02/27/21at 15:09; Start 02/27/21 at 12:15; Stop 02/28/21 at 06:45; Status DC Vancomycin HCl 2 gm/Sodium Chloride 500 ml @ 250 mls/hr 1X ONCE IV Last administered on 02/27/21at 18:10; Start 02/27/21 at 13:00; Stop 02/27/21 at 14:59; Status DC Lidocaine HCl (Buffered Lidocaine 1%) 3 ml STK-MED ONCE .ROUTE ; Start 02/27/21 at 12:57; Stop 02/27/21 at 12:57; Status DC Lidocaine HCl (Buffered Lidocaine 1%) 6 ml 1X ONCE INJ Last administered on 02/27/21at 13:15; Start 02/27/21 at 13:15; Stop 02/27/21 at 13:16; Status DC Sodium Chloride 1,000 ml @ 1,000 mls/hr Q1H PRN IV hypotension; Start 02/27/21 at 14:30; Stop 02/27/21 at 20:29; Status DC Albumin Human 200 ml @ 200 mls/hr 1X PRN PRN IV Hypotension; Start 02/27/21 at 14:30; Stop 02/27/21 at 20:29; Status DC Sodium Chloride (Normal Saline Flush) 10 ml 1X PRN PRN IV AP catheter pack; Start 02/27/21 at 14:30; Stop 02/28/21 at 14:29; Status DC Sodium Chloride (Normal Saline Flush) 10 ml 1X PRN PRN IV [employer] catheter pack; Start 02/27/21 at 14:30; Stop 02/28/21 at 14:29; Status DC Sodium Chloride 1,000 ml @ 400 mls/hr Q2H30M PRN IV PATENCY; Start 02/27/21 at 14:30; Stop 02/28/21 at 02:29; Status DC Info (PHARMACY MONITORING -- do not chart) 1 each PRN DAILY PRN MC SEE COMMENTS; Start 02/27/21 at 14:30; Status UNV Info (PHARMACY MONITORING -- do not chart) 1 each PRN DAILY PRN MC SEE COMMENTS; Start 02/27/21 at 14:30 Meropenem 1 gm/ Sodium Chloride 100 ml @ 200 mls/hr Q12HR IV Last administered on 03/02/21at 08:44; Start 02/28/21 at 09:00 Dopamine HCl/ Dextrose 250 ml @ 19.163 mls/ hr CONT PRN IV SEE I/O RECORD Last administered on 02/28/21at 09:59; Start 02/27/21 at 18:00 Sodium Bicarbonate 50 meq/Dextrose 1,050 ml @ 125 mls/hr 1X ONCE IV Last administered on 02/28/21at 11:57; Start 02/28/21 at 12:00; Stop 02/28/21 at 20:23; Status DC Pantoprazole Sodium (PROTONIX VIAL for IV PUSH) 40 mg DAILYAC IVP Last administered on 03/02/21at 08:44; Start 03/01/21 at 07:30 Norepinephrine Bitartrate 8 mg/ Dextrose 258 ml @ 17.993 mls/ hr CONT PRN IV PER PROTOCOL Last administered on 03/01/21at 06:16; Start 02/28/21 at 16:45 Albuterol/ Ipratropium (Duoneb) 3 ml BID NEB Last administered on 03/02/21at 08:48; Start 03/01/21 at 21:00 Budesonide (Pulmicort) 0.5 mg RTBID NEB Last administered on 03/02/21at 08:48; Start 03/01/21 at 20:00 Albuterol Sulfate (Ventolin Neb Soln) 2.5 mg PRN Q4HRS PRN NEB SHORTNESS OF BREATH Last administered on 03/02/21at 05:40; Start 03/01/21 at 15:00 Acetaminophen (Tylenol) 650 mg PRN Q6HRS PRN PO MILD PAIN / TEMP > 100.3'F; Start 03/01/21 at 15:00 Guaifenesin (Robitussin) 200 mg PRN Q4HRS PRN PO COUGH Last administered on 03/01/21at 23:22; Start 03/01/21 at 23:15 Phenol (Chloraseptic) 1 spray PRN Q2HR PRN PO SORE THROAT; Start 03/02/21 at 01:15 Dextrose (Dextrose 50%-Water Syringe) 12.5 gm PRN Q15MIN PRN IV SEE COMMENTS Last administered on 03/02/21at 07:15; Start 03/02/21 at 07:15 Finasteride (Proscar) 5 mg HS PO ; Start 03/02/21 at 21:00 Tamsulosin HCl (Flomax) 0.4 mg BID PO Last administered on 03/02/21at 11:09; Start 03/02/21 at 10:00 Lorazepam (Ativan) 0.5 mg PRN Q8HRS PRN PO ANXIETY / AGITATION Last administered on 03/02/21at 11:09; Start 03/02/21 at 09:30 Olanzapine (ZyPREXA ZYDIS) 5 mg PRN BID PRN PO ANXIETY / AGITATION; Start 03/02/21 at 10:30 Amiodarone HCl (Cordarone) 200 mg DAILY PO Last administered on 03/02/21at 11:10; Start 03/02/21 at 11:00 Cetirizine HCl (ZyrTEC) 10 mg DAILY PO Last administered on 03/02/21at 11:09; Start 03/02/21 at 11:00 Dextrose/Sodium Chloride 1,000 ml @ 50 mls/hr Q20H IV Last administered on 03/02/21at 11:14; Start 03/02/21 at 10:45; Stop 03/04/21 at 02:44 Amiodarone HCl (Cordarone) 200 mg DAILY PO ; Start 9/5/21 at 09:00; Status UNV Active Scripts Active Reported Loratadine 10 Mg Tablet 1 Tab PO PRN 1-2XD PRN Hydrocodone-Apap 5-325 (Hydrocodone Bit/Acetaminophen) 1 Tab Tablet 1 Tab PO PRN Q4HRS PRN Silace (Docusate Sodium) 50 Mg/5 Ml Liquid 50 Mg PO HS Ferrous Sulfate 220 Mg/5 Ml Solution 5 Ml PO BID 30 Days Alprazolam 0.5 Mg Tablet 1 Tab PO TID Flomax (Tamsulosin Hcl) 0.4 Mg Cap.er.24h 1 Cap PO BID Metoprolol Tartrate 25 Mg Tablet 0.5 Tab PO BID Magnesium Oxide 400 Mg Tablet 1 Tab PO DAILY Prednisone 5 Mg Tablet 5 Mg PO DAILY Duoneb 0.5-3(2.5) Mg/3 Ml (Albuterol/Ipratropium) 3 Ml Ampul.neb 3 Ml NEB BID Guaifenesin 100 Mg/5 Ml Liquid 400 Mg PO TID [colace liquid ] 100 Mg GT HS Eliquis (Apixaban) 5 Mg Tablet 5 Mg PO BID Protonix (Pantoprazole Sodium) 40 Mg Tablet.dr 40 Mg PO DAILYAC Melatonin 5 Mg/15 Ml Liquid 5 Mg PO HS Amiodarone Hcl 200 Mg Tablet 1 Tab PO DAILY Advair 500-50 Diskus (Fluticasone/Salmeterol) 1 Each Disk.w.dev 1 Puff IH BID Finasteride 5 Mg Tablet 1 Tab PO HS Vitals/I & O Vital Sign - Last 24 Hours 03/01/21 03/01/21 03/01/21 03/01/21 12:58 13:00 13:13 13:57 Temp 96.1 96.6 96.1 96.6 Pulse 72 81 80 Resp 18 20 18 B/P (MAP) 100/53 100/53 (69) 101/57 Pulse Ox 100 100 O2 Delivery Ventilator Ventilator 03/01/21 03/01/21 03/01/21 03/01/21 14:00 15:00 15:22 15:24 Temp 96.8 96.8 Pulse 88 86 81 Resp 20 20 20 B/P (MAP) 87/47 (60) 93/59 (70) 97/58 Pulse Ox 100 100 100 O2 Delivery Ventilator Ventilator Ventilator 03/01/21 03/01/21 03/01/21 03/01/21 16:00 16:00 17:00 18:00 Temp 96.6 96.6 Pulse 82 81 84 Resp 20 20 20 B/P (MAP) 95/57 (70) 100/56 (71) 100/58 (72) Pulse Ox 100 99 98 O2 Delivery Mechanical Ventilator Ventilator Ventilator Ventilator 03/01/21 03/01/21 03/01/21 03/01/21 18:04 19:00 19:22 19:30 Pulse 82 Resp 20 B/P (MAP) 100/59 (73) Pulse Ox 99 100 100 O2 Delivery Ventilator Ventilator Ventilator Mechanical Ventilator 03/01/21 03/01/21 03/01/21 03/01/21 20:00 21:00 21:15 22:00 Temp 97.0 97.0 Pulse 90 104 85 Resp 18 20 20 B/P (MAP) 105/49 (67) 98/56 (70) 91/52 (65) 92/55 (67) Pulse Ox 100 100 100 O2 Delivery Ventilator Ventilator Ventilator 03/01/21 03/01/21 03/02/21 03/02/21 22:06 23:00 00:00 00:01 Temp 97.5 97.5 Pulse 95 85 Resp 16 20 B/P (MAP) 93/58 (70) 89/50 (63) Pulse Ox 100 100 100 O2 Delivery Ventilator Ventilator Mechanical Ventilator Ventilator 03/02/21 03/02/21 03/02/21 03/02/21 01:00 01:00 02:00 03:00 Pulse 96 85 89 Resp 18 20 14 B/P (MAP) 93/60 (71) 102/55 (71) 93/55 (68) Pulse Ox 99 100 100 100 O2 Delivery Ventilator Ventilator Ventilator Ventilator 03/02/21 03/02/21 03/02/21 03/02/21 03:15 03:30 03:52 04:00 Temp 97.5 97.5 Pulse 90 Resp 20 B/P (MAP) 102/59 (73) 97/62 (74) Pulse Ox 99 99 O2 Delivery Mechanical Ventilator Ventilator Ventilator 03/02/21 03/02/21 03/02/21 03/02/21 05:00 05:40 06:00 07:00 Pulse 87 143 122 Resp 18 20 22 B/P (MAP) 91/50 (64) 92/60 (71) 87/45 (59) Pulse Ox 100 99 100 100 O2 Delivery Ventilator Ventilator Ventilator Ventilator 03/02/21 03/02/21 03/02/21 03/02/21 08:00 08:00 08:48 09:00 Temp 97.9 97.9 Pulse 96 102 Resp 20 20 B/P (MAP) 92/60 (71) 112/65 (81) Pulse Ox 98 99 100 O2 Delivery Ventilator Mechanical Ventilator Ventilator Ventilator 03/02/21 03/02/21 03/02/21 10:00 11:10 11:53 Pulse 98 95 Resp 20 B/P (MAP) 88/55 (66) 104/58 Pulse Ox 100 100 O2 Delivery Ventilator Ventilator Intake and Output 03/01/21 03/01/21 03/02/21 15:00 23:00 07:00 Intake Total 100 ml 436 ml Output Total 370 ml 325 ml 370 ml Balance -370 ml -225 ml 66 ml Justifications for Admission General Conditions Poss hypotension?: Yes Justification for admission: Patient has hypotension (SBP < 90 mm Hg) which is not readily corrected by appropriate treatment within 12 to 24 hours. Other Justification KALIN RAMIREZ MD Mar 02, 2021 12:37
--- NOTE | 2021-03-02 13:27 | PDOC ---
Infectious Disease Note Subjective Subjective Awake on vent ROS ROS no n/v/d/sob/fever Vital Sign Vital Signs Vital Signs Date Time Temp Pulse Resp B/P (MAP) Pulse Ox O2 Delivery O2 Flow Rate FiO2 03/02/21 11:53 100 Ventilator 03/02/21 11:10 95 104/58 03/02/21 10:00 20 03/02/21 09:00 97.9 97.9 Physical Exam PHYSICAL EXAM GENERAL: Awake gentleman, on a ventilator, not in distress. VITAL SIGNS: stable HEENT: Both pupils are round and reacting. No conjunctival lesion. No lesion in the mouth. NECK: Supple, no JVP, tracheostomy in place. LUNGS: Clear. HEART: S1, S2 regular. ABDOMEN: Soft, nontender, no organomegaly. EXTREMITIES: No edema, cyanosis. SKIN: Some minor sacrococcygeal breakdown present. Rest of the skin exam is unremarkable. PICC line site is unremarkable. Hemodialysis catheter has been placed yesterday. NEUROLOGIC: The patient is awake, but on a ventilator, unable to pan pusher the full neuro status. Labs Lab Laboratory Tests Test 03/02/21 06:00 03/02/21 09:00 03/02/21 12:51 White Blood Count 23.0 x10^3/uL (4.0-11.0) Red Blood Count 2.78 x10^6/uL (4.30-5.70) Hemoglobin 7.9 g/dL (13.0-17.5) Hematocrit 24.6 % (39.0-53.0) Mean Corpuscular Volume 89 fL (79-100) Mean Corpuscular Hemoglobin 28 pg (25-35) Mean Corpuscular Hemoglobin Concent 32 g/dL (31-37) Red Cell Distribution Width 18.8 % (11.5-14.5) Platelet Count 160 x10^3/uL (140-400) Sodium Level 138 mmol/L (136-145) Potassium Level 4.8 mmol/L (3.5-5.1) Chloride Level 106 mmol/L (98-107) Carbon Dioxide Level 26 mmol/L (21-32) Anion Gap 6 (6-14) Blood Urea Nitrogen 56 mg/dL (8-26) Creatinine 2.0 mg/dL (0.7-1.3) Estimated GFR (Cockcroft-Gault) 40.5 BUN/Creatinine Ratio 28 (6-20) Glucose Level 45 mg/dL (70-99) Calcium Level 9.3 mg/dL (8.5-10.1) Total Bilirubin 0.8 mg/dL (0.2-1.0) Aspartate Amino Transf (AST/SGOT) 24 U/L (15-37) Alanine Aminotransferase (ALT/SGPT) 40 U/L (16-63) Alkaline Phosphatase 169 U/L (46-116) Total Protein 5.2 g/dL (6.4-8.2) Albumin 1.4 g/dL (3.4-5.0) Albumin/Globulin Ratio 0.4 (1.0-1.7) O2 Saturation 98 % (92-99) Arterial Blood pH 7.36 (7.35-7.45) Arterial Blood pCO2 at Patient Temp 42 mmHg (35-46) Arterial Blood pO2 at Patient Temp 108 mmHg (65-108) Arterial Blood HCO3 24 mmol/L (21-28) Arterial Blood Base Excess -2 mmol/L (-3-3) FiO2 40 Glucose (Fingerstick) 106 mg/dL (70-99) Micro BC E coli, from [facility] neg here Objective Assessment 1. Gram-negative soren bacteremia. E coli 2. Third-degree heart block. 3. Chronic respiratory failure. 4. Tracheostomy and PEG tube. 5. Acute renal failure. 6. Lung cancer, status post lobectomy. 7. Chronic obstructive pulmonary disease. 8. Anemia. 9. Leucocytosis multifactorial Plan Plan of Care cont antibiotics cont supportive care JHON LANG MD Mar 02, 2021 13:27
[2021-03-02] MEDS: ACETAMINOPHEN 325 MG TABLET. PO PRN (19:31)
[2021-03-02] MEDS: PHENOL ORAL SPRAY 177ML BOTTLE. PO PRN (20:30)
[2021-03-02] MEDS: FINASTERIDE 5 MG TABLET. PO SCH (20:30)
[2021-03-02] MEDS: guaiFENesin ORAL 200 MG/10 ML LIQUID. PO PRN (22:47)
[2021-03-03] VITALS (27 sets, daily range): BP systolic 83–127; BP diastolic 40–84
[2021-03-03] MEDS: PHENOL ORAL SPRAY 177ML BOTTLE. PO PRN (03:48)
[2021-03-03] MEDS: LORazepam 0.5 MG TABLET PO PRN ×2 (03:48→14:41)
[2021-03-03] MEDS: IV DEXTROSE 5 %-0.45 % NACL 1,000 ML IV SCH (03:48)
[2021-03-03 06:17] LABS: BASO % 0 % (0-3); EOS % 0 % (0-3); HEMATOCRIT 21.4 % (39.0-53.0); LYMPH # 0.4 x10^3/uL (1.0-4.8); LYMPH % 2 % (24-48); MEAN CORPUSCULAR HEMOGLOBIN 29 pg (25-35); MEAN CORPUSCULAR HGB CONC 32 g/dL (31-37); MEAN CORPUSCULAR VOLUME 89 fL (79-100); MONO # 1.9 x10^3/uL (0.0-1.1); MONO % 10 % (0-9); NEUT % 88 % (31-73); PLATELET COUNT 154 x10^3/uL (140-400); RED BLOOD COUNT 2.41 x10^6/uL (4.30-5.70); RED CELL DISTRIBUTION WIDTH 18.6 % (11.5-14.5); WHITE BLOOD COUNT 19.3 x10^3/uL (4.0-11.0)
[2021-03-03 06:23] LABS: HEMOGLOBIN 6.9 g/dL (13.0-17.5)
[2021-03-03 06:29] LABS: ALBUMIN 1.2 g/dL (3.4-5.0); ALBUMIN/GLOBULIN RATIO 0.3 (1.0-1.7); GFR 40.5; POTASSIUM 4.7 mmol/L (3.5-5.1); TOTAL BILIRUBIN 0.6 mg/dL (0.2-1.0); TOTAL PROTEIN 4.8 g/dL (6.4-8.2)
[2021-03-03] MEDS: BUDESONIDE 0.5 MG/2 ML NEBU. NEB SCH ×2 (08:18→20:00)
[2021-03-03] MEDS: IPRATRPIUM/ALBUTEROL 0.5/2.5MG 3 ML NEBU. NEB SCH ×2 (08:18→21:00)
[2021-03-03 08:27] LABS: BASE EXCESS ABG 1 mmol/L (-3-3); HCO3 ABG 25 mmol/L (21-28); PCO2 ABG 36 mmHg (35-46); PO2 ABG 63 mmHg (65-108); SAT O2 ABG 93 % (92-99)
[2021-03-03 08:30] LABS: FIO2 ABG 40% vent
[2021-03-03] MEDS ORDERED: AMIODARONE HCL 200 MG TABLET. PO SCH (09:00)
[2021-03-03] MEDS: MEROPENEM 1 GM in IV NORMAL SALINE 100ML 100 ML IV SCH ×2 (09:03→21:32)
[2021-03-03] MEDS: TAMSULOSIN 0.4 MG CAP.ER.24H. PO SCH ×2 (09:04→21:31)
[2021-03-03] MEDS: PANTOPRAZOLE IV PUSH 40 MG VIAL. IVP SCH (09:04)
[2021-03-03] MEDS: CETIRIZINE HCL 10 MG TABLET. PO SCH (09:06)
[2021-03-03] MEDS: AMIODARONE HCL 200 MG TABLET. PO SCH (09:06)
--- NOTE | 2021-03-03 09:18 | PDOC ---
[employer] PROGRESS NOTE Date of Service DOS: DATE: 03/03/21 TIME: 09:13 Chief Complaint Chief Complaint A/P: Acute anemia - no clear source of bleeding, will transfuse to maintain Hb 8 Bacteremia - gram negative sepsis, no final cultures on merrem Acute on chronic hypoxic respiratory failure - 2/2 sepsis, severe bradycardia/third degree AV block, Anemia and underlying lung cancer. Third-degree AV block - hold metoprolol. Dopamine. Cardiology is consulted. Lung cancer, likely stage 4, adenocarcinoma by biopsy. He may need a CT chest for better evaluation. D/w pulm CT chest abd pelvis Chronic respiratory failure with ventilator dependence with chronic tracheostomy. AI - temporary dialysis Unilateral kidney - higher risk for ESRD Hyperkalemia - nephrology consulted for dialysis. Only x1 Hypoglycemia - unclear etiology FEN - NPO, NGT feed PPX - PPI, scds CODE - DNR/DNI Dispo - ICU for septic shock History of Present Illness History of Present Illness Mr Khalil is a 65-year-old male with PMHx lung cancer (adenocarcinoma 10/2018), rheumatoid arthritis, HTN, bilateral gluteal stage 2 pressure ulceration and left heel ulceration, chronic respiratory failure, vent dependence, tracheostomy, PEG tube, had a perforation requiring emergent surgery to repair the perforation and he has been going from [facility] to [facility]. Sent to ED for concern for third-degree heart block, gram-negative soren in the blood and renal failure with hyperkalemia. BUN 110, Cr 2.6, Hb 5 .9, WBC 15.7 The patient is awake, on a ventilator through tracheostomy. Dialysis catheter placed by IR on 02/27/2021. (He also has a port a cath and PICC in place) 02/28: Seen in ICU. WBC 23, Hb 7 after initial transfusion, K 24.9, BUN 61, CR 1.9, glucose 59 albumin 1.6, INR 2.1, urine with large blood large leukoesterase, ABG 7.3 on 40% FiO2. BP improved and heart rate improved with dopamine and still on vent this morning. 03/01: Seen in ICU trach and vent support FiO2 45% PEEP 5. Chest radiograph improved slightly on the right potassium 4.8. Heart rate improved transition from dopamine to very low dose Levophed for septic shock. He is more alert and using his call light. 03/02: WBC 23, Hb 7.9 after transfusion. platelets 160, K4.8, glucose down to 45, ABG 7.3 6/42/108 on 40% FiO2 vent PEEP of 5 on trach. Still on low dose levophed. pointing to swollen scrotum, soft, has traction on his muhammad, adjusted. Afebrile. Restless overnight. ABG 7.4 636/63 on 40% FiO2 PEEP of 5. WBC 19.3, Hb 6.9, platelets 154. Transfusion ordered. BP 89/56, currently off levophed. Of note his LTACH noted he is a DNR/DNI, status updated cc time 31 minutes Vitals/I&O Vitals/I&O: Vital Signs Date Time Temp Pulse Resp B/P (MAP) Pulse Ox O2 Delivery O2 Flow Rate FiO2 03/03/21 09:06 87 90/49 03/03/21 08:19 99 Ventilator 03/03/21 06:00 18 03/03/21 04:00 98.1 98.1 I & O 03/02/21 03/02/21 03/03/21 14:59 22:59 06:59 Intake Total 679 ml 2129 ml Output Total 350 ml 350 ml 270 ml Balance -350 ml 329 ml 1859 ml Physical Exam Physical Exam: GENERAL: Awake gentleman, on a ventilator, not in distress. VITAL SIGNS: stable HEENT: Both pupils are round and reacting. No conjunctival lesion. No lesion in the mouth. NECK: Supple, no JVP, tracheostomy in place. LUNGS: Clear. HEART: S1, S2 regular. ABDOMEN: Soft, nontender, no organomegaly. EXTREMITIES: No edema, cyanosis. SKIN: Some minor sacrococcygeal breakdown present. Rest of the skin exam is unremarkable. PICC line site is unremarkable. Hemodialysis catheter has been placed yesterday. NEUROLOGIC: The patient is awake, but on a ventilator, unable to appellate court judge the full neuro status. General: Other (SEDATED) Heart: Regular rate, Normal S1, Normal S2, No murmurs, Gallops Lungs: Other (Decreased breath sounds left lung) Abdomen: Soft Extremities: No clubbing, No cyanosis, No edema, Normal pulses, No tenderness/swelling Skin: No rashes, Other (heel pressure ulcers) Labs Labs: Laboratory Tests Test 03/02/21 12:51 03/02/21 19:16 03/02/21 22:34 03/03/21 06:00 Glucose (Fingerstick) 106 mg/dL (70-99) 115 mg/dL (70-99) 113 mg/dL (70-99) White Blood Count 19.3 x10^3/uL (4.0-11.0) Red Blood Count 2.41 x10^6/uL (4.30-5.70) Hemoglobin 6.9 g/dL (13.0-17.5) Hematocrit 21.4 % (39.0-53.0) Mean Corpuscular Volume 89 fL (79-100) Mean Corpuscular Hemoglobin 29 pg (25-35) Mean Corpuscular Hemoglobin Concent 32 g/dL (31-37) Red Cell Distribution Width 18.6 % (11.5-14.5) Platelet Count 154 x10^3/uL (140-400) Neutrophils (%) (Auto) 88 % (31-73) Lymphocytes (%) (Auto) 2 % (24-48) Monocytes (%) (Auto) 10 % (0-9) Eosinophils (%) (Auto) 0 % (0-3) Basophils (%) (Auto) 0 % (0-3) Neutrophils # (Auto) 17.0 x10^3/uL (1.8-7.7) Lymphocytes # (Auto) 0.4 x10^3/uL (1.0-4.8) Monocytes # (Auto) 1.9 x10^3/uL (0.0-1.1) Eosinophils # (Auto) 0.0 x10^3/uL (0.0-0.7) Basophils # (Auto) 0.0 x10^3/uL (0.0-0.2) Sodium Level 136 mmol/L (136-145) Potassium Level 4.7 mmol/L (3.5-5.1) Chloride Level 104 mmol/L (98-107) Carbon Dioxide Level 28 mmol/L (21-32) Anion Gap 4 (6-14) Blood Urea Nitrogen 54 mg/dL (8-26) Creatinine 2.0 mg/dL (0.7-1.3) Estimated GFR (Cockcroft-Gault) 40.5 BUN/Creatinine Ratio 27 (6-20) Glucose Level 135 mg/dL (70-99) Calcium Level 9.0 mg/dL (8.5-10.1) Total Bilirubin 0.6 mg/dL (0.2-1.0) Aspartate Amino Transf (AST/SGOT) 8 U/L (15-37) Alanine Aminotransferase (ALT/SGPT) 27 U/L (16-63) Alkaline Phosphatase 153 U/L (46-116) Total Protein 4.8 g/dL (6.4-8.2) Albumin 1.2 g/dL (3.4-5.0) Albumin/Globulin Ratio 0.3 (1.0-1.7) Test 03/03/21 06:06 03/03/21 08:23 Glucose (Fingerstick) 141 mg/dL (70-99) O2 Saturation 93 % (92-99) Arterial Blood pH 7.46 (7.35-7.45) Arterial Blood pCO2 at Patient Temp 36 mmHg (35-46) Arterial Blood pO2 at Patient Temp 63 mmHg (65-108) Arterial Blood HCO3 25 mmol/L (21-28) Arterial Blood Base Excess 1 mmol/L (-3-3) FiO2 40% vent Assessment and Plan Assessmemt and Plan Problems Medical Problems: (1) Acute hyperkalemia Status: Acute (2) Acute renal failure Status: Acute (3) Anemia Status: Acute (4) Third degree heart block Status: Acute Comment Review of Relevant I have reviewed the following items kae (where applicable) has been applied. Medications: Current Medications Medications (Trade) Dose Ordered Sig/Gigi Route PRN Reason Start Time Stop Time Status Last Admin Dose Admin Finasteride (Proscar) 5 mg HS PO 03/02/21 21:00 03/02/21 20:30 Tamsulosin HCl (Flomax) 0.4 mg BID PO 03/02/21 10:00 03/03/21 09:04 Lorazepam (Ativan) 0.5 mg PRN Q8HRS PRN PO ANXIETY / AGITATION 03/02/21 09:30 03/03/21 03:48 Olanzapine (ZyPREXA ZYDIS) 5 mg PRN BID PRN PO ANXIETY / AGITATION 03/02/21 10:30 03/03/21 09:04 Amiodarone HCl (Cordarone) 200 mg DAILY PO 03/02/21 11:00 03/03/21 09:06 Cetirizine HCl (ZyrTEC) 10 mg DAILY PO 03/02/21 11:00 03/03/21 09:06 Dextrose/Sodium Chloride 1,000 ml @ 50 mls/hr Q20H IV 03/02/21 10:45 03/04/21 02:44 03/03/21 03:48 Justifications for Admission General Conditions Poss hypotension?: Yes Justification for admission: Patient has hypotension (SBP < 90 mm Hg) which is not readily corrected by appropriate treatment within 12 to 24 hours. Other Justification AMADA GILMAN MD Mar 03, 2021 09:18
--- NOTE | 2021-03-03 10:03 | PDOC ---
PULMONARY PROGRESS NOTES DATE: 03/03/21 TIME: 10:02 Subjective Patient seen this morning, sleeping, currently on 40% FiO2 5 of PEEP Vitals Vital Signs Date Time Temp Pulse Resp B/P (MAP) Pulse Ox O2 Delivery O2 Flow Rate FiO2 03/03/21 09:19 97 Ventilator 03/03/21 09:06 87 90/49 03/03/21 06:00 18 03/03/21 04:00 98.1 98.1 General: Alert, No acute distress Lungs: Other (Decreased breath sounds left lung) Cardiovascular: S1, S2 Abdomen: Soft Neuro Exam: Alert Extremities: Other (2+ edema) Skin: Warm Labs Laboratory Tests Test 03/02/21 06:00 03/02/21 09:00 03/02/21 12:51 03/02/21 19:16 White Blood Count 23.0 x10^3/uL (4.0-11.0) Red Blood Count 2.78 x10^6/uL (4.30-5.70) Hemoglobin 7.9 g/dL (13.0-17.5) Hematocrit 24.6 % (39.0-53.0) Mean Corpuscular Volume 89 fL (79-100) Mean Corpuscular Hemoglobin 28 pg (25-35) Mean Corpuscular Hemoglobin Concent 32 g/dL (31-37) Red Cell Distribution Width 18.8 % (11.5-14.5) Platelet Count 160 x10^3/uL (140-400) Sodium Level 138 mmol/L (136-145) Potassium Level 4.8 mmol/L (3.5-5.1) Chloride Level 106 mmol/L (98-107) Carbon Dioxide Level 26 mmol/L (21-32) Anion Gap 6 (6-14) Blood Urea Nitrogen 56 mg/dL (8-26) Creatinine 2.0 mg/dL (0.7-1.3) Estimated GFR (Cockcroft-Gault) 40.5 BUN/Creatinine Ratio 28 (6-20) Glucose Level 45 mg/dL (70-99) Calcium Level 9.3 mg/dL (8.5-10.1) Total Bilirubin 0.8 mg/dL (0.2-1.0) Aspartate Amino Transf (AST/SGOT) 24 U/L (15-37) Alanine Aminotransferase (ALT/SGPT) 40 U/L (16-63) Alkaline Phosphatase 169 U/L (46-116) Total Protein 5.2 g/dL (6.4-8.2) Albumin 1.4 g/dL (3.4-5.0) Albumin/Globulin Ratio 0.4 (1.0-1.7) O2 Saturation 98 % (92-99) Arterial Blood pH 7.36 (7.35-7.45) Arterial Blood pCO2 at Patient Temp 42 mmHg (35-46) Arterial Blood pO2 at Patient Temp 108 mmHg (65-108) Arterial Blood HCO3 24 mmol/L (21-28) Arterial Blood Base Excess -2 mmol/L (-3-3) FiO2 40 Glucose (Fingerstick) 106 mg/dL (70-99) 115 mg/dL (70-99) Test 03/02/21 22:34 03/03/21 06:00 03/03/21 06:06 03/03/21 08:23 Glucose (Fingerstick) 113 mg/dL (70-99) 141 mg/dL (70-99) White Blood Count 19.3 x10^3/uL (4.0-11.0) Red Blood Count 2.41 x10^6/uL (4.30-5.70) Hemoglobin 6.9 g/dL (13.0-17.5) Hematocrit 21.4 % (39.0-53.0) Mean Corpuscular Volume 89 fL (79-100) Mean Corpuscular Hemoglobin 29 pg (25-35) Mean Corpuscular Hemoglobin Concent 32 g/dL (31-37) Red Cell Distribution Width 18.6 % (11.5-14.5) Platelet Count 154 x10^3/uL (140-400) Neutrophils (%) (Auto) 88 % (31-73) Lymphocytes (%) (Auto) 2 % (24-48) Monocytes (%) (Auto) 10 % (0-9) Eosinophils (%) (Auto) 0 % (0-3) Basophils (%) (Auto) 0 % (0-3) Neutrophils # (Auto) 17.0 x10^3/uL (1.8-7.7) Lymphocytes # (Auto) 0.4 x10^3/uL (1.0-4.8) Monocytes # (Auto) 1.9 x10^3/uL (0.0-1.1) Eosinophils # (Auto) 0.0 x10^3/uL (0.0-0.7) Basophils # (Auto) 0.0 x10^3/uL (0.0-0.2) Sodium Level 136 mmol/L (136-145) Potassium Level 4.7 mmol/L (3.5-5.1) Chloride Level 104 mmol/L (98-107) Carbon Dioxide Level 28 mmol/L (21-32) Anion Gap 4 (6-14) Blood Urea Nitrogen 54 mg/dL (8-26) Creatinine 2.0 mg/dL (0.7-1.3) Estimated GFR (Cockcroft-Gault) 40.5 BUN/Creatinine Ratio 27 (6-20) Glucose Level 135 mg/dL (70-99) Calcium Level 9.0 mg/dL (8.5-10.1) Total Bilirubin 0.6 mg/dL (0.2-1.0) Aspartate Amino Transf (AST/SGOT) 8 U/L (15-37) Alanine Aminotransferase (ALT/SGPT) 27 U/L (16-63) Alkaline Phosphatase 153 U/L (46-116) Total Protein 4.8 g/dL (6.4-8.2) Albumin 1.2 g/dL (3.4-5.0) Albumin/Globulin Ratio 0.3 (1.0-1.7) O2 Saturation 93 % (92-99) Arterial Blood pH 7.46 (7.35-7.45) Arterial Blood pCO2 at Patient Temp 36 mmHg (35-46) Arterial Blood pO2 at Patient Temp 63 mmHg (65-108) Arterial Blood HCO3 25 mmol/L (21-28) Arterial Blood Base Excess 1 mmol/L (-3-3) FiO2 40% vent Laboratory Tests Test 03/02/21 12:51 03/02/21 19:16 03/02/21 22:34 03/03/21 06:00 Glucose (Fingerstick) 106 mg/dL (70-99) 115 mg/dL (70-99) 113 mg/dL (70-99) White Blood Count 19.3 x10^3/uL (4.0-11.0) Red Blood Count 2.41 x10^6/uL (4.30-5.70) Hemoglobin 6.9 g/dL (13.0-17.5) Hematocrit 21.4 % (39.0-53.0) Mean Corpuscular Volume 89 fL (79-100) Mean Corpuscular Hemoglobin 29 pg (25-35) Mean Corpuscular Hemoglobin Concent 32 g/dL (31-37) Red Cell Distribution Width 18.6 % (11.5-14.5) Platelet Count 154 x10^3/uL (140-400) Neutrophils (%) (Auto) 88 % (31-73) Lymphocytes (%) (Auto) 2 % (24-48) Monocytes (%) (Auto) 10 % (0-9) Eosinophils (%) (Auto) 0 % (0-3) Basophils (%) (Auto) 0 % (0-3) Neutrophils # (Auto) 17.0 x10^3/uL (1.8-7.7) Lymphocytes # (Auto) 0.4 x10^3/uL (1.0-4.8) Monocytes # (Auto) 1.9 x10^3/uL (0.0-1.1) Eosinophils # (Auto) 0.0 x10^3/uL (0.0-0.7) Basophils # (Auto) 0.0 x10^3/uL (0.0-0.2) Sodium Level 136 mmol/L (136-145) Potassium Level 4.7 mmol/L (3.5-5.1) Chloride Level 104 mmol/L (98-107) Carbon Dioxide Level 28 mmol/L (21-32) Anion Gap 4 (6-14) Blood Urea Nitrogen 54 mg/dL (8-26) Creatinine 2.0 mg/dL (0.7-1.3) Estimated GFR (Cockcroft-Gault) 40.5 BUN/Creatinine Ratio 27 (6-20) Glucose Level 135 mg/dL (70-99) Calcium Level 9.0 mg/dL (8.5-10.1) Total Bilirubin 0.6 mg/dL (0.2-1.0) Aspartate Amino Transf (AST/SGOT) 8 U/L (15-37) Alanine Aminotransferase (ALT/SGPT) 27 U/L (16-63) Alkaline Phosphatase 153 U/L (46-116) Total Protein 4.8 g/dL (6.4-8.2) Albumin 1.2 g/dL (3.4-5.0) Albumin/Globulin Ratio 0.3 (1.0-1.7) Test 03/03/21 06:06 03/03/21 08:23 Glucose (Fingerstick) 141 mg/dL (70-99) O2 Saturation 93 % (92-99) Arterial Blood pH 7.46 (7.35-7.45) Arterial Blood pCO2 at Patient Temp 36 mmHg (35-46) Arterial Blood pO2 at Patient Temp 63 mmHg (65-108) Arterial Blood HCO3 25 mmol/L (21-28) Arterial Blood Base Excess 1 mmol/L (-3-3) FiO2 40% vent Medications Active Scripts Medications Dose Route/Sig Max Daily Dose Days Date Category Prednisone 5 Mg Tablet 5 Mg PO DAILY 12/12/20 Reported Duoneb 0.5-3(2.5) Mg/3 Ml (Albuterol/Ipratropium) 3 Ml Ampul.neb 3 Ml NEB BID 12/12/20 Reported Claritin (Loratadine) 10 Mg Capsule 1 Cap PO DAILY 30 12/12/20 Reported Metoprolol Tartrate 50 Mg Tablet 1 Tab PO BID 12/12/20 Reported Melatonin 3 Mg Tablet.er 6 Mg PO HS 12/12/20 Reported Guaifenesin 100 Mg/5 Ml Liquid 400 Mg PO TID 12/12/20 Reported [colace liquid ] 100 Mg GT HS 12/12/20 Reported Eliquis (Apixaban) 5 Mg Tablet 5 Mg PO BID 12/12/20 Reported Trazodone Hcl 50 Mg Tablet 1 Tab PO QHS 11/16/20 Reported Protonix (Pantoprazole Sodium) 40 Mg Tablet.dr 40 Mg PO DAILYAC 11/16/20 Reported Daily Value (Multivitamin) 1 Each Tablet 1 Tab PO DAILY 30 11/16/20 Reported Melatonin 5 Mg/15 Ml Liquid 5 Mg PO HS 11/16/20 Reported Heparin 1,000 Unit/10 (100/ml) (Heparin Sodium,Porcine/Pf) 1,000 Unit/10 Ml Syringe 1,400 Unit IV 3X/WEEK 11/16/20 Reported Folic Acid 0.8 Mg Capsule 1 Cap PO DAILY 30 11/16/20 Reported Zetia (Ezetimibe) 10 Mg Tablet 1 Tab PO DAILY 30 11/16/20 Reported Amiodarone Hcl 200 Mg Tablet 1 Tab PO DAILY 11/16/20 Reported Iron (Ferrous Sulfate) 325 Mg Tablet 975 Mg PO DAILY 03/18/18 Reported Advair 500-50 Diskus (Fluticasone/Salmeterol) 1 Each Disk.w.dev 1 Puff IH BID 12/02/14 Reported Finasteride 5 Mg Tablet 1 Tab PO HS 12/02/14 Reported Impression . IMPRESSION: 1. Acute on chronic respiratory failure multifactorial 2. Septic shock 3. Third-degree AV block 4. Adenocarcinoma of the lung 5. Chronic respiratory failure with ventilator dependence with chronic tracheostomy. 6. Acute kidney injury with markedly elevated BUN and creatinine and hyperkalemia.Patient has one kidney. 7. Acute drop in hemoglobin 8. Abnormal chest x-ray with marked volume loss on the left lung. Combination of lung cancer, postobstructive atelectasis and pleural effusion 9. E-Coli bacteremia Plan . Updated 03/03 We will monitor chest x-ray for further opacification of left lung Patient is DNR Continue current support Monitor hemoglobin hematocrit Monitor off of antibiotics Pressure support trials throughout the day updated 03/02 Patient oxygenating well, will discuss with RT, aggressive pulmonary hygiene, aggressive suctioning Discussed with RN will attempt pressure support trial Continue current support Hemoglobin 7.9 today ABG noted PaO2 108 Monitor off of antibiotics updated 03/01 Discussed with RN continue current support, Nutritional support attempt Dobbhoff up placement Antibiotics per ID Follow cardiology input Bronchodilators Follow nephrology input Total cumulative critical care time of 30 minutes with no overlap VIRGIL RODRIGUEZ MD Mar 03, 2021 10:03
--- NOTE | 2021-03-03 12:01 | PDOC ---
PROGRESS NOTES Date of Service: DATE: 03/03/21 TIME: 12:00 Subjective Subjective Sleeping comfortably, no new complaints Objective Objective Vital Signs Date Time Temp Pulse Resp B/P (MAP) Pulse Ox O2 Delivery O2 Flow Rate FiO2 03/03/21 11:54 96 Ventilator 03/03/21 09:06 87 90/49 03/03/21 06:00 18 03/03/21 04:00 98.1 98.1 Intake and Output 03/03/21 07:00 Intake Total 3108 ml Output Total 970 ml Balance 2138 ml Intake IV Total 1248 ml Tube Feeding 1460 ml Blood Product IV Normal Saline Flush 200 ml Other 200 ml Output Urine Total 970 ml # Voids 3 Physical Exam Abdomen: Soft Heart: Regular rate, Normal S1, Normal S2, No murmurs, Gallops Extremities: No clubbing, No cyanosis, No edema, Normal pulses, No tenderness/swelling General: Other (SEDATED) HEENT: Other (NG tube in place) Lungs: Clear to auscultation, Normal air movement, Other (HAS TRACH AND ON VENT) Psych/Mental Status: Other (unable to assess ) Skin: No rashes, Other (heel pressure ulcers) Diagnosis RENAL FAILURE: Acute (Acute tubular necrosis) Assessment Assessment 1. Bradyarrhythmia; noted junctional mainly due to metabolic issues with hypothermia. No further bradycardia since the latter was corrected. Presently sinus rhythm. 2. AI on CKD, hyperkalemia; improved after x1 HD 3. Anemia of chronic disease; no obvious bleeding, post transfusion 4. Hypothermia: resolved 5. Acute on chronic respiratory failure; s/p tracheostomy. ventilator dependent. 6. PAFIB with h/o RVR; Maintaining SR, continue amiodarone. Patient is probably a poor candidate for long-term anticoagulation. 7. Acute on chronic systolic CHF: Better compensated. 8. Cardiomyopathy; Echo 12/17 with LVEF 45% 9. Mild Thrombocytopenia 10. History of non-small cell carcinoma of the lung, treated with left upper lobe lobectomy, and chemo and radiation therapy. 11. H/o polycystic kidney disease s/p left nephrectomy Plan Plan of Care Problems Medical Problems: (1) Acute hyperkalemia Status: Acute (2) Acute renal failure Status: Acute (3) Anemia Status: Acute (4) Third degree heart block Status: Acute Comment Review of Relevant I have reviewed the following items kae (where applicable) has been applied. Labs Laboratory Tests Test 03/02/21 12:51 03/02/21 19:16 03/02/21 22:34 03/03/21 06:00 Glucose (Fingerstick) 106 mg/dL (70-99) 115 mg/dL (70-99) 113 mg/dL (70-99) White Blood Count 19.3 x10^3/uL (4.0-11.0) Red Blood Count 2.41 x10^6/uL (4.30-5.70) Hemoglobin 6.9 g/dL (13.0-17.5) Hematocrit 21.4 % (39.0-53.0) Mean Corpuscular Volume 89 fL (79-100) Mean Corpuscular Hemoglobin 29 pg (25-35) Mean Corpuscular Hemoglobin Concent 32 g/dL (31-37) Red Cell Distribution Width 18.6 % (11.5-14.5) Platelet Count 154 x10^3/uL (140-400) Neutrophils (%) (Auto) 88 % (31-73) Lymphocytes (%) (Auto) 2 % (24-48) Monocytes (%) (Auto) 10 % (0-9) Eosinophils (%) (Auto) 0 % (0-3) Basophils (%) (Auto) 0 % (0-3) Neutrophils # (Auto) 17.0 x10^3/uL (1.8-7.7) Lymphocytes # (Auto) 0.4 x10^3/uL (1.0-4.8) Monocytes # (Auto) 1.9 x10^3/uL (0.0-1.1) Eosinophils # (Auto) 0.0 x10^3/uL (0.0-0.7) Basophils # (Auto) 0.0 x10^3/uL (0.0-0.2) Sodium Level 136 mmol/L (136-145) Potassium Level 4.7 mmol/L (3.5-5.1) Chloride Level 104 mmol/L (98-107) Carbon Dioxide Level 28 mmol/L (21-32) Anion Gap 4 (6-14) Blood Urea Nitrogen 54 mg/dL (8-26) Creatinine 2.0 mg/dL (0.7-1.3) Estimated GFR (Cockcroft-Gault) 40.5 BUN/Creatinine Ratio 27 (6-20) Glucose Level 135 mg/dL (70-99) Calcium Level 9.0 mg/dL (8.5-10.1) Total Bilirubin 0.6 mg/dL (0.2-1.0) Aspartate Amino Transf (AST/SGOT) 8 U/L (15-37) Alanine Aminotransferase (ALT/SGPT) 27 U/L (16-63) Alkaline Phosphatase 153 U/L (46-116) Total Protein 4.8 g/dL (6.4-8.2) Albumin 1.2 g/dL (3.4-5.0) Albumin/Globulin Ratio 0.3 (1.0-1.7) Test 03/03/21 06:06 03/03/21 08:23 Glucose (Fingerstick) 141 mg/dL (70-99) O2 Saturation 93 % (92-99) Arterial Blood pH 7.46 (7.35-7.45) Arterial Blood pCO2 at Patient Temp 36 mmHg (35-46) Arterial Blood pO2 at Patient Temp 63 mmHg (65-108) Arterial Blood HCO3 25 mmol/L (21-28) Arterial Blood Base Excess 1 mmol/L (-3-3) FiO2 40% vent Microbiology 02/27/21 Urine Culture - Final, Complete 02/27/21 Blood Culture - Preliminary, Resulted NO GROWTH AFTER 3 DAYS Medications Current Medications Amiodarone HCl (Cordarone) 200 mg DAILY PO ; Start 03/03/21 at 09:00; Status UNV Finasteride (Proscar) 5 mg HS PO Last administered on 03/02/21at 20:30; Start 03/02/21 at 21:00 Vitals/I & O Vital Sign - Last 24 Hours 03/02/21 03/02/21 03/02/21 03/02/21 13:00 13:33 14:00 15:00 Pulse 98 100 96 Resp 16 17 17 B/P (MAP) 119/79 (92) 88/54 (65) 101/54 (70) Pulse Ox 100 100 100 99 O2 Delivery Ventilator Ventilator Ventilator Ventilator 03/02/21 03/02/21 03/02/21 03/02/21 16:00 16:00 16:20 17:00 Temp 97.9 97.9 Pulse 98 110 Resp 17 17 B/P (MAP) 96/56 (69) 104/73 (83) Pulse Ox 99 96 100 O2 Delivery Mechanical Ventilator Ventilator Ventilator Ventilator 03/02/21 03/02/21 03/02/21 03/02/21 18:00 19:00 20:00 20:00 Temp 98.4 98.4 Pulse 100 113 103 Resp 17 20 18 B/P (MAP) 93/70 (78) 105/57 (73) Pulse Ox 99 98 100 O2 Delivery Ventilator Ventilator Mechanical Ventilator Ventilator 03/02/21 03/02/21 03/02/21 03/02/21 20:00 20:00 20:15 21:00 Pulse 104 Resp 20 B/P (MAP) 86/53 (64) 105/60 (75) Pulse Ox 100 100 100 O2 Delivery Ventilator Ventilator Ventilator 03/02/21 03/02/21 03/02/21 03/03/21 22:00 23:00 23:30 00:00 Pulse 100 94 Resp 20 18 B/P (MAP) 104/56 (72) 94/59 (71) Pulse Ox 100 100 100 O2 Delivery Ventilator Ventilator Ventilator Mechanical Ventilator 03/03/21 03/03/21 03/03/21 03/03/21 00:00 01:00 02:00 02:15 Temp 97.9 97.9 Pulse 112 93 96 Resp 14 17 18 B/P (MAP) 117/61 (79) 103/59 (74) 93/50 (64) Pulse Ox 100 100 100 100 O2 Delivery Ventilator Ventilator Ventilator Ventilator 03/03/21 03/03/21 03/03/21 03/03/21 03:00 04:00 04:00 05:00 Temp 98.1 98.1 Pulse 96 95 98 Resp 16 18 13 B/P (MAP) 95/54 (68) 91/53 (66) 84/50 (61) Pulse Ox 100 100 100 O2 Delivery Ventilator Ventilator Mechanical Ventilator Ventilator 03/03/21 03/03/21 03/03/21 03/03/21 05:00 06:00 08:19 09:06 Pulse 87 87 Resp 18 B/P (MAP) 90/49 (63) 90/49 Pulse Ox 99 99 99 O2 Delivery Ventilator Ventilator Ventilator 03/03/21 03/03/21 09:19 11:54 Pulse Ox 97 96 O2 Delivery Ventilator Ventilator Intake and Output 03/02/21 03/02/21 03/03/21 15:00 23:00 07:00 Intake Total 200 ml 779 ml 2129 ml Output Total 350 ml 350 ml 270 ml Balance -150 ml 429 ml 1859 ml SHARON CLEMENTS MD Mar 03, 2021 12:01
--- NOTE | 2021-03-03 13:31 | PDOC ---
Infectious Disease Note Subjective Subjective Remains on vent awake Vital Sign Vital Signs Vital Signs Date Time Temp Pulse Resp B/P (MAP) Pulse Ox O2 Delivery O2 Flow Rate FiO2 03/03/21 13:08 96 Ventilator 03/03/21 12:00 98.2 87 20 90/49 (63) 98.2 Physical Exam PHYSICAL EXAM GENERAL: Awake gentleman, on a ventilator, not in distress. VITAL SIGNS: stable HEENT: Both pupils are round and reacting. No conjunctival lesion. No lesion in the mouth. NECK: Supple, no JVP, tracheostomy in place. LUNGS: Clear. HEART: S1, S2 regular. ABDOMEN: Soft, nontender, no organomegaly. EXTREMITIES: No edema, cyanosis. SKIN: Some minor sacrococcygeal breakdown present. Rest of the skin exam is unremarkable. PICC line site is unremarkable. Hemodialysis catheter has been placed yesterday. NEUROLOGIC: The patient is awake, but on a ventilator, unable to rn utilization management um the full neuro status. Labs Lab Laboratory Tests Test 03/02/21 19:16 03/02/21 22:34 03/03/21 06:00 03/03/21 06:06 Glucose (Fingerstick) 115 mg/dL (70-99) 113 mg/dL (70-99) 141 mg/dL (70-99) White Blood Count 19.3 x10^3/uL (4.0-11.0) Red Blood Count 2.41 x10^6/uL (4.30-5.70) Hemoglobin 6.9 g/dL (13.0-17.5) Hematocrit 21.4 % (39.0-53.0) Mean Corpuscular Volume 89 fL (79-100) Mean Corpuscular Hemoglobin 29 pg (25-35) Mean Corpuscular Hemoglobin Concent 32 g/dL (31-37) Red Cell Distribution Width 18.6 % (11.5-14.5) Platelet Count 154 x10^3/uL (140-400) Neutrophils (%) (Auto) 88 % (31-73) Lymphocytes (%) (Auto) 2 % (24-48) Monocytes (%) (Auto) 10 % (0-9) Eosinophils (%) (Auto) 0 % (0-3) Basophils (%) (Auto) 0 % (0-3) Neutrophils # (Auto) 17.0 x10^3/uL (1.8-7.7) Lymphocytes # (Auto) 0.4 x10^3/uL (1.0-4.8) Monocytes # (Auto) 1.9 x10^3/uL (0.0-1.1) Eosinophils # (Auto) 0.0 x10^3/uL (0.0-0.7) Basophils # (Auto) 0.0 x10^3/uL (0.0-0.2) Sodium Level 136 mmol/L (136-145) Potassium Level 4.7 mmol/L (3.5-5.1) Chloride Level 104 mmol/L (98-107) Carbon Dioxide Level 28 mmol/L (21-32) Anion Gap 4 (6-14) Blood Urea Nitrogen 54 mg/dL (8-26) Creatinine 2.0 mg/dL (0.7-1.3) Estimated GFR (Cockcroft-Gault) 40.5 BUN/Creatinine Ratio 27 (6-20) Glucose Level 135 mg/dL (70-99) Calcium Level 9.0 mg/dL (8.5-10.1) Total Bilirubin 0.6 mg/dL (0.2-1.0) Aspartate Amino Transf (AST/SGOT) 8 U/L (15-37) Alanine Aminotransferase (ALT/SGPT) 27 U/L (16-63) Alkaline Phosphatase 153 U/L (46-116) Total Protein 4.8 g/dL (6.4-8.2) Albumin 1.2 g/dL (3.4-5.0) Albumin/Globulin Ratio 0.3 (1.0-1.7) Test 03/03/21 08:23 03/03/21 12:18 O2 Saturation 93 % (92-99) Arterial Blood pH 7.46 (7.35-7.45) Arterial Blood pCO2 at Patient Temp 36 mmHg (35-46) Arterial Blood pO2 at Patient Temp 63 mmHg (65-108) Arterial Blood HCO3 25 mmol/L (21-28) Arterial Blood Base Excess 1 mmol/L (-3-3) FiO2 40% vent Glucose (Fingerstick) 129 mg/dL (70-99) Micro BC E coli, from [facility] BC neg here Objective Assessment 1. Gram-negative soren bacteremia. E coli 2. Third-degree heart block. 3. Chronic respiratory failure. 4. Tracheostomy and PEG tube. 5. Acute renal failure. 6. Lung cancer, status post lobectomy. 7. Chronic obstructive pulmonary disease. 8. Anemia. 9. Leucocytosis multifactorial Plan Plan of Care cont Merrem cont supportive care JHON LANG MD Mar 03, 2021 13:31
--- NOTE | 2021-03-03 16:15 | RAD ---
XR CHEST 1V INDICATION: rf. COMPARISON STUDY: Radiograph 10/30/2020. CT 03/01/2021. FINDINGS: Tracheostomy, right IJ Port-A-Cath, right IJ dual-lumen catheter, enteric tube. Lungs: Low left lung volume. Improved aeration of the left upper lung. Left upper lung opacities. Pleura: Moderate to large left and small right pleural effusions. Heart and Mediastinum: Stable cardiac mediastinal silhouette and great vessels. IMPRESSION: 1. Stable life support devices. 2. Slightly improved in aeration of the left upper lung. Left upper lung hazy opacities. 2. Moderate to large left and small right pleural effusions. Electronically signed by: Bill Mcintosh MD (03/03/2021 4:13 PM) [facility]
[2021-03-03] MEDS: FINASTERIDE 5 MG TABLET. PO SCH (21:31)
[2021-03-04] VITALS (24 sets, daily range): BP systolic 80–116; BP diastolic 40–67
[2021-03-04 06:56] LABS: BASO % 0 % (0-3); EOS % 0 % (0-3); HEMATOCRIT 25.1 % (39.0-53.0); HEMOGLOBIN 8.1 g/dL (13.0-17.5); LYMPH # 0.9 x10^3/uL (1.0-4.8); LYMPH % 4 % (24-48); MEAN CORPUSCULAR HEMOGLOBIN 29 pg (25-35); MEAN CORPUSCULAR HGB CONC 32 g/dL (31-37); MEAN CORPUSCULAR VOLUME 89 fL (79-100); MONO # 2.3 x10^3/uL (0.0-1.1); MONO % 11 % (0-9); NEUT # 17.4 x10^3/uL (1.8-7.7); NEUT % 85 % (31-73); PLATELET COUNT 175 x10^3/uL (140-400); RED BLOOD COUNT 2.81 x10^6/uL (4.30-5.70); RED CELL DISTRIBUTION WIDTH 17.8 % (11.5-14.5); WHITE BLOOD COUNT 20.6 x10^3/uL (4.0-11.0)
[2021-03-04 07:27] LABS: ALBUMIN 1.3 g/dL (3.4-5.0); ALBUMIN/GLOBULIN RATIO 0.3 (1.0-1.7); CALCIUM 9.4 mg/dL (8.5-10.1); CREATININE 1.9 mg/dL (0.7-1.3); POTASSIUM 5.2 mmol/L (3.5-5.1); TOTAL BILIRUBIN 0.7 mg/dL (0.2-1.0); TOTAL PROTEIN 5.3 g/dL (6.4-8.2)
[2021-03-04] MEDS: BUDESONIDE 0.5 MG/2 ML NEBU. NEB SCH ×2 (08:18→20:00)
[2021-03-04] MEDS: IPRATRPIUM/ALBUTEROL 0.5/2.5MG 3 ML NEBU. NEB SCH ×2 (08:18→21:00)
--- NOTE | 2021-03-04 08:33 | PDOC ---
Infectious Disease Note Subjective Subjective Remains on vent awake ROS ROS Nausea vomiting diarrhea Vital Sign Vital Signs Vital Signs Date Time Temp Pulse Resp B/P (MAP) Pulse Ox O2 Delivery O2 Flow Rate FiO2 03/04/21 08:18 100 Ventilator 03/04/21 06:00 94 22 105/57 (73) 03/04/21 04:00 99.3 99.3 Physical Exam PHYSICAL EXAM GENERAL: Awake gentleman, on a ventilator, not in distress. VITAL SIGNS: stable HEENT: Both pupils are round and reacting. No conjunctival lesion. No lesion in the mouth. NECK: Supple, no JVP, tracheostomy in place. LUNGS: Clear. HEART: S1, S2 regular. ABDOMEN: Soft, nontender, no organomegaly. EXTREMITIES: No edema, cyanosis. SKIN: Some minor sacrococcygeal breakdown present. Rest of the skin exam is unremarkable. PICC line site is unremarkable. Hemodialysis catheter has been placed yesterday. NEUROLOGIC: The patient is awake, but on a ventilator, unable to architectural modeler the full neuro status. Labs Lab Laboratory Tests Test 03/03/21 12:18 03/04/21 01:14 03/04/21 05:45 03/04/21 05:57 Glucose (Fingerstick) 129 mg/dL (70-99) 110 mg/dL (70-99) 99 mg/dL (70-99) White Blood Count 20.6 x10^3/uL (4.0-11.0) Red Blood Count 2.81 x10^6/uL (4.30-5.70) Hemoglobin 8.1 g/dL (13.0-17.5) Hematocrit 25.1 % (39.0-53.0) Mean Corpuscular Volume 89 fL (79-100) Mean Corpuscular Hemoglobin 29 pg (25-35) Mean Corpuscular Hemoglobin Concent 32 g/dL (31-37) Red Cell Distribution Width 17.8 % (11.5-14.5) Platelet Count 175 x10^3/uL (140-400) Neutrophils (%) (Auto) 85 % (31-73) Lymphocytes (%) (Auto) 4 % (24-48) Monocytes (%) (Auto) 11 % (0-9) Eosinophils (%) (Auto) 0 % (0-3) Basophils (%) (Auto) 0 % (0-3) Neutrophils # (Auto) 17.4 x10^3/uL (1.8-7.7) Lymphocytes # (Auto) 0.9 x10^3/uL (1.0-4.8) Monocytes # (Auto) 2.3 x10^3/uL (0.0-1.1) Eosinophils # (Auto) 0.0 x10^3/uL (0.0-0.7) Basophils # (Auto) 0.0 x10^3/uL (0.0-0.2) Sodium Level 136 mmol/L (136-145) Potassium Level 5.2 mmol/L (3.5-5.1) Chloride Level 103 mmol/L (98-107) Carbon Dioxide Level 28 mmol/L (21-32) Anion Gap 5 (6-14) Blood Urea Nitrogen 52 mg/dL (8-26) Creatinine 1.9 mg/dL (0.7-1.3) Estimated GFR (Cockcroft-Gault) 43.0 BUN/Creatinine Ratio 27 (6-20) Glucose Level 94 mg/dL (70-99) Calcium Level 9.4 mg/dL (8.5-10.1) Total Bilirubin 0.7 mg/dL (0.2-1.0) Aspartate Amino Transf (AST/SGOT) 18 U/L (15-37) Alanine Aminotransferase (ALT/SGPT) 37 U/L (16-63) Alkaline Phosphatase 168 U/L (46-116) Total Protein 5.3 g/dL (6.4-8.2) Albumin 1.3 g/dL (3.4-5.0) Albumin/Globulin Ratio 0.3 (1.0-1.7) Micro BC E coli, from [facility] neg here Objective Assessment 1. Gram-negative soren bacteremia. E coli 2. Third-degree heart block. 3. Chronic respiratory failure. 4. Tracheostomy and PEG tube. 5. Acute renal failure. 6. Lung cancer, status post lobectomy. 7. Chronic obstructive pulmonary disease. 8. Anemia. 9. Leucocytosis multifactorial Plan Plan of Care cont Merrem cont supportive care Prognosis poor And is DNR JHON LANG MD Mar 04, 2021 08:33
[2021-03-04] MEDS: MEROPENEM 1 GM in IV NORMAL SALINE 100ML 100 ML IV SCH ×2 (09:39→20:36)
[2021-03-04] MEDS: PANTOPRAZOLE IV PUSH 40 MG VIAL. IVP SCH (09:39)
[2021-03-04] MEDS: AMIODARONE HCL 200 MG TABLET. PO SCH (09:40)
[2021-03-04] MEDS: CETIRIZINE HCL 10 MG TABLET. PO SCH (09:40)
[2021-03-04] MEDS: TAMSULOSIN 0.4 MG CAP.ER.24H. PO SCH ×2 (09:40→20:35)
[2021-03-04] MEDS: LORazepam 0.5 MG TABLET PO PRN ×2 (09:40→23:23)
--- NOTE | 2021-03-04 09:45 | RAD ---
XR CHEST 1V INDICATION: rf . COMPARISON STUDY: 03/03/2021. FINDINGS: Life Support Devices: Stable endotracheal tube, enteric tube, right IJ central venous catheter, right IJ Port-A-Cath. Lungs: Normal lung volume. Stable left lung opacities. Pleura: Stable moderate to large left and small right pleural effusions. Heart and Mediastinum: Stable cardiomediastinal silhouette and great vessels. Bones and Soft Tissues: Stable regional skeleton and soft tissues. IMPRESSION: 1. Stable Life support devices. 2. Stable moderate to large left pleural effusion and left lung opacities. Small right pleural effusi on. Electronically signed by: Bill Mcintosh MD (03/04/2021 9:42 AM) [id number]
--- NOTE | 2021-03-04 11:40 | PDOC ---
PULMONARY PROGRESS NOTES DATE: 03/04/21 TIME: 11:37 Subjective Patient sleepy but arousable, tolerating pressure support for short time throughout the day. Vitals Vital Signs Date Time Temp Pulse Resp B/P (MAP) Pulse Ox O2 Delivery O2 Flow Rate FiO2 03/04/21 11:00 100 26 82/44 (57) 100 Ventilator 03/04/21 08:00 99.0 99.0 General: Alert, No acute distress Lungs: Other (Decreased breath sounds left lung) Cardiovascular: S1, S2 Abdomen: Soft Neuro Exam: Alert Extremities: Other (2+ edema) Skin: Warm Labs Laboratory Tests Test 03/02/21 12:51 03/02/21 19:16 03/02/21 22:34 03/03/21 06:00 Glucose (Fingerstick) 106 mg/dL (70-99) 115 mg/dL (70-99) 113 mg/dL (70-99) White Blood Count 19.3 x10^3/uL (4.0-11.0) Red Blood Count 2.41 x10^6/uL (4.30-5.70) Hemoglobin 6.9 g/dL (13.0-17.5) Hematocrit 21.4 % (39.0-53.0) Mean Corpuscular Volume 89 fL (79-100) Mean Corpuscular Hemoglobin 29 pg (25-35) Mean Corpuscular Hemoglobin Concent 32 g/dL (31-37) Red Cell Distribution Width 18.6 % (11.5-14.5) Platelet Count 154 x10^3/uL (140-400) Neutrophils (%) (Auto) 88 % (31-73) Lymphocytes (%) (Auto) 2 % (24-48) Monocytes (%) (Auto) 10 % (0-9) Eosinophils (%) (Auto) 0 % (0-3) Basophils (%) (Auto) 0 % (0-3) Neutrophils # (Auto) 17.0 x10^3/uL (1.8-7.7) Lymphocytes # (Auto) 0.4 x10^3/uL (1.0-4.8) Monocytes # (Auto) 1.9 x10^3/uL (0.0-1.1) Eosinophils # (Auto) 0.0 x10^3/uL (0.0-0.7) Basophils # (Auto) 0.0 x10^3/uL (0.0-0.2) Sodium Level 136 mmol/L (136-145) Potassium Level 4.7 mmol/L (3.5-5.1) Chloride Level 104 mmol/L (98-107) Carbon Dioxide Level 28 mmol/L (21-32) Anion Gap 4 (6-14) Blood Urea Nitrogen 54 mg/dL (8-26) Creatinine 2.0 mg/dL (0.7-1.3) Estimated GFR (Cockcroft-Gault) 40.5 BUN/Creatinine Ratio 27 (6-20) Glucose Level 135 mg/dL (70-99) Calcium Level 9.0 mg/dL (8.5-10.1) Total Bilirubin 0.6 mg/dL (0.2-1.0) Aspartate Amino Transf (AST/SGOT) 8 U/L (15-37) Alanine Aminotransferase (ALT/SGPT) 27 U/L (16-63) Alkaline Phosphatase 153 U/L (46-116) Total Protein 4.8 g/dL (6.4-8.2) Albumin 1.2 g/dL (3.4-5.0) Albumin/Globulin Ratio 0.3 (1.0-1.7) Test 03/03/21 06:06 03/03/21 08:23 03/03/21 12:18 03/04/21 01:14 Glucose (Fingerstick) 141 mg/dL (70-99) 129 mg/dL (70-99) 110 mg/dL (70-99) O2 Saturation 93 % (92-99) Arterial Blood pH 7.46 (7.35-7.45) Arterial Blood pCO2 at Patient Temp 36 mmHg (35-46) Arterial Blood pO2 at Patient Temp 63 mmHg (65-108) Arterial Blood HCO3 25 mmol/L (21-28) Arterial Blood Base Excess 1 mmol/L (-3-3) FiO2 40% vent Test 03/04/21 05:45 03/04/21 05:57 White Blood Count 20.6 x10^3/uL (4.0-11.0) Red Blood Count 2.81 x10^6/uL (4.30-5.70) Hemoglobin 8.1 g/dL (13.0-17.5) Hematocrit 25.1 % (39.0-53.0) Mean Corpuscular Volume 89 fL (79-100) Mean Corpuscular Hemoglobin 29 pg (25-35) Mean Corpuscular Hemoglobin Concent 32 g/dL (31-37) Red Cell Distribution Width 17.8 % (11.5-14.5) Platelet Count 175 x10^3/uL (140-400) Neutrophils (%) (Auto) 85 % (31-73) Lymphocytes (%) (Auto) 4 % (24-48) Monocytes (%) (Auto) 11 % (0-9) Eosinophils (%) (Auto) 0 % (0-3) Basophils (%) (Auto) 0 % (0-3) Neutrophils # (Auto) 17.4 x10^3/uL (1.8-7.7) Lymphocytes # (Auto) 0.9 x10^3/uL (1.0-4.8) Monocytes # (Auto) 2.3 x10^3/uL (0.0-1.1) Eosinophils # (Auto) 0.0 x10^3/uL (0.0-0.7) Basophils # (Auto) 0.0 x10^3/uL (0.0-0.2) Sodium Level 136 mmol/L (136-145) Potassium Level 5.2 mmol/L (3.5-5.1) Chloride Level 103 mmol/L (98-107) Carbon Dioxide Level 28 mmol/L (21-32) Anion Gap 5 (6-14) Blood Urea Nitrogen 52 mg/dL (8-26) Creatinine 1.9 mg/dL (0.7-1.3) Estimated GFR (Cockcroft-Gault) 43.0 BUN/Creatinine Ratio 27 (6-20) Glucose Level 94 mg/dL (70-99) Calcium Level 9.4 mg/dL (8.5-10.1) Total Bilirubin 0.7 mg/dL (0.2-1.0) Aspartate Amino Transf (AST/SGOT) 18 U/L (15-37) Alanine Aminotransferase (ALT/SGPT) 37 U/L (16-63) Alkaline Phosphatase 168 U/L (46-116) Total Protein 5.3 g/dL (6.4-8.2) Albumin 1.3 g/dL (3.4-5.0) Albumin/Globulin Ratio 0.3 (1.0-1.7) Glucose (Fingerstick) 99 mg/dL (70-99) Laboratory Tests Test 03/03/21 12:18 03/04/21 01:14 03/04/21 05:45 03/04/21 05:57 Glucose (Fingerstick) 129 mg/dL (70-99) 110 mg/dL (70-99) 99 mg/dL (70-99) White Blood Count 20.6 x10^3/uL (4.0-11.0) Red Blood Count 2.81 x10^6/uL (4.30-5.70) Hemoglobin 8.1 g/dL (13.0-17.5) Hematocrit 25.1 % (39.0-53.0) Mean Corpuscular Volume 89 fL (79-100) Mean Corpuscular Hemoglobin 29 pg (25-35) Mean Corpuscular Hemoglobin Concent 32 g/dL (31-37) Red Cell Distribution Width 17.8 % (11.5-14.5) Platelet Count 175 x10^3/uL (140-400) Neutrophils (%) (Auto) 85 % (31-73) Lymphocytes (%) (Auto) 4 % (24-48) Monocytes (%) (Auto) 11 % (0-9) Eosinophils (%) (Auto) 0 % (0-3) Basophils (%) (Auto) 0 % (0-3) Neutrophils # (Auto) 17.4 x10^3/uL (1.8-7.7) Lymphocytes # (Auto) 0.9 x10^3/uL (1.0-4.8) Monocytes # (Auto) 2.3 x10^3/uL (0.0-1.1) Eosinophils # (Auto) 0.0 x10^3/uL (0.0-0.7) Basophils # (Auto) 0.0 x10^3/uL (0.0-0.2) Sodium Level 136 mmol/L (136-145) Potassium Level 5.2 mmol/L (3.5-5.1) Chloride Level 103 mmol/L (98-107) Carbon Dioxide Level 28 mmol/L (21-32) Anion Gap 5 (6-14) Blood Urea Nitrogen 52 mg/dL (8-26) Creatinine 1.9 mg/dL (0.7-1.3) Estimated GFR (Cockcroft-Gault) 43.0 BUN/Creatinine Ratio 27 (6-20) Glucose Level 94 mg/dL (70-99) Calcium Level 9.4 mg/dL (8.5-10.1) Total Bilirubin 0.7 mg/dL (0.2-1.0) Aspartate Amino Transf (AST/SGOT) 18 U/L (15-37) Alanine Aminotransferase (ALT/SGPT) 37 U/L (16-63) Alkaline Phosphatase 168 U/L (46-116) Total Protein 5.3 g/dL (6.4-8.2) Albumin 1.3 g/dL (3.4-5.0) Albumin/Globulin Ratio 0.3 (1.0-1.7) Medications Active Scripts Medications Dose Route/Sig Max Daily Dose Days Date Category Prednisone 5 Mg Tablet 5 Mg PO DAILY 12/12/20 Reported Duoneb 0.5-3(2.5) Mg/3 Ml (Albuterol/Ipratropium) 3 Ml Ampul.neb 3 Ml NEB BID 12/12/20 Reported Claritin (Loratadine) 10 Mg Capsule 1 Cap PO DAILY 30 12/12/20 Reported Metoprolol Tartrate 50 Mg Tablet 1 Tab PO BID 12/12/20 Reported Melatonin 3 Mg Tablet.er 6 Mg PO HS 12/12/20 Reported Guaifenesin 100 Mg/5 Ml Liquid 400 Mg PO TID 12/12/20 Reported [colace liquid ] 100 Mg GT HS 12/12/20 Reported Eliquis (Apixaban) 5 Mg Tablet 5 Mg PO BID 12/12/20 Reported Trazodone Hcl 50 Mg Tablet 1 Tab PO QHS 11/16/20 Reported Protonix (Pantoprazole Sodium) 40 Mg Tablet.dr 40 Mg PO DAILYAC 11/16/20 Reported Daily Value (Multivitamin) 1 Each Tablet 1 Tab PO DAILY 30 11/16/20 Reported Melatonin 5 Mg/15 Ml Liquid 5 Mg PO HS 11/16/20 Reported Heparin 1,000 Unit/10 (100/ml) (Heparin Sodium,Porcine/Pf) 1,000 Unit/10 Ml Syringe 1,400 Unit IV 3X/WEEK 11/16/20 Reported Folic Acid 0.8 Mg Capsule 1 Cap PO DAILY 30 11/16/20 Reported Zetia (Ezetimibe) 10 Mg Tablet 1 Tab PO DAILY 30 11/16/20 Reported Amiodarone Hcl 200 Mg Tablet 1 Tab PO DAILY 11/16/20 Reported Iron (Ferrous Sulfate) 325 Mg Tablet 975 Mg PO DAILY 03/18/18 Reported Advair 500-50 Diskus (Fluticasone/Salmeterol) 1 Each Disk.w.dev 1 Puff IH BID 12/02/14 Reported Finasteride 5 Mg Tablet 1 Tab PO HS 12/02/14 Reported Impression . IMPRESSION: 1. Acute on chronic respiratory failure multifactorial 2. Septic shock 3. Third-degree AV block 4. Adenocarcinoma of the lung 5. Chronic respiratory failure with ventilator dependence with chronic tracheostomy. 6. Acute kidney injury with markedly elevated BUN and creatinine and hy perkalemia.Patient has one kidney. 7. Acute drop in hemoglobin 8. Abnormal chest x-ray with marked volume loss on the left lung. Combination of lung cancer, postobstructive atelectasis and pleural effusion 9. E-Coli bacteremia Plan . Updated 03/04 Currently on meropenem per ID Continue pressure support as tolerated throughout the day Monitor H&H KLAUDIA globin today 8.1 ABG from 5 was noted Chest x-ray reviewed moderate to large left-sided effusion, will discuss with interventional radiologist Total cumulative critical care time of approximately 30 minutes with no overlap Updated 03/03 We will monitor chest x-ray for further opacification of left lung Patient is DNR Continue current support Monitor hemoglobin hematocrit Monitor off of antibiotics Pressure support trials throughout the day updated 03/02 Patient oxygenating well, will discuss with RT, aggressive pulmonary hygiene, aggressive suctioning Discussed with RN will attempt pressure support trial Continue current support Hemoglobin 7.9 today ABG noted PaO2 108 Monitor off of antibiotics VIRGIL RODRIGUEZ MD Mar 04, 2021 11:40
--- NOTE | 2021-03-04 12:20 | PDOC ---
PROGRESS NOTES Date of Service DATE: 03/04/21 TIME: 12:17 Subjective Subjective SEEN IN FOLLOW UP OF ARF Objective Objective Vital Signs Date Time Temp Pulse Resp B/P (MAP) Pulse Ox O2 Delivery O2 Flow Rate FiO2 03/04/21 12:08 100 Ventilator 03/04/21 11:00 100 26 82/44 (57) 03/04/21 08:00 99.0 99.0 02/27/21 13:12 40.0 Intake and Output 03/04/21 07:00 Intake Total 3405 ml Output Total 1220 ml Balance 2185 ml Intake IV Total 759 ml Tube Feeding 1704 ml Blood Product IV Normal Saline Flush 322 ml Other 620 ml Output Urine Total 1220 ml # Voids 3 Physical Exam Heart: Regular rate, Normal S1, Normal S2, No murmurs, Gallops Extremities: No clubbing, No cyanosis, No edema, Normal pulses, No tenderness/swelling General: Other (SEDATED) Lungs: Clear to auscultation, Normal air movement, Other (ON VENT PER TRACHEOSTOMY) Neuro: Other (SEDATED) Assessment Assessment Problems Medical Problems: (1) Acute hyperkalemia Status: Acute (2) Acute renal failure Status: Acute (3) Anemia Status: Acute (4) Third degree heart block Status: Acute Plan Plan of Care RENAL FUNCTION IS STABLE. NO FURTHER HYPERKALEMIA. CONT FLUID BALANCE AND TREND LAB Comment Review of Relevant I have reviewed the following items kae (where applicable) has been applied. Labs Laboratory Tests Test 03/02/21 12:51 03/02/21 19:16 03/02/21 22:34 03/03/21 06:00 Glucose (Fingerstick) 106 mg/dL (70-99) 115 mg/dL (70-99) 113 mg/dL (70-99) White Blood Count 19.3 x10^3/uL (4.0-11.0) Red Blood Count 2.41 x10^6/uL (4.30-5.70) Hemoglobin 6.9 g/dL (13.0-17.5) Hematocrit 21.4 % (39.0-53.0) Mean Corpuscular Volume 89 fL (79-100) Mean Corpuscular Hemoglobin 29 pg (25-35) Mean Corpuscular Hemoglobin Concent 32 g/dL (31-37) Red Cell Distribution Width 18.6 % (11.5-14.5) Platelet Count 154 x10^3/uL (140-400) Neutrophils (%) (Auto) 88 % (31-73) Lymphocytes (%) (Auto) 2 % (24-48) Monocytes (%) (Auto) 10 % (0-9) Eosinophils (%) (Auto) 0 % (0-3) Basophils (%) (Auto) 0 % (0-3) Neutrophils # (Auto) 17.0 x10^3/uL (1.8-7.7) Lymphocytes # (Auto) 0.4 x10^3/uL (1.0-4.8) Monocytes # (Auto) 1.9 x10^3/uL (0.0-1.1) Eosinophils # (Auto) 0.0 x10^3/uL (0.0-0.7) Basophils # (Auto) 0.0 x10^3/uL (0.0-0.2) Sodium Level 136 mmol/L (136-145) Potassium Level 4.7 mmol/L (3.5-5.1) Chloride Level 104 mmol/L (98-107) Carbon Dioxide Level 28 mmol/L (21-32) Anion Gap 4 (6-14) Blood Urea Nitrogen 54 mg/dL (8-26) Creatinine 2.0 mg/dL (0.7-1.3) Estimated GFR (Cockcroft-Gault) 40.5 BUN/Creatinine Ratio 27 (6-20) Glucose Level 135 mg/dL (70-99) Calcium Level 9.0 mg/dL (8.5-10.1) Total Bilirubin 0.6 mg/dL (0.2-1.0) Aspartate Amino Transf (AST/SGOT) 8 U/L (15-37) Alanine Aminotransferase (ALT/SGPT) 27 U/L (16-63) Alkaline Phosphatase 153 U/L (46-116) Total Protein 4.8 g/dL (6.4-8.2) Albumin 1.2 g/dL (3.4-5.0) Albumin/Globulin Ratio 0.3 (1.0-1.7) Test 03/03/21 06:06 03/03/21 08:23 03/03/21 12:18 03/04/21 01:14 Glucose (Fingerstick) 141 mg/dL (70-99) 129 mg/dL (70-99) 110 mg/dL (70-99) O2 Saturation 93 % (92-99) Arterial Blood pH 7.46 (7.35-7.45) Arterial Blood pCO2 at Patient Temp 36 mmHg (35-46) Arterial Blood pO2 at Patient Temp 63 mmHg (65-108) Arterial Blood HCO3 25 mmol/L (21-28) Arterial Blood Base Excess 1 mmol/L (-3-3) FiO2 40% vent Test 03/04/21 05:45 03/04/21 05:57 White Blood Count 20.6 x10^3/uL (4.0-11.0) Red Blood Count 2.81 x10^6/uL (4.30-5.70) Hemoglobin 8.1 g/dL (13.0-17.5) Hematocrit 25.1 % (39.0-53.0) Mean Corpuscular Volume 89 fL (79-100) Mean Corpuscular Hemoglobin 29 pg (25-35) Mean Corpuscular Hemoglobin Concent 32 g/dL (31-37) Red Cell Distribution Width 17.8 % (11.5-14.5) Platelet Count 175 x10^3/uL (140-400) Neutrophils (%) (Auto) 85 % (31-73) Lymphocytes (%) (Auto) 4 % (24-48) Monocytes (%) (Auto) 11 % (0-9) Eosinophils (%) (Auto) 0 % (0-3) Basophils (%) (Auto) 0 % (0-3) Neutrophils # (Auto) 17.4 x10^3/uL (1.8-7.7) Lymphocytes # (Auto) 0.9 x10^3/uL (1.0-4.8) Monocytes # (Auto) 2.3 x10^3/uL (0.0-1.1) Eosinophils # (Auto) 0.0 x10^3/uL (0.0-0.7) Basophils # (Auto) 0.0 x10^3/uL (0.0-0.2) Sodium Level 136 mmol/L (136-145) Potassium Level 5.2 mmol/L (3.5-5.1) Chloride Level 103 mmol/L (98-107) Carbon Dioxide Level 28 mmol/L (21-32) Anion Gap 5 (6-14) Blood Urea Nitrogen 52 mg/dL (8-26) Creatinine 1.9 mg/dL (0.7-1.3) Estimated GFR (Cockcroft-Gault) 43.0 BUN/Creatinine Ratio 27 (6-20) Glucose Level 94 mg/dL (70-99) Calcium Level 9.4 mg/dL (8.5-10.1) Total Bilirubin 0.7 mg/dL (0.2-1.0) Aspartate Amino Transf (AST/SGOT) 18 U/L (15-37) Alanine Aminotransferase (ALT/SGPT) 37 U/L (16-63) Alkaline Phosphatase 168 U/L (46-116) Total Protein 5.3 g/dL (6.4-8.2) Albumin 1.3 g/dL (3.4-5.0) Albumin/Globulin Ratio 0.3 (1.0-1.7) Glucose (Fingerstick) 99 mg/dL (70-99) Laboratory Tests Test 03/04/21 01:14 03/04/21 05:45 03/04/21 05:57 Glucose (Fingerstick) 110 mg/dL (70-99) 99 mg/dL (70-99) White Blood Count 20.6 x10^3/uL (4.0-11.0) Red Blood Count 2.81 x10^6/uL (4.30-5.70) Hemoglobin 8.1 g/dL (13.0-17.5) Hematocrit 25.1 % (39.0-53.0) Mean Corpuscular Volume 89 fL (79-100) Mean Corpuscular Hemoglobin 29 pg (25-35) Mean Corpuscular Hemoglobin Concent 32 g/dL (31-37) Red Cell Distribution Width 17.8 % (11.5-14.5) Platelet Count 175 x10^3/uL (140-400) Neutrophils (%) (Auto) 85 % (31-73) Lymphocytes (%) (Auto) 4 % (24-48) Monocytes (%) (Auto) 11 % (0-9) Eosinophils (%) (Auto) 0 % (0-3) Basophils (%) (Auto) 0 % (0-3) Neutrophils # (Auto) 17.4 x10^3/uL (1.8-7.7) Lymphocytes # (Auto) 0.9 x10^3/uL (1.0-4.8) Monocytes # (Auto) 2.3 x10^3/uL (0.0-1.1) Eosinophils # (Auto) 0.0 x10^3/uL (0.0-0.7) Basophils # (Auto) 0.0 x10^3/uL (0.0-0.2) Sodium Level 136 mmol/L (136-145) Potassium Level 5.2 mmol/L (3.5-5.1) Chloride Level 103 mmol/L (98-107) Carbon Dioxide Level 28 mmol/L (21-32) Anion Gap 5 (6-14) Blood Urea Nitrogen 52 mg/dL (8-26) Creatinine 1.9 mg/dL (0.7-1.3) Estimated GFR (Cockcroft-Gault) 43.0 BUN/Creatinine Ratio 27 (6-20) Glucose Level 94 mg/dL (70-99) Calcium Level 9.4 mg/dL (8.5-10.1) Total Bilirubin 0.7 mg/dL (0.2-1.0) Aspartate Amino Transf (AST/SGOT) 18 U/L (15-37) Alanine Aminotransferase (ALT/SGPT) 37 U/L (16-63) Alkaline Phosphatase 168 U/L (46-116) Total Protein 5.3 g/dL (6.4-8.2) Albumin 1.3 g/dL (3.4-5.0) Albumin/Globulin Ratio 0.3 (1.0-1.7) Microbiology 02/27/21 Urine Culture - Final, Complete 02/27/21 Blood Culture - Preliminary, Resulted NO GROWTH AFTER 4 DAYS Medications Current Medications Atropine Sulfate (ATROPINE 0.5mg SYRINGE) 0.5 mg 1X ONCE IV Last administered on 02/27/21at 10:34; Start 02/27/21 at 10:30; Stop 02/27/21 at 10:31; Status DC Dopamine HCl/ Dextrose 250 ml @ 7.65 mls/hr 1X ONCE IV Last administered on 02/27/21at 11:26; Start 02/27/21 at 11:00; Stop 02/27/21 at 17:48; Status DC Atropine Sulfate (ATROPINE 0.5mg SYRINGE) 0.5 mg 1X ONCE IV Last administered on 02/27/21at 11:08; Start 02/27/21 at 11:00; Stop 02/27/21 at 11:01; Status DC Fentanyl Citrate (Fentanyl 2ml Vial) 75 mcg 1X ONCE IVP ; Start 02/27/21 at 11:15; Stop 02/27/21 at 11:16; Status DC Dextrose (Dextrose 50%-Water Syringe) 25 gm STK-MED ONCE IV ; Start 02/27/21 at 11:13; Stop 02/27/21 at 11:13; Status DC Calcium Gluconate (Calcium Gluconate) 1,000 mg STK-MED ONCE .ROUTE ; Start 02/27/21 at 11:15; Stop 02/27/21 at 11:15; Status DC Calcium Gluconate (Calcium Gluconate) 2,000 mg 1X ONCE IVP Last administered on 02/27/21at 11:22; Start 02/27/21 at 12:00; Stop 02/27/21 at 12:01; Status DC Insulin Human Regular (HumuLIN R VIAL) 10 unit 1X ONCE IV Last administered on 02/27/21at 11:33; Start 02/27/21 at 12:00; Stop 02/27/21 at 12:01; Status DC Dextrose (Dextrose 50%-Water Syringe) 25 gm 1X ONCE IV Last administered on 02/27/21at 11:32; Start 02/27/21 at 12:00; Stop 02/27/21 at 12:01; Status DC Glucagon (Glucagen) 5 mg 1X ONCE IV ; Start 02/27/21 at 12:15; Stop 02/27/21 at 12:15; Status DC Ondansetron HCl (Zofran) 4 mg PRN Q6HRS PRN IVP NAUSEA/VOMITING; Start 02/27/21 at 12:00 Famotidine (Pepcid Vial) 20 mg BID IVP Last administered on 02/28/21at 10:36; Start 02/27/21 at 13:00; Stop 02/28/21 at 15:55; Status DC Sodium Chloride (Normal Saline Flush) 3 ml QSHIFT PRN IV AFTER MEDS AND BLOOD DRAWS; Start 02/27/21 at 12:00 Meropenem 1 gm/ Sodium Chloride 100 ml @ 200 mls/hr Q8HRS IV Last administered on 02/27/21at 21:29; Start 02/27/21 at 15:00; Stop 02/27/21 at 21:00; Status DC Vancomycin HCl (Vanco Per Pharmacy) 1 each PRN DAILY PRN MC SEE COMMENTS Last administered on 02/27/21at 15:09; Start 02/27/21 at 12:15; Stop 02/28/21 at 06:45; Status DC Vancomycin HCl 2 gm/Sodium Chloride 500 ml @ 250 mls/hr 1X ONCE IV Last administered on 02/27/21at 18:10; Start 02/27/21 at 13:00; Stop 02/27/21 at 14:59; Status DC Lidocaine HCl (Buffered Lidocaine 1%) 3 ml STK-MED ONCE .ROUTE ; Start 02/27/21 at 12:57; Stop 02/27/21 at 12:57; Status DC Lidocaine HCl (Buffered Lidocaine 1%) 6 ml 1X ONCE INJ Last administered on 02/27/21at 13:15; Start 02/27/21 at 13:15; Stop 02/27/21 at 13:16; Status DC Sodium Chloride 1,000 ml @ 1,000 mls/hr Q1H PRN IV hypotension; Start 02/27/21 at 14:30; Stop 02/27/21 at 20:29; Status DC Albumin Human 200 ml @ 200 mls/hr 1X PRN PRN IV Hypotension; Start 02/27/21 at 14:30; Stop 02/27/21 at 20:29; Status DC Sodium Chloride (Normal Saline Flush) 10 ml 1X PRN PRN IV AP catheter pack; Start 02/27/21 at 14:30; Stop 02/28/21 at 14:29; Status DC Sodium Chloride (Normal Saline Flush) 10 ml 1X PRN PRN IV [employer] catheter pack; Start 02/27/21 at 14:30; Stop 02/28/21 at 14:29; Status DC Sodium Chloride 1,000 ml @ 400 mls/hr Q2H30M PRN IV PATENCY; Start 02/27/21 at 14:30; Stop 02/28/21 at 02:29; Status DC Info (PHARMACY MONITORING -- do not chart) 1 each PRN DAILY PRN MC SEE COMMENTS; Start 02/27/21 at 14:30; Status UNV Info (PHARMACY MONITORING -- do not chart) 1 each PRN DAILY PRN MC SEE COMMENTS; Start 02/27/21 at 14:30 Meropenem 1 gm/ Sodium Chloride 100 ml @ 200 mls/hr Q12HR IV Last administered on 03/04/21 09:39; Start 02/28/21 at 09:00 Dopamine HCl/ Dextrose 250 ml @ 19.163 mls/ hr CONT PRN IV SEE I/O RECORD Last administered on 02/28/21at 09:59; Start 02/27/21 at 18:00 Sodium Bicarbonate 50 meq/Dextrose 1,050 ml @ 125 mls/hr 1X ONCE IV Last administered on 02/28/21at 11:57; Start 02/28/21 at 12:00; Stop 02/28/21 at 20:23; Status DC Pantoprazole Sodium (PROTONIX VIAL for IV PUSH) 40 mg DAILYAC IVP Last administered on 03/04/21at 09:39; Start 03/01/21 at 07:30 Norepinephrine Bitartrate 8 mg/ Dextrose 258 ml @ 17.993 mls/ hr CONT PRN IV PER PROTOCOL Last administered on 03/01/21 06:16; Start 02/28/21 at 16:45 Albuterol/ Ipratropium (Duoneb) 3 ml BID NEB Last administered on 03/04/21 08:18; Start 03/01/21 at 21:00 Budesonide (Pulmicort) 0.5 mg RTBID NEB Last administered on 03/04/21 08:18; Start 03/01/21 at 20:00 Albuterol Sulfate (Ventolin Neb Soln) 2.5 mg PRN Q4HRS PRN NEB SHORTNESS OF BREATH Last administered on 03/02/21 05:40; Start 03/01/21 at 15:00 Acetaminophen (Tylenol) 650 mg PRN Q6HRS PRN PO MILD PAIN / TEMP > 100.3'F Last administered on 03/02/21 19:31; Start 03/01/21 at 15:00 Guaifenesin (Robitussin) 200 mg PRN Q4HRS PRN PO COUGH Last administered on 03/02/21 22:47; Start 03/01/21 at 23:15 Phenol (Chloraseptic) 1 spray PRN Q2HR PRN PO SORE THROAT Last administered on 03/03/21 03:48; Start 03/02/21 at 01:15 Dextrose (Dextrose 50%-Water Syringe) 12.5 gm PRN Q15MIN PRN IV SEE COMMENTS Last administered on 03/02/21 07:15; Start 03/02/21 at 07:15 Finasteride (Proscar) 5 mg HS PO Last administered on 03/03/21 21:31; Start 03/02/21 at 21:00 Tamsulosin HCl (Flomax) 0.4 mg BID PO Last administered on 03/04/21 09:40; Start 03/02/21 at 10:00 Lorazepam (Ativan) 0.5 mg PRN Q8HRS PRN PO ANXIETY / AGITATION Last administered on 03/04/21 09:40; Start 03/02/21 at 09:30 Olanzapine (ZyPREXA ZYDIS) 5 mg PRN BID PRN PO ANXIETY / AGITATION Last administered on 03/04/21 09:39; Start 03/02/21 at 10:30 Amiodarone HCl (Cordarone) 200 mg DAILY PO Last administered on 03/04/21 09:40; Start 03/02/21 at 11:00 Cetirizine HCl (ZyrTEC) 10 mg DAILY PO Last administered on 03/04/21 09:40; Start 03/02/21 at 11:00 Dextrose/Sodium Chloride 1,000 ml @ 50 mls/hr Q20H IV Last administered on 03/03/21 03:48; Start 03/02/21 at 10:45; Stop 03/04/21 at 02:44; Status DC Amiodarone HCl (Cordarone) 200 mg DAILY PO ; Start 03/03/21 at 09:00; Status UNV Active Scripts Active Reported Loratadine 10 Mg Tablet 1 Tab PO PRN 1-2XD PRN Hydrocodone-Apap 5-325 (Hydrocodone Bit/Acetaminophen) 1 Tab Tablet 1 Tab PO PRN Q4HRS PRN Silace (Docusate Sodium) 50 Mg/5 Ml Liquid 50 Mg PO HS Ferrous Sulfate 220 Mg/5 Ml Solution 5 Ml PO BID 30 Days Alprazolam 0.5 Mg Tablet 1 Tab PO TID Flomax (Tamsulosin Hcl) 0.4 Mg Cap.er.24h 1 Cap PO BID Metoprolol Tartrate 25 Mg Tablet 0.5 Tab PO BID Magnesium Oxide 400 Mg Tablet 1 Tab PO DAILY Prednisone 5 Mg Tablet 5 Mg PO DAILY Duoneb 0.5-3(2.5) Mg/3 Ml (Albuterol/Ipratropium) 3 Ml Ampul.neb 3 Ml NEB BID Guaifenesin 100 Mg/5 Ml Liquid 400 Mg PO TID [colace liquid ] 100 Mg GT HS Eliquis (Apixaban) 5 Mg Tablet 5 Mg PO BID Protonix (Pantoprazole Sodium) 40 Mg Tablet.dr 40 Mg PO DAILYAC Melatonin 5 Mg/15 Ml Liquid 5 Mg PO HS Amiodarone Hcl 200 Mg Tablet 1 Tab PO DAILY Advair 500-50 Diskus (Fluticasone/Salmeterol) 1 Each Disk.w.dev 1 Puff IH BID Finasteride 5 Mg Tablet 1 Tab PO HS Vitals/I & O Vital Sign - Last 24 Hours 03/03/21 03/03/21 03/03/21 03/03/21 13:00 13:08 14:00 15:00 Pulse 92 94 96 Resp 20 18 21 B/P (MAP) 89/53 (65) 87/53 (64) 107/49 (68) Pulse Ox 100 96 100 100 O2 Delivery Ventilator Ventilator Ventilator Ventilator 03/03/21 03/03/21 03/03/21 03/03/21 15:33 15:48 15:55 16:00 Temp 98.8 98.8 98.8 98.8 Pulse 90 96 Resp B/P (MAP) 107/40 98/46 Pulse Ox 96 O2 Delivery Ventilator Mechanical Ventilator 03/03/21 03/03/21 03/03/21 03/03/21 16:00 16:56 17:00 18:00 Temp 98.9 99.0 98.9 99.0 Pulse 96 95 96 92 Resp 22 23 21 B/P (MAP) 99/52 (68) 99/52 99/53 (68) 118/57 (77) Pulse Ox 100 100 100 O2 Delivery Ventilator Ventilator Ventilator 03/03/21 03/03/21 03/03/21 03/03/21 19:00 20:00 20:00 20:00 Temp 98.8 98.8 Pulse 96 100 Resp 20 20 B/P (MAP) 127/55 (79) 100/58 (72) Pulse Ox 100 100 100 O2 Delivery Ventilator Mechanical Ventilator Ventilator Ventilator 03/03/21 03/03/21 03/03/21 03/03/21 21:00 22:00 23:00 23:30 Pulse 98 94 92 Resp 20 20 20 B/P (MAP) 102/53 (69) 102/54 (70) 91/45 (60) Pulse Ox 100 100 100 100 O2 Delivery Ventilator Ventilator Ventilator Ventilator 03/04/21 03/04/21 03/04/21 03/04/21 00:00 00:00 01:00 02:00 Temp 98.8 98.8 Pulse 98 98 94 Resp 20 20 20 B/P (MAP) 98/53 (68) 101/53 (69) 116/60 (78) Pulse Ox 100 100 100 O2 Delivery Mechanical Ventilator Ventilator Ventilator Ventilator 03/04/21 03/04/21 03/04/21 03/04/21 03:00 03:30 03:50 04:00 Temp 99.3 99.3 Pulse 94 94 Resp 20 20 B/P (MAP) 94/40 (58) 104/56 (72) Pulse Ox 100 100 100 O2 Delivery Ventilator Ventilator Mechanical Ventilator Ventilator 03/04/21 03/04/21 03/04/21 03/04/21 05:00 05:30 06:00 07:00 Pulse 94 94 92 Resp 20 22 20 B/P (MAP) 101/51 (68) 105/57 (73) 95/51 (66) Pulse Ox 100 100 100 100 O2 Delivery Ventilator Ventilator Ventilator Ventilator 03/04/21 03/04/21 03/04/21 03/04/21 08:00 08:00 08:18 09:00 Temp 99.0 99.0 Pulse 84 92 Resp 22 23 B/P (MAP) 98/52 (67) 95/53 (67) Pulse Ox 100 100 100 O2 Delivery Ventilator Mechanical Ventilator Ventilator Ventilator 03/04/21 03/04/21 03/04/21 03/04/21 09:40 10:00 10:13 11:00 Pulse 84 104 100 Resp 25 26 B/P (MAP) 98/52 97/48 (64) 82/44 (57) Pulse Ox 100 100 100 O2 Delivery Ventilator Ventilator Ventilator 03/04/21 12:08 Pulse Ox 100 O2 Delivery Ventilator Intake and Output 03/03/21 03/03/21 03/04/21 15:00 23:00 07:00 Intake Total 300 ml 1917 ml 1188 ml Output Total 275 ml 510 ml 435 ml Balance 25 ml 1407 ml 753 ml Justifications for Admission General Conditions Poss hypotension?: Yes Justification for admission: Patient has hypotension (SBP < 90 mm Hg) which is not readily corrected by appropriate treatment within 12 to 24 hours. Other Justification KALIN RAMIREZ MD Mar 04, 2021 12:20
--- NOTE | 2021-03-04 12:32 | PDOC ---
PROGRESS NOTES Date of Service: DATE: 03/04/21 TIME: 12:31 Subjective Subjective Somnolent, comfortable Objective Objective Vital Signs Date Time Temp Pulse Resp B/P (MAP) Pulse Ox O2 Delivery O2 Flow Rate FiO2 03/04/21 12:08 100 Ventilator 03/04/21 11:00 100 26 82/44 (57) 03/04/21 08:00 99.0 99.0 Intake and Output 03/04/21 07:00 Intake Total 3405 ml Output Total 1220 ml Balance 2185 ml Intake IV Total 759 ml Tube Feeding 1704 ml Blood Product IV Normal Saline Flush 322 ml Other 620 ml Output Urine Total 1220 ml # Voids 3 Physical Exam Abdomen: Soft Heart: Regular rate, Normal S1, Normal S2, No murmurs, Gallops Extremities: No clubbing, No cyanosis, No edema, Normal pulses, No tenderness/swelling General: Other (SEDATED) HEENT: Other (NG tube in place) Lungs: Clear to auscultation, Normal air movement, Other (ON VENT PER TRACHEOSTOMY) Neuro: Other (SEDATED) Psych/Mental Status: Other (unable to assess ) Skin: No rashes, Other (heel pressure ulcers) Diagnosis RENAL FAILURE: Acute (Acute tubular necrosis) Assessment Assessment 1. Bradyarrhythmia; noted junctional mainly due to metabolic issues with hypothermia. No further bradycardia since the latter was corrected. Presently sinus rhythm. 2. AI on CKD, hyperkalemia; improved after x1 HD 3. Anemia of chronic disease; no obvious bleeding, post transfusion 4. Hypothermia: resolved 5. Acute on chronic respiratory failure; s/p tracheostomy. ventilator dependen t. 6. PAFIB with h/o RVR; Maintaining SR, continue amiodarone. Patient is probably a poor candidate for long-term anticoagulation. 7. Acute on chronic systolic CHF: Better compensated. 8. Cardiomyopathy; Echo 12/17 with LVEF 45% 9. Mild Thrombocytopenia 10. History of non-small cell carcinoma of the lung, treated with left upper lobe lobectomy, and chemo and radiation therapy. 11. H/o polycystic kidney disease s/p left nephrectomy Plan Plan of Care Problems Medical Problems: (1) Acute hyperkalemia Status: Acute (2) Acute renal failure Status: Acute (3) Anemia Status: Acute (4) Third degree heart block Status: Acute Comment Review of Relevant I have reviewed the following items ake (where applicable) has been applied. Labs Laboratory Tests Test 03/04/21 01:14 03/04/21 05:45 03/04/21 05:57 Glucose (Fingerstick) 110 mg/dL (70-99) 99 mg/dL (70-99) White Blood Count 20.6 x10^3/uL (4.0-11.0) Red Blood Count 2.81 x10^6/uL (4.30-5.70) Hemoglobin 8.1 g/dL (13.0-17.5) Hematocrit 25.1 % (39.0-53.0) Mean Corpuscular Volume 89 fL (79-100) Mean Corpuscular Hemoglobin 29 pg (25-35) Mean Corpuscular Hemoglobin Concent 32 g/dL (31-37) Red Cell Distribution Width 17.8 % (11.5-14.5) Platelet Count 175 x10^3/uL (140-400) Neutrophils (%) (Auto) 85 % (31-73) Lymphocytes (%) (Auto) 4 % (24-48) Monocytes (%) (Auto) 11 % (0-9) Eosinophils (%) (Auto) 0 % (0-3) Basophils (%) (Auto) 0 % (0-3) Neutrophils # (Auto) 17.4 x10^3/uL (1.8-7.7) Lymphocytes # (Auto) 0.9 x10^3/uL (1.0-4.8) Monocytes # (Auto) 2.3 x10^3/uL (0.0-1.1) Eosinophils # (Auto) 0.0 x10^3/uL (0.0-0.7) Basophils # (Auto) 0.0 x10^3/uL (0.0-0.2) Sodium Level 136 mmol/L (136-145) Potassium Level 5.2 mmol/L (3.5-5.1) Chloride Level 103 mmol/L (98-107) Carbon Dioxide Level 28 mmol/L (21-32) Anion Gap 5 (6-14) Blood Urea Nitrogen 52 mg/dL (8-26) Creatinine 1.9 mg/dL (0.7-1.3) Estimated GFR (Cockcroft-Gault) 43.0 BUN/Creatinine Ratio 27 (6-20) Glucose Level 94 mg/dL (70-99) Calcium Level 9.4 mg/dL (8.5-10.1) Total Bilirubin 0.7 mg/dL (0.2-1.0) Aspartate Amino Transf (AST/SGOT) 18 U/L (15-37) Alanine Aminotransferase (ALT/SGPT) 37 U/L (16-63) Alkaline Phosphatase 168 U/L (46-116) Total Protein 5.3 g/dL (6.4-8.2) Albumin 1.3 g/dL (3.4-5.0) Albumin/Globulin Ratio 0.3 (1.0-1.7) Microbiology 02/27/21 Urine Culture - Final, Complete 02/27/21 Blood Culture - Preliminary, Resulted NO GROWTH AFTER 4 DAYS Vitals/I & O Vital Sign - Last 24 Hours 03/03/21 03/03/21 03/03/21 03/03/21 13:00 13:08 14:00 15:00 Pulse 92 94 96 Resp B/P (MAP) 89/53 (65) 87/53 (64) 107/49 (68) Pulse Ox 100 96 100 100 O2 Delivery Ventilator Ventilator Ventilator Ventilator 03/03/21 03/03/21 03/03/21 03/03/21 15:33 15:48 15:55 16:00 Temp 98.8 98.8 98.8 98.8 Pulse 90 96 Resp B/P (MAP) 107/40 98/46 Pulse Ox 96 O2 Delivery Ventilator Mechanical Ventilator 03/03/21 03/03/21 03/03/21 03/03/21 16:00 16:56 17:00 18:00 Temp 98.9 99.0 98.9 99.0 Pulse 96 95 96 92 Resp 21 B/P (MAP) 99/52 (68) 99/52 99/53 (68) 118/57 (77) Pulse Ox 100 100 100 O2 Delivery Ventilator Ventilator Ventilator 03/03/21 03/03/21 03/03/21 03/03/21 19:00 20:00 20:00 20:00 Temp 98.8 98.8 Pulse 96 100 Resp 20 B/P (MAP) 127/55 (79) 100/58 (72) Pulse Ox 100 100 100 O2 Delivery Ventilator Mechanical Ventilator Ventilator Ventilator 03/03/21 03/03/21 03/03/21 03/03/21 21:00 22:00 23:00 23:30 Pulse 98 94 92 Resp 20 20 20 B/P (MAP) 102/53 (69) 102/54 (70) 91/45 (60) Pulse Ox 100 100 100 100 O2 Delivery Ventilator Ventilator Ventilator Ventilator 03/04/21 03/04/21 03/04/21 03/04/21 00:00 00:00 01:00 02:00 Temp 98.8 98.8 Pulse 98 98 94 Resp 20 20 20 B/P (MAP) 98/53 (68) 101/53 (69) 116/60 (78) Pulse Ox 100 100 100 O2 Delivery Mechanical Ventilator Ventilator Ventilator Ventilator 03/04/21 03/04/21 03/04/21 03/04/21 03:00 03:30 03:50 04:00 Temp 99.3 99.3 Pulse 94 94 Resp 20 20 B/P (MAP) 94/40 (58) 104/56 (72) Pulse Ox 100 100 100 O2 Delivery Ventilator Ventilator Mechanical Ventilator Ventilator 03/04/21 03/04/21 03/04/21 03/04/21 05:00 05:30 06:00 07:00 Pulse 94 94 92 Resp 20 22 20 B/P (MAP) 101/51 (68) 105/57 (73) 95/51 (66) Pulse Ox 100 100 100 100 O2 Delivery Ventilator Ventilator Ventilator Ventilator 03/04/21 03/04/21 03/04/21 03/04/21 08:00 08:00 08:18 09:00 Temp 99.0 99.0 Pulse 84 92 Resp 22 23 B/P (MAP) 98/52 (67) 95/53 (67) Pulse Ox 100 100 100 O2 Delivery Ventilator Mechanical Ventilator Ventilator Ventilator 03/04/21 03/04/21 03/04/21 03/04/21 09:40 10:00 10:13 11:00 Pulse 84 104 100 Resp 25 26 B/P (MAP) 98/52 97/48 (64) 82/44 (57) Pulse Ox 100 100 100 O2 Delivery Ventilator Ventilator Ventilator 03/04/21 12:08 Pulse Ox 100 O2 Delivery Ventilator Intake and Output 03/03/21 03/03/21 03/04/21 15:00 23:00 07:00 Intake Total 300 ml 1917 ml 1188 ml Output Total 275 ml 510 ml 435 ml Balance 25 ml 1407 ml 753 ml SHARON CLEMENTS MD Mar 04, 2021 12:32
[2021-03-04] MEDS: ALBUTEROL SULFATE 2.5 MG/3 ML NEBU. NEB PRN (14:26)
[2021-03-04] MEDS: ACETAMINOPHEN 325 MG TABLET. PO PRN (15:30)
[2021-03-04] MEDS: FINASTERIDE 5 MG TABLET. PO SCH (20:35)
[2021-03-05] VITALS (14 sets, daily range): BP systolic 91–131; BP diastolic 45–68
[2021-03-05 06:19] LABS: ALBUMIN 1.2 g/dL (3.4-5.0); ALBUMIN/GLOBULIN RATIO 0.3 (1.0-1.7); CALCIUM 9.2 mg/dL (8.5-10.1); GFR 40.5; POTASSIUM 5.1 mmol/L (3.5-5.1); TOTAL BILIRUBIN 0.6 mg/dL (0.2-1.0)
[2021-03-05 06:34] LABS: HEMATOCRIT 22.7 % (39.0-53.0); HEMOGLOBIN 7.5 g/dL (13.0-17.5); RED BLOOD COUNT 2.53 x10^6/uL (4.30-5.70); RED CELL DISTRIBUTION WIDTH 17.5 % (11.5-14.5); WHITE BLOOD COUNT 18.1 x10^3/uL (4.0-11.0)
--- NOTE | 2021-03-05 08:20 | PDOC ---
Infectious Disease Note Subjective Subjective Remains on vent awake ROS ROS No nausea vomiting diarrhea Vital Sign Vital Signs Vital Signs Date Time Temp Pulse Resp B/P (MAP) Pulse Ox O2 Delivery O2 Flow Rate FiO2 03/05/21 07:25 95 18 91/45 (60) 100 Ventilator 03/05/21 04:00 99.5 99.5 Physical Exam PHYSICAL EXAM GENERAL: Awake gentleman, on a ventilator, not in distress. VITAL SIGNS: stable HEENT: Both pupils are round and reacting. No conjunctival lesion. No lesion in the mouth. NECK: Supple, no JVP, tracheostomy in place. LUNGS: Clear. HEART: S1, S2 regular. ABDOMEN: Soft, nontender, no organomegaly. EXTREMITIES: No edema, cyanosis. SKIN: Some minor sacrococcygeal breakdown present. Rest of the skin exam is unremarkable. PICC line site is unremarkable. Hemodialysis catheter has been placed yesterday. NEUROLOGIC: The patient is awake, but on a ventilator, unable to diving judge the full neuro status. Labs Lab Laboratory Tests Test 03/04/21 13:00 03/04/21 18:05 03/04/21 23:25 03/05/21 05:51 Glucose (Fingerstick) 102 mg/dL (70-99) 117 mg/dL (70-99) 103 mg/dL (70-99) 106 mg/dL (70-99) Test 03/05/21 06:00 White Blood Count 18.1 x10^3/uL (4.0-11.0) Red Blood Count 2.53 x10^6/uL (4.30-5.70) Hemoglobin 7.5 g/dL (13.0-17.5) Hematocrit 22.7 % (39.0-53.0) Mean Corpuscular Volume 90 fL (79-100) Mean Corpuscular Hemoglobin 30 pg (25-35) Mean Corpuscular Hemoglobin Concent 33 g/dL (31-37) Red Cell Distribution Width 17.5 % (11.5-14.5) Platelet Count 168 x10^3/uL (140-400) Sodium Level 141 mmol/L (136-145) Potassium Level 5.1 mmol/L (3.5-5.1) Chloride Level 107 mmol/L (98-107) Carbon Dioxide Level 30 mmol/L (21-32) Anion Gap 4 (6-14) Blood Urea Nitrogen 52 mg/dL (8-26) Creatinine 2.0 mg/dL (0.7-1.3) Estimated GFR (Cockcroft-Gault) 40.5 BUN/Creatinine Ratio 26 (6-20) Glucose Level 113 mg/dL (70-99) Calcium Level 9.2 mg/dL (8.5-10.1) Total Bilirubin 0.6 mg/dL (0.2-1.0) Aspartate Amino Transf (AST/SGOT) 7 U/L (15-37) Alanine Aminotransferase (ALT/SGPT) 20 U/L (16-63) Alkaline Phosphatase 158 U/L (46-116) Total Protein 5.0 g/dL (6.4-8.2) Albumin 1.2 g/dL (3.4-5.0) Albumin/Globulin Ratio 0.3 (1.0-1.7) Micro BC E coli, from [facility] neg here Objective Assessment 1. Gram-negative soren bacteremia. E coli 2. Third-degree heart block. 3. Chronic respiratory failure. 4. Tracheostomy and PEG tube. 5. Acute renal failure. 6. Lung cancer, status post lobectomy. 7. Chronic obstructive pulmonary disease. 8. Anemia. 9. Leucocytosis multifactorial Plan Plan of Care cont Merrem cont supportive care Prognosis poor And is DNR JHON LANG MD Mar 05, 2021 08:20
--- NOTE | 2021-03-05 08:30 | PDOC ---
PULMONARY PROGRESS NOTES DATE: 03/05/21 TIME: 08:30 Subjective Patient did okay yesterday on pressure support Discussed with social work professor Awaken patient, no evidence of respiratory distress Vitals Vital Signs Date Time Temp Pulse Resp B/P (MAP) Pulse Ox O2 Delivery O2 Flow Rate FiO2 03/05/21 07:25 95 18 91/45 (60) 100 Ventilator 03/05/21 04:00 99.5 99.5 General: Alert, No acute distress Lungs: Other (Decreased breath sounds left lung) Cardiovascular: S1, S2 Abdomen: Soft Neuro Exam: Alert Extremities: Other (2+ edema) Skin: Warm Labs Laboratory Tests Test 03/03/21 12:18 03/04/21 01:14 03/04/21 05:45 03/04/21 05:57 Glucose (Fingerstick) 129 mg/dL (70-99) 110 mg/dL (70-99) 99 mg/dL (70-99) White Blood Count 20.6 x10^3/uL (4.0-11.0) Red Blood Count 2.81 x10^6/uL (4.30-5.70) Hemoglobin 8.1 g/dL (13.0-17.5) Hematocrit 25.1 % (39.0-53.0) Mean Corpuscular Volume 89 fL (79-100) Mean Corpuscular Hemoglobin 29 pg (25-35) Mean Corpuscular Hemoglobin Concent 32 g/dL (31-37) Red Cell Distribution Width 17.8 % (11.5-14.5) Platelet Count 175 x10^3/uL (140-400) Neutrophils (%) (Auto) 85 % (31-73) Lymphocytes (%) (Auto) 4 % (24-48) Monocytes (%) (Auto) 11 % (0-9) Eosinophils (%) (Auto) 0 % (0-3) Basophils (%) (Auto) 0 % (0-3) Neutrophils # (Auto) 17.4 x10^3/uL (1.8-7.7) Lymphocytes # (Auto) 0.9 x10^3/uL (1.0-4.8) Monocytes # (Auto) 2.3 x10^3/uL (0.0-1.1) Eosinophils # (Auto) 0.0 x10^3/uL (0.0-0.7) Basophils # (Auto) 0.0 x10^3/uL (0.0-0.2) Sodium Level 136 mmol/L (136-145) Potassium Level 5.2 mmol/L (3.5-5.1) Chloride Level 103 mmol/L (98-107) Carbon Dioxide Level 28 mmol/L (21-32) Anion Gap 5 (6-14) Blood Urea Nitrogen 52 mg/dL (8-26) Creatinine 1.9 mg/dL (0.7-1.3) Estimated GFR (Cockcroft-Gault) 43.0 BUN/Creatinine Ratio 27 (6-20) Glucose Level 94 mg/dL (70-99) Calcium Level 9.4 mg/dL (8.5-10.1) Total Bilirubin 0.7 mg/dL (0.2-1.0) Aspartate Amino Transf (AST/SGOT) 18 U/L (15-37) Alanine Aminotransferase (ALT/SGPT) 37 U/L (16-63) Alkaline Phosphatase 168 U/L (46-116) Total Protein 5.3 g/dL (6.4-8.2) Albumin 1.3 g/dL (3.4-5.0) Albumin/Globulin Ratio 0.3 (1.0-1.7) Test 03/04/21 13:00 03/04/21 18:05 03/04/21 23:25 03/05/21 05:51 Glucose (Fingerstick) 102 mg/dL (70-99) 117 mg/dL (70-99) 103 mg/dL (70-99) 106 mg/dL (70-99) Test 03/05/21 06:00 White Blood Count 18.1 x10^3/uL (4.0-11.0) Red Blood Count 2.53 x10^6/uL (4.30-5.70) Hemoglobin 7.5 g/dL (13.0-17.5) Hematocrit 22.7 % (39.0-53.0) Mean Corpuscular Volume 90 fL (79-100) Mean Corpuscular Hemoglobin 30 pg (25-35) Mean Corpuscular Hemoglobin Concent 33 g/dL (31-37) Red Cell Distribution Width 17.5 % (11.5-14.5) Platelet Count 168 x10^3/uL (140-400) Sodium Level 141 mmol/L (136-145) Potassium Level 5.1 mmol/L (3.5-5.1) Chloride Level 107 mmol/L (98-107) Carbon Dioxide Level 30 mmol/L (21-32) Anion Gap 4 (6-14) Blood Urea Nitrogen 52 mg/dL (8-26) Creatinine 2.0 mg/dL (0.7-1.3) Estimated GFR (Cockcroft-Gault) 40.5 BUN/Creatinine Ratio 26 (6-20) Glucose Level 113 mg/dL (70-99) Calcium Level 9.2 mg/dL (8.5-10.1) Total Bilirubin 0.6 mg/dL (0.2-1.0) Aspartate Amino Transf (AST/SGOT) 7 U/L (15-37) Alanine Aminotransferase (ALT/SGPT) 20 U/L (16-63) Alkaline Phosphatase 158 U/L (46-116) Total Protein 5.0 g/dL (6.4-8.2) Albumin 1.2 g/dL (3.4-5.0) Albumin/Globulin Ratio 0.3 (1.0-1.7) Laboratory Tests Test 03/04/21 13:00 03/04/21 18:05 03/04/21 23:25 03/05/21 05:51 Glucose (Fingerstick) 102 mg/dL (70-99) 117 mg/dL (70-99) 103 mg/dL (70-99) 106 mg/dL (70-99) Test 03/05/21 06:00 White Blood Count 18.1 x10^3/uL (4.0-11.0) Red Blood Count 2.53 x10^6/uL (4.30-5.70) Hemoglobin 7.5 g/dL (13.0-17.5) Hematocrit 22.7 % (39.0-53.0) Mean Corpuscular Volume 90 fL (79-100) Mean Corpuscular Hemoglobin 30 pg (25-35) Mean Corpuscular Hemoglobin Concent 33 g/dL (31-37) Red Cell Distribution Width 17.5 % (11.5-14.5) Platelet Count 168 x10^3/uL (140-400) Sodium Level 141 mmol/L (136-145) Potassium Level 5.1 mmol/L (3.5-5.1) Chloride Level 107 mmol/L (98-107) Carbon Dioxide Level 30 mmol/L (21-32) Anion Gap 4 (6-14) Blood Urea Nitrogen 52 mg/dL (8-26) Creatinine 2.0 mg/dL (0.7-1.3) Estimated GFR (Cockcroft-Gault) 40.5 BUN/Creatinine Ratio 26 (6-20) Glucose Level 113 mg/dL (70-99) Calcium Level 9.2 mg/dL (8.5-10.1) Total Bilirubin 0.6 mg/dL (0.2-1.0) Aspartate Amino Transf (AST/SGOT) 7 U/L (15-37) Alanine Aminotransferase (ALT/SGPT) 20 U/L (16-63) Alkaline Phosphatase 158 U/L (46-116) Total Protein 5.0 g/dL (6.4-8.2) Albumin 1.2 g/dL (3.4-5.0) Albumin/Globulin Ratio 0.3 (1.0-1.7) Medications Active Scripts Medications Dose Route/Sig Max Daily Dose Days Date Category Prednisone 5 Mg Tablet 5 Mg PO DAILY 12/12/20 Reported Duoneb 0.5-3(2.5) Mg/3 Ml (Albuterol/Ipratropium) 3 Ml Ampul.neb 3 Ml NEB BID 12/12/20 Reported Claritin (Loratadine) 10 Mg Capsule 1 Cap PO DAILY 30 12/12/20 Reported Metoprolol Tartrate 50 Mg Tablet 1 Tab PO BID 12/12/20 Reported Melatonin 3 Mg Tablet.er 6 Mg PO HS 12/12/20 Reported Guaifenesin 100 Mg/5 Ml Liquid 400 Mg PO TID 12/12/20 Reported [colace liquid ] 100 Mg GT HS 12/12/20 Reported Eliquis (Apixaban) 5 Mg Tablet 5 Mg PO BID 12/12/20 Reported Trazodone Hcl 50 Mg Tablet 1 Tab PO QHS 11/16/20 Reported Protonix (Pantoprazole Sodium) 40 Mg Tablet.dr 40 Mg PO DAILYAC 11/16/20 Reported Daily Value (Multivitamin) 1 Each Tablet 1 Tab PO DAILY 30 11/16/20 Reported Melatonin 5 Mg/15 Ml Liquid 5 Mg PO HS 11/16/20 Reported Heparin 1,000 Unit/10 (100/ml) (Heparin Sodium,Porcine/Pf) 1,000 Unit/10 Ml Syringe 1,400 Unit IV 3X/WEEK 11/16/20 Reported Folic Acid 0.8 Mg Capsule 1 Cap PO DAILY 30 11/16/20 Reported Zetia (Ezetimibe) 10 Mg Tablet 1 Tab PO DAILY 30 11/16/20 Reported Amiodarone Hcl 200 Mg Tablet 1 Tab PO DAILY 11/16/20 Reported Iron (Ferrous Sulfate) 325 Mg Tablet 975 Mg PO DAILY 03/18/18 Reported Advair 500-50 Diskus (Fluticasone/Salmeterol) 1 Each Disk.w.dev 1 Puff IH BID 12/02/14 Reported Finasteride 5 Mg Tablet 1 Tab PO HS 12/02/14 Reported Impression . IMPRESSION: 1. Acute on chronic respiratory failure multifactorial 2. Septic shock 3. Third-degree AV block 4. Adenocarcinoma of the lung 5. Chronic respiratory failure with ventilator dependence with chronic trache ostomy. 6. Acute kidney injury with markedly elevated BUN and creatinine and hyperkalemia.Patient has one kidney. 7. Acute drop in hemoglobin 8. Abnormal chest x-ray with marked volume loss on the left lung. Combination of lung cancer, postobstructive atelectasis and pleural effusion 9. E-Coli bacteremia Plan . Updated 03/05 Continue meropenem per ID Pressure support as tolerated Discussed with social work professor transfer back to LTAC Long-term prognosis is poor Nutritional support DVT prophylaxis updated 03/04 Currently on meropenem per ID Continue pressure support as tolerated throughout the day Monitor H&H KLAUDIA globin today 8.1 ABG from 03 03 was noted Chest x-ray reviewed moderate to large left-sided effusion, will discuss with interventional radiologist Total cumulative critical care time of approximately 30 minutes with no overlap Updated 03/03 We will monitor chest x-ray for further opacification of left lung Patient is DNR Continue current support Monitor hemoglobin hematocrit Monitor off of antibiotics Pressure support trials throughout the day updated 03/02 Patient oxygenating well, will discuss with RT, aggressive pulmonary hygiene, aggressive suctioning Discussed with RN will attempt pressure support trial Continue current support Hemoglobin 7.9 today ABG noted PaO2 108 Monitor off of antibiotics VIRGIL RODRIGUEZ MD Mar 05, 2021 08:30
[2021-03-05] MEDS: IPRATRPIUM/ALBUTEROL 0.5/2.5MG 3 ML NEBU. NEB SCH ×2 (08:34→13:00)
[2021-03-05] MEDS: BUDESONIDE 0.5 MG/2 ML NEBU. NEB SCH (08:34)
[2021-03-05] MEDS: TAMSULOSIN 0.4 MG CAP.ER.24H. PO SCH (09:42)
[2021-03-05] MEDS: PANTOPRAZOLE IV PUSH 40 MG VIAL. IVP SCH (09:42)
[2021-03-05] MEDS: CETIRIZINE HCL 10 MG TABLET. PO SCH (09:43)
[2021-03-05] MEDS: ACETAMINOPHEN 325 MG TABLET. PO PRN (09:43)
[2021-03-05] MEDS: AMIODARONE HCL 200 MG TABLET. PO SCH (09:43)
[2021-03-05] MEDS: MEROPENEM 1 GM in IV NORMAL SALINE 100ML 100 ML IV SCH (09:44)
--- NOTE | 2021-03-05 10:07 | RAD ---
Single view of the chest. 03/05/2021 5:56 AM Indication: Reason: rf 116 / Spl. Instructions: / History: Comparison: Chest radiograph, March 04, 2021 Findings: support lines and tubes including tracheostomy tube, enteric tube, right internal jugular t emporary dialysis catheter, and right-sided port are grossly unchanged. There is essentially complete opacification of the left hemithorax with some decreased aeration of the left upper lung in the inte rim. Interstitial and mild patchy alveolar opacities in the right have mildly increased. No acute oss eous changes are identified in the interim. IMPRESSION: 1. Grossly stable appearance of support lines and tubes 2. Interstitial and mild alveolar infiltrates on the right, mildly increased 3. Opacification of left hemithorax with interval decrease in the minimal aeration of the left upper lung Electronically signed by: William Vivar MD (03/05/2021 10:05 AM) [id number]
--- NOTE | 2021-03-05 10:16 | PDOC ---
Date of Service: DATE: 03/05/21 TIME: 10:11 Objective: Objective: Tmax 100.1 Vital Signs: Vital Signs Date Time Temp Pulse Resp B/P (MAP) Pulse Ox O2 Delivery O2 Flow Rate FiO2 03/05/21 10:01 100 23 104/61 (75) 100 Ventilator 03/05/21 08:00 100.1 100.1 Labs: Laboratory Tests Test 03/04/21 13:00 03/04/21 18:05 03/04/21 23:25 03/05/21 05:51 Glucose (Fingerstick) 102 mg/dL (70-99) 117 mg/dL (70-99) 103 mg/dL (70-99) 106 mg/dL (70-99) Imaging: CXR 03/05 IMPRESSION: 1. Grossly stable appearance of support lines and tubes 2. Interstitial and mild alveolar infiltrates on the right, mildly increased 3. Opacification of left hemithorax with interval decrease in the minimal aeration of the left upper lung PE: GEN: chronically ill LUNGS: vent/trach HEART: mildly tachycardic ABD: soft, NG feeds @ 50cc/hr NEURO/PSYCH: did not awaken A/P: Bradyarrhythmia (resolved), CKD, E coli bacteremia Chronic resp failure w/ trach/vent Chronic GUADALUPE - last transfusion 03/03/21 -- Continue support per GI. Justicifation of Admission Dx: Justifications for Admission: Justification of Admission Dx: N/A JOANNE BURNS Mar 05, 2021 10:16
--- NOTE | 2021-03-05 11:03 | SNU/HH DC ---
DISCHARGE ORDERS DISCHARGE INFORMATION: FINAL DIAGNOSIS Problems Medical Problems: (1) Acute hyperkalemia Status: Acute (2) Acute renal failure Status: Acute (3) Anemia Status: Acute (4) Third degree heart block Status: Acute CONDITION ON DISCHARGE: Stable CODE STATUS: Code Status: DNR/DNI SNF: SNF STAY <30 DAYS: No HOSPICE: HOSPICE: No HOSPICE EVAL & TREAT: No LTAC: ADMIT TO LTAC: Yes POST DISCHARGE ORDERS: ACTIVITY ORDERS: Other, see below WEIGHT BEARING STATUS: No restrictions BATHING ORDERS: No Tub Bath until see Dr. ROMAN AFTER DISCHARGE: NPO WOUND/INCISION CARE: Keep wound/cast CDI, Other, see below CHECKS AFTER DISCHARGE: CHECKS AFTER DISCHARGE: Check your Temp as needed TREATMENT/EQUIPMENT ORDERS: ADAPTIVE EQUIPMENT NEEDED: None DISCHARGE MEDICATIONS: Home Meds Reported Medications Loratadine (LORATADINE) 10 Mg Tablet, 1 TAB PO PRN 1-2XD PRN for ALLERGIES, #30 TAB 5 Refills 03/02/21 Hydrocodone Bit/Acetaminophen (HYDROCODONE-APAP 5-325 ) 1 Tab Tablet, 1 TAB PO PRN Q4HRS PRN for PAIN, TAB 0 Refills 03/02/21 Docusate Sodium (SILACE) 50 Mg/5 Ml Liquid, 50 MG PO HS for constipation, LIQUID 03/02/21 Ferrous Sulfate (FERROUS SULFATE) 220 Mg/5 Ml Solution, 5 ML PO BID for sup plement for 30 Days, #150 ML 0 Refills 03/02/21 Alprazolam (ALPRAZOLAM) 0.5 Mg Tablet, 1 TAB PO TID for anxiety, #30 TAB 03/02/21 Tamsulosin Hcl (FLOMAX) 0.4 Mg Cap.er.24h, 1 CAP PO BID for BPH, #30 CAP 11 Refills 03/02/21 Metoprolol Tartrate (METOPROLOL TARTRATE) 25 Mg Tablet, 0.5 TAB PO BID for HTN, #180 TAB 1 Refill 03/02/21 Magnesium Oxide (MAGNESIUM OXIDE) 400 Mg Tablet, 1 TAB PO DAILY for supplement, #30 TAB 5 Refills 03/02/21 Prednisone (PREDNISONE) 5 Mg Tablet, 5 MG PO DAILY for rx, TAB 12/12/20 Ipratropium/Albuterol Sulfate (DUONEB 0.5-3(2.5) MG/3 ML) 3 Ml Ampul.neb, 3 ML NEB BID for rx, EACH 12/12/20 Guaifenesin (GUAIFENESIN) 100 Mg/5 Ml Liquid, 400 MG PO TID for rx, LIQUID 12/12/20 [colace liquid ] No Conflict Check, 100 MG GT HS 12/12/20 Apixaban (ELIQUIS) 5 Mg Tablet, 5 MG PO BID for rx, TAB 12/12/20 Pantoprazole Sodium (PROTONIX ) 40 Mg Tablet.dr, 40 MG PO DAILYAC for GERD, TAB 11/16/20 Melatonin (MELATONIN) 5 Mg/15 Ml Liquid, 5 MG PO HS for insomnia, LIQUID 11/16/20 Amiodarone Hcl (AMIODARONE HCL) 200 Mg Tablet, 1 TAB PO DAILY for ANTIARRYTHMIC, #90 TAB 1 Refill 11/16/20 Fluticasone/Salmeterol (ADVAIR 500-50 DISKUS) 1 Each Disk.w.dev, 1 PUFF IH BID for rx, #1 INHALER 5 Refills 12/02/14 Finasteride (FINASTERIDE) 5 Mg Tablet, 1 TAB PO HS for rx, #30 TAB 11 Refills 12/02/14 Discontinued Reported Medications Loratadine (CLARITIN) 10 Mg Capsule, 1 CAP PO DAILY for allergy symptoms for 30 Days, #30 CAP 0 Refills 12/12/20 Metoprolol Tartrate (METOPROLOL TARTRATE) 50 Mg Tablet, 1 TAB PO BID for rx, #60 TAB 5 Refills 12/12/20 Melatonin (MELATONIN) 3 Mg Tablet.er, 6 MG PO HS for rx, TAB.SR 12/12/20 Trazodone Hcl (TRAZODONE HCL) 50 Mg Tablet, 1 TAB PO QHS for SLEEP AID, #30 TAB 1 Refill 11/16/20 Multivitamin (DAILY VALUE) 1 Each Tablet, 1 TAB PO DAILY for SUPPLEMENT for 30 Days, #30 TAB 0 Refills 11/16/20 Heparin Sodium,Porcine/Pf (Heparin 1,000 Unit/10 (100/ml)) 1,000 Unit/10 Ml Syringe, 1400 UNIT IV 3X/WEEK for Mon, Wed, Fri during dialysis , SYR 11/16/20 Folic Acid (Folic Acid) 0.8 Mg Capsule, 1 CAP PO DAILY for SUPPLEMENT for 30 Days, #30 CAP 0 Refills 11/16/20 Ezetimibe (ZETIA) 10 Mg Tablet, 1 TAB PO DAILY for HLD for 30 Days, #30 TAB 0 Refills 11/16/20 Ferrous Sulfate (IRON) 325 Mg Tablet, 975 MG PO DAILY, TAB 03/18/18 PAUL SHEA III DO Mar 05, 2021 11:03
--- NOTE | 2021-03-05 11:07 | NUR ---
SS following for discharge planning. SS reviewed pt chart and discussed with pt RN. Pt is from [facility], ; fax [phone]. COVID19 negative. Pt on IV Meropenem. Pt is currently on the vent at 40%. Discharge orders received for return to [facility]. Per [facility], insurance authorization is still good. SS phoned and faxed clinical updates and discharge orders to [facility]. Pt will discharge today and return to [facility] at 1500 via [facility] transport, . Pt's RN notified. Packet and ambulance form placed on chart.
--- NOTE | 2021-03-05 11:11 | PDOC ---
Renal-Progress Notes Subjective Notes Notes ON TRACH History of Present Illness Hx of present illness CONFUSED Vitals Vitals Vital Signs Date Time Temp Pulse Resp B/P (MAP) Pulse Ox O2 Delivery O2 Flow Rate FiO2 03/05/21 10:01 100 23 104/61 (75) 100 Ventilator 03/05/21 08:00 100.1 100.1 Weight Weight [ ] I.O. Intake and Output Intake and Output 03/05/21 07:00 Intake Total 2596 ml Output Total 1040 ml Balance 1556 ml Intake IV Total 334 ml Tube Feeding 1662 ml Other 600 ml Output Urine Total 1040 ml # Voids 1 Labs Labs Laboratory Tests Test 03/04/21 13:00 03/04/21 18:05 03/04/21 23:25 03/05/21 05:51 Glucose (Fingerstick) 102 mg/dL (70-99) 117 mg/dL (70-99) 103 mg/dL (70-99) 106 mg/dL (70-99) Test 03/05/21 06:00 White Blood Count 18.1 x10^3/uL (4.0-11.0) Red Blood Count 2.53 x10^6/uL (4.30-5.70) Hemoglobin 7.5 g/dL (13.0-17.5) Hematocrit 22.7 % (39.0-53.0) Mean Corpuscular Volume 90 fL (79-100) Mean Corpuscular Hemoglobin 30 pg (25-35) Mean Corpuscular Hemoglobin Concent 33 g/dL (31-37) Red Cell Distribution Width 17.5 % (11.5-14.5) Platelet Count 168 x10^3/uL (140-400) Sodium Level 141 mmol/L (136-145) Potassium Level 5.1 mmol/L (3.5-5.1) Chloride Level 107 mmol/L (98-107) Carbon Dioxide Level 30 mmol/L (21-32) Anion Gap 4 (6-14) Blood Urea Nitrogen 52 mg/dL (8-26) Creatinine 2.0 mg/dL (0.7-1.3) Estimated GFR (Cockcroft-Gault) 40.5 BUN/Creatinine Ratio 26 (6-20) Glucose Level 113 mg/dL (70-99) Calcium Level 9.2 mg/dL (8.5-10.1) Total Bilirubin 0.6 mg/dL (0.2-1.0) Aspartate Amino Transf (AST/SGOT) 7 U/L (15-37) Alanine Aminotransferase (ALT/SGPT) 20 U/L (16-63) Alkaline Phosphatase 158 U/L (46-116) Total Protein 5.0 g/dL (6.4-8.2) Albumin 1.2 g/dL (3.4-5.0) Albumin/Globulin Ratio 0.3 (1.0-1.7) Micro Micro Microbiology 02/27/21 Urine Culture - Final, Complete 02/27/21 Blood Culture - Final, Complete NO GROWTH AFTER 5 DAYS Review of Systems Constitutional: yes: other (CONFUSED, UNABLE TO COMMUNICATE) Physical Exam General Appearance: mild distress Skin: warm Respiratory: decreased breath sounds Heart: S1S2 Abdomen: soft, bowel sounds present Genitourinary: bladder flat Extremities: atrophy Neurology: alert, other (tracking ) Musculoskeletal: low back pain, Osteoarthritis Assessment Assessment IMP HYPERVOLEMIA-VOLUME OVERLOAD AI WITH HX OF NEEDING HD-CURRENTLY OFF HD-CR OF 2.0 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
[2021-03-05] MEDS ORDERED: FUROSEMIDE 100 MG/10 ML VIAL. IVP ONE (11:30)
[2021-03-05] MEDS: LORazepam 0.5 MG TABLET PO PRN (12:05)
--- NOTE | 2021-03-05 13:24 | SNU/HH DC ---
DISCHARGE ORDERS DISCHARGE INFORMATION: FINAL DIAGNOSIS Problems Medical Problems: (1) Acute hyperkalemia Status: Acute (2) Acute renal failure Status: Acute (3) Anemia Status: Acute (4) Third degree heart block Status: Acute CONDITION ON DISCHARGE: Stable CODE STATUS: Code Status: Full MCC: SNF STAY <30 DAYS: Yes HOSPICE: HOSPICE: No HOSPICE EVAL & TREAT: No LTAC: ADMIT TO LTAC: No POST DISCHARGE ORDERS: ACTIVITY ORDERS: Bedrest today, Other, see below WEIGHT BEARING STATUS: No restrictions BATHING ORDERS: No Tub Bath until see Dr. ROMAN AFTER DISCHARGE: Resume previous diet WOUND/INCISION CARE: Keep wound/cast CDI, Other, see below CHECKS AFTER DISCHARGE: CHECKS AFTER DISCHARGE: Check your Temp as needed TREATMENT/EQUIPMENT ORDERS: ADAPTIVE EQUIPMENT NEEDED: None DISCHARGE MEDICATIONS: Home Meds Reported Medications Loratadine (LORATADINE) 10 Mg Tablet, 1 TAB PO PRN 1-2XD PRN for ALLERGIES, #30 TAB 5 Refills 03/02/21 Hydrocodone Bit/Acetaminophen (HYDROCODONE-APAP 5-325 ) 1 Tab Tablet, 1 TAB PO PRN Q4HRS PRN for PAIN, TAB 0 Refills 03/02/21 Docusate Sodium (SILACE) 50 Mg/5 Ml Liquid, 50 MG PO HS for constipation, LIQUID 03/02/21 Ferrous Sulfate (FERROUS SULFATE) 220 Mg/5 Ml Solution, 5 ML PO BID for supplement for 30 Days, #150 ML 0 Refills 03/02/21 Alprazolam (ALPRAZOLAM) 0.5 Mg Tablet, 1 TAB PO TID for anxiety, #30 TAB 03/02/21 Tamsulosin Hcl (FLOMAX) 0.4 Mg Cap.er.24h, 1 CAP PO BID for BPH, #30 CAP 11 Refills 03/02/21 Metoprolol Tartrate (METOPROLOL TARTRATE) 25 Mg Tablet, 0.5 TAB PO BID for HTN, #180 TAB 1 Refill 03/02/21 Magnesium Oxide (MAGNESIUM OXIDE) 400 Mg Tablet, 1 TAB PO DAILY for supplement, #30 TAB 5 Refills 03/02/21 Prednisone (PREDNISONE) 5 Mg Tablet, 5 MG PO DAILY for rx, TAB 12/12/20 Ipratropium/Albuterol Sulfate (DUONEB 0.5-3(2.5) MG/3 ML) 3 Ml Ampul.neb, 3 ML NEB BID for rx, EACH 12/12/20 Guaifenesin (GUAIFENESIN) 100 Mg/5 Ml Liquid, 400 MG PO TID for rx, LIQUID 12/12/20 [colace liquid ] No Conflict Check, 100 MG GT HS 12/12/20 Apixaban (ELIQUIS) 5 Mg Tablet, 5 MG PO BID for rx, TAB 12/12/20 Pantoprazole Sodium (PROTONIX ) 40 Mg Tablet.dr, 40 MG PO DAILYAC for GERD, TAB 11/16/20 Melatonin (MELATONIN) 5 Mg/15 Ml Liquid, 5 MG PO HS for insomnia, LIQUID 11/16/20 Amiodarone Hcl (AMIODARONE HCL) 200 Mg Tablet, 1 TAB PO DAILY for ANTIARRYTHMIC, #90 TAB 1 Refill 11/16/20 Fluticasone/Salmeterol (ADVAIR 500-50 DISKUS) 1 Each Disk.w.dev, 1 PUFF IH BID for rx, #1 INHALER 5 Refills 12/02/14 Finasteride (FINASTERIDE) 5 Mg Tablet, 1 TAB PO HS for rx, #30 TAB 11 Refills 12/02/14 Discontinued Reported Medications Loratadine (CLARITIN) 10 Mg Capsule, 1 CAP PO DAILY for allergy symptoms for 30 Days, #30 CAP 0 Refills 12/12/20 Metoprolol Tartrate (METOPROLOL TARTRATE) 50 Mg Tablet, 1 TAB PO BID for rx, #60 TAB 5 Refills 12/12/20 Melatonin (MELATONIN) 3 Mg Tablet.er, 6 MG PO HS for rx, TAB.SR 12/12/20 Trazodone Hcl (TRAZODONE HCL) 50 Mg Tablet, 1 TAB PO QHS for SLEEP AID, #30 TAB 1 Refill 11/16/20 Multivitamin (DAILY VALUE) 1 Each Tablet, 1 TAB PO DAILY for SUPPLEMENT for 30 Days, #30 TAB 0 Refills 11/16/20 Heparin Sodium,Porcine/Pf (Heparin 1,000 Unit/10 (100/ml)) 1,000 Unit/10 Ml Syringe, 1400 UNIT IV 3X/WEEK for Mon, Wed, Fri during dialysis , SYR 11/16/20 Folic Acid (Folic Acid) 0.8 Mg Capsule, 1 CAP PO DAILY for SUPPLEMENT for 30 Days, #30 CAP 0 Refills 11/16/20 Ezetimibe (ZETIA) 10 Mg Tablet, 1 TAB PO DAILY for HLD for 30 Days, #30 TAB 0 Refills 11/16/20 Ferrous Sulfate (IRON) 325 Mg Tablet, 975 MG PO DAILY, TAB 03/18/18 PAUL SHEA III DO Mar 05, 2021 13:24
--- NOTE | 2021-03-05 13:54 | PDOC ---
[employer] PROGRESS NOTE Date of Service DOS: DATE: 03/05/21 TIME: 13:45 Chief Complaint Chief Complaint A/P: Acute on chronic hypoxic respiratory failure Acute anemia Bacteremia 3rd degree heart block Bradycardia Lung cancer AI Hyperkalemia Hypoglycemia History of Present Illness History of Present Illness Mr Khalil is a 65-year-old male with PMHx lung cancer (adenocarcinoma 10/2018), rheumatoid arthritis, HTN, bilateral gluteal stage 2 pressure ulceration and left heel ulceration, chronic respiratory failure, vent dependence, tracheostomy, PEG tube, had a perforation requiring emergent surgery to repair the perforation and he has been going from [facility] to [facility] to [place] to [facility] and [facility]. Sent to ED for concern for third-degree heart block, gram-negative soren in the blood and renal failure with hyperkalemia. BUN 110, Cr 2.6, Hb 5 .9, WBC 15.7 The patient is awake, on a ventilator through tracheostomy. Dialysis catheter placed by IR on 02/27/2021. (He also has a port a cath and PICC in place) 02/28: Seen in ICU. WBC 23, Hb 7 after initial transfusion, K 24.9, BUN 61, CR 1.9, glucose 59 albumin 1.6, INR 2.1, urine with large blood large leukoesterase, ABG 7.3 644/54 on 40% FiO2. BP improved and heart rate improved with dopamine and still on vent this morning. 03/01: Seen in ICU trach and vent support FiO2 45% PEEP 5. Chest radiograph improved slightly on the right potassium 4.8. Heart rate improved transition from dopamine to very low dose Levophed for septic shock. He is more alert and using his call light. 03/02: WBC 23, Hb 7.9 after transfusion. platelets 160, K4.8, glucose down to 45, ABG 7.3 6/42/108 on 40% FiO2 vent PEEP of 5 on trach. Still on low dose levophed. pointing to swollen scrotum, soft, has traction on his muhammad, adjusted. Afebrile. Restless overnight. ABG 7.4 6/36/63 on 40% FiO2 PEEP of 5. WBC 19.3, Hb 6.9, platelets 154. Transfusion ordered. BP 89/56, currently off levophed. Of note his LTACH noted he is a DNR/DNI, status updated cc time 31 minutes 03/05/21: Patient was seen and examined in the ICU today. On vent via trach with spontaneous respirations and 40% Fi02. Patient alert while examined and made good eye contact. NG feeding at 50cc/hr. Patient at O2 sat of 100%. Maintenance IV in place. Muhammad to bedside. Trach looks clean and dry. Discussed with RN. Chart reviewed. Vitals/I&O Vitals/I&O: Vital Signs Date Time Temp Pulse Resp B/P (MAP) Pulse Ox O2 Delivery O2 Flow Rate FiO2 03/05/21 13:00 100 Ventilator 03/05/21 12:22 98.9 101 20 101/67 (78) 98.9 I & O 03/04/21 03/04/21 03/05/21 15:00 23:00 07:00 Intake Total 300 ml 1262 ml 1034 ml Output Total 300 ml 265 ml 475 ml Balance 0 ml 997 ml 559 ml Physical Exam Physical Exam: GENERAL: Awake gentleman, on a ventilator, not in distress. VITAL SIGNS: stable HEENT: Both pupils are round and reacting. No conjunctival lesion. No lesion in the mouth. NECK: Supple, no JVP, tracheostomy in place. LUNGS: Clear. HEART: S1, S2 regular. ABDOMEN: Soft, nontender, no organomegaly. EXTREMITIES: No edema, cyanosis. SKIN: Some minor sacrococcygeal breakdown present. Rest of the skin exam is unremarkable. PICC line site is unremarkable. Hemodialysis catheter has been placed yesterday. NEUROLOGIC: The patient is awake, but on a ventilator, unable to information clerk the full neuro status. General: Alert, Cooperative, Other (SEDATED) Heart: Regular rate, Normal S1, Normal S2, No murmurs, Gallops Lungs: Other (Decreased breath sounds left lung) Abdomen: Soft Extremities: No clubbing, No cyanosis, No edema, Normal pulses, No tenderness/swelling Skin: No rashes, Other (heel pressure ulcers) Labs Labs: Laboratory Tests Test 03/04/21 18:05 03/04/21 23:25 03/05/21 05:51 03/05/21 06:00 Glucose (Fingerstick) 117 mg/dL (70-99) 103 mg/dL (70-99) 106 mg/dL (70-99) White Blood Count 18.1 x10^3/uL (4.0-11.0) Red Blood Count 2.53 x10^6/uL (4.30-5.70) Hemoglobin 7.5 g/dL (13.0-17.5) Hematocrit 22.7 % (39.0-53.0) Mean Corpuscular Volume 90 fL (79-100) Mean Corpuscular Hemoglobin 30 pg (25-35) Mean Corpuscular Hemoglobin Concent 33 g/dL (31-37) Red Cell Distribution Width 17.5 % (11.5-14.5) Platelet Count 168 x10^3/uL (140-400) Sodium Level 141 mmol/L (136-145) Potassium Level 5.1 mmol/L (3.5-5.1) Chloride Level 107 mmol/L (98-107) Carbon Dioxide Level 30 mmol/L (21-32) Anion Gap 4 (6-14) Blood Urea Nitrogen 52 mg/dL (8-26) Creatinine 2.0 mg/dL (0.7-1.3) Estimated GFR (Cockcroft-Gault) 40.5 BUN/Creatinine Ratio 26 (6-20) Glucose Level 113 mg/dL (70-99) Calcium Level 9.2 mg/dL (8.5-10.1) Total Bilirubin 0.6 mg/dL (0.2-1.0) Aspartate Amino Transf (AST/SGOT) 7 U/L (15-37) Alanine Aminotransferase (ALT/SGPT) 20 U/L (16-63) Alkaline Phosphatase 158 U/L (46-116) Total Protein 5.0 g/dL (6.4-8.2) Albumin 1.2 g/dL (3.4-5.0) Albumin/Globulin Ratio 0.3 (1.0-1.7) Review of Systems Review of Systems: GI: no nausea. no vomiting. Eyes: no changes in vision. no blurry vision. Assessment and Plan Assessmemt and Plan Problems Medical Problems: (1) Acute hyperkalemia Status: Acute (2) Acute renal failure Status: Acute (3) Anemia Status: Acute (4) Third degree heart block Status: Acute Acute on chronic hypoxic respiratory failure Acute anemia Bacteremia 3rd degree heart block Bradycardia Lung cancer AI Hyperkalemia Hypoglycemia Plan: 1. ICU monitoring 2. Vent weaning 3. Continue IV Merro 4. Wean off Levophed 5. Continue NG feeding 6. Trend labs 7. Home meds 8. DVT prophylaxis 9. DDP (possibly back to [facility]) Comment Review of Relevant I have reviewed the following items kae (where applicable) has been applied. Medications: Current Medications Medications (Trade) Dose Ordered Sig/Gigi Route PRN Reason Start Time Stop Time Status Last Admin Dose Admin Furosemide (Lasix) 60 mg 1X ONCE IVP 03/05/21 11:30 03/05/21 11:31 DC 03/05/21 12:05 Justifications for Admission General Conditions Poss hypotension?: Yes Justification for admission: Patient has hypotension (SBP < 90 mm Hg) which is not readily corrected by appropriate treatment within 12 to 24 hours. Other Justification PAUL SHEA III DO Mar 05, 2021 13:54
--- NOTE | 2021-03-05 15:33 | NUR ---
Discharge Note: [facility] Discharge instructions and discharge home medications reviewed with Other facility and a copy given. All questions have been answered and understanding verbalized. The following instructions and handouts were given: Nursing report given to Rama RN. Diet, medication, assessment was discussed with justin RN. Discontinued lines and drains:R trialysis removed with tip intact. Pressure held. SILVINO single lumen picc stayed in place per facility. Patient discharged to [facility]. [facility] drove patient from [facility] facilty.
[2021-03-06] MEDS ORDERED: LANSOPRAZOLE 30 MG TAB.RAP.DR FT SCH (09:00)
== END 2021-03-05 15:38 | DRG 870 ==
LOC: ER 09:55 → 1 WEST ICU 11:22
PROVIDERS: ADMIT Family Medicine; ATTEND Family Medicine
PROC: 5A1955Z Respiratory Ventilation, Greater than 96 Consecutive Hours (ICD-10-PCS; principal; 2021-02-27)
PROC: 30233N1 Transfusion of Nonautologous Red Blood Cells into Peripheral Vein, Percutaneous Approach (ICD-10-PCS; 2021-02-27)
PROC: 02H633Z Insertion of Infusion Device into Right Atrium, Percutaneous Approach (ICD-10-PCS; 2021-02-27)
PROC: B548ZZA Ultrasonography of Superior Vena Cava, Guidance (ICD-10-PCS; 2021-02-27)
PROC: 5A1D70Z Performance of Urinary Filtration, Intermittent, Less than 6 Hours Per Day (ICD-10-PCS; 2021-02-27)
DX: A41.51 Sepsis due to Escherichia coli [E. coli] (principal); J96.21 Acute and chronic respiratory failure with hypoxia; I50.23 Acute on chronic systolic (congestive) heart failure; J18.9 Pneumonia, unspecified organism; R65.21 Severe sepsis with septic shock; C34.90 Malignant neoplasm of unspecified part of unspecified bronchus or lung; C77.9 Secondary and unspecified malignant neoplasm of lymph node, unspecified; I13.0 Hypertensive heart and chronic kidney disease with heart failure and stage 1 through stage 4 chronic kidney disease, or unspecified chronic kidney disease; I31.3 Pericardial effusion (noninflammatory); I42.9 Cardiomyopathy, unspecified; I44.2 Atrioventricular block, complete; J44.0 Chronic obstructive pulmonary disease with (acute) lower respiratory infection; J98.11 Atelectasis; N17.9 Acute kidney failure, unspecified; N39.0 Urinary tract infection, site not specified; Q61.3 Polycystic kidney, unspecified; Z99.11 Dependence on respirator [ventilator] status; D63.8 Anemia in other chronic diseases classified elsewhere; D69.6 Thrombocytopenia, unspecified; E16.2 Hypoglycemia, unspecified; E78.00 Pure hypercholesterolemia, unspecified; E78.5 Hyperlipidemia, unspecified; E87.5 Hyperkalemia; F20.9 Schizophrenia, unspecified; I48.0 Paroxysmal atrial fibrillation; I49.8 Other specified cardiac arrhythmias; K55.20 Angiodysplasia of colon without hemorrhage; K57.90 Diverticulosis of intestine, part unspecified, without perforation or abscess without bleeding; K80.20 Calculus of gallbladder without cholecystitis without obstruction; L89.622 Pressure ulcer of left heel, stage 2; M06.9 Rheumatoid arthritis, unspecified; M43.16 Spondylolisthesis, lumbar region; N18.9 Chronic kidney disease, unspecified; N40.0 Benign prostatic hyperplasia without lower urinary tract symptoms; N50.89 Other specified disorders of the male genital organs; Y95 Nosocomial condition; Z66 Do not resuscitate; Z79.01 Long term (current) use of anticoagulants; Z82.49 Family history of ischemic heart disease and other diseases of the circulatory system; Z85.118 Personal history of other malignant neoplasm of bronchus and lung; Z87.891 Personal history of nicotine dependence; Z90.5 Acquired absence of kidney; Z93.0 Tracheostomy status; F32.9 Major depressive disorder, single episode, unspecified; F41.9 Anxiety disorder, unspecified; G43.909 Migraine, unspecified, not intractable, without status migrainosus; K21.9 Gastro-esophageal reflux disease without esophagitis; Z20.822 Contact with and (suspected) exposure to COVID-19; Z88.8 Allergy status to other drugs, medicaments and biological substances
CPT/HCPCS: 36415; 36430; 36556; 36600; 71045; 71250; 74018; 74176; 76937; 80048; 80053; 81001; 82805; 82962; 83605; 83615; 83880; 84484; 85007; 85025; 85027; 85610; 85730; 86706; 86850; 86900; 86901; 86922; 87040; 87086; 87340; 93005; 94002; 94003; 94640; 96365; 96366; 96375; 96376; C1892; C9113; J0461; J0610; J1265; J1815; J1940; J2185; J3370; J3490; J7040; J7042; J7060; P9016; 99291-25; G0378; J7613; J7626